=== PATIENT | male | born 1970 | race Caucasian/White ===

== ENCOUNTER 2018-01-03 22:39 | Emergency (ER) | payer BC ==
[~2018-01-03] VITALS: Ht 170.2 cm; Wt 86.2 kg
--- NOTE | 2018-01-04 07:36 | EKG ---
[facility] [address] [facility] [place] [address] Signed Normal sinus rhythm Incomplete right bundle branch block ST elevation, consider early repolarization, pericarditis, or injury Abnormal ECG No previous ECGs available Confirmed by JERED SANDERS MD ([id number]) on 01/04/2018 7:36:23 AM Electronically Signed By: JERED SANDERS MD 01/04/18 0736 PATIENT NAME: JORDANRODERICK Electrocardiogram DATE OF : 66 PHYSICIAN: JERED SANDERS MD REPORT #: [id number] REPORT IS CONFIDENTIAL AND NOT TO BE RELEASED WITHOUT AUTHORIZATION
== END 2018-01-03 23:24 | disposition short-term general hospital (02) ==
LOC: ED 22:39
DX: I21.09 ST elevation (STEMI) myocardial infarction involving other coronary artery of anterior wall (principal); Z88.0 Allergy status to penicillin
CPT/HCPCS: 71045; 80053; 84484; 85025; 93005; 93010; 96374; 96375; 99285; J1644; J2270

== ENCOUNTER 2019-09-02 17:17 | Emergency (ER) | payer BC ==
[~2019-09-02] VITALS: Ht 170.2 cm; Wt 86.2 kg
--- OUTSIDE RECORDS SUMMARY | ~2019-09-02 | XMS | Encounter Summary ---
Demographics + + + | Address | [address] | | | [place] [address] | + + + | Home Phone | | + + + | Preferred Language | Unknown | + + + | Marital Status | | + + + | Restorationism Affiliation | 1013 | + + + | Race | Unknown | + + + | Ethnic Group | Unknown | + + + Author + + + | Author | [facility] | | | and Randalana | + + + | Organization | [facility] | | | and Randalana | + + + | Address | Unknown | + + + | Phone | Unavailable | + + + Support + + +---------+ + | Name | Relationship | Address | Phone | + + +---------+ + | Margaret Vargas | ECON | Unknown | | + + +---------+ + | Julia Saranbay | ECON | Unknown | | + + +---------+ + | Julia Saranbay | ECON | Unknown | | + + +---------+ + Care Team Providers + +------+ + | Care Android Software Engineer Name | Role | Phone | + +------+ + | Mary Kraft | PCP | | | [place] | | | + +------+ + Reason for Visit + + + | Reason | Comments | + + + | Hospital Follow-up | | + + + Encounter Details +--------+ + + + + | Date | Type | Department | Care Team | Description | +--------+ + + + + | 01/10/ | Telephone | [facility] | Olivia Rodriguez, | Hospital Follow-up | | 2018 | | [facility] | PharmD [address] | | | | [address] [facility] | [facility] | | | | | [place] [address] | [place] [address] | | | | | [phone] | [phone] | | +--------+ + + + + Social History + +-------+ +--------+------+ | Tobacco Use | Types | Packs/Day | Years | Date | | | | | Used | | + +-------+ +--------+------+ | Never Assessed | | | | | + +-------+ +--------+------+ + + + | Sex Assigned at | Date Recorded | | | | + + + | Not on file | | + + + + + + + | Job Start Date | Occupation | Industry | + + + + | Not on file | Not on file | Not on file | + + + + + + + + | Travel History | Travel Start | Travel End | + + + + + + | No recent travel history available. | + + documented as of this encounter Functional Status + + + + | Functional Status | Response | Date of Assessment | + + + + | Are you deaf or do you have serious | No | 01/05/2018 | | difficulty hearing? | | | + + + + | Are you blind or do you have serious | No | 01/05/2018 | | difficulty seeing, even when wearing | | | | glasses? | | | + + + + | Do you have serious difficulty walking or | No | 01/05/2018 | | climbing stairs? (5 years old or older) | | | + + + + | Do you have difficulty dressing or bathing? | No | 01/05/2018 | | (5 years old or older) | | | + + + + | Because of a physical, mental, or emotional | No | 01/05/2018 | | condition, do you have difficulty doing | | | | errands alone such as visiting a doctor's | | | | office or shopping? [15 years old or | | | | older)] | | | + + + + + + + + | Cognitive Status | Response | Date of Assessment | + + + + | Because of a physical, mental, or emotional | No | 01/05/2018 | | condition, do you have serious difficulty | | | | concentrating, remembering, or making | | | | decisions? (5 years old or older) | | | + + + + documented as of this encounter Plan of Treatment Not on filedocumented as of this encounter Visit Diagnoses Not on filedocumented in this encounter"
--- OUTSIDE RECORDS SUMMARY | ~2019-09-02 | XMS | Encounter Summary ---
Demographics + + + | Address | [address] | | | [place] [address] | + + + | Home Phone | | + + + | Preferred Language | Unknown | + + + | Marital Status | | + + + | Religion Affiliation | 1013 | + + + | Race | Unknown | + + + | Ethnic Group | Unknown | + + + Author + + + | Author | [facility] | | | and Randalana | + + + | Organization | [facility] | | | and Randalana | + + + | Address | Unknown | + + + | Phone | Unavailable | + + + Support + + +---------+ + | Name | Relationship | Address | Phone | + + +---------+ + | Margaret Vargas | ECON | Unknown | | + + +---------+ + | Julia Sarantanisha | ECON | Unknown | | + + +---------+ + | Julia Sarantanishast | ECON | Unknown | | + + +---------+ + Care Team Providers + +------+ + | Care Registered Art Therapist Name | Role | Phone | + +------+ + PCP | Unavailable | + +------+ + Encounter Details +--------+ + + + + | Date | Type | Department | Care Team | Description | +--------+ + + + + | 08/16/ | Hospital | [facility] | Charisma Underwood | | | 2013 | Encounter | [facility] | [address] | | | | | [address] [place] | [facility], | | | | | [facility], [place] | [place] [address] | | | | | [address] | [phone] | | | | | [phone] | | | +--------+ + + + + [...]
--- OUTSIDE RECORDS SUMMARY | ~2019-09-02 | XMS | Encounter Summary ---
Demographics + + + | Address | [address] | | | [place] [address] | + + + | Home Phone | | + + + | Preferred Language | Unknown | + + + | Marital Status | | + + + | Cheondoism Affiliation | 1013 | + + + | Race | Unknown | + + + | Ethnic Group | Unknown | + + + Author + + + | Author | [facility] | | | and Randalana | + + + | Organization | [facility] | | | and Randalana | [...] Team Providers + +------+ + | Care Treasury Assistant Name | Role | Phone | + +------+ + PCP | Unavailable | + +------+ + Encounter Details +--------+ + + + + | Date | Type | Department | Care Team | Description | +--------+ + + + + | 10/22/ | Hospital | [facility] | Adrián English | | | 2009 | Encounter | [facility] X[facility] [address] | [address] | | | | | [address] [place] | [address] [place] | | | | | [place], [place] | [place] [address] | | | | | [address] | [phone] | | | | | [phone] | | | +--------+ + + + [...]
--- OUTSIDE RECORDS SUMMARY | ~2019-09-02 | XMS | Encounter Summary ---
Demographics + + + | Address | [address] | | | [place] [address] | + + + | Home Phone | | + + + | Preferred Language | Unknown | + + + | Marital Status | | + + + | Muslim Affiliation | 1013 | + + + | Race | Unknown | + + + | Ethnic Group | Unknown | + + + Author + + + | Author | [facility] | | | and Randalana | + + + | Organization | [facility] | | | and Randalana [...] Team Providers + +------+ + | Care Sagger Maker Name | Role | Phone | + +------+ + | Mary Kraft | PCP | | | [place] | | | + +------+ + Reason for Visit + + + | Reason | Comments | + + + | Hospital Follow-up | | + + + | Coronary Artery | | | Disease | | + + + Evaluate & Treat (Routine) +--------+--------+ + + + + | Status | Reason | Specialty | Diagnoses / | Referred By | Referred To | | | | | Procedures | Contact | Contact | +--------+--------+ + + + + | Closed | | Cardiology | Diagnoses | Nestor, | Peewee Baez | | | | | STEMI | Peewee Marinelli, | MD Yves | | | | | involving | [address] | | | | left | [address] | [address] [place] | | | | | anterior | [place], | [place], [place] | | | | | descending | [place] [address] | [address] Phone: | | | | | coronary | Phone: | [phone] | | | | | artery (HCC) | [phone] | Fax: | | | | | Acute | Fax: | [phone] | | | | | myocardial | [phone] | | | | | | infarction | | | | | | | of anterior | | | | | | | wall (HCC) | | | | | | | CAD, | | | | | | | multiple | | | | | | | vessel | | | | | | | Procedures | | | | | | | NEW TO | | | | | | | CLINIC, SEEN | | | | | | | BY [facility] | | | | | | | HOSP | | | +--------+--------+ + + + + Encounter Details +--------+---------+ + + + | Date | Type | Department | Care Team | Description | +--------+---------+ + + + | 02/08/ | Office | [facility] | Peewee Baez | Coronary artery | | 2018 | Visit | CARDIOLOGY [address] | MD [address] | disease involving | | | | [place], | [address] [place] | creek coronary | | | | [place] [address] | [place] [address] | artery of creek | | | | [phone] | [phone] | heart with angina | | | | | | pectoris (HCC) | | | | | | (Primary Dx); Status | | | | | | post insertion of | | | | | | drug-eluting stent | | | | | | into left anterior | | | | | | descending (LAD) | | | | | | artery for coronary | | | | | | artery disease | +--------+---------+ + + + Social History + +-------+ +--------+------+ | Tobacco Use | Types | Packs/Day | Years | Date | | | | | Used | | + +-------+ +--------+------+ | Never Smoker | | | | | + +-------+ +--------+------+ + +---+---+---+ | Smokeless Tobacco: | | | | | Never Used | | | | + +---+---+---+ + + + | Sex Assigned at [...] + + documented as of this encounter Last Filed Vital Signs + + + + + | Vital Sign | Reading | Time Taken | Comments | + + + + + | Blood Pressure | 118/82 | 02/08/2018 10:45 AM | | | | | PDT | | + + + + + | Pulse | 76 | 02/08/2018 10:45 AM | | | | | PDT | | + + + + + | Temperature | - | - | | + + + + + | Respiratory Rate | 16 | 02/08/2018 10:45 AM | | | | | PDT | | + + + + + | Oxygen Saturation | - | - | | + + + + + | Inhaled Oxygen | - | - | | | Concentration | | | | + + + + + | Weight | 88 kg (194 lb) | 02/08/2018 10:45 AM | | | | | PDT | | + + + + + | Height | 170.2 cm (5' 7") | 02/08/2018 10:45 AM | | | | | PDT | | + + + + + | Body Mass Index | 30.38 | 02/08/2018 10:45 AM | | | | | PDT | | + + + + + documented in this encounter Functional Status + + + [...] + + documented as of this encounter Progress Notes Peewee Baez MD - 02/08/2018 11:00 AM PDTDoing well post ME, stenting of LAD. He salcedo s a non-dominant right coronary with 75% stenoses and a left PDA with a 60% narrowing. No a ngina, SOA, palpitation. Active in cardiac rehab. 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 Exam was normal today; lungs clear, no M,r,g. Abd benign, No edema Imp: S/p anterior ME, stent to LAD CAD appropriate for medical management at this time. Plan: Stop carvedilol and start lisinopril in a month, when his Coreg bottle is empty. Return in 6 months. 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
--- OUTSIDE RECORDS SUMMARY | ~2019-09-02 | XMS | Encounter Summary ---
Demographics + + + | Address | [address] | | | [place] [address] | + + + | Home Phone | | + + + | Preferred Language | Unknown | + + + | Marital Status | | + + + | Buddhism Affiliation | 1013 | + + + | Race | Unknown | + + + | Ethnic Group | Unknown | + + + Author + + + | Author | [facility] | | | and Randalana | + + + | Organization | [facility] | | | and Randalana | + + + | Address | Unknown | + + + | Phone | Unavailable | + + + Support + + +---------+ + | Name | Relationship | Address | Phone | + + +---------+ + | Margaret Vargas | ECON | Unknown | | + + +---------+ + | Julia Vertanisha | ECON | Unknown | | + + +---------+ + | Julia Sarantanishast | ECON | Unknown | | + + +---------+ + Care Team Providers + +------+ + | Care Archives Specialist Name | Role | Phone | + +------+ + PCP | Unavailable | + +------+ + Encounter Details +--------+ + + + + | Date | Type | Department | Care Team | Description | +--------+ + + + + | 09/15/ | Hospital | [facility] | Michael Tuttle | | | 2008 | Encounter | HOSPITAL EMERGENCY | [address] | | | | | [address] | [place], | | | | | [address] [place], [place] | [place] [address] | | | | | [address] | [phone] | | | | | [phone] | | | +--------+ + + + [...]
--- OUTSIDE RECORDS SUMMARY | ~2019-09-02 | XMS | Encounter Summary ---
Demographics + + + | Address | [address] | | | [place] [address] | + + + | Home Phone | | + + + | Preferred Language | Unknown | + + + | Marital Status | | + + + | Rastafarian Affiliation | 1013 | + + + | Race | Unknown | + + + | Ethnic Group | Unknown | + + + Author + + + | Author | [facility] | | | and Randalana | + + + | Organization | [facility] | | | and Randalana [...] Team Providers + +------+ + | Care Green Chainer Name | Role | Phone | + +------+ + PCP | Unavailable | + +------+ + Encounter Details +--------+ + + + + | Date | Type | Department | Care Team | Description | +--------+ + + + + | 08/14/ | Hospital | [facility] | Charisma Underwood | | | 2012 | Encounter | [facility] | [address] | | | | | [facility] | [facility] [facility], | | | | | [facility], | [place] [address] | | | | | [place] [address] | [phone] | | | | | [phone] | | | +--------+ + + + [...]
--- OUTSIDE RECORDS SUMMARY | ~2019-09-02 | XMS | Encounter Summary ---
Demographics + + + | Address | [address] | | | [place] [address] | + + + | Home Phone | | + + + | Preferred Language | Unknown | + + + | Marital Status | | + + + | Yarsanism Affiliation | 1013 | + + + | Race | Unknown | + + + | Ethnic Group | Unknown | + + + Author + + + | Author | [facility] | | | and Randalana | + + + | Organization | [facility] | | | and Randalana [...] Team Providers + +------+ + | Care Hot Die Press Operator Name | Role | Phone | + +------+ + | Mary Kraft | PCP | | | PA | | | + +------+ + Reason for Visit + + + | Reason | Comments | + + + | Cardiac Rehab | | + + + Evaluate & Treat (Routine) +--------+ + + + + + | Status | Reason | Specialty | Diagnoses / | Referred By | Referred To | | | | | Procedures | Contact | Contact | +--------+ + + + + + | Closed | Specialty | Cardiac | Diagnoses | Nestor, | [facility] | | | Services | Rehabilitatio | STEMI | Peewee Marinelli, | | | | Required | n | involving | MD [address] | Rehabilitatio | | | | | left | [address] | [address] | | | | | anterior | [place], | [place] | | | | | descending | [place] [address] | [place] | | | | | coronary | Phone: | [phone] | | | | | artery (HCC) | [phone] | Phone: | | | | | | Fax: | [phone] | | | | | | [phone] | Fax: | | | | | | | [phone] | +--------+ + + + + + Encounter Details +--------+---------+ + + + | Date | Type | Department | Care Team | Description | +--------+---------+ + + + | 02/01/ | Office | [facility] | Peewee Baez | STEMI involving left | | 2018 | Visit | [facility] | MD Yves [address] | anterior descending | | | | REHABILIT[address] [place] | coronary artery | | | | [address] [place] | [place] [address] | ([facility]) (Primary Dx) | | | | [place] [address] | [phone] | | | | | [phone] | | | | | | | Betsy Martinez RN | | +--------+---------+ + + + Social History [...] documented as of this encounter Progress Notes Betsy Martinez RN - 02/01/2018 11:30 AM PDT [facility] [address] [facility] [address] Cardiac Rehab Evaluation Date: 02/01/2018 Patient Information Patient Name: Roby Goodman Date of : 1970 Age: 48 y.o. Referring Provider: Peewee Baez MD Encounter Diagnoses Code Name Primary? I21.02 STEMI involving left anterior descending coronary artery (HCC) Yes Cardiac Rehab Phase II Rahul atment Plan Roby Goodman (Casey) is a 48 year old patient of Dr. Baez who had chest pain on and was ruled in for STEMI. Troponin: 32. Dr. Baez stented his occluded LAD. His LVEF po st [place] is 50-55%. He is on light duty at work, walking daily at an easy pace. He denies any adverse symptoms and is feeling well. Fall Ri sk Assessment Fall Risk: 2 or more falls in the past year or concern for a fall?: No If yes, reason for fall risk: Assistive device: I nterventions Designate Fall Risk by placing a star on exercise folder Assess and encourage fall risk reduction behaviors Manage and monitor hypotension if applicable Optimize home safety Refer to PT if applicable Abuse Assessment Do you feel safe in your current relationship or home? Yes Have you been hit/hurt or threatened by someone close to you? No Possible clinical concerns noted by clinician? No Action taken: No concerns Exercise LVEF: 50-55% Risk stratification category: High Risk until after January 13 0, then low risk Initial exercise/activity assessment: Date: 02/01/18 Mode: Upright elliptical Duration: 4.5 min at 30 RPMs RPE: 3/10 30 Day exercise assessment: Date: Mode: Duration: RPE: /10 60 Day exercise assessment: Date: Mode: Duration: RPE: /10 Discharge exercise assessment: Date: Mode: Duration: RPE: /10 Sessio n Prescription Modes: Recumbent elliptical, Upright elliptical, Ergometer Frequency: 3 X week Duration: 10 minutes Progression: Increase duration and/or intensity to maintain THR and/or RPE 3-4/10 THR: Rest +30 bpm Resistance training: Yes Precautions: High risk cardiac until February 09- post GA precautions. Home E xercise Modes: Walk Frequency: 5 X week Duration: 30 minutes Progression: Increase duration and/or intensity of exercise to maintain at least 30 min of cardio exercise, 5 days per week and RPE 3-4/10 with warm up and cool down. Interventio ns and Education Initial orientation to cardiac rehab as listed below, Completed Date: 01/12 10/31 - Equipment orientation -Warm up and cool down -Rating of Perceived Exertion- Modified Meme Scale -Exercise Safety -Signs and Symptoms to report -Individualized exercise prescription Education: Benefits of exercise, Health consequences of inactivity, Exercise goal of 30 min utes aerobic most days of the week, Importance of hydration, Target heart rate, Determining pulse, effects of beta-blockers on heart rate and dehydrating effects of diuretics if applic able. Realistic goal setting. Plan at discharge. Comprehension assessment: Through conversation they appear to have good comprehension. Sofie: Living Well with Heart Disease book Date received: 02/01/18 Nik rget Goal(s) Aerobic- moderate intensity activity 30 to 60 minutes per day for at least 5 days per week Supplementing aerobic activity with an increase in daily lifestyle activities Resistance training at least two days per week COOP score: 10/40 Progression/Pro maritza toward Goals Date: 02/01/18 Notes: He is observing post GA precautions. Walking for 30 minute s each day at an easy pace. Nutr ition and Weight Assessment: Height: 5'7 " Admission Weight: 195# 30 Day We ight: BMI: 30.5 60 Day Weight: Discharge Weight: Weight Goal: Lose 1-2 pounds per week Waist Circumference: D/C Circum ference: Diet Assessment Initial Rate Your Plate Score: 58 Discharge Rate Your Plate Sco re: Special diet? Heart Healthy Alcohol? occ Inte rvention and Education Points listed below- Date Completed: 02/01/18 -Goals of BMI, Waist circumference - Encourage weight reduction and/or maintenance through physical activity/ structured exe rcise, caloric intake, and/ or behavioral management, goal setting -Heart Healthy Dietary Education Date: 02/01/18 -Referral to Blueprint Processor: Date: -DVD: Healthy Eating For Life Date: Target Goal(s) -Patient weight has maintained or improved toward BMI <25 -Waist circumference <35 inches for women < 40 inches for men -Diet low in saturated fats, simple carbs, high in fruits, vegetables and whole grains Progression/ Progress toward Goals Date: 02/01/18 Notes: He is eating a diet low in saturated fats, simple carbs a nd sugars, high in vegetables, fruits, lean meats, nuts and fish. Hypertension History of hypertension: yes Treatment: On medication Initial Resting BP: 128/78 Peak Exercise BP: 138/80 30 Day Resting BP: 30 Day Exercise BP: 60 Day Resting BP: 60 Day Exercise BP: Discharge BP: Discharge Exercise BP: Inte rventions and Education Points listed below- Date Completed: 02/01/18 -Understanding blood pressure and goal blood pressure -BP medictions - Lifestyle modifications: weight control, increased physical activity, alcohol moderation, sodium reduction, emphasis on increased fruit, vegetable and low fat dairy consumption Individual cardiac risk factors reviewed Progress toward Goals: Date: Target Goal Blood pressure Goal: <130/80 Progression /Progress toward Goals Date: 02/01/18 Notes: Losing weight, limiting sodium and exercising daily. Dyslipidemia History of Dyslipidemia: Yes Treatment: On medication Most recent lipid panel: CHOL 190 TRIG 164 HDL 35 LDL 122 Interven tions and Education Points listed below- Date Completed: 02/01/18 -Advocate for cholesterol medication if appropriate -Encourage lifestyle changes including regular lipid monitoring to achieve goals, include education on the importance of physical activity and weight management, dietary reduction o f saturated fats(<7% of total calories,) trans fats (<1% of total calories,) and cholesterol (<200mg/day.) How to raise HDL through exercise and diet. Target Goal Total 170 LDL 70 HDL >40 Triglycerides <130 Progression/P rogress toward Goals Date: 02/01/18 Notes: Losing weight, limiting saturated fats and exercising yo aily. Kandace orona Mellitus History of diabetes: No Treatment: Last hemoglobin A1C: Value: Date: Interventions -Evaluate blood sugar pre- and post- exercise until stable. Date: Range: -Referral to Static Balancer Date: Education Points listed below- Date Completed: -Signs and symptoms of hypoglycemia -Impact of diabetes on cardiovascular risk, including understanding the importance of lifes tyle modifications, including physical activity, weight management, blood pressure control a nd lipid management Date completed: Diabetic diet instruction Date completed: Target Goals -Stable pre and post exercise glucoscans -HgbA1C: <7% Progression/ Progress toward Goals Date: Notes: Tobacco Use Active tobacco user: No Type of tobacco: None Current amount: n/a Stage of change: Willing to set Quit Da te: n/a Barriers/Challenges: Inter vention and Education Points listed below- Date Completed: -Assist patient to set a quit date and provide encouragement -Educate on benefits of complete cessation, tobacco triggers, tips for success, relapse pre vention, no smoking >90 minutes before exercise Target Goal Complete smoking cessation Progression/P rogress toward Goals Date: Notes: Psychosocial Depression: No Initial PHQ-9: 0 30 Day PHQ-9: 90 Day PHQ-9 Discharge PHQ-9: Support systems: , family and coworkers Notes: Inter vention and Education Points listed below- Date Completed: -Assess presence or absence of depression using a validated screening tool on admission and every 30 days or prn if depression positive on admission or if set backs or changes in affe ct -Educate Stress management techniques, Deep breathing, progressive relaxation, encourage re gular execise -Educate and medical management -Notify PCP of depression symptoms or high PHQ-9 score. Date: Target Goal Mood improvement as indicated by broadened affect, increased interaction, reassesses with i mproved PHQ-9, Maximized coping skills, utilizing support system Progression/Progress to aponte Goals Date: Notes: Patients stated Goals for Cardiac Rehab: To regain confidence in exercising post heart thomas ck. Electronically signed by: Betsy Martinez RN, 02/01/2018 12:34 Patient Name: Roby Goodman/: 1970/ y signed by Mariah Rosado MD at 02/01/2018 1:00 PM PDTdocumented in this encounter Plan of Treatment + + +--------+ + + | Name | Type | Priori | Associated Diagnoses | Order Schedule | | | | ty | | | + + +--------+ + + | * [facility] | Outpatient | Routin | STEMI involving | Ordered: 01/05/2018 | | - AMB Referral | Referral | e | left anterior | | | | | | descending coronary | | | | | | artery (HCC) | | + + +--------+ + + documented as of this encounter Visit Diagnoses + + | Diagnosis | + + | STEMI involving left anterior descending coronary artery (HCC) - Primary | + + documented in this encounter
--- OUTSIDE RECORDS SUMMARY | ~2019-09-02 | XMS | Clinical Summary ---
Demographics + + + | Address | [address] | | | [place] [address] | + + + | Home Phone | | + + + | Preferred Language | Unknown | + + + | Marital Status | | + + + | Taoist Affiliation | 1013 | + + + | Race | Unknown | + + + | Ethnic Group | Unknown | + + + Author + + + | Author | [facility] | | | and Randalana | + + + | Organization | [facility] | | | and Randalana | [...] Team Providers + +------+ + | Care Residential Construction Instructor Name | Role | Phone | + +------+ + | Mary Kraft | PCP | | | PA | | | + +------+ + Allergies + + + + + + | Active Allergy | Reactions | Severity | Noted | Comments | | | | | Date | | + + + + + + | Penicillins | | | 01/05/20 | SLIGHT REACTION | | | | | 18 | | + + + + + + Medications + + + +---------+------+------+-------+ | Medication | Sig | Dispensed | Refills | Star | End | Statu | | | | | | t | Date | s | | | | | | Date | | | + + + +---------+------+------+-------+ | aspirin 81 mg | Take 1 tablet by | 30 | 0 | 2 | | Activ | | chewable | mouth Daily. | tablet | | 03/02 | | e | | tabletIndications: | | | | 18 | | | | Coronary artery | | | | | | | | disease involving | | | | | | | | chilkoot coronary | | | | | | | | artery of chilkoot | | | | | | | | heart with angina | | | | | | | | pectoris ([facility]) | | | | | | | + + + +---------+------+------+-------+ | nitroglycerin | Place 1 tablet under | 25 | 5 | 04/2 | | Activ | | (NITROSTAT) 0.4 mg | the tongue every 5 | tablet | | 5/20 | | e | | SL | minutes as needed | | | 18 | | | | tabletIndications: | for Chest pain. | | | | | | | Coronary artery | | | | | | | | disease involving | | | | | | | | chilkoot coronary | | | | | | | | artery of chilkoot | | | | | | | | heart with angina | | | | | | | | pectoris ([facility]) | | | | | | | + + + +---------+------+------+-------+ | acetaminophen | Take 500 mg by mouth | | 0 | | | Activ | | (TYLENOL) 500 mg | every 6 hours as | | | | | e | | tablet | needed for Pain or | | | | | | | | Headaches. | | | | | | + + + +---------+------+------+-------+ | atorvaSTATin | Take 1 tablet by | 90 | 3 | 05/0 | | Activ | | (LIPITOR) 80 MG | mouth nightly. | tablet | | /20 | | e | | tabletIndications: | | | | 19 | | | | Coronary artery | | | | | | | | disease involving | | | | | | | | chilkoot coronary | | | | | | | | artery of chilkoot | | | | | | | | heart with angina | | | | | | | | pectoris (HCC) | | | | | | | + + + +---------+------+------+-------+ | metoprolol | Take 1 tablet by | 180 | 3 | 12/0 | | Activ | | tartrate (LOPRESSOR) | mouth 2 times daily. | tablet | | 5/20 | | e | | 25 mg tablet | | | | 19 | | | + + + +---------+------+------+-------+ | clopidogrel | Take 1 tablet by | 90 | 3 | 12/0 | 12/0 | Activ | | (PLAVIX) 75 mg | mouth Daily. | tablet | | 5/20 | 4/20 | e | | tablet | | | | 19 | 20 | | + + + +---------+------+------+-------+ | metoprolol | Take 1 tablet by | 180 | 3 | 11/2 | 12/0 | Disco | | tartrate (LOPRESSOR) | mouth 2 times daily. | tablet | | 7/20 | 5/20 | ntinu | | 25 mg tablet | | | | 18 | 19 | ed | | | | | | | | (Reor | | | | | | | | noe) | + + + +---------+------+------+-------+ | clopidogrel | Take 1 tablet by | 90 | 3 | 11/2 | 12/0 | Disco | | (PLAVIX) 75 mg | mouth Daily. | tablet | | 7/20 | 5/20 | ntinu | | tablet | | | | 18 | 19 | ed | | | | | | | | (Reor | | | | | | | | noe) | + + + +---------+------+------+-------+ Active Problems + + + | Problem | Noted Date | + + + | Status post coronary artery bypass with four autogenous grafts | 08/01/2019 | + + + | Atherosclerosis of chilkoot coronary artery | 07/08/2018 | + + + | Hyperlipidemia | 07/08/2018 | + + + | Chest pain | 07/08/2018 | + + + | Benign essential hypertension | 07/08/2018 | + + + | Unstable angina | 07/07/2018 | + + + + + | Overview: Cath with new lmca lesion. | | No isr of lad stent. | | High grade non dominant rca lesion | | Normal olivia | | Normal lv | + + + + + | STEMI involving left anterior descending coronary artery | 01/04/2018 | + + + | Coronary artery disease involving chilkoot coronary artery of | 01/04/2018 | | chilkoot heart with angina pectoris | | + + + | Status post insertion of drug-eluting stent into left anterior | 01/04/2018 | | descending (LAD) artery for coronary artery disease | | + + + | Nephrolithiasis | 04/18/2012 | + + + | Hyperlipidemia | 04/18/2012 | + + + | Sciatica | 10/09/2010 | + + + | Lumbago | 10/09/2010 | + + + | Ulcerative colitis | 06/26/2008 | + + + Encounters +--------+ + + + + | Date | Type | Specialty | Care Team | Description | +--------+ + + + + | 08/17/ | Orders Only | Cardiology | Montse Pinedo, | | | 2019 | | | RN | | +--------+ + + + + | 08/01/ | Office | Cardiology | Peewee Baez | Coronary artery | | 2019 | Visit | | MD Yves | disease involving | | | | | | chilkoot coronary | | | | | | artery of chilkoot | | | | | | heart with angina | | | | | | pectoris (HCC) | | | | | | (Primary Dx); | | | | | | Atherosclerosis of | | | | | | chilkoot coronary | | | | | | artery of chilkoot | | | | | | heart without angina | | | | | | pectoris; Status | | | | | | post insertion of | | | | | | drug-eluting stent | | | | | | into left anterior | | | | | | descending (LAD) | | | | | | artery for coronary | | | | | | artery disease; | | | | | | Status post coronary | | | | | | artery bypass with | | | | | | four autogenous | | | | | | grafts | +--------+ + + + + from Last 3 Months Immunizations + + + + | Name | Administration Dates | Next Due | + + + + | INFLUENZA PF | 07/07/2018 | | | QUAD(PED/ADOL/ADULT) | | | | ,PSKT or VIAL | | | + + + + | PNEUMOCOCCAL | 07/09/2018 | | | POLYSACCHARIDE | | | | 23-VALENT (PPSV23) | | | + + + + Family History + + +------+ + | Medical History | Relation | Name | Comments | + + +------+ + | No known problems | Father | | | + + +------+ + | No known problems | Mother | | | + + +------+ + + +------+--------+ + | Relation | Name | Status | Comments | + +------+--------+ + | Father | | | | + +------+--------+ + | Mother | | | | + +------+--------+ + Social History + +-------+ +--------+------+ | [...] recent travel history available. | + + Last Filed Vital Signs + + + + + | Vital Sign | Reading | Time Taken | Comments | + + + + + | Blood Pressure | 102/70 | 08/01/2019 7:48 AM | | | | | PST | | + + + + + | Pulse | 68 | 08/01/2019 7:48 AM | | | | | PST | | + + + + + | Temperature | 36.8 C (98.3 F) | 07/28/2018 10:55 AM | | | | | PST | | + + + + + | Respiratory Rate | 16 | 08/01/2019 7:48 AM | | | | | PST | | + + + + + | Oxygen Saturation | 98% | 07/08/2018 7:46 AM | | | | | PDT | | + + + + + | Inhaled Oxygen | - | - | | | Concentration | | | | + + + + + | Weight | 89 kg (196 lb 3.4 | 08/01/2019 7:48 AM | | | | oz) | PST | | + + + + + | Height | 170.2 cm (5' 7") | 08/01/2019 7:48 AM | | | | | PST | | + + + + + | Body Mass Index | 30.73 | 08/01/2019 7:48 AM | | | | | PST | | + + + + + Plan of Treatment + + + + + | Health Maintenance | Due Date | Last Done | Comments | + + + + + | Vaccine: | | | | | Dtap/Tdap/Td (1 - | 7 | | | | Tdap) | | | | + + + + + | Colorectal Cancer | | | | | Screening | 8 | | | | (Colonoscopy) | | | | + + + + + | Vaccine: Zoster (1 | | | | | of 2) | 8 | | | + + + + + | Vaccine: Influenza | | 07/09/2018, 07/08/2018, | | | (#1) | 9 | 07/07/2018, Additional history | | | | | exists | | + + + + + | Vaccine: | Completed | 07/09/2018 | | | Pneumococcal 19-64 | | | | + + + + + Implants + +-------+--------+ +--------+--------+--------+ | Implanted | Type | Area | Manufacture | Device | Shelf | Model | | | | | r | | Expira | / | | | | | | Identi | tion | Serial | | | | | | fier | Date | / Lot | + +-------+--------+ +--------+--------+--------+ | [place] Xience Stent System | Stent | N/A: | DAVIS | | 09/23/ | [id number] | | Implanted: Qty: 1 on | | Matt | DIAGNOSTICS | | 2019 | 0-33 / | | 01/03/2018 by Peewee Baez | | kristopher | - CADY | | | | | MD Yves at [facility] | | | | | | /[id number] | | [facility] | | | | | | 39 | + +-------+--------+ +--------+--------+--------+ | [employer] Xience Stent System | Stent | N/A: | DAVIS | | 06/17/ | [id number] | | Implanted: Qty: 1 on | | Matt | DIAGNOSTICS | | 2019 | 0-08 / | | 01/03/2018 by Peewee Baez | | kristopher | - CADY | | | | | MD Yves at [facility] | | | | | | /[id number] | | [facility] | | | | | | 59 | + +-------+--------+ +--------+--------+--------+ Results Not on filefrom Last 3 Months Insurance +-------+--------+ +--------+-------+---------+------+ | Payer | Benefi | Subscriber | Effect | Phone | Address | Type | | | t Plan | ID | leon | | | | | | / | | Dates | | | | | | Group | | | | | | +-------+--------+ +--------+-------+---------+------+ | BCBS | BCBS | [id number] | 03/13/20 | | | PPO | | | OOS | 0 | 19-Pre | | | | | | PPO | | sent | | | | +-------+--------+ +--------+-------+---------+------+ + +--------+ +--------+ + + | Guarantor Name | Accoun | Relation to | Date | Phone | Billing Address | | | t Type | Patient | of | | | | | | | | | | + +--------+ +--------+ + + | Roby Goodman | Person | Self | [birth year] | [address] | | | al/Fam | | 1970 | [phone] | [place] [address] | | | anup | | | 5 (Home) | | + +--------+ +--------+ + + Advance Directives + + + + + | Type | Date Recorded | Patient | Explanation | | | | Tug Boat Captain | | + + + + + | Power of | | | | | Kindergartner | | | | + + + + + | Advance | 01/04/2018 1:23 | | | | Directive | AM | | | + + + + + + + + + + | Code Status | Date | Date | Comments | | | Activated | Inactivated | | + + + + + | Full Code | 07/08/2018 | 07/08/2018 | | | | 8:39 AM | 11:41 AM | | + + + + + + + + +---+ | | | | | + + + +---+ | Full Code | 07/07/2018 | 07/07/2018 | | | | 10:32 AM | 1:53 PM | | + + + +---+ + + + +---+ | | | | | + + + +---+ | Full Code | 01/05/2018 | 01/05/2018 | | | | 10:51 AM | 2:30 PM | | + + + +---+
--- OUTSIDE RECORDS SUMMARY | ~2019-09-02 | XMS | Encounter Summary ---
Demographics + + + | Address | [address] | | | [place] [address] | + + + | Home Phone | | + + + | Preferred Language | Unknown | + + + | Marital Status | | + + + | Pentecostal Affiliation | 1013 | + + + | Race | Unknown | + + + | Ethnic Group | Unknown | + + + Author + + + | Author | [facility] | | | and Randalana | + + + | Organization | [facility] | | | and Randalana [...] Team Providers + +------+ + | Care Cd Reactor Operator Name | Role | Phone | + +------+ + PCP | Unavailable | + +------+ + Encounter Details +--------+ + + + + | Date | Type | Department | Care Team | Description | +--------+ + + + + | 08/16/ | Hospital | [facility] | [place] | | | 2013 | Encounter | [facility] | [address] | | | | | [facility] [address] | [address] | | | | | [facility] [facility], | [facility], [place] | | | | | [place] [address] | [address] | | | | | [phone] | [phone] | | | | | | | | +--------+ + + + [...]
--- OUTSIDE RECORDS SUMMARY | ~2019-09-02 | XMS | Encounter Summary ---
Demographics + + + | Address | [address] | | | [place] [address] | + + + | Home Phone | | + + + | Preferred Language | Unknown | + + + | Marital Status | | + + + | Scientology Affiliation | 1013 | + + + | Race | Unknown | + + + | Ethnic Group | Unknown | + + + Author + + + | Author | [facility] | | | and Randalana | + + + | Organization | [facility] | | | and Randalana | + + + | Address | Unknown | + + + | Phone | Unavailable | + + + Support + + +---------+ + | Name | Relationship | Address | Phone | + + +---------+ + | Margaret Vargas | ECON | Unknown | | + + +---------+ + | Julia Goodman | ECON | Unknown | | + + +---------+ + | Julia Saranbay | ECON | Unknown | | + + +---------+ + Care Team Providers + +------+ + | Care Commercial Loan Collection Officer Name | Role | Phone | + +------+ + | Mary Kraft | PCP | | | [place] | | | + +------+ + Reason for Visit +--------+ + | Reason | Comments | +--------+ + | Other | work release | +--------+ + Encounter Details +--------+ + + + + | Date | Type | Department | Care Team | Description | +--------+ + + + + | 03/02/ | Telephone | [facility] | Peewee Baez | Other (work release) | | 2017 | | [facility] [address] | MD Yves [address] | | | | | [place], | [address] [place] | | | | | [place] [address] | [place] [address] | | | | | [phone] | [phone] | | | | | | | [...] as of this encounter Plan of Treatment + +------+--------+ + + | Name | Type | Priori | Associated Diagnoses | Order Schedule | | | | ty | | | + +------+--------+ + + | Stress ECG | ECG | Routin | Coronary artery | Expected: 03/04/2018 | | | | e | disease involving | (Approximate), | | | | | [place] coronary | Expires: 03/04/2019 | | | | | artery of [place] | | | | | | heart with angina | | | | | | pectoris (HCC) | | | | | | STEMI involving left | | | | | | anterior descending | | | | | | coronary artery | | | | | | (HCC) | | + +------+--------+ + + documented as of this encounter Visit Diagnoses + + | Diagnosis | + + | Coronary artery disease involving [place] coronary artery of [place] heart with angina | | pectoris (HCC) - Primary | + + | STEMI involving left anterior descending coronary artery (HCC) | + + documented in this encounter"
--- OUTSIDE RECORDS SUMMARY | ~2019-09-02 | XMS | Encounter Summary ---
Demographics + + + | Address | [address] | | | [place] [address] | + + + | Home Phone | | + + + | Preferred Language | Unknown | + + + | Marital Status | | + + + | Pentecostal Affiliation | 1013 | + + + | Race | Unknown | + + + | Ethnic Group | Unknown | + + + Author + + + | Author | [facility] | | | and Randalana | + + + | Organization | [facility] | | | and Randalana [...] Team Providers + +------+ + | Care Clinic Supervisor Name | Role | Phone | + +------+ + PCP | Unavailable | + +------+ + Encounter Details +--------+ + + + + | Date | Type | Department | Care Team | Description | +--------+ + + + + | 10/03/ | Hospital | [facility] | Craig Sampson | | | 2008 | Encounter | HOSPITAL EMERGENCY | [address] | | | | | C[address] | [address] | | | | | [address] [place], [place] | [place] [address] | | | | | [address] | [phone] | | | | | [phone] | | | +--------+ + + + [...]
--- OUTSIDE RECORDS SUMMARY | ~2019-09-02 | XMS | Encounter Summary ---
Demographics + + + | Address | [address] | | | [place] [address] | + + + | Home Phone | | + + + | Preferred Language | Unknown | + + + | Marital Status | | + + + | Lutheran Affiliation | 1013 | + + + | Race | Unknown | + + + | Ethnic Group | Unknown | + + + Author + + + | Author | [facility] | | | and Randalana | + + + | Organization | [facility] | | | and [...] Team Providers + +------+ + | Care Caramel Cutter Hand Name | Role | Phone | + [...] | | anterior | [place], | [place] | | | | | descending | [place] [address] | [place], [place] | | | | | coronary | Phone: | [address] | | | | | artery (HCC) | [phone] | Phone: | | | | | | Fax: | [phone] | | | | | | [phone] | Fax: | | | | | | | [phone] | +--------+ + + + + + [...] coronary artery | | | | [address] [place] | [place] [address] | ([facility]) (Primary Dx) | | | | [place] [address] | [phone] | | | | | [phone] | | | | | | | [...] Martinez RN - 02/01/2018 11:30 AM PDT MERGED WITH [facility] [address] [facility] [address] Cardiac Rehab Evaluation Date: 02/01/2018 Patient Information [...] his occluded LAD. His LVEF po st [place] is 50-55%. He is on light duty [...] High risk cardiac until February 09- post [place] precautions. Home E xercise Modes: Walk Frequency: [...] Date: 02/01/18 Notes: He is observing post [place] precautions. Walking for 30 minute s each [...] Healthy Dietary Education Date: 02/01/18 -Referral to Gyro Mechanic: Date: -DVD: Healthy Eating For Life Date: [...] exercise until stable. Date: Range: -Referral to Material Carrier Date: Education Points listed below- Date Completed: [...]
--- OUTSIDE RECORDS SUMMARY | ~2019-09-02 | XMS | Encounter Summary ---
Demographics + + + | Address | [address] | | | [place] [address] | + + + | Home Phone | | + + + | Preferred Language | Unknown | + + + | Marital Status | | + + + | Taoism Affiliation | 1013 | + + + | Race | Unknown | + + + | Ethnic Group | Unknown | + + + Author + + + | Author | [facility] | | | and Randalana | + + + | Organization | [facility] | | | and Randalana [...] Team Providers + +------+ + | Care Management Rep Name | Role | Phone | + +------+ + | Mary Kraft | PCP | | | PA | | | + +------+ + Reason for Visit +--------+ + | Reason | Comments | +--------+ + | Other | plan of care | +--------+ + Encounter Details +--------+ + + + + | Date | Type | Department | Care Team | Description | +--------+ + + + + | 01/11/ | Telephone | [facility] | Peewee Baez | Other (plan of care) | | 2018 | | CARDIOLOGY [address] | [address] | | | | | [place], | [address] [place] | | | | | [place] [address] | [place] [address] | | | | | [phone] | [phone] | | | | | | | [...]
--- OUTSIDE RECORDS SUMMARY | ~2019-09-02 | XMS | Encounter Summary ---
Demographics + + + | Address | [address] | | | [place] [address] | + + + | Home Phone | | + + + | Preferred Language | Unknown | + + + | Marital Status | | + + + | Orthodoxy Affiliation | 1013 | + + + | Race | Unknown | + + + | Ethnic Group | Unknown | + + + Author + + + | Author | [facility] | | | and Randalana | + + + | Organization | [facility] | | | and Randalana | [...] Team Providers + +------+ + | Care Transfer Driver Name | Role | Phone | + +------+ + | Mary Kraft | PCP | | | PA | | | + +------+ + Reason for Visit + + + | Reason | Comments | + + + | Hospital Follow-up | | + + + Encounter Details +--------+---------+ + + + | Date | Type | Department | Care Team | Description | +--------+---------+ + + + | 08/09/ | Office | [facility] | Paolo Lopez MD | Coronary artery | | 2018 | Visit | CARDIOLOGY [address] | [address] | disease involving | | | | [place], | [place], [place] | [place] coronary | | | | [place] [address] | [address] | artery of [place] | | | | [phone] | | heart with angina | | | | | | pectoris (HCC) | | | | | | (Primary Dx) | +--------+---------+ + + + Social History [...] + + + | Blood Pressure | 106/74 | 08/09/2018 8:39 AM | | | | | PST | | + + + + + | Pulse | 64 | 08/09/2018 8:39 AM | | | | | PST | | + + + + + | Temperature | - | - | | + + + + + | Respiratory Rate | 14 | 08/09/2018 8:39 AM | | | | | PST | | + + + + + | Oxygen Saturation | - | - | | + + + + + | Inhaled Oxygen | - | - | | | Concentration | | | | + + + + + | Weight | 84 kg (185 lb 3 oz) | 08/09/2018 8:39 AM | | | | | PST | | + + + + + | Height | 170.2 cm (5' 7") | 08/09/2018 8:39 AM | | | | | PST | | + + + + + | Body Mass Index | 29 | 08/09/2018 8:39 AM | | | | | PST [...] documented as of this encounter Progress Notes Paolo Lopez MD - 08/09/2018 9:15 AM PST PATIENT NAME: Roby Goodman : 1970: AGE: 48 y.o. PRIMARY CARE: [facility] CORONARY DISEASE FOLLOW UP VISIT Date of Service: 08/09/18 PROBLEMS ADDRESSED AT THIS VISIT: Visit post CABG and discussion regarding return to work HISTORY OF PRESENT ILLNESS: Roby Goodman is a 48 y.o. male who was last seen at [facility] at which michelle e he presented with chest pain since found to have distal left main coronary arteries diseas e.. Since then, he underwent heart catheterization and was transferred to [facility] for benjamin ry bypass surgery. He was therefore 9 days, 6 were eating for the antiplatelet agents to re solve. Patient underwent 4 vessel CABG. ESTRADA to LAD. Vein graft to obtuse marginal 2. Cannot remember where the fourth graft when 2. There was occluded diagonal which was visualized vi a collaterals but was not bypassable. Records reviewed from [facility] for hospitalization,including H&P, Discharge Summary and lab reports . MEDICAL, SURGICAL, AND PERSONAL HISTORY Past Medical, Surgical, Family, and Social History are reviewed in EPIC. Patient Active Problem List Diagnosis STEMI involving left anterior descending coronary artery Coronary artery disease involving [place] coronary artery of [place] heart with angina pe ctoris Status post insertion of drug-eluting stent into left anterior descending (LAD) artery for coronary artery disease Unstable angina CURRENT MEDICATIONS Current Outpatient Prescriptions Medication Sig Dispense Refill acetaminophen (TYLENOL) 500 mg tablet Take 500 mg by mouth every 6 hours as needed for Pain or Headaches. aspirin 81 mg chewable tablet Take 1 tablet by mouth Daily. 30 tablet atorvaSTATin (LIPITOR) 80 MG tablet Take 1 tablet by mouth nightly. 30 tablet 11 clopidogrel (PLAVIX) 75 mg tablet Take 1 tablet by mouth Daily. 90 tablet 3 HYDROcodone-acetaminophen (NORCO) 5-325 mg per tablet 0 metoprolol tartrate (LOPRESSOR) 25 mg tablet Take 1 tablet by mouth 2 times daily. 180 tablet 3 nitroglycerin (NITROSTAT) 0.[address] 1 tablet under the tongue every 5 radha perfecto as needed for Chest pain. 25 tablet 5 No current facility-administered medications for this visit. ALLERGIES Allergies Allergen Reactions Penicillins SLIGHT REACTION ROS Pertinent changes since last note: None OBJECTIVE: PHYSICAL EXAM BP 106/74 | Pulse 64 | Resp 14 | Ht 1.702 m (5' 7") | Wt 84 kg (185 lb 3 oz) | BMI 29. 00 kg/m General: Appears normal HEENT: Neck veins flat Chest: Sternum intact chest is clear CV: Heart sounds without gallops Abd: Soft Ext: Vein harvest sites clean ASSESSMENT: Patient appears well and recovering from his CABG. We discussed his medications and the ne ed to continue aspirin and Plavix for one years time. He is to follow-up with his primary c are doctor to further follow-up on his lipid status. Would discuss cardiac rehab but he is walking and exercising regularly with his and I do see no benefit at this time. PLAN: Patient to return to work September 19 with 1 month of modified work with no lifting. On , patient can return to work at full capacity. Patient to return to clinic in one years time follow-up with myself Electronically signed by: Paolo Lopez MD [facility] 08/09/2018 Portions of this chart may have been created with [employer] voice recognition software. Occasi onal wrong-word or sound-alike substitutions may have occurred due to the inherent corbin itations of voice recognition software. Please read the chart carefully and recognize, using context, where these substitutions have occurred. 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
--- OUTSIDE RECORDS SUMMARY | ~2019-09-02 | XMS | Encounter Summary ---
Demographics + + + | Address | [address] | | | [place] [address] | + + + | Home Phone | | + + + | Preferred Language | Unknown | + + + | Marital Status | | + + + | Scientologist Affiliation | 1013 | + + + | Race | Unknown | + + + | Ethnic Group | Unknown | + + + Author + + + | Author | [facility] | | | and Randalana | + + + | Organization | [facility] | | | and [...] Team Providers + +------+ + | Care Customer Service Advocate Name | Role | Phone | + +------+ + PCP | Unavailable | + +------+ + Encounter Details +--------+ + + + + | Date | Type | Department | Care Team | Description | +--------+ + + + + | 12/08/ | Hospital | [facility] | Charisma Underwood | | | 2013 | Encounter | HOSPITAL LABORATORY | [address] | | | | | [address] [place] | [address] [facility], | | | | | [facility], [place] | [place] [address] | | | | | [address] | [phone] | | | | | [phone] | | | +--------+ + + + [...] Not on filedocumented as of this encounter Procedures + +--------+ + + + | Procedure Name | Priori | Date/Time | Associated Diagnosis | Comments | | | ty | | | | + +--------+ + + + | CBC W/AUTO | Routin | 12/08/2013 | | Results for this | | DIFFERENTIAL | e | 7:54 AM | | procedure are in the | | | | PDT | | results section. | + +--------+ + + + | SEDIMENTATION RATE | Routin | 12/08/2013 | | Results for this | | | e | 7:54 AM | | procedure are in the | | | | PDT | | results section. | + +--------+ + + + documented in this encounter Results Sedimentation Rate (12/08/2013 7:54 AM PDT) + +-------+ + + + | Component | Value | Ref Range | Performed | Pathologist | | | | | At | Signature | + +-------+ + + + | ESR | 3 | <=15 mm/h | EXTERNAL | | | | | | LAB | | + +-------+ + + + + + | Specimen | + + | | + + + +---------+ + + | Performing | Address | City/State/Zipcode | Phone Number | | Organization | | | | + +---------+ + + | EXTERNAL LAB | | | | + +---------+ + + CBC w/ Auto Differential (12/08/2013 7:54 AM PDT) + +-------+ + + + | Component | Value | Ref Range | Performed | Pathologist | | | | | At | Signature | + +-------+ + + + | WBC | 11.9 | 4.6 - 10.5 | EXTERNAL | | | | | 1000/mm3 | LAB | | + +-------+ + + + | RBC | 5.25 | 4.36 - 5.83 | EXTERNAL | | | | | mil/mm3 | LAB | | + +-------+ + + + | HGB, | 15.7 | 13.1 - 17.4 | EXTERNAL | | | External | | g/dL | LAB | | + +-------+ + + + | HCT, | 46.7 | 39.0 - 51.9 % | EXTERNAL | | | External | | | LAB | | + +-------+ + + + | MCV | 89 | 82 - 96 fl | EXTERNAL | | | | | | LAB | | + +-------+ + + + | MCH | 29.9 | 27.7 - 32.3 pg | EXTERNAL | | | | | | LAB | | + +-------+ + + + | MCHC | 33.6 | 32.0 - 36.9 | EXTERNAL | | | | | g/dL | LAB | | + +-------+ + + + | RDW-CV | 12.9 | <=17.0 % | EXTERNAL | | | | | | LAB | | + +-------+ + + + | Platelet | 277 | 150 - 450 | EXTERNAL | | | Count | | 1000/mm3 | LAB | | | Plasma | | | | | + +-------+ + + + | MPV | 9.8 | 9.4 - 12.4 FL | EXTERNAL | | | | | | LAB | | + +-------+ + + + | % Segmented | 75.2 | 42.0 - 76.0 % | EXTERNAL | | | | | | LAB | | | Neutrophils | | | | | + +-------+ + + + | LYMPH % | 13.5 | 29.0 - 49.0 % | EXTERNAL | | | | | | LAB | | + +-------+ + + + | % Monocytes | 11.3 | <=12.0 % | EXTERNAL | | | | | | LAB | | + +-------+ + + + | Absolute | 9 | 2.80 - 7.70 | EXTERNAL | | | Neutrophils | | 1000/mm3 | LAB | | + +-------+ + + + | Absolute | 1.6 | 1.20 - 3.30 | EXTERNAL | | | Lymphocytes | | 1000/mm3 | LAB | | + +-------+ + + + | Absolute | 1.3 | <=1.26 1000/mm3 | EXTERNAL | | | Monocytes | | | LAB | | + +-------+ + + + | SLIDE | NO | | EXTERNAL | | | REVIEW | | | LAB | | + +-------+ + + + + + | Specimen | + + | | + + + +---------+ + + | Performing | Address | City/State/Zipcode | Phone Number | | Organization | | | | + +---------+ + + | EXTERNAL LAB | | | | + +---------+ + + documented in this encounter Visit Diagnoses Not on filedocumented in this encounter"
--- OUTSIDE RECORDS SUMMARY | ~2019-09-02 | XMS | Encounter Summary ---
Demographics + + + | Address | [address] | | | [place] [address] | + + + | Home Phone | | + + + | Preferred Language | Unknown | + + + | Marital Status | | + + + | Restorationism Affiliation | 1013 | + + + | Race | Unknown | + + + | Ethnic Group | Unknown | + + + Author + + + | Author | [facility] | | | and Randalana | + + + | Organization | [facility] | | | and Randalana [...] Team Providers + +------+ + | Care Rim Roller Operator Name | Role | Phone | [...] + + | 08/09/ | Office | [facility] | Paolo Lopez MD | Coronary artery | | 2018 | Visit | CARDIOLOGY [address] | [address] | disease involving | | | | [place], | [place], [place] | [place] coronary | | | | [place] [address] | [address] | artery of [place] | | | | [phone] | | heart with angina | | [...] y.o. male who was last seen at [facility] at which michelle e he presented with chest pain since found to have distal left main coronary arteries diseas e.. Since then, he underwent heart catheterization and was transferred to [facility] for benjamin ry bypass surgery. He was therefore 9 days, 6 were eating for the antiplatelet agents to re solve. Patient underwent 4 vessel CABG. ESTRADA to LAD. Vein graft to obtuse marginal 2. Cannot remember where the fourth graft when 2. There was occluded diagonal which was visualized vi a collaterals but was not bypassable. Records reviewed from [facility] for hospitalization,including H&P, Discharge Summary and lab reports . MEDICAL, SURGICAL, AND PERSONAL HISTORY Past Medical, Surgical, Family, and Social History are reviewed in EPIC. 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
--- OUTSIDE RECORDS SUMMARY | ~2019-09-02 | XMS | Encounter Summary ---
Demographics + + + | Address | [address] | | | [place] [address] | + + + | Home Phone | | + + + | Preferred Language | Unknown | + + + | Marital Status | | + + + | Shinto Affiliation | 1013 | + + + | Race | Unknown | + + + | Ethnic Group | Unknown | + + + Author + + + | Author | [facility] | | | and Randalana | + + + | Organization | [facility] | | | and Randalana [...] Team Providers + +------+ + | Care Erection Shop Supervisor Name | Role | Phone | + +------+ + PCP | Unavailable | + +------+ + Encounter Details +--------+ + + + + | Date | Type | Department | Care Team | Description | +--------+ + + + + | 01/12/ | Hospital | [facility] | Conversion | Lumbago | | 1996 | Encounter | CONVERSION [address] | Transaction, | | | | | [address] | Provider Unknown | | | | | [place], [place] | [phone] | | | | | [address] | | | | | | [phone] | | | +--------+ + + + [...] + | Diagnosis | + + | Lumbago | + + documented in this encounter"
--- OUTSIDE RECORDS SUMMARY | ~2019-09-02 | XMS | Encounter Summary ---
Demographics + + + | Address | [address] | | | [place] [address] | + + + | Home Phone | | + + + | Preferred Language | Unknown | + + + | Marital Status | | + + + | Sabianism Affiliation | 1013 | + + + | Race | Unknown | + + + | Ethnic Group | Unknown | + + + Author + + + | Author | [facility] | | | and Randalana | + + + | Organization | [facility] | | | and Randalana | + + + | Address | Unknown | + + + | Phone | Unavailable | + + + Support + + +---------+ + | Name | Relationship | Address | Phone | + + +---------+ + | Margaret Vargas | ECON | Unknown | | + + +---------+ + | Julia Sraantanisha | ECON | Unknown | | + + +---------+ + | Julia Sarantanishast | ECON | Unknown | | + + +---------+ + Care Team Providers + +------+ + | Care Exercise Equipment Specialist Name | Role | Phone | [...] | [address] [place] | [facility], | | | | | [facility], [place] | [place] [address] | | | | | [address] | [phone] | | | | | [phone] | | | +--------+ + + + [...]
--- OUTSIDE RECORDS SUMMARY | ~2019-09-02 | XMS | Encounter Summary ---
Demographics + + + | Address | [address] | | | [place] [address] | + + + | Home Phone | | + + + | Preferred Language | Unknown | + + + | Marital Status | | + + + | Advent Affiliation | 1013 | + + + | Race | Unknown | + + + | Ethnic Group | Unknown | + + + Author + + + | Author | [facility] | | | and Randalana | + + + | Organization | [facility] | | | and Randalana [...] Team Providers + +------+ + | Care Child Care Supervisor Name | Role | Phone | + +------+ + PCP | Unavailable | + +------+ + Encounter Details +--------+ + + + + | Date | Type | Department | Care Team | Description | +--------+ + + + + | 02/22/ | Hospital | [facility] | Fredy Thrasher MD | | | 2014 | Encounter | HOSPITAL LABORATORY | [address] | | | | | [address] [place] | [place] | | | | | [place] | [address] | | | | | [address] | [phone] | | | | | [phone] | | | +--------+ + + + [...] + | CBC W/AUTO | Routin | 02/22/2014 | | Results for this | | DIFFERENTIAL | e | 2:16 PM | | procedure are in the | | | | PDT | | results section. | + +--------+ + + + | HEPATIC FUNCTION | Routin | 02/22/2014 | | Results for this | | PANEL | e | 2:16 PM | | procedure are in the | | | | PDT | | results section. | + +--------+ + + + documented in this encounter Results Hepatic Function Panel (02/22/2014 2:16 PM PDT) + +-------+ + + + | Component | Value | Ref Range | Performed | Pathologist | | | | | At | Signature | + +-------+ + + + | Bilirubin, | 0.5 | <=1.2 mg/dL | EXTERNAL | | | Total | | | LAB | | + +-------+ + + + | Bilirubin | 0.1 | <=0.3 mg/dL | EXTERNAL | | | Direct | | | LAB | | + +-------+ + + + | Protein, | 6.7 | 6.6 - 8.5 g/dL | EXTERNAL | | | Total | | | LAB | | + +-------+ + + + | Albumin | 4 | 3.0 - 4.5 g/dL | EXTERNAL | | | | | | LAB | | + +-------+ + + + | Alkaline | 81 | 33 - 151 U/L | EXTERNAL | | | Phosphatase | | | LAB | | + +-------+ + + + | ALT, | 72 | 18 - 63 U/L | EXTERNAL | | | External | | | LAB | | + +-------+ + + + | AST, | 47 | <=38 U/L | EXTERNAL | | | External | [...] +---------+ + + CBC w/ Auto Differential (02/22/2014 2:16 PM PDT) + +-------+ + + + | Component | Value | Ref Range | Performed | Pathologist | | | | | At | Signature | + +-------+ + + + | WBC | 7.9 | 4.6 - 10.5 | EXTERNAL | | | | | 1000/mm3 | LAB | | + +-------+ + + + | RBC | 4.49 | 4.36 - 5.83 | EXTERNAL | | | | | mil/mm3 | LAB | | + +-------+ + + + | HGB, | 13.9 | 13.1 - 17.4 | EXTERNAL | | | External | | g/dL | LAB | | + +-------+ + + + | HCT, | 38.7 | 39.0 - 51.9 % | EXTERNAL | | | External | | | LAB | | + +-------+ + + + | MCV | 86 | 82 - 96 fl | EXTERNAL | | | | | | LAB | | + +-------+ + + + | MCH | 31 | 27.7 - 32.3 pg | EXTERNAL | | | | | | LAB | | + +-------+ + + + | MCHC | 35.9 | 32.0 - 36.9 | EXTERNAL | | | | | g/dL | LAB | | + +-------+ + + + | RDW-CV | 13.1 | <=17.0 % | EXTERNAL | | | | | | LAB | | + +-------+ + + + | Platelet | 270 | 150 - 450 | EXTERNAL | | | Count | | 1000/mm3 | LAB | | | Plasma | | | | | + +-------+ + + + | MPV | 10 | 9.4 - 12.4 FL | EXTERNAL | | | | | | LAB | | + +-------+ + + + | % Segmented | 71.4 | 42.0 - 76.0 % | EXTERNAL | | | | | | LAB | | | Neutrophils | | | | | + +-------+ + + + | LYMPH % | 19.2 | 29.0 - 49.0 % | EXTERNAL | | | | | | LAB | | + +-------+ + + + | % Monocytes | 9.4 | <=12.0 % | EXTERNAL | | | | | | LAB | | + +-------+ + + + | Absolute | 5.7 | 2.80 - 7.70 | EXTERNAL | | | Neutrophils | | 1000/mm3 | LAB | | + +-------+ + + + | Absolute | 1.5 | 1.20 - 3.30 | EXTERNAL | | | Lymphocytes | | 1000/mm3 | LAB | | + +-------+ + + + | Absolute | 0.7 | <=1.26 1000/mm3 | EXTERNAL | | [...]
--- OUTSIDE RECORDS SUMMARY | ~2019-09-02 | XMS | Encounter Summary ---
Demographics + + + | Address | [address] | | | [place] [address] | + + + | Home Phone | | + + + | Preferred Language | Unknown | + + + | Marital Status | | + + + | Alevism Affiliation | 1013 | + + + | Race | Unknown | + + + | Ethnic Group | Unknown | + + + Author + + + | Author | [facility] | | | and Randalana | + + + | Organization | [facility] | | | and Randalana | + [...] Team Providers + +------+ + | Care Emblem Cutter Name | Role | Phone | + +------+ + | Mary Kraft | PCP | | | PA | | | + +------+ + Encounter Details +--------+ + + + + | Date | Type | Department | Care Team | Description | +--------+ + + + + | 07/07/ | Hospital | [facility] | Conversion | Diagnosis unknown | | 2017 | Encounter | CONVERSION DEP [address] | Transaction, | | | | | [address] | Provider Unknown | | | | | [place] | | | | | | [address] | (Fax) | | | | | [phone] | | | +--------+ + + + [...] + + documented as of this encounter Medications at Time of Discharge + + + +---------+ + + | Medication | Sig | Dispensed | Refills | Start | End Date | | | | | | Date | | + + + +---------+ + + | acetaminophen | Take 500 mg by mouth | | 0 | | | | (TYLENOL) 500 mg | every 6 hours as | | | | | | tablet | needed for Pain or | | | | | | | Headaches. | | | | | + + + +---------+ + + | aspirin 81 mg | Take 1 tablet by | 30 | 0 | 04//20 | | | chewable | mouth Daily. | tablet | | 18 | | | tabletIndications: | | | | | | | Coronary artery | | | | | | | disease involving | | | | | | | [place] coronary | | | | | | | artery of [place] | | | | | | | heart with angina | | | | | | | pectoris ([facility]) | | | | | | + + + +---------+ + + | nitroglycerin | Place 1 tablet under | 25 | 5 | 01/06/20 | | | (NITROSTAT) 0.4 mg | the tongue every 5 | tablet | | 18 | | | SL | minutes as needed | | | | | | tabletIndications: | for Chest pain. | | | | | | Coronary artery | | | | | | | disease involving | | | | | | | [place] coronary | | | | | | | artery of [place] | | | | | | | heart with angina | | | | | | | pectoris ([facility]) | | | | | | + + + +---------+ + + | atorvaSTATin | Take 1 tablet by | 30 | 11 | 01/06/20 | | | (LIPITOR) 80 MG | mouth nightly. | tablet | | 18 | 9 | | tabletIndications: | | | | | | | Coronary artery | | | | | | | disease involving | | | | | | | [place] coronary | | | | | | | artery of [place] | | | | | | | heart with angina | | | | | | | pectoris ([facility]) | | | | | | + + + +---------+ + + | lisinopril | Take 1 tablet by | 30 | 11 | 02/09/20 | | | (PRINIVIL, ZESTRIL) | mouth Daily. | tablet | | 18 | 8 | | 10 mg tablet | | | | | | + + + +---------+ + + documented as of this encounter Plan of Treatment Not on filedocumented as of this encounter Procedures + +--------+ + + + | Procedure Name | Priori | Date/Time | Associated Diagnosis | Comments | | | ty | | | | + +--------+ + + + | CV CARDIAC PROCEDURE | Routin | 07/07/2018 | | Results for this | | | e | 2:10 PM | | procedure are in the | | | | PDT | | results section. | + +--------+ + + + documented in this encounter Results CV CARDIAC PROCEDURE (07/07/2018 2:10 PM PDT) + + | Specimen | + + | | + + + + + | Narrative | Performed At | + + + | This is a non-reportable procedure without a radiologist report and | | | is used for image storage only | | + + + + + | Procedure Note | + + | Angel Saha Conversion - 05/03/2019 3:38 PM PDT This is a non-reportable procedure | | without a radiologist report and isused for image storage only | + + documented in this encounter Visit Diagnoses + + | Diagnosis | + + | Diagnosis unknown Other unknown and unspecified cause of morbidity or mortality | + + documented in this encounter"
--- OUTSIDE RECORDS SUMMARY | ~2019-09-02 | XMS | Encounter Summary ---
Demographics + + + | Address | [address] | | | [place] [address] | + + + | Home Phone | | + + + | Preferred Language | Unknown | + + + | Marital Status | | + + + | Religion Affiliation | 1013 | + + + | Race | Unknown | + + + | Ethnic Group | Unknown | + + + Author + + + | Author | [facility] | | | and Randalana | + + + | Organization | [facility] | | | and Randalana [...] Team Providers + +------+ + | Care Minilab Operator Name | Role | Phone | + +------+ + | Mary Kraft | PCP | | | PA | | | + +------+ + Reason for Visit + + + | Reason | Comments | + + + | Follow-up | | + + + Encounter Details +--------+ + + + + | Date | Type | Department | Care Team | Description | +--------+ + + + + | 07/14/ | Telephone | [facility] [place] | Paolo Lopez MD | Follow-up | | 2017 | | CARDIOLOGY [address] | [address] | | | | | [place], | [place], [place] | | | | | [place] [address] | [phone] | | | | | [phone] | | | +--------+ + + + [...]
--- OUTSIDE RECORDS SUMMARY | ~2019-09-02 | XMS | Encounter Summary ---
Demographics + + + | Address | [address] | | | [place] [address] | + + + | Home Phone | | + + + | Preferred Language | Unknown | + + + | Marital Status | | + + + | Mu-Ism Affiliation | 1013 | + + + | Race | Unknown | + + + | Ethnic Group | Unknown | + + + Author + + + | Author | [facility] | | | and Randalana | + + + | Organization | [facility] | | | and Randalana [...] Team Providers + +------+ + | Care Data Analyst Name | Role | Phone | + +------+ + | Mary Kraft | PCP | | | PA | | | + +------+ + Reason for Visit + + + | Reason | Comments | + + + | Cardiac Rehab | | + + + Encounter Details +--------+---------+ + + + | Date | Type | Department | Care Team | Description | +--------+---------+ + + + | 02/08/ | [facility] | [facility] | Peewee Baez | Coronary artery | | 2018 | Visit | MED CTR CARDIAC | [address] | disease involving | | | | REHAB[address]ITATION [address] [place] | [place] coronary | | | | [address] [place] | [place] [address] | artery of [place] | | | | [place] [address] | [phone] | heart with angina | | | | [phone] | | pectoris (HCC) | | | [...] documented as of this encounter Progress Notes Yulisa Valenzuela RRT - 02/08/2018 9:00 AM PDT [facility] CARDIAC REHABILITATION [address] [facility] [address] Cardiac Rehab Date: 02/08/2018 Patient Information Patient Name: Roby Goodman Date of : 1970 Age: 48 y.o. Encounter Diagnoses Code Name Primary? I25.119 Coronary artery disease involving [place] coronary artery of [place] heart with a ngina pectoris (HCC) Yes Number of Visits Approved: 36 Taken Medications Today? Yes Any Changes in Medications? No Any Problems to Report? No Denies any adverse symptoms during exercise. Sinus rhythm without ectopy. Pre O2:99 %,SBP with appropriate rise during exertion. Compliant with medications and therapeutic lifestyle changes. Continue monitored exercise. Any abnormal vital signs or rhythm strips will be reported in progress note. 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
--- OUTSIDE RECORDS SUMMARY | ~2019-09-02 | XMS | Encounter Summary ---
Demographics + + + | Address | [address] | | | [place] [address] | + + + | Home Phone | | + + + | Preferred Language | Unknown | + + + | Marital Status | | + + + | Denominational Affiliation | 1013 | + + + | Race | Unknown | + + + | Ethnic Group | Unknown | + + + Author + + + | Author | [facility] | | | and Randalana | + + + | Organization | [facility] | | | and [...] Team Providers + +------+ + | Care Supervisor Feed House Name | Role | Phone | + +------+ + PCP | Unavailable | + +------+ + Encounter Details +--------+ + + + + | Date | Type | Department | Care Team | Description | +--------+ + + + + | 11/05/ | Hospital | [facility] | Adrián English | | | 2008 | Encounter | HOSPITAL XRAY [address] | [address] | | | | | [address] [place] | [address] [place] | | | | | [place], [place] | [place] [address] | | | | | [address] | [phone] | | | | | [phone] | | | +--------+ + + + [...]
--- OUTSIDE RECORDS SUMMARY | ~2019-09-02 | XMS | Clinical Summary ---
Demographics + + + | Address | [address] | | | [place] [address] | + + + | Home Phone | | + + + | Preferred Language | Unknown | + + + | Marital Status | | + + + | Judaism Affiliation | 1013 | + + + | Race | Unknown | + + + | Ethnic Group | Unknown | + + + Author + + + | Author | [facility] | | | and Randalana | + + + | Organization | [facility] | | [...] Team Providers + +------+ + | Care Stonemason Apprentice Name | Role | Phone | + [...] | | | | | | | elem coronary | | | | | | | | artery of elem | | | | | | | | heart with angina | | | | | | | | pectoris ([facility]) | | | | | | | [...] | | | | | | | elem coronary | | | | | | | | artery of elem | | | | | | | | heart with angina | | | | | | | | pectoris ([facility]) | | | | | | | [...] | | | | | | | elem coronary | | | | | | | | artery of elem | | | | | | | [...] | + + + | Atherosclerosis of elem coronary artery | 07/08/2018 | + + [...] + + | Coronary artery disease involving elem coronary artery of | 01/04/2018 | | elem heart with angina pectoris | | + [...] involving | | | | | | elem coronary | | | | | | artery of elem | | | | | | heart with angina | | | | | | pectoris (HCC) | | | | | | (Primary Dx); | | | | | | Atherosclerosis of | | | | | | elem coronary | | | | | | artery of elem | | | | | | heart [...] N/A: | DAVIS | | 09/23/ | [id number] | | Implanted: Qty: 1 on | | Matt | DIAGNOSTICS | | 2019 | 0-33 / | | 01/03/2018 by Peewee Baez | | kristopher | - CADY | | | | | [facility] at [facility] | | | | | | /[id number] | | [facility] | | | | | | [address] | + +-------+--------+ +--------+--------+--------+ | [place] [employer] | Stent | N/A: | DAVIS | | 06/17/ | [id number] | | Implanted: Qty: 1 on | | Matt | DIAGNOSTICS | | 2019 | 0-08 / | | 01/03/2018 by Peewee Baez | | kristopher | - CADY | | | | | MD Y[facility] at [facility] | | | | | | /[id number] | | [facility] | | | | | | 61 [...] +-------+--------+ +--------+-------+---------+------+ | BCBS | BCBS | [id number] | 03/13/20 | | | PPO | [...] | Self | [birth year] | [address] | | | al/Fam | | 1970 | [phone] | [place] [address] | | | anup | | | 5 (Home) | | + +--------+ +--------+ + + Advance Directives + + + + + | Type | Date Recorded | Patient | Explanation | | | | Building Inspection Engineer | | + + + + + | Power of | | | | | Vehicle Body Sander | | | | + + + [...]
--- OUTSIDE RECORDS SUMMARY | ~2019-09-02 | XMS | Encounter Summary ---
Demographics + + + | Address | [address] | | | [place] [address] | + + + | Home Phone | | + + + | Preferred Language | Unknown | + + + | Marital Status | | + + + | Moravian Affiliation | 1013 | + + + | Race | Unknown | + + + | Ethnic Group | Unknown | + + + Author + + + | Author | [facility] | | | and Randalana | + + + | Organization | [facility] | | | and [...] Team Providers + +------+ + | Care Perioperative Nurse Name | Role | Phone | + +------+ + | Mary Kraft | PCP | | | PA | | | + +------+ + Reason for Visit + + + | Reason | Comments | + + + | Appointment | | + + + Encounter Details +--------+ + + + + | Date | Type | Department | Care Team | Description | +--------+ + + + + | 07/05/ | Telephone | [facility] | Peewee Baez | Appointment | | 2017 | | [facility] [address] | [address] | | | | | [place], | [address] [place] | | | | | [place] [address] | [place] [address] | | | | | [phone] | [phone] | | | | | | | [...]
--- OUTSIDE RECORDS SUMMARY | ~2019-09-02 | XMS | Encounter Summary ---
Demographics + + + | Address | [address] | | | [place] [address] | + + + | Home Phone | | + + + | Preferred Language | Unknown | + + + | Marital Status | | + + + | Methodist Affiliation | 1013 | + + + | Race | Unknown | + + + | Ethnic Group | Unknown | + + + Author + + + | Author | [facility] | | | and Randalana | + + + | Organization | [facility] | | | and [...] Team Providers + +------+ + | Care Research Geneticist Name | Role | Phone | + +------+ + PCP | Unavailable | + +------+ + Encounter Details +--------+ + + + + | Date | Type | Department | Care Team | Description | +--------+ + + + + | 09/17/ | Hospital | [facility] | Adrián English | | | 2008 | Encounter | HOSPITAL LABORATORY | [address] | | | | | [address] [place] | [address] [place] | | | | | [place], [place] | [place] [address] | | | | | [address] | [phone] | | | | | [phone] | | | +--------+ + + + [...]
--- OUTSIDE RECORDS SUMMARY | ~2019-09-02 | XMS | Encounter Summary ---
Demographics + + + | Address | [address] | | | [place] [address] | + + + | Home Phone | | + + + | Preferred Language | Unknown | + + + | Marital Status | | + + + | Yarsanism Affiliation | 1013 | + + + | Race | Unknown | + + + | Ethnic Group | Unknown | + + + Author + + + | Author | [facility] | | | and Randalana | + + + | Organization | [facility] [...] Team Providers + +------+ + | Care County Surveyor Name | Role | Phone | + [...] | | [place], [place] | [place] [address] | | | | | [address] | [phone] | | | | | [phone] | | | +--------+ + + + [...]
--- OUTSIDE RECORDS SUMMARY | ~2019-09-02 | XMS | Encounter Summary ---
Demographics + + + | Address | [address] | | | [place] [address] | + + + | Home Phone | | + + + | Preferred Language | Unknown | + + + | Marital Status | | + + + | Episcopal Affiliation | 1013 | + + + | Race | Unknown | + + + | Ethnic Group | Unknown | + + + Author + + + | Author | [facility] | | | and Randalana | + + + | Organization | [facility] | | | and [...] Team Providers + +------+ + | Care Front Office Specialist Name | Role | Phone | + +------+ + PCP | Unavailable | + +------+ + Encounter Details +--------+ + + + + | Date | Type | Department | Care Team | Description | +--------+ + + + + | 10/03/ | Hospital | [facility] | Craig Sampson | | | 2008 | Encounter | HOSPITAL EMERGENCY | [address] | | | | | C[address] | [address] | | | | | [address] [place], [place] | [place] [address] | | | | | [address] | [phone] | | | | | [phone] | | | +--------+ + + + [...]
--- OUTSIDE RECORDS SUMMARY | ~2019-09-02 | XMS | Encounter Summary ---
Demographics + + + | Address | [address] | | | [place] [address] | + + + | Home Phone | | + + + | Preferred Language | Unknown | + + + | Marital Status | | + + + | Anabaptism Affiliation | 1013 | + + + | Race | Unknown | + + + | Ethnic Group | Unknown | + + + Author + + + | Author | [facility] | | | and Randalana | + + + | Organization | [facility] | | | and [...] Team Providers + +------+ + | Care Travel Accommodations Rater Name | Role | Phone | + +------+ + PCP | Unavailable | + +------+ + Encounter Details +--------+ + + + + | Date | Type | Department | Care Team | Description | +--------+ + + + + | 11/22/ | Hospital | [facility] | Jg Hicks | | | 2011 | Encounter | HOSPITAL LABORATORY | Ann, INTERNAL AUDIT SENIOR MANAGER [address] | | | | | [address] [place] | [facility], [place] | | | | | [place], [place] | [address] | | | | | [address] | [phone] | | | | | [phone] | | | +--------+ + + + [...]
--- OUTSIDE RECORDS SUMMARY | ~2019-09-02 | XMS | Encounter Summary ---
Demographics + + + | Address | [address] | | | [place] [address] | + + + | Home Phone | | + + + | Preferred Language | Unknown | + + + | Marital Status | | + + + | Synagogue Affiliation | 1013 | + + + | Race | Unknown | + + + | Ethnic Group | Unknown | + + + Author + + + | Author | [facility] | | | and Randalana | + + + | Organization | [facility] | | | and Randalana [...] Team Providers + +------+ + | Care [employer] Name | Role | Phone | + +------+ + | Mary Kraft | PCP | | | PA | | | + +------+ + Reason for Visit +--------+ + | Reason | Comments | +--------+ + | Other | coupon | +--------+ + Encounter Details +--------+ + + + + | Date | Type | Department | Care Team | Description | +--------+ + + + + | 02/01/ | Telephone | [facility] | Peewee Baez | Gera (coupon) | | 2017 | | [facility]AL[facility] [address] | [address] | | | | | [place], | [address] [place] | | | | | [place] [address] | [place] [address] | | | | | [phone] | [phone] | | | | | | | [...]
--- OUTSIDE RECORDS SUMMARY | ~2019-09-02 | XMS | Encounter Summary ---
Demographics + + + | Address | [address] | | | [place] [address] | + + + | Home Phone | | + + + | Preferred Language | Unknown | + + + | Marital Status | | + + + | Judaism Affiliation | 1013 | + + + | Race | Unknown | + + + | Ethnic Group | Unknown | + + + Author + + + | Author | [facility]ly [facility] | | | and Radnalana | + + + | Organization | [facility] | | | and Randalana [...] Team Providers + +------+ + | Care Search Engine Marketing Specialist Name | Role | Phone | + +------+ + | Mary Kraft | PCP | | | PA | | | + +------+ + Reason for Visit Auth/Cert +--------+--------+ + + + + | Status | Reason | Specialty | Diagnoses / | Referred By | Referred To | | | | | Procedures | Contact | Contact | +--------+--------+ + + + + | | | | Diagnoses | | | | | | | STEMI | | | | | | | involving | | | | | | | left | | | | | | | anterior | | | | | | | descending | | | | | | | coronary | | | | | | | artery (HCC) | | | | | | | | | | | | | | Procedures | | | | | | | CV Cor Angio | | | +--------+--------+ + + + + Encounter Details +--------+---------+ + + + | Date | Type | Department | Care Team | Description | +--------+---------+ + + + | 01/03/ | Surgery | [facility] | Peewee Guaman | CV Cor Angio | | 2018 - | | MED CTR CV INTRA OP | MD Yves [address] | | | | [address] | [address] [place] | | | 01/04/ | | [place], [place] | [place] [address] | | | 2017 | | [id number] | [phone] | | | | | [phone] | | | +--------+---------+ + + + Social [...] + + + | Blood Pressure | 97/60 | 01/05/2018 7:26 AM | | | | | PDT | | + + + + + | Pulse | 74 | 01/05/2018 7:26 AM | | | | | PDT | | + + + + + | Temperature | 37.2 C (99 F) | 01/05/2018 7:26 AM | | | | | PDT | | + + + + + | Respiratory Rate | 16 | 01/05/2018 7:26 AM | | | | | PDT | | + + + + + | Oxygen Saturation | 97% | 01/05/2018 7:26 AM | | | | | PDT | | + + + + + | Inhaled Oxygen | - | - | | | Concentration | | | | + + + + + | Weight | 88.5 kg (195 lb 1.7 | 01/05/2018 4:25 AM | | | | oz) | PDT | | + + + + + | Height | 170.2 cm (5' 7") | 01/04/2018 1:50 AM | | | | | PDT | | + + + + + | Body Mass Index | 30.56 | 01/04/2018 1:50 AM | | | | | PDT [...] + + documented as of this encounter Discharge Summaries Peewee Guaman MD - 01/05/2018 11:07 AM PDT DISCHARGE SUMMARY PATIENT NAME/: Roby Goodman, (1970) DATE OF ADMISSION: 01/03/2018 DATE OF DISCHARGE: 01/05/2018 ADMITTING DIAGNOSIS: STEMI involving left anterior descending coronary artery (HCC) PRIMARY CARE PROVIDER: BONITA Lozano DISCHARGE DIAGNOSES: Acute myocardial infarction, anterior wall with ST elevation. Multi-vessel coronary artery disease. DISPOSITION: Discharge to home CARDIAC PROCEDURES AND FINDINGS: Multi-vessel coronary artery disease with a 60% narrowing of the left PDA, tandem 75% steno ses in a nondominant right coronary artery and total occlusion of the LAD which was stented. OTHER FINDINGS OF NOTE: LVEF was 50 - 55% post DE. SUMMARY OF HISTORY AND PHYSICAL: Roby Goodman is a 47 y.o. male with a history of [employer]. He was transferred from [facility] to [facility] on 01/03/2018 for STEMI involving left anterior descending coronary artery (HCC). He h ad onset of chest pain around 1800 on the day of admission. He presented to the ER about 22 30 after the pain did not resolve. He had no antecedent chest pain. No cardiac history and is a healthy active man. His chest pain radiated into his left arm was associated with erich phoresis and mild shortness of breath. Exam was unremarkable. History of colitis. SUMMARIZED HOSPITAL COURSE: He went directly from the helicopter to the cardiac outside laborer. His LAD was occluded and stented. He did well subsequently without complication. Peak tro ponin I was 32 and echo showed hypokinesis of anterior, anteroseptal and anterolateral segme nts. DE was "moderate" in size. DISCHARGE EXAM: General: Well appearing gentleman in no distress. Heart - regular rate and rhythm, S1 and S2 normal, no murmur, rub, or gallop. Lungs - clear to auscultation bilaterally Neurologic - Grossly normal. MEDS: Discharge Medications New Medications Details aspirin 81 mg chewable tablet Take 1 tablet by mouth Daily. Start: 01/06/2018 atorvaSTATin 80 MG tablet Take 1 tablet by mouth nightly. aka: LIPITOR carvedilol 3.125 mg tablet Take 1 tablet by mouth 2 times daily (with breakfast & dinner). aka: COREG nitroglycerin 0.[address] 1 tablet under the tongue every 5 minutes as needed for Chest pain. aka: NITROSTAT ticagrelor 90 mg tablet Take 1 tablet by mouth 2 times daily. aka: BRILINTA PATIENT INSTRUCTIONS: Activity: Cardiac rehabilitation is recommended. Walk 1-2 times daily for 20 minutes at easy pace initially. Do not lift over 30 pounds. Do not carry over 25 pounds until February 09. Diet: Mediterranean diet Other instructions: Discharge Instructions Discharge Instructions for Heart Attack You have had a heart attack (acute myocardial infarction). A heart attack occurs when a ves stuart that sends blood to your heart suddenly becomes blocked. This causes your heart not to w ork as well as it should. Follow these guidelines for home care and lifestyle changes. Home care Take your medicines exactly as directed. Don t skip doses. Talk with your healthcare p smiley if your medicines aren't working for you. Together you can come up with another tarah tment plan. Remember that recovery after a heart attack takes time. Plan to rest for at least 4 to 8 weeks while you recover. Then return to normal activity when your doctor says it s OK. Ask your doctor about joining a heart rehabilitation program. This can help strengthen y our heart and lungs and give you more energy and confidence. Tell your doctor if you are feeling depressed. Feelings of sadness are common after a he art attack. But it is important to speak to someone or seek counselingif you are feeling o verwhelmed by these feelings. Call 911 right away if youhavechest pain or pain that goes to your shoulder, neck, o r back.Don't drive yourself to the hospital. Ask your family members to learn CPR. This is an important skill that can save lives whe n it's needed. Learn to take your own blood pressure and pulse. Keep a record of your results. Ask your doctor when you should seek emergency medical attention. He or she will tell you which bloo d pressure reading is dangerous. Lifestyle changes Your heart attack might have been caused by cardiovascular disease. Your healthcare provide r will work with you to make changes to your lifestyle. This will help the heart disease fro m getting worse. These changes will most likely be a combination of diet and exercise. Diet Your healthcare provider will tell you what changes you need to make to your diet. You may need to see a registered dietitian for help with these diet changes. These changes may inclu de: Cutting back on how much fat and cholesterol you eat Cutting back on how much salt (sodium) you eat, especially if you have high blood pressu re Eating more fresh vegetables and fruits Eating lean proteins such as fish, poultry, beans, and peas, and eating less red meat an d processed meats Using low-fat dairy products Using vegetable and nut oils in limited amounts Limiting how many sweets and processed foods such as chips, cookies, and baked goods you eat Limiting how often you eat out. And when you do eat out, making better food choices. Not eating fried or greasy foods, or foods high in saturated fat Exercise Your healthcare provider may tell you to get more exercise if you haven't been physically a ctive. Depending on your case, your provider may recommend that you get moderate to vigorous physical activity for at least 40 minutes each day, and for at least 3 to 4 days each week. A few examples of moderate to vigorous activity include: Walking at a brisk pace, about 3 to 4 miles per hour Jogging or running Swimming or water aerobics Hiking Dancing Martial arts Tennis Riding a bicycle or stationary bike Other changes Your healthcare provider may also recommend that you: Lose weight. If youare overweight or obese, your provider will work with you to lose e xtra pounds. Making diet changes and getting more exercise can help. A good goal is to lose your 10% of your body weight in one year. Stop smoking. Sign up for a stop-smoking program to make it more likely for you to quit for good. You can join a stop-smoking support group. Or ask your doctor about nicotine repla cement products. Learn to manage stress. Stress management techniques to help you deal with stress in you r home and work life. This will help you feel better emotionally and ease the strain on your heart. Follow-up Make a follow-up appointment as directed. Call 911 Call 911 right awayif you have: Chest pain that goes to your neck, jaw, back, or shoulder Shortness of breath When to call your healthcare provider [place] healthcare provider right away if you have: Lightheadedness, dizziness, or fainting Feeling of irregular heartbeat or fast pulse Date Last Reviewed: 06/13/[id number] [employer]. [address] [place] [address], [place] [address]. All righ ts reserved. This information is not intended as a substitute for professional medical care. Always follow your healthcare professional's instructions. Avoid tobacco use. Follow-up: In about a month with Dr. Guaman. Time spent on discharge planning: less than 30 minutes Portions of this chart may have been created with mymission2 voice recognition software. Occasi onal wrong-word or sound-alike substitutions may have occurred due to the inherent corbin itations of voice recognition software. Please read the chart carefully and recognize, using context, where these substitutions have occurred. documented in this encounter Discharge Instructions Instructions Zoila Mathews RN - 01/05/2018Formatting of this note might be differe nt from the original. Discharge Instructions for Heart Attack You have had a heart attack (acute myocardial infarction). A heart attack occurs when a ves stuart that sends blood to your heart suddenly becomes blocked. This causes your heart not to w ork as well as it should. Follow these guidelines for home care and lifestyle changes. Home care Take your medicines exactly as directed. Don t skip doses. Talk with your healthcare p smiley if your medicines aren't working for you. Together you can come up with another tarah tment plan. Remember that recovery after a heart attack takes time. Plan to rest for at least 4 to 8 weeks while you recover. Then return to normal activity when your doctor says it s OK. Ask your doctor about joining a heart rehabilitation program. This can help strengthen y our heart and lungs and give you more energy and confidence. Tell your doctor if you are feeling depressed. Feelings of sadness are common after a he art attack. But it is important to speak to someone or seek counselingif you are feeling o verwhelmed by these feelings. Call 911 right away if youhavechest pain or pain that goes to your shoulder, neck, o r back.Don't drive yourself to the hospital. Ask your family members to learn CPR. This is an important skill that can save lives whe n it's needed. Learn to take your own blood pressure and pulse. Keep a record of your results. Ask your doctor when you should seek emergency medical attention. He or she will tell you which bloo d pressure reading is dangerous. Lifestyle changes Your heart attack might have been caused by cardiovascular disease. Your healthcare provide r will work with you to make changes to your lifestyle. This will help the heart disease fro m getting worse. These changes will most likely be a combination of diet and exercise. Diet Your healthcare provider will tell you what changes you need to make to your diet. You may need to see a registered dietitian for help with these diet changes. These changes may inclu de: Cutting back on how much fat and cholesterol you eat Cutting back on how much salt (sodium) you eat, especially if you have high blood pressu re Eating more fresh vegetables and fruits Eating lean proteins such as fish, poultry, beans, and peas, and eating less red meat an d processed meats Using low-fat dairy products Using vegetable and nut oils in limited amounts Limiting how many sweets and processed foods such as chips, cookies, and baked goods you eat Limiting how often you eat out. And when you do eat out, making better food choices. Not eating fried or greasy foods, or foods high in saturated fat Exercise Your healthcare provider may tell you to get more exercise if you haven't been physically a ctive. Depending on your case, your provider may recommend that you get moderate to vigorous physical activity for at least 40 minutes each day, and for at least 3 to 4 days each week. A few examples of moderate to vigorous activity include: Walking at a brisk pace, about 3 to 4 miles per hour Jogging or running Swimming or water aerobics Hiking Dancing Martial arts Tennis Riding a bicycle or stationary bike Other changes Your healthcare provider may also recommend that you: Lose weight. If youare overweight or obese, your provider will work with you to lose e xtra pounds. Making diet changes and getting more exercise can help. A good goal is to lose your 10% of your body weight in one year. Stop smoking. Sign up for a stop-smoking program to make it more likely for you to quit for good. You can join a stop-smoking support group. Or ask your doctor about nicotine repla cement products. Learn to manage stress. Stress management techniques to help you deal with stress in you r home and work life. This will help you feel better emotionally and ease the strain on your heart. Follow-up Make a follow-up appointment as directed. Call 911 Call 911 right awayif you have: Chest pain that goes to your neck, jaw, back, or shoulder Shortness of breath When to call your healthcare provider [place] healthcare provider right away if you have: Lightheadedness, dizziness, or fainting Feeling of irregular heartbeat or fast pulse Date Last Reviewed: 06/13/[id number] [employer]. [address] [place], [place] [id number]. All righ ts reserved. This information is not intended as a substitute for professional medical care. Always follow your healthcare professional's instructions. documented in this encounter Medications at Time of Discharge + + + +---------+ + + | Medication | Sig | Dispensed | Refills | Start | End Date | | | | | | Date | | + + + +---------+ + + | aspirin 81 mg | Take 1 tablet by | 30 | 0 | 01/07/20 | | | chewable | mouth Daily. 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 | | | | | | anterior descending | | | | | | | coronary artery | | | | | | | (HCC) | | | | | | + + + +---------+ + + | ticagrelor | Take 1 tablet by | 60 | 5 | 01/06/20 | | | (BRILINTA) 90 mg | mouth 2 times daily. | tablet | | 18 | 8 | | tabletIndications: | | | | | | | Status post | | | | | | | insertion of | | | | | | | drug-eluting stent | | | | | | | into left anterior | | | | | | | descending (LAD) | | | | | | | artery for coronary | | | | | | | artery disease | | | | | | + + + +---------+ + + documented as of this encounter Progress Notes Teressa Obrien, Alex - 01/05/2018 6:34 PM PDTClarencchristiano Goodman was admitted for STEMI a nd discharged home today (01/05/2018) Taught AVS education to patient. Education was focused on new medications and/or changed me dications. I explained indication, how to take, possible side effects, when to contact physi kristen, and monitor parameters. The patient was encouraged to make a follow-up appointment with PCP. The patient verbalized understanding of the above and all questions were answered. Freddiei will follow-up with patient in one to two business days. Patient was provided with a carlitos nciled discharge medication list as part of their AVS instructions. Encouraged patient to sh are medication list with healthcare providers and keep list current. Teressa Obrien PharmD 01/05/2018 18:27Electronically signed by Teressa Obrien PharmD at 2017 6:34 PM PDTdocumented in this encounter Plan of Treatment + + +--------+ + + | Name | Type | Priori | Associated Diagnoses | Date/Time | | | | ty | | | + + +--------+ + + | CV Cardiac Procedure | Cardiac | Routin | | 01/04/2018 1:10 AM | | | Cath | e | | PDT | + + +--------+ + + + + +--------+ + + | Name [...] + + documented as of this encounter Procedures + +--------+ + + + | Procedure Name | Priori | Date/Time | Associated Diagnosis | Comments | | | ty | | | | + +--------+ + + + | TROPONIN I | Routin | 01/05/2018 | | Results for this | | | e | 1:45 AM | | procedure are in the | | | | PDT | | results section. | + +--------+ + + + | ECG 12 LEAD | Routin | 01/05/2018 | | Results for this | | | e | 12:07 AM | | procedure are in the | | | | PDT | | results section. | + +--------+ + + + | TROPONIN I | Routin | 01/04/2018 | | Results for this | | | e | 1:38 PM | | procedure are in the | | | | PDT | | results section. | + +--------+ + + + | ECHO COMPLETE | Routin | 01/04/2018 | | Results for this | | | e | 11:47 AM | | procedure are in the | | | | PDT | | results section. | + +--------+ + + + | ECG 12 LEAD | Routin | 01/04/2018 | | Results for this | | | e | 5:26 AM | | procedure are in the | | | | PDT | | results section. | + +--------+ + + + | LIPID PANEL | Routin | 01/04/2018 | | Results for this | | | e | 4:23 AM | | procedure are in the | | | | PDT | | results section. | + +--------+ + + + | CBC NO DIFFERENTIAL | Routin | 01/04/2018 | | Results for this | | | e | 4:23 AM | | procedure are in the | | | | PDT | | results section. | + +--------+ + + + | CULTURE, MRSA | Routin | 01/04/2018 | | Results for this | | | e | 1:59 AM | | procedure are in the | | | | PDT | | results section. | + +--------+ + + + | TROPONIN I | Routin | 01/04/2018 | | Results for this | | | e | 1:42 AM | | procedure are in the | | | | PDT | | results section. | + +--------+ + + + | ECG 12 LEAD | STAT | 01/04/2018 | | Results for this | | | | 1:30 AM | | procedure are in the | | | | PDT | | results section. | + +--------+ + + + | POC ACTIVATED | Routin | 01/04/2018 | | Results for this | | CLOTTING TIME ISTAT | e | 12:38 AM | | procedure are in the | | | | PDT | | results section. | + +--------+ + + + | POC ACTIVATED | Routin | 01/04/2018 | | Results for this | | CLOTTING TIME ISTAT | e | 12:23 AM | | procedure are in the | | | | PDT | | results section. | + +--------+ + + + | ECG - EXTERNAL SCAN | | 01/03/2018 | | Results for this | | | | 12:00 AM | | procedure are in the | | | | PDT | | results section. | + +--------+ + + + documented in this encounter Results Troponin I (01/05/2018 1:45 AM PDT) + + + + + + | Component | Value | Ref Range | Performed | Pathologist | | | | | At | Signature | + + + + + + | Troponin I | 21.38 ()Comment: | <0.06 ng/mL | [facility] | | | | Reference | | [facility] | | | | Ranges:0.00-0.06 = | | MEDICAL | | | | NORMAL>0.06 = | | CENTER - | | | | SUSPICIOUS FOR | | LABORATORY | | | | MYOCARDIAL DAMAGE NOTE: | | | | | | Values greater than 0.50 | | | | | | ng/mL have been shown | | | | | | to be strongly | | | | | | associated with acute | | | | | | myocardial infarction. | | | | | | The [employer] | | | | | | Cardiology (ACC) | | | | | | recommends a decision | | | | | | limit of 0.06 ng/mL for | | | | | | this assay. Results | | | | | | greater than 0.06 can | | | | | | reflect a pre-infarct | | | | | | acute coronary syndrome, | | | | | | but can also reflect | | | | | | myocardial necrosis or | | | | | | injury that is not due | | | | | | to coronary artery | | | | | | disease. Some of these | | | | | | causes are sepsis, | | | | | | hypocolemia, atrial | | | | | | fibrillation, heart | | | | | | failure, pulmonary | | | | | | embolism, myocarditis, | | | | | | myocardial contusion, | | | | | | and renal failure. The | | | | | | diagnosis of myocardial | | | | | | infarction should be | | | | | | based on a combination | | | | | | of the patient's | | | | | | clinical presentation | | | | | | and the clinical | | | | | | laboratory test results | | | | | | (especially serial | | | | | | troponin levels). | | | | | | Consistent with previous | | | | | | results. | | | | + + + + + + + + | Specimen | + + | Blood | + + + + + + + | Performing | Address | City/State/Zipcode | Phone Number | | Organization | | | | + + + + + | [facility] | [address] | [place] | [phone] | | [facility] | | [id number] | | | - LABORATORY | | | | + + + + + ECG 12 lead (01/05/2018 12:07 AM PDT) + + + + + + | Component | Value | Ref Range | Performed | Pathologist | | | | | At | Signature | + + + + + + | VENTRICULAR | 70 | BPM | [facility] | | | RATE EKG | | | | | + + + + + + | ATRIAL RATE | 70 | BPM | [facility] | | + + + + + + | P-R | 168 | ms | [facility] | | | INTERVAL | | | | | + + + + + + | QRS | 100 | ms | [facility] | | | DURATION | | | | | + + + + + + | Q-T | 436 | ms | [facility] | | | INTERVAL | | | | | + + + + + + | Q-T | 470 | ms | [facility] | | | INTERVAL | | | | | | (CORRECTED) | | | | | + + + + + + | P WAVE AXIS | 29 | degrees | [facility] | | + + + + + + | QRS AXIS | 18 | degrees | [facility] | | + + + + + + | T AXIS | 74 | degrees | [facility] | | + + + + + + | INTERPRETAT | Normal sinus rhythmLong | | [facility] | | | ION TEXT | QTcSeptal infarct , age | | | | | | undeterminedST elevation | | | | | | in leads V2-3:consider | | | | | | ongoing or evolving | | | | | | myocardial | | | | | | infarctionAbnormal | | | | | | ECGWhen compared with | | | | | | ECG of 04-JAN-2018 | | | | | | 05:26,premature | | | | | | ventricular complexes | | | | | | are no longer | | | | | | presentSeptal infarct is | | | | | | now presentST elevation | | | | | | is now present in leads | | | | | | V2-3Significant changes | | | | | | have occurredConfirmed | | | | | | by PREETHI BARAJAS MD | | | | | | ([id number]) on 01/05/2018 | | | | | | 7:14:16 AM | | | | + + + + + + + + | Specimen | + + | | + + + + + | Narrative | Performed At | + + + | | | + + + + +---------+ + + | Performing | Address | City/State/Zipcode | Phone Number | | Organization | | | | + +---------+ + + | [facility] | | | | + +---------+ + + Troponin I (01/04/2018 1:38 PM PDT) + + + + + + | Component | Value | Ref Range | Performed | Pathologist | | | | | At | Signature | + + + + + + | Troponin I | 32.02 (HH)Comment: | <0.06 ng/mL | [facility] | | | | Reference | | [facility] | | | | Ranges:0.00-0.06 = | | MEDICAL | | | | NORMAL>0.06 = | | CENTER - | | | | SUSPICIOUS FOR | | LABORATORY | | | | MYOCARDIAL DAMAGE NOTE: | | | | | | Values greater than 0.50 | | | | | | ng/mL have been shown | | | | | | to be strongly | | | | | | associated with acute | | | | | | myocardial infarction. | | | | | | The [employer] | | | | | | Cardiology (ACC) | | | | | | recommends a decision | | | | | | limit of 0.06 ng/mL for | | | | | | this assay. Results | | | | | | greater than 0.06 can | | | | | | reflect a pre-infarct | | | | | | acute coronary syndrome, | | | | | | but can also reflect | | | | | | myocardial necrosis or | | | | | | injury that is not due | | | | | | to coronary artery | | | | | | disease. Some of these | | | | | | causes are sepsis, | | | | | | hypocolemia, atrial | | | | | | fibrillation, heart | | | | | | failure, pulmonary | | | | | | embolism, myocarditis, | | | | | | myocardial contusion, | | | | | | and renal failure. The | | | | | | diagnosis of myocardial | | | | | | infarction should be | | | | | | based on a combination | | | | | | of the patient's | | | | | | clinical presentation | | | | | | and the clinical | | | | | | laboratory test results | | | | | | (especially serial | | | | | | troponin levels). | | | | | | Critical Result called | | | | | | to and read back by | | | | | | Demetra Yeboah on | | | | | | 01/04/2018 at 14:19 by | | | | | | Juliana Yu. | | | | + + + + + + + + | Specimen | + + | Blood | + + + + + + + | Performing | Address | City/State/Zipcode | Phone Number | | Organization | | | | + + + + + | [facility] | [address] | [place] | [phone] | | [facility] | | [address] | | | - LABORATORY | | | | + + + + + ECHO Complete (01/04/2018 11:47 AM PDT) + +-------+ + + + | Component | Value | Ref Range | Performed | Pathologist | | | | | At | Signature | + +-------+ + + + | LVEF-TTE | 55 | | [facility] | | | TRANSTHORAC | | | | | | IC ECHO | | | | | + +-------+ + + + + + | Specimen | + + | | + + + + --+ | Narrative | Performed At | + + --+ | Transthoracic | [facility] | | Echocardiography Report (TTE) Demographics Patient Name JORDAN | | | [place] Room Number 449 A | | | Patient Number [id number] Date of Study | | | 01/04/2018 Visit Number [id number] | | | Referring Physician Rosales GUAMAN MD Number Date of | | | 1970 [employer] | | | [place] Age 47 year(s) Interpreting | | | KALIE SAHU, | | | Project Structural Engineer Gender 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 Procedure dateDate: 01/04/2018Start: 10:51 AM Technical | | | Quality: Adequate visualizationStudy Location: PortableIndications: | | | ACUTE CORONARY SYNDROME.Patient Status: RoutineHeight: 67 | | | inchesWeight: 190 poundsBSA: 1.98 m^2BMI: 29.76 kg/m^2Rhythm: Normal | | | Sinus Rhythm ConclusionsSummary1. Normal left ventricular size and | | | wall thickness. There is a segmentalwall motion abnormality with mild | | | hypokinesis of the mid and distal anteriorwall. Overall, left | | | ventricular systolic function is low-normal. LVEF is50-55%.2. Mildly | | | thickened mitral valve with the trace mitral valve regurgitation.3. | | | Normal right-sided pressure.4. Mildly dilated IVC with a partial | | | collapse suggesting mild fluidretention. | | | Signature | | | | | | PM | | | -------- FindingsMitral ValveThickening and calcification of the | | | mitral valve leaflets.Trace mitral regurgitation.Aortic ValveAortic | | | valve and LVOT are structurally normal. Normal aortic valve flow | | | bycolor and Doppler imaging. No aortic valve regurgitation.Tricuspid | | | ValveStructurally normal tricuspid valve without significant stenosis | | | orregurgitation.Pulmonic ValveNormal pulmonic valve structure and | | | function. Normal pulmonary valve andRVOT flow by color and Doppler | | | flow imaging.Left AtriumNormal size left atrium.Left VentricleLeft | | | ventricle is normal in size and function. Ejection fraction | | | isestimated at 50-55 %.Mild hypokinesis of the distal anterior | | | wall.Right AtriumNormal right atrial size.Right VentricleNormal right | | | ventricular size.Right ventricle global systolic function is | | | normal.TAPSE = 2.0 cm.Pericardial EffusionNo evidence of pericardial | | | effusion.Pleural EffusionNo evidence of pleural | | | effusion.MiscellaneousDilated IVC with a partial collapse.Aortic root | | | dimension within normal limits. Valves Mitral Valve Peak E-Wave: | | | 0.77 m/s Peak A-Wave: 0.72 m/s Tissue Doppler Septal e' Velocity: | | | 9.00 m/s Septal E/e' Ratio:8 Aortic Valve Peak Velocity: 1.17 m/s | | | Peak Gradient: 5.47 mmHg LVOT Peak Velocity: 1.18 m/s Structures | | | Left Atrium LA A/P Dimension: 3.51 cm LA | | | Volume: 55.25 ml LA Vol/BSA Index: 28 mL/m^2 Left Ventricle | | | Diastolic Dimension: 4.84 cm Systolic Dimension: 3.28 cm | | | Septum Diastolic: 1.08 cm PW Diastolic: 1.07 cm EF Drjgaqdxn93% EF | | | Calculated: 55% Miscellaneous Aorta Aortic Root: 3.68 cm Ascending | | | Aorta: 3.62 cm | | | 01/04/2018 04:34 PM | | | | | | | | |Findings | | |Mitral Valve | | |Thickening and calcification of the mitral valve leaflets. | | |Trace mitral regurgitation. | | |Aortic Valve | | |Aortic valve and LVOT are structurally normal. Normal aortic valve flow by | | |color and Doppler imaging. No aortic valve regurgitation. | | |Tricuspid Valve | | |Structurally normal tricuspid valve without significant stenosis or | | |regurgitation. | | |Pulmonic Valve | | |Normal pulmonic valve structure and function. Normal pulmonary valve and | | |RVOT flow by color and Doppler flow imaging. | | |Left Atrium | | |Normal size left atrium. | | |Left Ventricle | | |Left ventricle is normal in size and function. Ejection fraction is | | |estimated at 50-55 %. | | |Mild hypokinesis of the distal anterior wall. | | |Right Atrium | | |Normal right atrial size. | | |Right Ventricle | | |Normal right ventricular size. | | |Right ventricle global systolic function is normal. | | |TAPSE = 2.0 cm. | | |Pericardial Effusion | | |No evidence of pericardial effusion. | | |Pleural Effusion | | |No evidence of pleural effusion. | | |Miscellaneous | | |Dilated IVC with a partial collapse. | | |Aortic root dimension within normal limits. | | | | | |Valves | | | | | | Mitral Valve | | | | | | Peak E-Wave: 0.77 m/s | | | Peak A-Wave: 0.72 m/s | | | | | | Tissue Doppler | | | | | | Septal e' Velocity: 9.00 m/s | | | Septal E/e' Ratio:8 | | | | | | Aortic Valve | | | | | | Peak Velocity: 1.17 m/s | | | Peak Gradient: 5.47 mmHg | | | | | | LVOT | | | | | | Peak Velocity: 1.18 m/s | | | | | |Structures | | | | | | Left Atrium | | | | | | LA A/P Dimension: 3.51 cm LA Volume: 55.25 ml | | | LA Vol/BSA Index: 28 mL/m^2 | | | | | | Left Ventricle | | | | | | Diastolic Dimension: 4.84 cm Systolic Dimension: 3.28 cm | | | Septum Diastolic: 1.08 cm | | | PW Diastolic: 1.07 cm | | | EF Zuthlxkzh97% | | | EF Calculated: 55% | | | | | | Miscellaneous | | | | | | Aorta | | | | | | Aortic Root: 3.68 cm | | | Ascending Aorta: 3.62 cm | | | | | + + --+ + + | Procedure Note | + + | Yifan, Rad Results In - 01/04/2018 4:34 PM PDT Transthoracic Echocardiography Report | | (TTE) Demographics Patient Name JORDAN GAMBOAENCE Room Number 449 | | A Patient Number [id number] Date of Study 01/04/2018 Visit Number | | [id number] Referring Physician Rosales GUAMAN MD | | Number Date of 1970 [employer] [place] Age | | 47 year(s) Interpreting KALIE SAHU, | | Project Structural Engineer Gender Male Nurse | | 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 Normal left ventricular size and wall thickness. | | There is a segmentalwall motion abnormality with mild hypokinesis of the mid and distal | | anteriorwall. Overall, left ventricular systolic function is low-normal. LVEF | | is50-55%.2. Mildly thickened mitral valve with the trace mitral valve regurgitation.3. | | Normal right-sided pressure.4. Mildly dilated IVC with a partial collapse suggesting | | mild | | fluidretention.Signature | | Electronically signed by KALIE SAHU MD(Interpreting physician) on | | 01/04/2018 04:34 | | PM FindingsMi | | tral ValveThickening and calcification of the mitral valve leaflets.Trace mitral | | regurgitation.Aortic ValveAortic valve and LVOT are structurally normal. Normal aortic | | valve flow bycolor and Doppler imaging. No aortic valve regurgitation.Tricuspid | | ValveStructurally normal tricuspid valve without significant stenosis | | orregurgitation.Pulmonic ValveNormal pulmonic valve structure and function. Normal | | pulmonary valve andRVOT flow by color and Doppler flow imaging.Left AtriumNormal size | | left atrium.Left VentricleLeft ventricle is normal in size and function. Ejection | | fraction isestimated at 50-55 %.Mild hypokinesis of the distal anterior wall.Right | | AtriumNormal right atrial size.Right VentricleNormal right ventricular size.Right | | ventricle global systolic function is normal.TAPSE = 2.0 cm.Pericardial EffusionNo | | evidence of pericardial effusion.Pleural EffusionNo evidence of pleural | | effusion.MiscellaneousDilated IVC with a partial collapse.Aortic root dimension within | | normal limits.Valves Mitral Valve Peak E-Wave: 0.77 m/s Peak A-Wave: 0.72 m/s Tissue | | Doppler Septal e' Velocity: 9.00 m/s Septal E/e' Ratio:8 Aortic Valve Peak Velocity: | | 1.17 m/s Peak Gradient: 5.47 mmHg LVOT Peak Velocity: 1.18 m/sStructures Left Atrium LA | | A/P Dimension: 3.51 cm LA Volume: 55.25 ml LA Vol/BSA Index: 28 mL/m^2 | | Left Ventricle Diastolic Dimension: 4.84 cm Systolic Dimension: 3.28 cm Septum | | Diastolic: 1.08 cm PW Diastolic: 1.07 cm EF Xyuutfiew99% EF Calculated: 55% | | Miscellaneous Aorta Aortic Root: 3.68 cm Ascending Aorta: 3.62 cm | |1. Normal left ventricular size and wall thickness. There is a segmental | |wall motion abnormality with mild hypokinesis of the mid and distal anterior | |wall. Overall, left ventricular systolic function is low-normal. LVEF is | |50-55%. | |2. Mildly thickened mitral valve with the trace mitral valve regurgitation. | |3. Normal right-sided pressure. | |4. Mildly dilated IVC with a partial collapse suggesting mild fluid | |retention. | | | |Signature | | | | Electronically signed by KALIE SAHU MD(Interpreting physician) on | | 01/04/2018 04:34 PM | | | | | |Findings | |Mitral Valve | |Thickening and calcification of the mitral valve leaflets. | |Trace mitral regurgitation. | |Aortic Valve | |Aortic valve and LVOT are structurally normal. Normal aortic valve flow by | |color and Doppler imaging. No aortic valve regurgitation. | |Tricuspid Valve | |Structurally normal tricuspid valve without significant stenosis or | |regurgitation. | |Pulmonic Valve | |Normal pulmonic valve structure and function. Normal pulmonary valve and | |RVOT flow by color and Doppler flow imaging. | |Left Atrium | |Normal size left atrium. | |Left Ventricle | |Left ventricle is normal in size and function. Ejection fraction is | |estimated at 50-55 %. | |Mild hypokinesis of the distal anterior wall. | |Right Atrium | |Normal right atrial size. | |Right Ventricle | |Normal right ventricular size. | |Right ventricle global systolic function is normal. | |TAPSE = 2.0 cm. | |Pericardial Effusion | |No evidence of pericardial effusion. | |Pleural Effusion | |No evidence of pleural effusion. | |Miscellaneous | |Dilated IVC with a partial collapse. | |Aortic root dimension within normal limits. | | | |Valves | | | | Mitral Valve | | | | Peak E-Wave: 0.77 m/s | | Peak A-Wave: 0.72 m/s | | | | Tissue Doppler | | | | Septal e' Velocity: 9.00 m/s | | Septal E/e' Ratio:8 | | | | Aortic Valve | | | | Peak Velocity: 1.17 m/s | | Peak Gradient: 5.47 mmHg | | | | LVOT | | | | Peak Velocity: 1.18 m/s | | | |Structures | | | | Left Atrium | | | | LA A/P Dimension: 3.51 cm LA Volume: 55.25 ml | | LA Vol/BSA Index: 28 mL/m^2 | | | | Left Ventricle | | | | Diastolic Dimension: 4.84 cm Systolic Dimension: 3.28 cm | | Septum Diastolic: 1.08 cm | | PW Diastolic: 1.07 cm | | EF Xggqotcxh63% | | EF Calculated: 55% | | | | Miscellaneous | | | | Aorta | | | | Aortic Root: 3.68 cm | | Ascending Aorta: 3.62 cm | + + + +---------+ + + | Performing | Address | City/State/Zipcode | Phone Number | | Organization | | | | + +---------+ + + | [facility] | | | | + +---------+ + + ECG 12 lead (01/04/2018 5:26 AM PDT) + + + + + + | Component | Value | Ref Range | Performed | Pathologist | | | | | At | Signature | + + + + + + | VENTRICULAR | 73 | BPM | [facility] | | | RATE EKG | | | | | + + + + + + | ATRIAL RATE | 73 | BPM | [facility] | | + + + + + + | P-R | 178 | ms | [facility] | | | INTERVAL | | | | | + + + + + + | QRS | 100 | ms | [facility] | | | DURATION | | | | | + + + + + + | Q-T | 406 | ms | [facility] | | | INTERVAL | | | | | + + + + + + | Q-T | 447 | ms | [facility] | | | INTERVAL | | | | | | (CORRECTED) | | | | | + + + + + + | P WAVE AXIS | 34 | degrees | [facility] | | + + + + + + | QRS AXIS | 78 | degrees | [facility] | | + + + + + + | T AXIS | 58 | degrees | [facility] | | + + + + + + | INTERPRETAT | Sinus rhythm with | | [facility] | | | ION TEXT | occasional premature | | | | | | ventricular | | | | | | complexesIsolated ST | | | | | | elevation in lead V2 has | | | | | | improvedBorderline | | | | | | ECGWhen compared with | | | | | | ECG of 04-JAN-2018 | | | | | | 01:30, | | | | | | (Unconfirmed)premature | | | | | | ventricular complexes | | | | | | are now presentT wave | | | | | | inversion now evident in | | | | | | Anterior leadsIsolated | | | | | | ST elevation in lead V2 | | | | | | has improved Confirmed | | | | | | by PREETHI BARAJAS MD | | | | | | ([id number]) on 01/04/2018 | | | | | | 7:53:08 AM | | | | + + + + + + + + | Specimen | + + | | + + + + + | Narrative | Performed At | + + + | | | + + + + +---------+ + + | Performing | Address | City/State/Zipcode | Phone Number | | Organization | | | | + +---------+ + + | [facility] | | | | + +---------+ + + Lipid Panel (01/04/2018 4:23 AM PDT) + + + + + + | Component | Value | Ref Range | Performed | Pathologist | | | | | At | Signature | + + + + + + | Triglycerid | 164 (H) | 35 - 160 mg/dL | [facility] | | | es | | | [facility] | | | | | | [facility] | | | | | | C[facility] - | | | | | | LABORATORY | | + + + + + + | Cholesterol | 190 | 150 - 200 mg/dL | [facility] | | | | | | [facility] | | | | | | [facility] | | | | | | C[facility] - | | | | | | LABORATORY | | + + + + + + | HDL | 35Comment: New HDL | 28 - 83 mg/dL | [facility] | | | | Reference Range as of | | [facility] | | | | May 23, 2015 | | MEDICAL | | | | Values may be 10-20% | | CENTER - | | | | lower with new, | | LABORATORY | | | | standardized method. | | | | + + + + + + | Chol/HDL | 5.4 | | [facility] | | | Ratio | | | [facility] | | | | | | MEDICAL | | | | | | CENTER - | | | | | | LABORATORY | | + + + + + + | LDL, | 122 | <=130 mg/dL | [facility] | | | Calculated | | | [facility] | | | | | | [facility] | | | | | | CENTER - | | | | | | LABORATORY | | + + + + + + + + | Specimen | + + | Blood | + + + + + + + | Performing | Address | City/State/Zipcode | Phone Number | | Organization | | | | + + + + + | [facility] | [address] | [place] | [phone] | | [facility] | | [address] | | | - LABORATORY | | | | + + + + + CBC no Differential (01/04/2018 4:23 AM PDT) + + + + + + | Component | Value | Ref Range | Performed | Pathologist | | | | | At | Signature | + + + + + + | WBC | 11.6 (H) | 4.0 - 11.0 K/uL | [facility] | | | | | | [facility] | | | | | | [facility]ICAL | | | | | | CENTER - | | | | | | LABORATORY | | + + + + + + | RBC | 4.48 | 4.30 - 5.70 | [facility] | | | | | M/uL | [facility] | | | | | | MEDICAL | | | | | | CENTER - | | | | | | LABORATORY | | + + + + + + | Hemoglobin | 13.0 (L) | 13.5 - 18.0 | [facility] | | | | | g/dL | [facility] | | | | | | MEDICAL | | | | | | CENTER - | | | | | | LABORATORY | | + + + + + + | Hematocrit | 40.4 | 40.0 - 51.0 % | [facility] | | | | | | [facility] | | | | | | MEDICAL | | | | | | CENTER - | | | | | | LABORATORY | | + + + + + + | MCV | 90.3 | 83.0 - 101.0 fL | [facility] | | | | | | [facility] | | | | | | [facility]ICAL | | | | | | CENTER - | | | | | | LABORATORY | | + + + + + + | MCH | 29.1 | 28.0 - 35.0 pg | [facility] | | | | | | [facility] | | | | | | MEDICAL | | | | | | CENTER - | | | | | | LABORATORY | | + + + + + + | MCHC | 32.2 | 32.0 - 36.0 | [facility] | | | | | g/dL | [facility] | | | | | | MEDICAL | | | | | | CENTER - | | | | | | LABORATORY | | + + + + + + | RDW-CV | 12.7 | <15.0 % | [facility] | | | | | | [facility] | | | | | | MEDICAL | | | | | | CENTER - | | | | | | LABORATORY | | + + + + + + | Platelet | 246 | 140 - 440 K/uL | [facility] | | | Count | | | [facility] | | | | | | MEDICAL | | | | | | CENTER - | | | | | | LABORATORY | | + + + + + + | MPV | 9.0 | fL | [facility] | | | | | | [facility] | | | | | | MEDICAL | | | | | | CENTER - | | | | | | LABORATORY | | + + + + + + + + | Specimen | + + | Blood | + + + + + + + | Performing | Address | City/State/Zipcode | Phone Number | | Organization | | | | + + + + + | [facility] | [address] | [place], [place] | [phone] | | [facility] | | [address] | | | - LABORATORY | | | | + + + + + Culture, MRSA (01/04/2018 1:59 AM PDT) + + + + + + | Component | Value | Ref Range | Performed | Pathologist | | | | | At | Signature | + + + + + + | Culture | Negative for MRSA by | | [facility] | | | | chromogenic agar method | | [facility] | | | | | | MEDICAL | | | | | | CENTER - | | | | | | LABORATORY | | + + + + + + + + | Specimen | + + | Respiratory - Both | | anterior nares (body | | structure) | + + + + + + + | Performing | Address | City/State/Zipcode | Phone Number | | Organization | | | | + + + + + | [facility] | [address] | [place] | [phone] | | [facility] | | [address] | | | - LABORATORY | | | | + + + + + Troponin I (01/04/2018 1:42 AM PDT) + + + + + + | Component | Value | Ref Range | Performed | Pathologist | | | | | At | Signature | + + + + + + | Troponin I | 1.96 ()Comment: | <0.06 ng/mL | [facility] | | | | Reference | | [facility] | | | | Ranges:0.00-0.06 = | | MEDICAL | | | | NORMAL>0.06 = | | CENTER - | | | | SUSPICIOUS FOR | | LABORATORY | | | | MYOCARDIAL DAMAGE NOTE: | | | | | | Values greater than 0.50 | | | | | | ng/mL have been shown | | | | | | to be strongly | | | | | | associated with acute | | | | | | myocardial infarction. | | | | | | The [employer] | | | | | | Cardiology (ACC) | | | | | | recommends a decision | | | | | | limit of 0.06 ng/mL for | | | | | | this assay. Results | | | | | | greater than 0.06 can | | | | | | reflect a pre-infarct | | | | | | acute coronary syndrome, | | | | | | but can also reflect | | | | | | myocardial necrosis or | | | | | | injury that is not due | | | | | | to coronary artery | | | | | | disease. Some of these | | | | | | causes are sepsis, | | | | | | hypocolemia, atrial | | | | | | fibrillation, heart | | | | | | failure, pulmonary | | | | | | embolism, myocarditis, | | | | | | myocardial contusion, | | | | | | and renal failure. The | | | | | | diagnosis of myocardial | | | | | | infarction should be | | | | | | based on a combination | | | | | | of the patient's | | | | | | clinical presentation | | | | | | and the clinical | | | | | | laboratory test results | | | | | | (especially serial | | | | | | troponin levels). | | | | | | Critical Result called | | | | | | to and read back by Sheila | | | | | | Connie on 01/04/2018 | | | | | | at 2:22 by Paco Briones | | | | | | Cara. | | | | + + + + + + + + | Specimen | + + | Blood | + + + + + + + | Performing | Address | City/State[facility] | Phone Number | | Organization | | | | + + + + + | [facility] | [address] | [place], [place] | [phone] | | [facility] | | [address] | | | - LABORATORY | | | | + + + + + ECG 12 lead (01/04/2018 1:30 AM PDT) + + + + + + | Component | Value | Ref Range | Performed | Pathologist | | | | | At | Signature | + + + + + + | VENTRICULAR | 72 | BPM | [facility] | | | RATE EKG | | | | | + + + + + + | ATRIAL RATE | 72 | BPM | [facility] | | + + + + + + | P-R | 172 | ms | [facility] | | | INTERVAL | | | | | + + + + + + | QRS | 102 | ms | [facility] | | | DURATION | | | | | + + + + + + | Q-T | 394 | ms | [facility] | | | INTERVAL | | | | | + + + + + + | Q-T | 431 | ms | [facility] | | | INTERVAL | | | | | | (CORRECTED) | | | | | + + + + + + | P WAVE AXIS | 35 | degrees | [facility] | | + + + + + + | QRS AXIS | 63 | degrees | [facility] | | + + + + + + | T AXIS | 53 | degrees | [facility] | | + + + + + + | INTERPRETAT | Normal sinus rhythmST | | [facility] | | | ION TEXT | elevation with biphasic | | | | | | T wave isolated to V2 | | | | | | may be "normal variant" | | | | | | though ischemia/infarct | | | | | | cannot be excludedNo | | | | | | previous ECGs | | | | | | availableConfirmed by | | | | | | PREETHI BARAJAS MD ([id number]) | | | | | | on 01/04/2018 7:51:35 AM | | | | + + + + + + + + | Specimen | + + | | + + + + + | Narrative | Performed At | + + + | | | + + + + +---------+ + + | Performing | Address | City/State/Zipcode | Phone Number | | Organization | | | | + +---------+ + + | [facility] | | | | + +---------+ + + POC ACT (01/04/2018 12:38 AM PDT) + +---------+ + + + | Component | Value | Ref Range | Performed | Pathologist | | | | | At | Signature | + +---------+ + + + | Activated | 212 (H) | 125 - 175 | [facility] | | | Clotting | | second(s) | [facility] | | | Time, POC | | | MEDICAL | | | | | | CENTER - | | | | | | LABORATORY | | + +---------+ + + + + + | Specimen | + + | | + + + + + + + | Performing | Address | City/State/Zipcode | Phone Number | | Organization | | | | + + + + + | [facility] | [address] | [place] | [phone] | | [facility] | | [address] | | | - LABORATORY | | | | + + + + + POC ACT (01/04/2018 12:23 AM PDT) + +-------+ + + + | Component | Value | Ref Range | Performed | Pathologist | | | | | At | Signature | + +-------+ + + + | Activated | 163 | 125 - 175 | [facility] | | | Clotting | | second(s) | [facility] | | | Time, POC | | | MEDICAL | | | | | | CENTER - | | | | | | LABORATORY | | + +-------+ + + + + + | Specimen | + + | | + + + + + + + | Performing | Address | City/State/Zipcode | Phone Number | | Organization | | | | + + + + + | [facility] | [address] | [place], [place] | [phone] | | [facility] | | [address] | | | - LABORATORY | | | | + + + + + ECG - EXTERNAL SCAN (01/03/2018 12:00 AM PDT) + + + | Narrative | Performed At | + + + | Ordered by an | | | unspecified provider. | | + + + documented in this encounter Visit Diagnoses Not on filedocumented in this encounter Administered Medications + +--------+ +--------+------+------+ | Medication Order | MAR | Action | Dose | Rate | Site | | | Action | Date | | | | + +--------+ +--------+------+------+ | acetaminophen (TYLENOL) tablet | Given | 01/05/20 | 650 mg | | | | 650 mg 650 mg, Oral, EVERY 6 | | 18 3:36 | | | | | HOURS PRN, Pain, Fever, Starting | | AM PDT | | | | | 01/04/18 at 0121, | | | | | | | Post-op/Phase II | | | | | | + +--------+ +--------+------+------+ +---+---+ | | | +---+---+ + +-------+ +-------+---+---+ | aspirin chewable tablet 81 mg | Given | 01/06/20 | 81 mg | | | | 81 mg, Oral, DAILY, First dose on | | 18 8:55 | | | | | 01/05/18 at 0900, Notify | | AM PDT | | | | | provider if unable to tolerate, | | | | | | + +-------+ +-------+---+---+ +---+---+ | | | +---+---+ + +-------+ +-------+---+---+ | atorvaSTATin (LIPITOR) tablet | Given | 01/05/20 | 80 mg | | | | 80 mg 80 mg, Oral, NIGHTLY, | | 18 8:55 | | | | | First dose on Wed01/04/18 at 0145 | | PM PDT | | | | + +-------+ +-------+---+---+ +-------+ +-------+---+---+ | Given | 01/05/20 | 80 mg | | | | | 18 3:24 | | | | | | AM PDT | | | | +-------+ +-------+---+---+ +---+---+ | | | +---+---+ + +-------+ + +---+---+ | carvedilol (COREG) tablet 3.125 | Given | 01/05/20 | 3.125 mg | | | | mg 3.125 mg, Oral, 2 TIMES | | 18 5:57 | | | | | DAILY WITH BREAKFAST & DINNER, | | PM PDT | | | | | First dose on Wed01/04/18 at | | | | | | | 0800, Hold for SBP<100 or HR<50, | | | | | | + +-------+ + +---+---+ +-------+ + +---+---+ | Given | 01/05/20 | 3.125 mg | | | | | 18 9:47 | | | | | | AM PDT | | | | +-------+ + +---+---+ +---+---+ | | | +---+---+ + +-------+ +--------+---+---+ | fentaNYL (PF) injection ONCE | Given | 01/05/20 | 50 mcg | | | | PRN, Starting 01/04/18 at | | 18 12:48 | | | | | 0048, Intra-op | | AM PDT | | | | + +-------+ +--------+---+---+ +---+---+ | | | +---+---+ + +-------+ +--------+---+---+ | heparin 1,000 units/mL | Given | 01/05/20 | 1,000 | | | | injection ONCE PRN, Starting Wed | | 18 12:42 | Units | | | | 01/04/18 at 0026, Intra-op | | AM PDT | | | | + +-------+ +--------+---+---+ +-------+ +--------+---+---+ | Given | 01/05/20 | 2,000 | | | | | 18 12:26 | Units | | | | | AM PDT | | | | +-------+ +--------+---+---+ +---+---+ | | | +---+---+ + +-------+ +---------+---+---+ | iohexol (OMNIPAQUE 350) 350 | Given | 01/05/20 | 115 mLs | | | | mg/mL injection ONCE PRN, | | 18 12:58 | | | | | Starting Wed01/04/18 at 0058, | | AM PDT | | | | | Intra-op | | | | | | + +-------+ +---------+---+---+ +---+---+ | | | +---+---+ + +-------+ +------+---+ + | lidocaine 1% injection ONCE | Given | 01/05/20 | 1 mL | | Surgical | | PRN, Starting 01/04/18 at | | 18 12:13 | | | Site | | 0013, Intra-op | | AM PDT | | | | + +-------+ +------+---+ + +---+---+ | | | +---+---+ + +-------+ +-------+---+---+ | lisinopril (PRINIVIL, ZESTRIL) | Given | 01/05/20 | 10 mg | | | | tablet 10 mg 10 mg, Oral, | | 18 5:57 | | | | | TIMES DAILY 0800 & 1800, First | | PM PDT | | | | | dose on Wed01/04/18 at 0800, For | | | | | | | 10 days, Hold for SBP<100, | | | | | | + +-------+ +-------+---+---+ +-------+ +-------+---+---+ | Given | 01/05/20 | 10 mg | | | | | 18 9:46 | | | | | | AM PDT | | | | +-------+ +-------+---+---+ +---+---+ | | | +---+---+ + +-------+ +------+---+---+ | midazolam (VERSED) 1 mg/mL | Given | 01/05/20 | 1 mg | | | | injection ONCE PRN, Starting Wed | 18 12:48 | | | | | 01/04/18 at 0010, Intra-op | | AM PDT | | | | + +-------+ +------+---+---+ +-------+ +------+---+---+ | Given | 01/05/20 | 2 mg | | | | | 18 12:10 | | | | | | AM PDT | | | | +-------+ +------+---+---+ +---+---+ | | | +---+---+ + +-------+ +------+---+---+ | morphine injection 2-4 mg 2-4 | Given | 01/05/20 | 2 mg | | | | mg, Intravenous, EVERY 10 MIN | | 18 3:03 | | | | | PRN, Pain, not to exceed 20 mg in | | PM PDT | | | | | 3 hours., Starting 01/04/18 | | | | | | | at 0521, not to exceed 20 mg in | | | | | | | 3 hours., | | | | | | + +-------+ +------+---+---+ +-------+ +------+---+---+ | Given | 01/05/20 | 2 mg | | | | | 18 5:50 | | | | | | AM PDT | | | | +-------+ +------+---+---+ +---+---+ | | | +---+---+ + +-------+ +--------+---+---+ | nitroglycerin (NITROSTAT) SL | Given | 01/05/20 | 0.4 mg | | | | tablet 0.4 mg 0.4 mg, | | 18 3:29 | | | | | Sublingual, EVERY 5 MIN PRN, | | AM PDT | | | | | Chest pain, Starting 01/04/18 | | | | | | | at 0121, May give up to 3 doses. | | | | | | | Notify physician after 2nd dose | | | | | | | given. Hold for SBP<100, | | | | | | | Post-op/Phase II | | | | | | + +-------+ +--------+---+---+ +-------+ +--------+---+---+ | Given | 01/05/20 | 0.4 mg | | | | | 18 3:22 | | | | | | AM PDT | | | | +-------+ +--------+---+---+ +---+---+ | | | +---+---+ + +-------+ +---------+---+---+ | nitroglycerin 100 mcg/mL | Given | 01/05/20 | 150 mcg | | | | syringe ONCE PRN, Starting Tue | | 18 12:29 | | | | | 01/04/18 at 0014, Intra-op | | AM PDT | | | | + +-------+ +---------+---+---+ +-------+ +---------+---+---+ | Given | 01/05/20 | 100 mcg | | | | | 18 12:14 | | | | | | AM PDT | | | | +-------+ +---------+---+---+ + +---+ | | | + +---+ | ondansetron (ZOFRAN) injection | | | 4-8 mg 4-8 mg, Intravenous, | | | EVERY 6 HOURS PRN, Nausea, | | | Vomiting, Starting 01/04/18 at | | | 0121, Post-op/Phase II | | + +---+ | | | + +---+ | ticagrelor (BRILINTA) tablet 90 | | | mg 90 mg, Oral, 2 TIMES DAILY, | | | First dose on Wed01/05/18 at | | | 1200, Do not give if already | | | taken today., Post-op/Phase II | | + +---+ | | | + +---+ + +-------+ +--------+---+---+ | ticagrelor (BRILINTA) tablet | Given | 01/05/20 | 180 mg | | | | ONCE PRN, Starting Tu01/04/18 at | | 18 1:07 | | | | | 0107, Intra-op | | AM PDT | | | | + +-------+ +--------+---+---+ + +---+ | | | + +---+ | zolpidem (AMBIEN) tablet 5 mg | | | 5 mg, Oral, NIGHTLY PRN, MAY | | | REPEAT X 1, Insomnia, Starting | | | Wed01/04/18 at 0121, Do not | | | repeat dose if patient > 65years | | | of age, Post-op/Phase II | | + +---+ | | | + +---+ documented in this encounter
--- OUTSIDE RECORDS SUMMARY | ~2019-09-02 | XMS | Encounter Summary ---
Demographics + + + | Address | [address] | | | [place] [address] | + + + | Home Phone | | + + + | Preferred Language | Unknown | + + + | Marital Status | | + + + | Islam Affiliation | 1013 | + + + | Race | Unknown | + + + | Ethnic Group | Unknown | + + + Author + + + | Author | [facility] | | | and Randalana | + + + | Organization | [facility] | | | and [...] Team Providers + +------+ + | Care Camp Director Name | Role | Phone | + +------+ + | Mary Kraft | PCP | | | PA | | | + +------+ + Reason for Visit +--------+ + | Reason | Comments | +--------+ + | Other | | +--------+ + Encounter Details +--------+ + + + + | Date | Type | Department | Care Team | Description | +--------+ + + + + | 03/01/ | Telephone | [facility] [place] | Paolo Lopez MD | Other | | 2019 | | CARDIOLOGY [address] | [address] | | | | | [place], | [place] | | | | | [place] [address] | [address] | | | | | [phone] | | | +--------+ + + + [...]
--- OUTSIDE RECORDS SUMMARY | ~2019-09-02 | XMS | Encounter Summary ---
Demographics + + + | Address | [address] | | | [place] [address] | + + + | Home Phone | | + + + | Preferred Language | Unknown | + + + | Marital Status | | + + + | Judaism Affiliation | 1013 | + + + | Race | Unknown | + + + | Ethnic Group | Unknown | + + + Author + + + | Author | [facility] | | | and Randalana | + + + | Organization | [facility] | | | and [...] Team Providers + +------+ + | Care Neuro Psych Sales Specialist Name | Role | Phone | + +------+ + PCP | Unavailable | + +------+ + Encounter Details +--------+ + + + + | Date | Type | Department | Care Team | Description | +--------+ + + + + | 09/19/ | Hospital | [facility] | [facility] [place] | | | 2013 | Encounter | [facility] SURG | [address] | | | | | [address] [place] | [address] | | | | | [place], [place] | [place] | | | | | [address] | [address] | | | | | [phone] | [phone] | | | | | | | [...]
--- OUTSIDE RECORDS SUMMARY | ~2019-09-02 | XMS | Encounter Summary ---
Demographics + + + | Address | [address] | | | [place] [address] | + + + | Home Phone | | + + + | Preferred Language | Unknown | + + + | Marital Status | | + + + | Restorationist Affiliation | 1013 | + + + | Race | Unknown | + + + | Ethnic Group | Unknown | + + + Author + + + | Author | [facility] | | | and Randalana | + + + | Organization | [facility] | | | and Randalana [...] Team Providers + +------+ + | Care Drug And Alcohol Counselor Name | Role | Phone | + +------+ + PCP | Unavailable | + +------+ + Encounter Details +--------+ + + + + | Date | Type | Department | Care Team | Description | +--------+ + + + + | 10/02/ | Hospital | [facility] | Adri[facility] English | | | 2008 | Encounter | HOSPITAL XRAY [address] | [address] | | | | | [address] [place] | [address] | | | | | [place], [place] | [place] [address] | | | | | [address] | [phone] | | | | | [phone] | | | +--------+ + + + [...]
--- OUTSIDE RECORDS SUMMARY | ~2019-09-02 | XMS | Encounter Summary ---
Demographics + + + | Address | [address] | | | [place] [address] | + + + | Home Phone | | + + + | Preferred Language | Unknown | + + + | Marital Status | | + + + | Zoroastrian Affiliation | 1013 | + + + | Race | Unknown | + + + | Ethnic Group | Unknown | + + + Author + + + | Author | [facility] | | | and Randalana | + + + | Organization | [facility] | | | and Randalana | [...] Team Providers + +------+ + | Care University Extension Specialist Name | Role | Phone | [...] Description | +--------+---------+ + + + | 08/01/ | Office | [facility] | Peewee Baez | Coronary artery | | 2019 | Visit | CARDIOLOGY [address] | [address] | disease involving | | | | [place], | [address] [place] | [place] | | | | [place] [address] | [place] [address] | artery of [place] | | | | [phone] | [phone] | heart with angina | | | | | | pectoris (HCC) | | | | | | (Primary Dx); | | | | | | Atherosclerosis of | | | | | | [place] coronary | | | | | | artery of [place] | | | | | | heart [...] | | | | | grafts | +--------+---------+ + + + Social History [...] encounter Progress Notes Peewee Baez MD - 08/01/2019 8:00 AM PST PATIENT NAME: Roby Goodman : 1970: AGE: 49 y.o. PRIMARY CARE: BONITA Lzoano OUTPATIENT FOLLOW UP VISIT Date of Service: 08/01/19 PROBLEMS ADDRESSED AT THIS VISIT: Coronary artery disease status post bypass graft surgery Previous anterior wall myocardial infarction PRESENT ILLNESS: Roby Goodman is a 49 y.o. male who had a total occlusion of his left anterior desce nding in December of last year. The stent for this lesion extended about 1 mm in the left main . The plaque also extended into the left main and within 6 months he came back with a left main stenosis. He then went for coronary artery bypass graft surgery. He has recovered wel l from that. His activity level is unrestricted. He has no angina, dyspnea, palpitations o r shortness of breath. He reports a little clicking feel in his sternum from time to time. MEDICAL, SURGICAL, AND PERSONAL HISTORY Past Medical, Surgical, Family, and Social History details are found in EPIC and not reprod uced here. Changes since last visit: No changes CURRENT MEDICATIONS Current Outpatient Medications Medication Sig Dispense Refill acetaminophen (TYLENOL) 500 mg tablet Take 500 mg by mouth every 6 hours as needed for Pain or Headaches. aspirin 81 mg chewable tablet Take 1 tablet by mouth Daily. 30 tablet atorvaSTATin (LIPITOR) 80 MG tablet Take 1 tablet by mouth nightly. 90 tablet 3 clopidogrel (PLAVIX) 75 mg tablet Take 1 tablet by mouth Daily. 90 tablet 3 metoprolol tartrate (LOPRESSOR) 25 mg tablet Take 1 tablet by mouth 2 times daily. 180 tablet 3 nitroglycerin (NITROSTAT) 0.[address] 1 tablet under the tongue every 5 radha perfecto as needed for Chest pain. 25 tablet 5 No current facility-administered medications for this visit. ALLERGIES Allergies Allergen Reactions Penicillins SLIGHT REACTION ROS Data found and reviewed in [facility]. Pertinent changes/review: Nothing new to report OBJECTIVE: PHYSICAL EXAM BP 102/70 | Pulse 68 | Resp 16 | Ht 1.702 m (5' 7") | Wt 89 kg (196 lb 3.4 oz) | BMI 3 0.73 kg/m General: No distress and not acutely ill. Pleasant and healthy HEENT: Ocular movements normal. No facial or cranial trauma. PER Chest: Normal respiratory effort and pattern. Clear to auscultation. I did not detect an y palpable or auscultatory abnormalities of his sternum with motion. CV: No JVD. Rhythm regular. Ausculation: No murmurs, rubs or gallops Abd: No hepatomegaly or tenderness. Ext: Hands and feet are normal in color and temperature. No edema Neuro: No obvious motor or cranial nerve deficit. Oriented. No tremor. Normal gait and balance NEW OR RECENT DATA: None ASSESSMENT: Chronic ischemic heart disease, post anterior MS and post 4 vessel CABG. No angina. PLAN: Medication changes: He needs to take either aspirin or Plavix but probably doesn't need to take both. Testing ordered today: Recheck lipids, chemistry and CBC.. Return to see a new shake out worker when he moves to [place] in a month. He will not follow up here. Electronically signed by: Chris Baez MD [facility] 08/01/2019 Portions of this chart were created with [employer] voice recognition software.Electronically s igned by Peewee Baez MD at 08/01/2019 8:19 AM PSTdocumented in this encounter Plan of Treatment + +------+--------+ + + | Name | Type | Priori | Associated Diagnoses | Order Schedule | | | | ty | | | + +------+--------+ + + | CBC with | Lab | Routin | Coronary artery | 1 Occurrences | | Differential | | e | disease involving | starting 08/01/2019 | | | | | [place] coronary | until 08/01/2020 | | | | | artery of [place] | | | | | | heart with angina | | | | | | pectoris (HCC) | | + +------+--------+ + + | Comprehensive | Lab | Routin | Coronary artery | 1 Occurrences | | Metabolic Panel | | e | disease involving | starting 08/01/2019 | | | | | [place] coronary | until 08/01/2020 | | | | | artery of [place] | | | | | | heart with angina | | | | | | pectoris (HCC) | | + +------+--------+ + + | Lipid Panel | Lab | Routin | Coronary artery | 1 Occurrences | | | | e | disease involving | starting 08/01/2019 | | | | | [place] coronary | until 08/01/2020 | | | | | artery of [place] | | | | | | heart with angina | | | | | | pectoris (HCC) | | + +------+--------+ + + documented as of this encounter Visit Diagnoses + + | Diagnosis | + + | Coronary artery disease involving [place] artery of [place] heart with angina | | pectoris (HCC) - Primary | + + | Atherosclerosis of [place] artery of [place] heart without angina pectoris | + + | Status post insertion of drug-eluting stent into left anterior descending (LAD) artery | | for coronary artery disease | + + | Status post coronary artery bypass with four autogenous grafts Postsurgical | | aortocoronary bypass status | + + documented in this encounter
--- OUTSIDE RECORDS SUMMARY | ~2019-09-02 | XMS | Encounter Summary ---
Demographics + + + | Address | [address] | | | [place] [address] | + + + | Home Phone | | + + + | Preferred Language | Unknown | + + + | Marital Status | | + + + | Rastafarian Affiliation | 1013 | + + + | Race | Unknown | + + + | Ethnic Group | Unknown | + + + Author + + + | Author | [facility] | | | and Randalana | + + + | Organization | [facility] | | | and Randalana [...] Team Providers + +------+ + | Care Drum Operator Name | Role | Phone | + +------+ + PCP | Unavailable | + +------+ + Encounter Details +--------+ + + + + | Date | Type | Department | Care Team | Description | +--------+ + + + + | 04/18/ | Hospital | [facility] | [facility] | | | 2012 | Encounter | [facility] | [address] | | | | | [facility] [address] | [facility], | | | | | [facility], | [place] [address] | | | | | [place] [address] | [phone] | | | | | [phone] | | | +--------+ + + + [...]
--- OUTSIDE RECORDS SUMMARY | ~2019-09-02 | XMS | Encounter Summary ---
Demographics + + + | Address | [address] | | | [place] [address] | + + + | Home Phone | | + + + | Preferred Language | Unknown | + + + | Marital Status | | + + + | Methodist Affiliation | 1013 | + + + | Race | Unknown | + + + | Ethnic Group | Unknown | + + + Author + + + | Author | [facility] | | | and Randalana | + + + | Organization | [facility] | | | and Randalana [...] Team Providers + +------+ + | Care Radiographer Mammographer Name | Role | Phone | + [...] | 07/14/ | Telephone | [facility] [place] | Paolo Lopez MD | Follow-up | | 2017 | | CARDIOLOGY [address] | [address] | | | | | [place], | [place], [place] | | | | | [place] [address] | [phone] | | | | | [phone] | | | +--------+ + + + [...]
--- OUTSIDE RECORDS SUMMARY | ~2019-09-02 | XMS | Encounter Summary ---
Demographics + + + | Address | [address] | | | [place] [address] | + + + | Home Phone | | + + + | Preferred Language | Unknown | + + + | Marital Status | | + + + | Adventist Affiliation | 1013 | + + + | Race | Unknown | + + + | Ethnic Group | Unknown | + + + Author + + + | Author | [facility] | | | and Randalana | + + + | Organization | [facility] | | | and [...] Team Providers + +------+ + | Care Home Energy Consultant Name | Role | Phone | + +------+ + PCP | Unavailable | + +------+ + Encounter Details +--------+ + + + + | Date | Type | Department | Care Team | Description | +--------+ + + + + | 08/16/ | Hospital | [facility] | [facility] | | | 2013 | Encounter | [facility] | [address] | | | | | MEDICAL [address] | [address] | | | | | [facility], | [facility] [place], [place] | | | | | [place] [address] | [address] | | | | | [phone] | [phone] | | | | | | | [...]
--- OUTSIDE RECORDS SUMMARY | ~2019-09-02 | XMS | Encounter Summary ---
Demographics + + + | Address | [address] | | | [place] [address] | + + + | Home Phone | | + + + | Preferred Language | Unknown | + + + | Marital Status | | + + + | Confucianist Affiliation | 1013 | + + + | Race | Unknown | + + + | Ethnic Group | Unknown | + + + Author + + + | Author | [facility] | | | and Randalana | + + + | Organization | [facility] | | | and [...] Team Providers + +------+ + | Care Palm And Back Forger Name | Role | Phone | + [...] [place], [place] | | | | | [address] | [address] | | | | | [phone] | [phone] | | | | | | | [...]
--- OUTSIDE RECORDS SUMMARY | ~2019-09-02 | XMS | Encounter Summary ---
Demographics + + + | Address | [address] | | | [place] [address] | + + + | Home Phone | | + + + | Preferred Language | Unknown | + + + | Marital Status | | + + + | Congregation Affiliation | 1013 | + + + | Race | Unknown | + + + | Ethnic Group | Unknown | + + + Author + + + | Author | [facility] | | | and Randalana | + + + | Organization | [facility] | | | and Randalana [...] Team Providers + +------+ + | Care Poultice Machine Operator Name | Role | Phone | + +------+ + | Mary Kraft | PCP | | | [place] | | | + +------+ + Reason for Visit +--------+ + | Reason | Comments | +--------+ + | Other | FMLA paperwork | +--------+ + Encounter Details +--------+ + + + + | Date | Type | Department | Care Team | Description | +--------+ + + + + | 01/12/ | Telephone | [facility] | Peewee Baez | Other ([place] | | 2017 | | [facility] [address] | [address] | paperwork) | | | | [place], | [address] [place] | | | | | [place] [address] | [place] [address] | | | | | [phone] | [phone] | | | | | | | [...]
--- OUTSIDE RECORDS SUMMARY | ~2019-09-02 | XMS | Encounter Summary ---
Demographics + + + | Address | [address] | | | [place] [address] | + + + | Home Phone | | + + + | Preferred Language | Unknown | + + + | Marital Status | | + + + | Evangelical Affiliation | 1013 | + + + | Race | Unknown | + + + | Ethnic Group | Unknown | + + + Author + + + | Author | [facility] | | | and Randalana | + + + | Organization | [facility] | | | and Randalana [...] Team Providers + +------+ + | Care Communications Intern Name | Role | Phone | + +------+ + | Mary Kraft | PCP | | | PA | | | + +------+ + Encounter Details +--------+ + + + + | Date | Type | Department | Care Team | Description | +--------+ + + + + | 08/17/ | Orders Only | [facility] [place] | Montse Pinedo, | | | 2018 | | CARDIOLOGY [address] | RN | | | | | [place], | | | | | | [place] [address] | | | | | | [phone] | | | +--------+ + + + [...]
--- OUTSIDE RECORDS SUMMARY | ~2019-09-02 | XMS | Encounter Summary ---
Demographics + + + | Address | [address] | | | [place] [address] | + + + | Home Phone | | + + + | Preferred Language | Unknown | + + + | Marital Status | | + + + | Confucianism Affiliation | 1013 | + + + | Race | Unknown | + + + | Ethnic Group | Unknown | + + + Author + + + | Author | [facility] | | | and Randalana | + + + | Organization | [facility] | | | and [...] Team Providers + +------+ + | Care Experimental Rocket Sled Mechanic Name | Role | Phone | + +------+ + PCP | Unavailable | + +------+ + Encounter Details +--------+ + + + + | Date | Type | Department | Care Team | Description | +--------+ + + + + | 11/06/ | Hospital | [facility] | Adri[facility] English | | | 2008 | Encounter | [facility] | [address] | | | | | [address] [place] | [address] [place] | | | | | [place], [place] | [place] [address] | | | | | [address] | [phone] | | | | | [phone] | | | +--------+ + + + [...]
--- OUTSIDE RECORDS SUMMARY | ~2019-09-02 | XMS | Encounter Summary ---
Demographics + + + | Address | [address] | | | [place] [address] | + + + | Home Phone | | + + + | Preferred Language | Unknown | + + + | Marital Status | | + + + | Methodist Affiliation | 1013 | + + + | Race | Unknown | + + + | Ethnic Group | Unknown | + + + Author + + + | Author | [facility] | | | and Randalana | + + + | Organization | [facility] | | | and Randalana [...] Team Providers + +------+ + | Care Airconditioning Plant Operator Name | Role | Phone | [...] | | [place], [place] | [place] [address] | | | | | [address] | [phone] | | | | | [phone] | | | +--------+ + + + [...]
--- OUTSIDE RECORDS SUMMARY | ~2019-09-02 | XMS | Encounter Summary ---
Demographics + + + | Address | [address] | | | [place] [address] | + + + | Home Phone | | + + + | Preferred Language | Unknown | + + + | Marital Status | | + + + | Rastafari Affiliation | 1013 | + + + | Race | Unknown | + + + | Ethnic Group | Unknown | + + + Author + + + | Author | [facility] | | | and Randalana | + + + | Organization | [facility] [...] Team Providers + +------+ + | Care Switch Operator Name | Role | Phone | + +------+ + PCP | Unavailable | + +------+ + Encounter Details +--------+ + + + + | Date | Type | Department | Care Team | Description | +--------+ + + + + | 11/21/ | Hospital | [facility] | Adrián English | | | 2008 | Encounter | HOSPITAL XRAY [address] | [address] | | | | | [address] [place] | [address] [place] | | | | | [place], [place] | [place] [address] | | | | | [address] | [phone] | | | | | [phone] | | | +--------+ + + + [...]
--- OUTSIDE RECORDS SUMMARY | ~2019-09-02 | XMS | Encounter Summary ---
Demographics + + + | Address | [address] | | | [place] [address] | + + + | Home Phone | | + + + | Preferred Language | Unknown | + + + | Marital Status | | + + + | Mu-Ism Affiliation | 1013 | + + + | Race | Unknown | + + + | Ethnic Group | Unknown | + + + Author + + + | Author | [facility] | | | and Randalana | + + + | Organization | [facility] | | | and [...] Team Providers + +------+ + | Care Veneer Grader Name | Role | Phone | + [...] + + | 03/01/ | Telephone | [facility] [place] | Paolo Lopez MD | Other | | 2019 | | CARDIOLOGY [address] | [address] | | | | | [place], | [place] | | | | | [place] [address] | [address] | | | | | [phone] | | | +--------+ + + + [...]
--- OUTSIDE RECORDS SUMMARY | ~2019-09-02 | XMS | Encounter Summary ---
Demographics + + + | Address | [address] | | | [place] [address] | + + + | Home Phone | | + + + | Preferred Language | Unknown | + + + | Marital Status | | + + + | Bahai Affiliation | 1013 | + + + | Race | Unknown | + + + | Ethnic Group | Unknown | + + + Author + + + | Author | [facility] | | | and Randalana | + + + | Organization | [facility] | | | and Randalana [...] Team Providers + +------+ + | Care Case Management Assistant Name | Role | Phone | [...] + + | 01/10/ | Telephone | [facility] | Olivia Rodriguez, | Hospital Follow-up | | 2018 | | [facility] | PharmD [address] | | | | | [address] [facility] | [facility] | | | | | [place] [address] | [place] [address] | | | | | [phone] | [phone] | | +--------+ + + + + [...]
--- OUTSIDE RECORDS SUMMARY | ~2019-09-02 | XMS | Encounter Summary ---
Demographics + + + | Address | [address] | | | [place] [address] | + + + | Home Phone | | + + + | Preferred Language | Unknown | + + + | Marital Status | | + + + | Baptist Affiliation | 1013 | + + + | Race | Unknown | + + + | Ethnic Group | Unknown | + + + Author + + + | Author | [facility] | | | and Randalana | + + + | Organization | [facility] | | | and [...] Team Providers + +------+ + | Care Solar Electric Installer Name | Role | Phone | + [...] + + | 03/02/ | Telephone | [facility] | Peewee Baez | Other (work release) | | 2017 | | [facility] [address] | [address] | | | | | [place], | [address] [place] | | | | | [place] [address] | [place] [address] | | | | | [phone] | [phone] | | | | | | | [...] | (Approximate), | | | | | chilkat coronary | Expires: 03/04/2019 | | | | | artery of chilkat | | | | | | heart [...] + + | Coronary artery disease involving chilkat coronary artery of chilkat heart with angina | | pectoris (HCC) - Primary | + + | STEMI involving left anterior descending coronary artery (HCC) | + + documented in this encounter"
--- OUTSIDE RECORDS SUMMARY | ~2019-09-02 | XMS | Encounter Summary ---
Demographics + + + | Address | [address] | | | [place] [address] | + + + | Home Phone | | + + + | Preferred Language | Unknown | + + + | Marital Status | | + + + | Restoration Affiliation | [id number] | + + + | Race | Unknown | + + + | Ethnic Group | Unknown | + + + Author + + + | Author | [facility] | | | and Randalana | + + + | Organization | [facility] | | | and Randalana [...] Team Providers + +------+ + | Care Electroplating Technician Name | Role | Phone | + +------+ + | Mary Kraft | PCP | | | PA | | | + +------+ + Encounter Details +--------+ + + + + | Date | Type | Department | Care Team | Description | +--------+ + + + + | 07/08/ | Hospital | [facility] | Esau Salvador, | | | 2018 - | Encounter | [facility] | MD [address] | | | | | CARE FLOOR [address] | [place] [address] | | | 07/17/ | | [address] | [phone] | | | 2017 | | [place], [place] | | | | | | [address] | | | | | | [phone] | | | +--------+ + + + [...] + + + | Blood Pressure | 115/72 | 07/17/2018 9:58 AM | | | | | PST | | + + + + + | Pulse | 104 | 07/17/2018 9:58 AM | | | | | PST | | + + + + + | Temperature | 36.8 C (98.2 F) | 07/17/2018 9:58 AM | | | | | PST | | + + + + + | Respiratory Rate | 16 | 07/17/2018 9:58 AM | | | | | PST | | + + + + + | Oxygen Saturation | - | - | | + + + + + | Inhaled Oxygen | - | - | | | Concentration | | | | + + + + + | Weight | 84.5 kg (186 lb 4.6 | 07/17/2018 9:58 AM | | | | oz) | PST | | + + + + + | Height | 170.2 cm (5' 7") | 07/17/2018 9:58 AM | | | | | PST | | + + + + + | Body Mass Index | 29.18 | 07/17/2018 9:58 AM | | | | | PST [...] documented as of this encounter Discharge Summaries Lara Thorpe PA-C - 07/17/2018 7:41 AM PSTFormatting of this note might be different fr om the original. Discharge Summaries by Lara Thorpe PA-C at 07/17/18740 Author: Lara Thorpe PA-C Service: Cardiac, Thoracic, and Vascular Surgery Author Type : Physician Zyglo Technician - Certified Filed: 07/17/18 1010 Date of Service: 07/17/18740 Status: Attested Rn Occupational: Lara Thorpe PA-C (Physician Zyglo Technician - Certified) Cosigner: Jorge goel MD at 07/18/18910 Attestation signed by Jorge Richards MD at 07/18/18910 I have reviewed the note below, personally reviewed the available laboratory and imaging st udies and examined the patient. I agree with the assessment and plan mentioned below. Electronically signed by: Jorge Richards, 07/18/2018 9:11 AM Service: Cardiothoracic Surgery Discharge Summary Pt: Roby Ortega AGE/SEX: 48 y.o. male ROOM: 91/9102-1 : 1970 PCP: Mary Kraft Date/Time:07/17/2018 7:42 AM Date of Admission: 07/08/2018 Date of Discharge: 07/17/2018 Hospital Day: LOS: 9 days Surgery/Procedure: 1. Coronary Artery Bypass Grafting x4 (ESTRADA to LAD, SVG to OM1, SVG to left PL, and SVG to left PDA) 2. Endoscopic right greater saphenous vein harvest Post-Op Day: 4 Days Post-Op Discharge Provider: Lara Thorpe PA-C Treatment Team: Admitting Provider: Esau Salvador MD Discharge Diagnoses: Principal Problem: Atherosclerosis of tazlina coronary artery Active Problems: Chest pain Benign essential hypertension Hyperlipidemia Resolved Problems: * No resolved hospital problems. * BRIEF HISTORY OF PRESENTATION: Roby Ortega is a 48 y.o. male w/ coronary artery disease and history of cardia c stent in January 2018. Cardiac catheterization performed at [place] on 07/07/2018 revealed a new left main lesion. HOSPITAL COURSE: The patient was transferred from [place] on 07/08/2018 after cardiac catheterization re vealed a new left main lesion. The patient was on Brilinta so the operation was delayed. T he patient was taken to the operating room and underwent a CABG x4 and endoscopic right grea ter saphenous vein harvest on 07/13/2018. Operation was uneventful (please refer to operati ve note for details of the same). The patient tolerated the procedure well and was transferr ed to the ICU intubated and in stable condition, and was extubated per ICU protocol. The pat ient was transferred to the cardiac unit, hemodynamically stable on postoperative day 1. He received electrolyte replacement per protocol and continued to make good recovery, ambulatin g, tolerating cardiac diet, and passing bowel movements. Chest tubes were removed without co mplication, pacing wires were cut at the skin, and the patient remained stable without suppl emental oxygen. The patient was fit for discharge to Home on postoperative day 4. Past Medical History Diagnosis Date Coronary artery disease Hyperlipidemia Hypertension Old myocardial infarction January 03, 2018 Renal calculi Ulcerative colitis (HCC) Past Surgical History Procedure Laterality Date CARDIAC CATHETERIZATION COLONOSCOPY CORONARY ARTERY BYPASS GRAFT N/A 07/13/2018 Procedure: CABG - PALLAVI; Surgeon: Jorge Richards MD; Location: [facility] MAIN OR; Service: Cardiac; Laterality: N/A; Sternotomy, Right leg EVH, Left KEEGAN Allergies Allergen Reactions Penicillins Hives Hives with itching and blisters Prescriptions Prior to Admission Medication Sig Dispense Refill Last Dose aspirin 81 MG tablet Take 81 mg by mouth daily. 07/12/2018 at Unknown time atorvastatin (LIPITOR) 80 MG tablet Take 80 mg by mouth nightly. 07/12/2018 at Unknow n time DISCHARGE EXAM Vital Signs: BP 113/64 (BP Location: Left upper arm) | Pulse 96 | Temp 98.4 F (36.9 C) (Oral) | R carolynn 17 | Ht 1.702 m (5' 7") | Wt 84.5 kg (186 lb 4.6 oz) | SpO2 95% | BMI 29.18 kg/m Temp: [98.2 F (36.8 C)-98.6 F (37 C)] 98.2 F (36.8 C) (07/17 745) BP: (91-132)/(55-77) 115/72 (07/17 955) Heart Rate: [91-105] 104 (07/17 956) Resp: [16-17] 16 (07/17 745) SpO2: [89 %-97 %] 94 % (07/17 745) Weight: [84.5 kg (186 lb 4.6 oz)] 84.5 kg (186 lb 4.6 oz) (07/17 430) Current weight: Patient Vitals for the past 96 hrs: Weight 07/17/18 0430 84.5 kg (186 lb 4.6 oz) 07/16/18 0600 87.6 kg (193 lb 2 oz) 07/15/18 0550 90.8 kg (200 lb 2.8 oz) 07/14/18 0500 93.1 kg (205 lb 4 oz) Admission weight: Weight: 84.4 kg (186 lb 1.1 oz) General: Alert, oriented, in no acute distress,resting in bed Heart: RRR No murmur or rub Lungs: CTAB, no rhonchi or wheezing Abdomen:Soft, nondistended, nontender, BS present Extremities: Well perfused, No LE edema Neurological: No gross focal motor or sensory deficits Skin:No rash or lesions. Mid-sternal incision is C/D/I. Chest tube removed incision C/D /I. Pacing wires removed. EVH incision dressing C/D/I. DATA CBC: Lab Results Component Value Date WBC 9.00 07/17/2018 RBC 3.23 (L) 07/17/2018 HGB 9.9 (L) 07/17/2018 HCT 28.5 (L) 07/17/2018 MCV 88.0 07/17/2018 MCH 30.7 07/17/2018 MCHC 34.9 07/17/2018 RDW 40.3 07/17/2018 PLT 227 07/17/2018 MPV 8.8 07/17/2018 DIFFTYPE MANUAL 07/14/2018 BMP: Lab Results Component Value Date NA 139 07/17/2018 K 4.1 07/17/2018 K 4.1 07/13/2018 CL 104 07/17/2018 CO2 28 07/17/2018 ANIONGAP 11 07/17/2018 GLUF 115 (H) 07/17/2018 BUN 11 07/17/2018 CREATININE 0.9 07/17/2018 BCR 12 07/17/2018 CA 8.3 (L) 07/17/2018 EGFR >60 07/17/2018 PLAN 1. Patient is discharged to Home. 2. Pt instructed to schedule follow-up appointments as below. 3. Education: Cardiac Surgery: The patient is being discharged with instructions on cardiac diet, andry rnal precautions x 12 weeks and surgical incision care are according to the Society of Thora cic Surgeon guidelines. The patient is given instructions to start cardiac rehabilitation in accordance with flavor extractor recommendations. Pt advised not to drive for 6 weeks post disc harge. The patient was given extensive education regarding incision precautions. He/She was instructed to take showers using only soap and water on the incisions. The patient was encou raged to contact us in case he/she developed high fever, discharge from his/her wounds, or e xperience same symptoms prior to surgery Thoracic Surgery: The patient is being discharged with instructions on surgical incision care. The patient was encouraged to contact us in case of high fever, discharge from incisi onal wounds, or SOB. The patient was also advised not to drive for 4 weeks. Cardiothoracic Surgery will manage prescriptions until pt has seen Radio Talk Show Host and [facility] Physician, who will resume prescription management afterwards. Discharge Checklist: Aspirin (81mg/day) is being given at discharge:Yes A beta bryce is being given at discharge:Yes A high-intensity statin (e.g., atorvastatin at 40-80 mg/day) is being given at discharge :Yes. Adherence to lipid modifying therapy to be monitored by cardiology An THOM inhibitor or ARB is being given at discharge:No, because of hypotension. Warfarin is being given at discharge and will be managed by: N/A, warfarin is not being given at discharge. Tobacco cessation counseling is being given at discharge: N/A, because the patient does not use tobacco. A referral to phase 2 cardiac rehabilitation will be given by cardiology. Disposition: Home Condition: Good Code Status: Full Code No discharge procedures on file. Follow up: BONITA Monroy [address] [facility] [place] [address] Schedule an appointment as soon as possible for a visit in 1 week For primary care follow up [facility]ee[facility] [address] [facility] [phone] Go on 08/19/2018 Cardiology follow-up Jorge Richards MD [address] [facility] [address] Schedule an appointment as soon as possible for a visit in 4 weeks Postop follow-up Medication List START taking these medications clopidogrel 75 MG tablet QTY: 30 tablet Refills: 1 Commonly known as: PLAVIX Take 1 tablet by mouth daily. DSS 100 MG Caps QTY: 30 each Refills: 0 Take 100 mg by mouth 2 (two) times daily as needed. furosemide 20 MG tablet QTY: 5 tablet Refills: 0 Commonly known as: LASIX Take 1 tablet by mouth daily for 5 days. HYDROcodone-acetaminophen 5-325 MG per tablet QTY: 90 tablet Refills: 0 Doctor's comments: Exempt- sternotomy Commonly known as: NORCO Take 1 tablet by mouth every 4 (four) hours as needed for Pain. metoprolol 25 MG tablet QTY: 60 tablet Refills: 1 Commonly known as: LOPRESSOR Take 1 tablet by mouth 2 (two) times daily. potassium chloride 10 MEQ tablet QTY: 5 tablet Refills: 0 Commonly known as: K-DUR Take 1 tablet by mouth daily with breakfast for 5 days. CONTINUE taking these medications aspirin 81 MG tablet Refills: 0 atorvastatin 80 MG tablet Refills: 0 Commonly known as: LIPITOR You might also be taking other medications not listed above. If you have questions about an y of your other medications, talk to the person who prescribed them or your Primary Care Pro vider. STOP taking these medications acetaminophen 325 MG tablet Commonly known as: TYLENOL lisinopril 10 MG tablet Commonly known as: ZESTRIL ticagrelor 90 MG tablet Commonly known as: BRILINTA Where to Get Your Medications You can get these medications from any pharmacy Bring a paper prescription for each of these medications clopidogrel 75 MG tablet DSS 100 MG Caps furosemide 20 MG tablet HYDROcodone-acetaminophen 5-325 MG per tablet metoprolol 25 MG tablet potassium chloride 10 MEQ tablet Discharge took less than 30 minutes, to include final examination, discussion of admission, and preparation of prescriptions, instructions for on-going care, follow-up and documentati on of discharge summary. Lara Thorpe PA-C 07/17/2018 documented in this encounter Medications at Time [...] | | | | | | | tazlina coronary | | | | | | | artery of tazlina | | | | | | | heart with angina | | | | | | | pectoris ([facility]) | | | | | | + [...] | | | | | | | tazlina coronary | | | | | | | artery of tazlina | | | | | | | heart with angina | | | | | | | pectoris ([facility]) | | | | | | + [...] | | | | | | | tazlina coronary | | | | | | | artery of tazlina | | | | | | | heart with angina | | | | | | | pectoris (HCC) | | | | | | + + + +---------+ + + | clopidogrel | Take 75 mg by mouth. | | 0 | 07/17/20 | | | (PLAVIX) 75 mg | | | | 18 | 8 | | tablet | | | | | | + + + +---------+ + + | | | | 0 | 07/17/20 | | | HYDROcodone-acetamin | | | | 18 | 9 | | ophen (NORCO) 5-325 | | | | | | | mg per tablet | | | | | | + + + +---------+ + + | lisinopril | Take 1 tablet by | 30 | 11 | 02/09/20 | | | (PRINIVIL, ZESTRIL) | mouth Daily. | tablet | | 18 | 8 | | 10 mg tablet | | | | | | + + + +---------+ + + | metoprolol | Take 25 mg by mouth. | | 0 | 07/17/20 | | | tartrate (LOPRESSOR) | | | | 18 | 8 | | 25 mg tablet | | | | | | + + + +---------+ + + documented as of this encounter Progress Notes Conversion Transaction, Provider Unknown - 07/17/2018 7:36 AM PSTFormatting of this note m ight be different from the original. Therapy Progress Note by Raymond Sebastian PT at 07/17/18735 Author: Raymond Sebastian PT Service: (none) Author Type: Physical Therapist Filed: 07/17/18 0754 Date of Service: 07/17/18735 Status: Signed Rn Occupational: Raymond Sebastian PT (Physical Therapist) PHYSICAL THERAPY TREATMENT NOTE PT Received On: 07/17/18 Reason for Treatment: Cardiac Requires PT Follow Up: Yes Follow up PT Only?: No Assistance Required: 1 person Clinic Lead Needed: No Recommendations: Home Assist PT Ready for Discharge: Yes Plan Treatment/Interventions: Continue per Primary PT POC Progress: Progressing toward goals Summary Comments: pt. supine in bed and agreeable to therapy. pt. should be going home today per R N. Reviewed sternal precautions, pericare, bed mobility, bathroom safety and car transfers. pt. has practiced these already and has questions about car transfers but other then that pt. has no questions. pt. encouraged to cont. ambulating when returning home. pt. and spou se have no other questions or concerns at this time. Precautions Cardiac Precautions: Sternal Cognition Overall Cognitive Status: Within Functional Limits Orientation Level: Oriented Oriented: x 4 Activity Tolerance: Patient tolerated treatment without report of fatigue Nurse Made Aware: yes The patient demonstrated no indication of pain during therapy session. Education Completed: Education Topics: [] Rationale for PT [] PT POC [] DC planning [] Precautions [] Exercises [] Bed mobility [] Transfer training with hand placement [] Gait training [] Stair training [] Use of gait belt [x] Other : see note above Completed with: [x] Patient [x] Spouse [] Significant other [] Family [] Caregiver [] Other Completed by: [x] Verbal education [] Demonstration [] Handout [] Other: Response to Education: [x] Stated Understanding [] Reinforcement necessary [] Returned demonstration [] Demonstrated understanding [] No evidence of learning [] Refused Physical Therapy Goals PT Goals Pt Will Go Supine To Sit: With standby assistance Pt Will Go Sit To Supine: With standby assistance Pt Will Transfer Sit to Stand: With supervision Pt Will Ambulate: greater than 500 feet Ambulate Level Assist: With supervision Ambulate with Assistive Device: Least restricitve device Pt Will Go Up / Down Stairs: 3-5 stairs Stairs Level of Assist: With supervision Up/Down Stairs Technique: Step-to Lara Chu PA-C - 07/17/2018 7:19 AM PST Progress Notes by Lara Thorpe PA-C at 07/17/18718 Author: Lara Thorpe PA-C Service: Cardiac, Thoracic, and Vascular Surgery Author Type : Physician Zyglo Technician - Certified Filed: 07/17/18730 Date of Service: 07/17/18718 Status: Attested Rn Occupational: Lara Thrope PA-C (Physician Zyglo Technician - Certified) Cosigner: Avi Ochoa Jr., MD at 07/17/18 08 Attestation signed by Avi Ochoa Jr., MD at 07/17/18852 I have reviewed the note below, personally reviewed the available laboratory and imaging st udies and examined the patient. I agree with the assessment and plan mentioned below. Electronically signed by: Avi Ochoa Jr, MD PhD FACS 07/17/2018 8:52 AM [facility] Service: Cardiothoracic Surgery Progress Note ROOM: [address] [place] [address] Hospital Day: LOS: 9 days Post-Op Day: 4 Days Post-Op Surgery/Procedure: 07/13/18 1. Coronary Artery Bypass Grafting x4 (ESTRADA to LAD, SVG to OM1, SVG to left PL, and SVG to left PDA) 2. Endoscopic right greater saphenous vein harvest SUBJECTIVE Events Overnight: HD stable. Stable on room air. Good pain control w/ Rainelle. Walking in lindsay. Eating well, +BM. Ready to discharge. UOP: 1.5 L/24hs OBJECTIVE Vital Signs: BP 113/64 (BP Location: Left upper arm) | Pulse 96 | Temp 98.4 F (36.9 C) (Oral) | R carolynn 17 | Ht 1.702 m (5' 7") | Wt 84.5 kg (186 lb 4.6 oz) | SpO2 95% | BMI 29.18 kg/m Current weight: Patient Vitals for the past 96 hrs: Weight 07/17/18 0430 84.5 kg (186 lb 4.6 oz) 07/16/18 0600 87.6 kg (193 lb 2 oz) 07/15/18 0550 90.8 kg (200 lb 2.8 oz) 07/14/18 0500 93.1 kg (205 lb 4 oz) Admission weight: Weight: 84.4 kg (186 lb 1.1 oz) Physical Exam: General: Alert, oriented, in no acute distress, resting in bed Heart: RRR No murmur or rub Lungs: CTAB, no rhonchi or wheezing Abdomen: Soft, nondistended, nontender, BS present Extremities: Well perfused, No LE edema Neurological: No gross focal motor or sensory deficits Skin: No rash or lesions. Mid-sternal incision dressing is C/D/I. Chest tube removed inci lauren C/D/I. Pacing wires present. EV incision dressing C/D/I. DATA: Scheduled Medications acetaminophen 1,000 mg Oral Q6H aspirin 81 mg Oral Daily atorvastatin 80 mg Oral Nightly clopidogrel 75 mg Oral Daily docusate sodium 100 mg Oral BID famotidine 20 mg Oral BID Or famotidine 20 mg Intravenous BID furosemide 20 mg Oral Daily insulin lispro (human) 0-10 Units Subcutaneous TID AC insulin lispro (human) 0-5 Units Subcutaneous Nightly lidocaine 2 patch Transdermal Daily magnesium hydroxide 30 mL Oral Daily metoprolol 25 mg Oral BID potassium chloride 10 mEq Oral Daily with breakfast Continuous Infusions dextrose PRN Medications aluminum-magnesium hydroxide-simethicone, amiodarone IV bolus, bisacodyl, dextrose, dextros e, dextrose, glucagon, glucagon, HYDROcodone-acetaminophen, magnesium sulfate OR magnesi um sulfate OR magnesium sulfate, ondansetron, polyethylene glycol, potassium OR pota ssium OR potassium OR potassium chloride OR potassium chloride OR potassium chloride, saline lock IV - prn tolerating PO fluid AND sodium chloride, sodium phosphate HOME MEDS: Prior to Admission medications Medication Sig Start Date End Date Taking? Authorizing Provider acetaminophen (TYLENOL) 325 MG tablet Take 325 mg by mouth every 6 (six) hours as needed fo r Pain. Yes Historical Provider aspirin 81 MG tablet Take 81 mg by mouth daily. Yes Historical Provider atorvastatin (LIPITOR) 80 MG tablet Take 80 mg by mouth nightly. Yes Historical Provider lisinopril (ZESTRIL) 10 MG tablet Take 10 mg by mouth daily. Yes Historical Provider ticagrelor (BRILINTA) 90 MG tablet Take 90 mg by mouth 2 (two) times daily. Yes Historica l Provider LABS: Recent Labs Lab 07/17/18 0535 07/16/18 0503 07/15/18 0419 07/13/18 1350 07/13/18 0415 07/12/18 0403 WBC 9.00 9.88 9.77 < > 22.17* -- 8.90 7.74 HGB 9.9* 9.5* 8.4* < > 10.5* < > 13.2 13.2 HCT 28.5* 26.7* 23.9* < > 31.6* < > 37.8* 38.0* PLT 227 154 114* < > 140* -- 222 217 NEUTOPHILPCT -- -- -- -- 84.04 -- 73.85 69.38 MONOPCT -- -- -- -- 7.37 -- 8.48 11.25 < > = values in this interval not displayed. Recent Labs Lab 07/17/18 0535 07/16/18 0503 07/15/18 0419 NA 139 140 139 K 4.1 3.9 4.2 CL 104 103 105 CO2 28 30 30 BUN 11 11 11 CREATININE 0.9 0.9 0.9 Phosphorus: Lab Results Component Value Date PHOS 3.7 07/09/2018 Invalid input(s): LABALBU Recent Labs Lab 07/17/18 0535 07/16/18 0503 07/15/18 0419 MG 2.2 2.1 1.9 No results for input(s): AMYLASE in the last 168 hours. Recent Labs Lab 07/13/18 1016 07/13/18 0940 07/13/18 0812 BEART 2 0 1 Recent Labs Lab 07/13/18 1350 07/12/18 0403 07/11/18 0413 APTT 27 55* 55* INR 1.3 -- -- No results for input(s): TSH, T3FREE, FREET4 in the last 168 hours. No results for input(s): CKTOTAL, TROPONINI, TROPONINT, CKMBINDEX in the last 168 hours. PROBLEM LIST Principal Problem: Atherosclerosis of tazlina coronary artery Active Problems: Chest pain Benign essential hypertension Hyperlipidemia ASSESSMENT & PLAN S/P CABG -Continue ASA, Statin, Plavix, BB -Encourage IS, ambulate -CT out Keep TPWs until discharge, remove ground (white) and cut pacing (orange) wire at skin today VO -Continue diuresis, monitor electrolytes Disposition: Discharge today to home with family. Lives in [place] with . Code Status: Full Code The patient has been seen, all new lab results and imaging reviewed, and the plan discussed with the attending provider, Dr. Don Thorpe PA-C 07/17/2018 onversion Transact ion, Provider Unknown - 07/17/2018 6:52 AM PSTFormatting of this note might be different fr om the original. Nurse Progress Note by Bubba Webster RN at 07/17/1852 Author: Bubba Webster RN Service: (none) Author Type: Registered Nurse Filed: 07/17/18 0653 Date of Service: 07/17/18651 Status: Signed Rn Occupational: Bubba Webster RN (Registered Nurse) Pt ambulating and tolerating well. VS stable. Afebrile. Pain controlled with Tylenol. End of shift chart review complete. Carmen Mendoza PT - 07/16/2018 3:50 PM PDTFormatting of this note might be different from the brain cynthia. Therapy Progress Note by Carmen Redd PT at 07/16/18 8850 Author: Carmen Redd PT Service: (none) Author Type: Physical Therapist Filed: 07/16/18 2913 Date of Service: 07/16/18 1550 Status: Signed Rn Occupational: Carmen Redd PT (Physical Therapist) PHYSICAL THERAPY TREATMENT NOTE PT Received On: 07/16/18 Reason for Treatment: Cardiac Requires PT Follow Up: Yes Follow up PT Only?: No Assistance Required: 1 person Recommendations: Home Assist (may benefit from cardiac rehab) Equipment Recommended: None (mobilizing well with no AD today) PT Ready for Discharge: Yes Plan Treatment/Interventions: Continue per Primary PT POC Progress: Progressing toward goals Summary Comments: Pt up in recliner with family present, denies pain and agreeable to therapy. CT now removed (per RN >1 hour ago). Session focused on assessment of gait with no AD and stai r training. Pt demo's good independence with sternal precautions to scoot forward and stand , gait with decreased speed but otherwise WNL and steady without AD. Pt completed 12 steps with no UE support and appears steady. He returned to recliner in room after session. Car transfer and bed mobility techniques verbally reviewed with pt and family. Pt tolerated all activity very well on RA with VS as noted below. Pt resting comfortably after session with needs in reach. Pre/Peak/Post Position BP Pulse rate O2 sats L/min Pain complaint Pain intervention Pre Seated 101/65 95 93 RA Denies pain RN informed; repositioned pt Peak Ambulating, stairs 118 92-94 RA Post Seated 132/77 94 95 RA Denies pain Precautions Cardiac Precautions: Sternal Cognition Overall Cognitive Status: Within Functional Limits Orientation Level: Oriented Oriented: x 4 FUNCTIONAL MOBILITY Bed Mobility Scooting : Independent - Transfers Sit to/from Stand: Supervision Ambulation Maximal Ambulation Distance (feet): 450 Total Ambulation Distance (feet): 450 Ambulation Assistance: Supervision Distance limited by?: Therapist/staff discretion Pattern: Decreased lona, Alternating, Within Functional Limits Assistive Device: None Stairs Number of Stairs: 12 Stairs Assistance: Supervision, Patient appears safe Number of stairs limited by?: Therapist/staff discretion Stair Management Technique: Rail none, Step-to, [id number] (progressing from step-to to step-over) Activity Tolerance: Patient tolerated treatment without report of fatigue Nurse Made Aware: Yes Felipe Safety Devices in Place: (call light/needs in reach, family present) The patient demonstrated no indication of pain during therapy session. Education Completed: Education Topics: [x] Rationale for PT [x] PT POC [x] DC planning [x] Precautions [x] Exercises [x] Bed mobility [x] Transfer training with hand placement [x] Gait training [x] Stair training [x] Use of gait belt [] Other Completed with: [x] Patient [] Spouse [x] Significant other [x] Family [] Caregiver [] Other Completed by: [x] Verbal education [x] Demonstration [] Handout [] Other: Response to Education: [x] Stated Understanding [] Reinforcement necessary [x] Returned demonstration [x] Demonstrated understanding [] No evidence of learning [] Refused Physical Therapy Goals PT Goals Pt Will Go Supine To Sit: With standby assistance Pt Will Go Sit To Supine: With standby assistance Pt Will Transfer Sit to Stand: With supervision Pt Will Ambulate: greater than 500 feet Ambulate Level Assist: With supervision Ambulate with Assistive Device: Least restricitve device Pt Will Go Up / Down Stairs: 3-5 stairs Stairs Level of Assist: With supervision Up/Down Stairs Technique: Step-to onversion Transaction , Provider Unknown - 07/16/2018 2:30 PM PDT Therapy Progress Note by MAHNAZ De La Cruz at 07/16/18 1430 Author: MAHNAZ De La Cruz Service: (none) Author Type: Occupational Therapy Wayne figueroa Filed: 07/16/18 0890 Date of Service: 07/16/18 1430 Status: Signed Rn Occupational: MAHNAZ De La Cruz (Vocational Psychologist) OCCUPATIONAL THERAPY TREATMENT NOTE OT Received On: 07/16/18 Reason for Treatment: Cardiac Requires OT Follow Up: Yes Assistance Required: 1 person Clinic Lead Needed: No Family/Caregiver Present: Yes (SO and mother) Recommendation: Return to prior living conditions, Home with daytime assist Equipment Recommended: Shower chair with back, Washer Meat, Elastic shoe laces, Shoe horn long handled Requires OT Follow Up: Yes OT Ready for Discharge: Yes (yes w/ family assist) Recommendation Comments Educated on ECT to maximize pt ind during daily/functional activities( sit vs standing, ebony oritzing, frequent rest break, etc). Plan Treatment Interventions: (per OT POC) Progress: Improving as expected Requires OT Follow Up: Yes Follow up OT only? [] Yes [x] No Precautions Cardiac Precautions: Sternal Summary pt supine in recliner chair upon QUINTON arrival. Pt just had chest tub removed agreeable for e ducation fo self care activities while maintaining precautions. At end of session pt remaine d supine in recliner chair no need sindicated at this time. ADL/IADL UE Bathing UE Bathing Comments: Educated on UE/LE bathing with use of AE while maintaining sternal pre cautions. pt and SO state understanding UE Dressing UE Dressing Comments: educated on donning/doffing warehouse order puller t-shirt and button up while apurva ntaining precautions. Discussed larger size shirt for inc ease LE Dressing LE Dressing: Yes LE Dressing Comments: Educated on donning/doffing pants/underwear/socks while maintaining p recautions disucssed tech with and without use of AE. pt and SO state understanding Toileting Toileting Comments: No quesitons regards to pericare Functional Standing Tolerance Comments: Educated on appropriate reaching distances, weight restriction while maintaining sternal precautions Shower Transfers Shower Transfers Comments: SO report getting shower chair for pt to use to complete bathing process Additional Activities Additional Activities Comments: Educated on ECT to maximize pt ind during daily/functional activities( sit vs standing, prioritzing, frequent rest break, etc). Safety Devices in Place: Yes Type of Devices: Call lite in place Barriers to d/c at this time include: [] Home environment [] Family support [] Equipment needs [] Cognitive deficits impacting functional independence [] Physical deficits impacting functional independence [] Self-care deficits impacting functional independence [] Other Pain The patient did not demonstrate any signs of symptoms of pain throughout OT session Education Completed: Education Topics: Self care-sternal precautions Completed with: [x] Patient [] Spouse [x] Significant other [x] Family [] Caregiver [] Other Completed by :[x] Verbal education [] Demonstration [x] Handout [] Other: Response to Education: [x] Stated Understanding [] Reinforcement necessary [] Returned demonstration [] Demonstrated understanding [] No evidence of learning [] Refused Reviewed plan of care and goals set by OTR/L. immer , Lara Pope PA-C - 07/16/2018 8:12 AM PDT Progress Notes by Lara Thorpe PA-C at 07/16/18811 Author: Lara Thorpe PA-C Service: Cardiac, Thoracic, and Vascular Surgery Author Type : Physician Zyglo Technician - Certified Filed: 07/16/18 0834 Date of Service: 07/16/18811 Status: Attested Rn Occupational: Lara Thorpe PA-C (Physician Zyglo Technician - Certified) Cosigner: Avi Ochoa Jr., MD at 07/16/18 9818 Attestation signed by Avi Ochoa Jr., MD at 07/16/18 8317 I have reviewed the note below, personally reviewed the available laboratory and imaging st udies and examined the patient. I agree with the assessment and plan mentioned below. Electronically signed by: Avi Ochoa Jr, MD PhD 07/16/2018 4:24 PM [facility] Service: Cardiothoracic Surgery Progress Note ROOM: 9102/9102-1 Hospital Day: LOS: 8 days Post-Op Day: 3 Days Post-Op Surgery/Procedure: 07/13/18 1. Coronary Artery Bypass Grafting x4 (ESTRADA to LAD, SVG to OM1, SVG to left PL, and SVG to left PDA) 2. Endoscopic right greater saphenous vein harvest SUBJECTIVE Events Overnight: HD stable. Stable on 1L NC. Good pain control, wants to switch to N orco instead of oxycodone. Walking in [place]. Eating well, +BM. UOP: 3 L/24hs CT Output: 30mL/overnight, 130mL/24hrs OBJECTIVE Vital Signs: BP 119/65 | Pulse 84 | Temp 98.1 F (36.7 C) (Oral) | Resp 16 | Ht 1.702 m (5' 7") | Wt 87.6 kg (193 lb 2 oz) | SpO2 95% | BMI 30.25 kg/m Current weight: Patient Vitals for the past 96 hrs: Weight 07/16/18 0600 87.6 kg (193 lb 2 oz) 07/15/18 0550 90.8 kg (200 lb 2.8 oz) 07/14/18 0500 93.1 kg (205 lb 4 oz) 07/13/18 0704 86.4 kg (190 lb 7.6 oz) 07/13/18 0436 86.4 kg (190 lb 7.6 oz) Admission weight: Weight: 84.4 kg (186 lb 1.1 oz) Physical Exam: General: Alert, oriented, in no acute distress, resting in chair Heart: RRR No murmur or rub Lungs: CTAB, no rhonchi or wheezing Abdomen: Soft, nondistended, nontender, BS present Extremities: Well perfused, trace LE edema Neurological: No gross focal motor or sensory deficits Skin: No rash or lesions. Mid-sternal incision dressing is C/D/I. Chest tube present inci lauren C/D/I. Pacing wires present. EVH incisions C/D/I. DATA: Scheduled Medications acetaminophen 1,000 mg Oral Q6H aspirin 81 mg Oral Daily atorvastatin 80 mg Oral Nightly clopidogrel 75 mg Oral Daily docusate sodium 100 mg Oral BID famotidine 20 mg Oral BID Or famotidine 20 mg Intravenous BID furosemide 20 mg Intravenous BID-Diuretics insulin lispro (human) 0-10 Units Subcutaneous 6 times per day lidocaine 2 patch Transdermal Daily magnesium hydroxide 30 mL Oral Daily metoprolol 12.5 mg Oral BID potassium chloride 10 mEq Oral BID WC Continuous Infusions dextrose PRN Medications aluminum-magnesium hydroxide-simethicone, amiodarone IV bolus, bisacodyl, dextrose, dextros e, dextrose, glucagon, glucagon, HYDROmorphone OR HYDROmorphone, magnesium sulfate OR* * magnesium sulfate OR magnesium sulfate, ondansetron, oxyCODONE OR oxyCODONE, polye thylene glycol, potassium OR potassium OR potassium OR potassium chloride OR potassium chloride OR potassium chloride, saline lock IV - prn tolerating PO fluid AN D sodium chloride, sodium phosphate HOME MEDS: Prior to Admission medications Medication Sig Start Date End Date Taking? Authorizing Provider acetaminophen (TYLENOL) 325 MG tablet Take 325 mg by mouth every 6 (six) hours as needed fo r Pain. Yes Historical Provider aspirin 81 MG tablet Take 81 mg by mouth daily. Yes Historical Provider atorvastatin (LIPITOR) 80 MG tablet Take 80 mg by mouth nightly. Yes Historical Provider lisinopril (ZESTRIL) 10 MG tablet Take 10 mg by mouth daily. Yes Historical Provider ticagrelor (BRILINTA) 90 MG tablet Take 90 mg by mouth 2 (two) times daily. Yes Historica l Provider LABS: Recent Labs Lab 07/16/18 0503 07/15/18 0419 07/14/18 0401 07/13/18 1350 07/13/18 0415 07/12/18 0403 WBC 9.88 9.77 14.46* 22.17* -- 8.90 7.74 HGB 9.5* 8.4* 9.3* 10.5* < > 13.2 13.2 HCT 26.7* 23.9* 27.2* 31.6* < > 37.8* 38.0* PLT 154 114* 155 140* -- 222 217 NEUTOPHILPCT -- -- -- 84.04 -- 73.85 69.38 MONOPCT -- -- -- 7.37 -- 8.48 11.25 < > = values in this interval not displayed. Recent Labs Lab 07/16/18 0503 07/15/18 0419 07/14/18 1436 07/14/18 0401 NA 140 139 -- -- 142 K 3.9 4.2 4.4 < > 6.4* CL 103 105 -- -- 110* CO2 30 30 -- -- 25 BUN 11 11 -- -- 17 CREATININE 0.9 0.9 -- -- 1.2 < > = values in this interval not displayed. Phosphorus: Lab Results Component Value Date PHOS 3.7 07/09/2018 Invalid input(s): LABALBU Recent Labs Lab 07/16/18 0503 07/15/18 0419 07/14/18 0620 MG 2.1 1.9 2.2 No results for input(s): AMYLASE in the last 168 hours. Recent Labs Lab 07/13/18 1016 07/13/18 0940 07/13/18 0812 BEART 2 0 1 Recent Labs Lab 07/13/18 1350 07/12/18 0403 07/11/18 0413 APTT 27 55* 55* INR 1.3 -- -- No results for input(s): TSH, T3FREE, FREET4 in the last 168 hours. No results for input(s): CKTOTAL, TROPONINI, TROPONINT, CKMBINDEX in the last 168 hours. PROBLEM LIST Principal Problem: Atherosclerosis of [place] coronary artery Active Problems: Chest pain Benign essential hypertension Hyperlipidemia CXR 07/16 IMPRESSION: 1. Chest tubes in expected position. 2. Cardiomegaly. 3. Low lung volumes. Mild left basilar atelectasis. ASSESSMENT & PLAN S/P CABG -Continue ASA, Statin, Plavix, BB -Wean O2 today, encourage IS, ambulate -D/c CTs today Keep TPWs until discharge, then remove ground (white) and cut pacing (orange) wire at skin VO -Continue diuresis, switch to PO, monitor electrolytes Disposition: Anticipate discharge tomorrow to home with family. Lives in [place] with benjamin alvarado. Code Status: Full Code The patient has been seen, all new lab results and imaging reviewed, and the plan discussed with the attending provider, Dr. Don Thorpe PA-C 07/16/2018 onversion Transact ion, Provider Unknown - 07/16/2018 7:00 AM PDTFormatting of this note might be different fr om the original. Nurse Progress Note by Ronni Malik RN at 07/16/18 0700 Author: Ronni Malik RN Service: (none) Author Type: Registered Nurse Filed: 07/16/18 0701 Date of Service: 07/16/18 07 Status: Signed Rn Occupational: Ronni Malik RN (Registered Nurse) Pt denied pain through the night. Pt remains on 1L O2. 87% on room air. End of shift chart review complete. RONNI MALIK RN onver lauren Transaction, Provider Unknown - 07/15/2018 4:22 PM PDT Therapy Progress Note by Norman Willson PT at 07/15/18 1622 Author: Norman Willson PT Service: (none) Author Type: Physical Therapist Filed: 07/15/18 1706 Date of Service: 07/15/18 162 Status: Signed Rn Occupational: Norman Willson PT (Physical Therapist) PHYSICAL THERAPY TREATMENT NOTE PT Received On: 07/15/18 Reason for Treatment: Cardiac Requires PT Follow Up: Yes Follow up PT Only?: No Assistance Required: 1 person Clinic Lead Needed: No Recommendations: Home Assist Equipment Recommended: None PT Ready for Discharge: Yes Plan Treatment/Interventions: Continue per Primary PT POC Progress: Progressing toward goals PT Frequency: Once per day Summary Comments: Patient in the recliner upon PT arrival; agreeable to participation. Pain at 12/21 , RN notified and medicating for pain. Pt also with complaints of a headache. Chest tube per sists at this time. Patient making good strength with functional strength and activity brittani ance. Ed on bed mobility technique utilizing a log roll and appropriate positioning to promo te success and independence. Pt with good activity tolerance. SpO2 monitored throughout and activity trialed with RA (pt was on 1L at rest with Spo2 at 97%+). pt maintaining SpO2 at 94 %+ on RA with exertion. HR between 90-110 bpm with activity this afternoon. He denies dyspne a but does demonstrate tachypnea. Pt in bed after activity. Ed on use of a pillow wedge at h ome and safety with sleeping positioning. Ed on car positioning/transfers and importance of frequent mobility for longer car travel. VSS post activity, HR 87, BP 125/58, SpO2 94% RA. Precautions Cardiac Precautions: Sternal Cognition Overall Cognitive Status: Within Functional Limits Orientation Level: Oriented Oriented: x 4 FUNCTIONAL MOBILITY Bed Mobility Rolling: Standby assist Sit to Sidelying: Standby assist, Verbal instruction, Minimal assist (1 LE into bed) - Transfers Sit to/from Stand: Standby assist, Verbal instruction Ambulation Maximal Ambulation Distance (feet): 350 Total Ambulation Distance (feet): 350 Ambulation Assistance: Standby assist Distance limited by?: Patient's ability Pattern: Decreased lona, Alternating Assistive Device: Walker 4 wheeled Activity Tolerance: Patient limited by fatigue Nurse Made Aware: JEN Farias Safety Devices in Place: (Call light; needs met) Restraints Initially in Place: No Education Completed: Education Topics: [x] Rationale for PT [x] PT POC [x] DC planning [x] Precautions [] Exercises [x] Bed mobility [x] Transfer training with hand placement [x] Gait training [] Stair training [] Use of gait belt [] Other Completed with: [x] Patient [x] Spouse [x] Significant other [x] Family [ ] Caregiver [] Other Completed by: [x] Verbal education [x] Demonstration [] Handout [] Other: Response to Education: [x] Stated Understanding [] Reinforcement necessary [x] Returned demonstration [] Demonstrated understanding [] No evidence of learning [] Refused Physical Therapy Goals PT Goals Pt Will Go Supine To Sit: With standby assistance Pt Will Go Sit To Supine: With standby assistance Pt Will Transfer Sit to Stand: With supervision Pt Will Ambulate: greater than 500 feet Ambulate Level Assist: With supervision Ambulate with Assistive Device: Least restricitve device Pt Will Go Up / Down Stairs: 3-5 stairs Stairs Level of Assist: With supervision Up/Down Stairs Technique: Step-to onver lauren Transaction, Provider Unknown - 07/15/2018 3:53 PM PDT Case Management by MARC Churchill at 07/15/18 1553 Author: MARC Churchill Service: (none) Author Type: Proof Technician Helper Filed: 07/15/18 1465 Date of Service: 07/15/181552 Status: Signed Rn Occupational: MARC Churchill (Proof Technician Helper) 07/15/18 1500 Discharge Planning Evaluation Admitting Diagnosis CABG Anticipated Disposition Facility Type Home PEST CONTROL APPLICATOR met with Pt girlfriend (Margaret Vargas [phone] [place]) who has been attending [facility], states discharge concerns at this time. Pt is planning to return home with Pt girlfr iend and Pt mother as caregivers. DCP: Home JAC STANTON Proof Technician Helper [phone] cell onver lauren Transaction, Provider Unknown - 07/15/2018 2:35 PM PDT Progress Notes by Lamar Araiza RD at 07/15/18 1435 Author: Lamar Araiza RD Service: (none) Author Type: Registered Dietitian Filed: 07/15/18 1435 Date of Service: 07/15/18 143 Status: Signed Rn Occupational: Lamar Araiza RD (Registered Dietitian) 07/15/18 1414 Subjective Timepoint Admit Pt c/o Pt triggered for LOS. Pt admitted for atherosclerosis of [place] coronary artery. Pt s/p CABG x 4, POD #2. Family was present. Reported by Patient Diet Experience Self-selected diet(s) followed Pt reports he had a good appetite WOOD COATER. reports pt [place] skips breakfast, has a small lunch and a big dinner or snacks throughout the day with no meals. Pt confirmed. Per pt he doesn't use a lot of salt on foods. Per pt does eat a l ot of processed foods (hamburger helper, pizza, etc.). Fluid / Beverage Intake Oral Fluids Amount Fluids ad geovanny. Liquid Meal Replacement or Supplement Boost ordered TID. reports pt drank one this mor pawan. Pt reports he prefers chocolate flavor. Notified kitchen. Food Intake Amount of Food reports pt didn't eat breakfast this morning and had chicken last night but was unable to finish it d/t coughing. Type of Food / Meals Cardiac, RAND diet Meal / Snack Pattern Per charting pt had on 07/14: B100%. Micronutrient Intake Mineral / Element Intake Potassium;Chloride Food and Nutrition Knowledge Area(s) and Level of Knowledge Went over cardiac diet with pt and family: low Na, eat 3 jun ls per day, not to skip meals, reading food labels, Mrs. Mckeon, cut back on processed foods, eat from all food groups: protein, dairy, whole grains, fruits and vegetables. Gave the foll owing handouts: Low Na Nutrition Therapy and Na Free Alternatives. All questions were addres sed. Nutrition-Focused Physical Findings Body Language Pt in and out of sleep during visit. Extremities, Muscles and Bones +1 BLE edema noted. Digestive System (Mouth to Rectum) Pt declined chewing/swallowing issues. Anthropometrics Weight change Pt's BMI is 29.1 and pt is 125% of IBW. Pt reports no recent wt changes and h is UBW is 189#. Biochemical data, medical tests, and procedures reviewed Biochemical data, medical tests, and procedures reviewed BG 110 (H)- insulin ordered. Estimated Energy Needs Total Energy Estimated Needs 4340-2949 kcal/day Method for Estimating Needs 25-30 kcal/kg based on adj BW of 71.6 kg Estimated Protein Needs Total Protein Estimated Needs 86-107 g/day Method for Estimating Needs 1.2-1.5 g/kg based on adj BW of 71.6 kg Recommendations Recommended energy needs Cardiac diet as ordered. Continue Boost TID. Encourage po intake w ith protein rich foods. Monitor and follow as indicated. Nutritional Risk Nutritional risk Moderate / high Follow up date 07/19/[address] onver lauren Transaction, Provider Unknown - 07/15/2018 1:38 PM PDT Therapy Progress Note by MAGEN Barrera at 07/15/18 8721 Author: MAGEN Barrera Service: (none) Author Type: Occupational Therapist Filed: 07/15/18 7809 Date of Service: 07/15/18 9262 Status: Attested Rn Occupational: Emili Jordan, OT-S (Occupational Therapist) Cosigner: Vania Paulson OTR/L at 1352 Attestation signed by Vania Paulson OTR/Emanuel at 07/15/18 1352 Student therapist educationally participated in therapy session under the supervision of amie alvarado licensed therapist. This note was created by the student therapist and co-signed by the li censed therapist. Information in this note may have been obtained from flowsheet charting. T his note is co-signed at the treatment plan/progress note level. The patient approved of amie alvarado student's role in care. OCCUPATIONAL THERAPY TREATMENT NOTE OT Received On: 07/15/18 Reason for Treatment: Cardiac OT Eval/Reassessment Date: 07/15/18 Assistance Required: 1 person Clinic Lead Needed: No Family/Caregiver Present: Yes Recommendation: Return to prior living conditions, Home with 24 hr suppervision/assist Equipment Recommended: Tub transfer bench, Washer Meat, Sock aid, Toilet aid, Elastic shoe lace s, LHS, Raised toilet seat, Shower chair with back Recommendation Comments Plan Treatment Interventions: (Continue OT POC) Progress: Improving as expected Focus for next session: Functional Mobility, ADL's Follow up OT only? [] Yes [x] No Precautions Cardiac Precautions: Sternal Summary Pt found seated in recliner uppon OT arrival. Pt was agreeablt to therapy session with OT shayy mckenzie OTS this date. Pt stated he was in more pain today than yesterday; RN notified. Pt stated his pain was a 3 and it was tollerable. Pt transfered sit to stand with SBA; demonstrated u nderstanding of sternal precautions; was able to follow. Pt used restroom in his room with S BA for safety. Walked 2 x 150 (whole loop) feet with SBA. O2 stat taken before activity, Pt stating at 97 on 2 L. O2 taken after pt returned (walked with no O2) stating at 88; returned to 94 on room air. SO stated they had purchased a shower chair with a back. Anticipated it would arrive before Pt returned home. Pt left seated in recliner with call light in reach an d lunch within reach. Pt stated he did not need anything additonal at this time; No addition al concerns with discharge at this time. ADL/IADL Toileting Toileting Level of Assistance: Modified independent Where Assessed: Toilet Functional Standing Tolerance Time: 10 Activity: Walking Comments: Pt walked hallway loop Toilet Transfers Toilet Transfer From: Other (Comment) (Recliner ) Toilet Transfer Type: To and from Toilet Transfer to: Standard toilet Toilet Transfer Technique: Ambulating Toilet Transfers: Modified independence Safety Devices in Place: Yes Type of Devices: Call lite in place Barriers to d/c at this time include: [] Home environment [] Family support [] Equipment needs [] Cognitive deficits impacting functional independence [] Physical deficits impacting functional independence [x] Self-care deficits impacting functional independence [] Other Pain The patient reported pain rated at a 3-4/10. RN was notified. Other measures provided to re lieve pts pain included: Repositioning Education Completed: Education Topics: ADL's, Functional Transfers, Completed with: [x] Patient [] Spouse [x] Significant other [x] Family [x ] Caregiver [] Other Completed by :[x] Verbal education [] Demonstration [] Handout [] Other: Response to Education: [x] Stated Understanding [] Reinforcement necessary [] Returned demonstration [x] Demonstrated understanding [] No evidence of learning [] Refused Occupational Therapy Goals ADL Goals Pt Will Perform All ADL's: With Supervision, In chair, With good judgment/safety, Maintaini ng sternal precautions, With safety/supervision Functional Transfer Goals Pt Will Perform All Functional Transfers: With supervision, Maintaining sternal precautions , With safety/supervision, With good judgment/safety onver lauren Corbett Provider Unknown - 07/15/2018 10:30 AM PDT Therapy Progress Note by Norman Willson PT at 07/15/18 1030 Author: Norman Willson PT Service: (none) Author Type: Physical Therapist Filed: 07/15/18 1244 Date of Service: 07/15/18 1030 Status: Signed Rn Occupational: Norman Willson PT (Physical Therapist) PHYSICAL THERAPY TREATMENT NOTE PT Received On: 07/15/18 Reason for Treatment: Cardiac Requires PT Follow Up: Yes Follow up PT Only?: No Assistance Required: 1 person Clinic Lead Needed: No Recommendations: Home Assist Equipment Recommended: None Plan Treatment/Interventions: Continue per Primary PT POC Progress: Progressing toward goals Summary Comments: Patient in the recliner upon PT arrival; eager to participate. Spouse and family present throughout. Pt is motivated and with excellent participation. Good adherence to prec autions, needing only occasional for safety with transfers. Remains on 2L, SpO2 maintaine d at 94%+. HR maintained between 80-100 bpm. Patient trialing stair training during session with good tolerance and safety. Pt/family educated further on precautions, activity consider ations, safe hygiene techniques with a sternotomy. All questions answered at this time. Tigist ls at rest in sitting: HR 84, BP 110/60, SpO2 97% w/2L. Vitals after activity in sitting: HR 90, BP 150/70, SpO2 95% w/ 2L (NC). Precautions Cardiac Precautions: Sternal Cognition Overall Cognitive Status: Within Functional Limits Orientation Level: Oriented FUNCTIONAL MOBILITY Bed Mobility - Transfers Sit to/from Stand: Standby assist, Verbal instruction Ambulation Maximal Ambulation Distance (feet): 350 Total Ambulation Distance (feet): 350 Ambulation Assistance: Standby assist, Verbal instruction Distance limited by?: Patient's ability Pattern: Decreased lona, Alternating Assistive Device: Walker 4 wheeled Stairs Number of Stairs: 10x (4" step) Stairs Assistance: Standby assist, Verbal instruction Number of stairs limited by?: Patient's ability Stair Management Technique: Step-to, With walker Activity Tolerance: Patient limited by fatigue Nurse Made Aware: JEN Farias Safety Devices in Place: (Call light; needs met) Restraints Initially in Place: No The patient reported pain rated at a 3/10. RN was notified. Other measures provided to reli jesus pts pain included: rest/repositioning with pillows Education Completed: Education Topics: [x] Rationale for PT [x] PT POC [x] DC planning [x] Precautions [x] Exercises [] Bed mobility [x] Transfer training with hand placement [x] Gait training [x] Stair training [] Use of gait belt [] Other Completed with: [x] Patient [x] Spouse [] Significant other [x] Family [] Caregiver [] Other Completed by: [x] Verbal education [x] Demonstration [] Handout [] Other: Response to Education: [x] Stated Understanding [] Reinforcement necessary [x] Returned demonstration [] Demonstrated understanding [] No evidence of learning [] Refused Physical Therapy Goals PT Goals Pt Will Go Supine To Sit: With standby assistance Pt Will Go Sit To Supine: With standby assistance Pt Will Transfer Sit to Stand: With supervision Pt Will Ambulate: greater than 500 feet Ambulate Level Assist: With supervision Ambulate with Assistive Device: Least restricitve device Pt Will Go Up / Down Stairs: 3-5 stairs Stairs Level of Assist: With supervision Up/Down Stairs Technique: Step-to Sean Escobar PA - 07/15/2018 8:56 AM PDT Progress Notes by Sean Armstrong PA-C at 07/15/1856 Author: Sean Armstrong PA-C Service: Cardiac, Thoracic, and Vascular Surgery Author Ty pe: Physician Zyglo Technician - Certified Filed: 07/15/18857 Date of Service: 07/15/18855 Status: Attested Rn Occupational: Sean Armstrong PA-C (Physician Zyglo Technician - Certified) Cosigner: Jorge archibald MD at 07/15/181327 Attestation signed by Jorge Richards MD at 07/15/188 I have reviewed the note below, personally reviewed the available laboratory and imaging st udies and examined the patient. I agree with the assessment and plan mentioned below. Electronically signed by: Jorge Richards, 07/15/2018 1:28 PM [facility] Service: Cardiothoracic Surgery Progress Note ROOM: 9102/9102-1 Hospital Day: LOS: 7 days Post-Op Day: 2 Days Post-Op Surgery/Procedure: 07/13/18 1. Coronary Artery Bypass Grafting x4 (ESTRADA to LAD, SVG to OM1, SVG to left PL, and SVG to left PDA) 2. Endoscopic right greater saphenous vein harvest SUBJECTIVE Events Overnight: HD stable not req any pressors. Stable on 2L NC. Good pain control UOP: 2.2L/24hs CT Output: 270mL/overnight, 1.1L/24hrs OBJECTIVE Vital Signs: BP 110/60 (BP Location: Left forearm) | Pulse 91 | Temp 98.2 F (36.8 C) (Oral) | Res p 20 | Ht 1.702 m (5' 7") | Wt 90.8 kg (200 lb 2.8 oz) | SpO2 94% | BMI 31.35 kg/m Current weight: Patient Vitals for the past 96 hrs: Weight 07/15/18 0550 90.8 kg (200 lb 2.8 oz) 07/14/18 0500 93.1 kg (205 lb 4 oz) 07/13/18 0704 86.4 kg (190 lb 7.6 oz) 07/13/18 0436 86.4 kg (190 lb 7.6 oz) 07/12/18 0430 85.9 kg (189 lb 6 oz) Admission weight: Weight: 84.4 kg (186 lb 1.1 oz) Physical Exam: General: Alert, oriented, in no acute distress, resting in chair Heart: RRR No murmur Lungs: CTA b/l Dim bases. Abdomen: Soft, nondistended, nontender Extremities: Well perfused, +1 LE edema Musculoskeletal: no deformities or significant abnormalities Neurological: No gross focal motor or sensory deficits Skin: No rash or lesions. Mid-sternal incision dressing is C/D/I. Chest tube present inci lauren C/D/I. Pacing wires present EVH incisions C/D/I. DATA: Scheduled Medications acetaminophen 1,000 mg Oral Q6H aspirin 81 mg Oral Daily atorvastatin 80 mg Oral Nightly clopidogrel 75 mg Oral Daily docusate sodium 100 mg Oral BID famotidine 20 mg Oral BID Or famotidine 20 mg Intravenous BID insulin lispro (human) 0-10 Units Subcutaneous 6 times per day lidocaine 2 patch Transdermal Daily magnesium hydroxide 30 mL Oral Daily metoprolol 12.5 mg Oral BID Continuous Infusions dextrose PRN Medications aluminum-magnesium hydroxide-simethicone, amiodarone IV bolus, bisacodyl, dextrose, dextros e, dextrose, glucagon, glucagon, HYDROmorphone OR HYDROmorphone, magnesium sulfate OR* * magnesium sulfate OR magnesium sulfate, ondansetron, oxyCODONE OR oxyCODONE, polye thylene glycol, potassium OR potassium OR potassium OR potassium chloride OR potassium chloride OR potassium chloride, saline lock IV - prn tolerating PO fluid AN D sodium chloride, sodium phosphate HOME MEDS: Prior to Admission medications Medication Sig Start Date End Date Taking? Authorizing Provider acetaminophen (TYLENOL) 325 MG tablet Take 325 mg by mouth every 6 (six) hours as needed fo r Pain. Yes Historical Provider aspirin 81 MG tablet Take 81 mg by mouth daily. Yes Historical Provider atorvastatin (LIPITOR) 80 MG tablet Take 80 mg by mouth nightly. Yes Historical Provider lisinopril (ZESTRIL) 10 MG tablet Take 10 mg by mouth daily. Yes Historical Provider ticagrelor (BRILINTA) 90 MG tablet Take 90 mg by mouth 2 (two) times daily. Yes Historica l Provider LABS: Recent Labs Lab 07/15/1841807/14/18 0401 07/13/18 1350 07/13/18 0415 07/12/18 0403 WBC 9.77 14.46* 22.17* -- 8.90 7.74 HGB 8.4* 9.3* 10.5* < > 13.2 13.2 HCT 23.9* 27.2* 31.6* < > 37.8* 38.0* PLT 114* 155 140* -- 222 217 NEUTOPHILPCT -- -- 84.04 -- 73.85 69.38 MONOPCT -- -- 7.37 -- 8.48 11.25 < > = values in this interval not displayed. Recent Labs Lab 07/15/18 0419 07/14/18 1436 07/14/18 1011 07/14/18 0401 07/13/18 1350 NA 139 -- -- -- 142 -- 141 K 4.2 4.4 4.8 < > 6.4* < > 4.7 CL 105 -- -- -- 110* -- 111* CO2 30 -- -- -- 25 -- 21* BUN 11 -- -- -- 17 -- 16 CREATININE 0.9 -- -- -- 1.2 -- 1.1 < > = values in this interval not displayed. Phosphorus: Lab Results Component Value Date PHOS 3.7 07/09/2018 Invalid input(s): LABALBU Recent Labs Lab 07/15/18 0419 07/14/18 0620 07/13/18 1350 MG 1.9 2.2 3.0* No results for input(s): AMYLASE in the last 168 hours. Recent Labs Lab 07/13/18 1016 07/13/18 0940 07/13/18 0812 BEART 2 0 1 Recent Labs Lab 07/13/18 1350 07/12/18 0403 07/11/18 0413 07/09/18 0416 07/08/18 1257 APTT 27 55* 55* < > -- < > 36* INR 1.3 -- -- -- 1.0 -- 1.0 < > = values in this interval not displayed. No results for input(s): TSH, T3FREE, FREET4 in the last 168 hours. Recent Labs Lab 07/08/18 1038 TROPONINI <0.02 PROBLEM LIST Principal Problem: Atherosclerosis of [place] coronary artery Active Problems: Chest pain Benign essential hypertension Hyperlipidemia ASSESSMENT & PLAN S/P CABG -Continue ASA, Statin, Plavix, BB -Wean O2, encourage IS, ambulate -Continue CTs/TPWs for now, Keep TPWs until discharge, then remove ground (white) and cut p acing (orange) wire at skin VO Diuresis, monitor electrolytes Continue ICU care Code Status: Full Code The patient has been seen, all new lab results and imaging reviewed, and the plan discussed with the attending provider, Dr. Maurice Armstrong PA-C 07/15/2018 onversion Transact ion, Provider Unknown - 07/14/2018 9:23 PM PDTFormatting of this note might be different fr om the original. Pharmacy Note by Yi Melendez RPH at 07/14/182122 Author: Yi Melendez RPH Service: Pharmacy Author Type: Pharmacist Filed: 07/14/182123 Date of Service: 07/14/182122 Status: Signed Rn Occupational: Yi Melendez RPH (Pharmacist) Clinical Pharmacy Note: Renal Monitoring Ht Readings from Last 1 Encounters: 07/13/18 1.702 m (5' 7") Wt Readings from Last 1 Encounters: 07/14/18 93.1 kg (205 lb 4 oz) Serum creatinine: 1.2 mg/dL 07/14/18 0401 Estimated creatinine clearance: 80.1 mL/min Pharmacy dosing for renal function per Sean Armstrong PA-C At this time no renal dose adjustments are required. No changes made today. Pharmacy will c ontinue monitoring patient for appropriate dosing per renal function. Yi Melendez [facility] 07/14/2018 9:23 PM onver lauren Transaction, Provider Unknown - 07/14/2018 5:13 PM PDT Therapy Progress Note by Norman Willson PT at 07/14/181712 Author: Norman Willson PT Service: (none) Author Type: Physical Therapist Filed: 07/14/18 1826 Date of Service: 07/14/181712 Status: Signed Rn Occupational: Norman Willson PT (Physical Therapist) PHYSICAL THERAPY TREATMENT NOTE PT Received On: 07/14/18 Reason for Treatment: Cardiac Requires PT Follow Up: Yes Follow up PT Only?: No Assistance Required: 1 person Clinic Lead Needed: No Recommendations: Home Assist Equipment Recommended: (Anticipate none ) Plan Treatment/Interventions: Continue per Primary PT POC Progress: Progressing toward goals Summary Comments: Patient in the recliner upon PT arrival; eager to participate. Spouse present thr oughout session. Pt making considerable gains with activity tolerance. Denies any complaints of dizziness throughout. Pain remains consistent around 6/10, RN has been addressing and pt reports this is tolerable. Good functional strength for mobility. WC utilized for line mikie gement. Plan for session is mobility training and getting into supine to allow for removal o f IJ. Ed on log roll technique. Vitals at rest in sitting: HR 80, BP 101/59, SpO2 93% w/ 2L (NC). Vitals after activity in supine: HR 95, BP 109/59, SpO2 92% w/ 2L (NC). Precautions Cardiac Precautions: Sternal Cognition Overall Cognitive Status: Within Functional Limits Orientation Level: Oriented Oriented: x 4 FUNCTIONAL MOBILITY Bed Mobility Rolling: Minimal assist Sit to Sidelying: Mod assist (BLEs into bed or trunk to lower) - Transfers Sit to/from Stand: Verbal instruction, Standby assist Ambulation Maximal Ambulation Distance (feet): 150x2 Total Ambulation Distance (feet): 300 Ambulation Assistance: Standby assist, Verbal instruction, Minimal assist Distance limited by?: Patient's ability Pattern: Decreased lona, Alternating Assistive Device: Other (Comment) (Handhold assist on WC ) Activity Tolerance: Patient limited by fatigue, Patient limited by pain Nurse Made Aware: JEN Andersen Safety Devices in Place: (Call light; needs met) Restraints Initially in Place: No Education Completed: Education Topics: [x] Rationale for PT [x] PT POC [x] DC planning [x] Precautions [x] Exercises [x] Bed mobility [x] Transfer training with hand placement [x] Gait training [] Stair training [x] Use of gait belt [] Other Completed with: [x] Patient [x] Spouse [] Significant other [x] Family [] Caregiver [] Other Completed by: [x] Verbal education [x] Demonstration [] Handout [] Other: Response to Education: [x] Stated Understanding [] Reinforcement necessary [x] Returned demonstration [] Demonstrated understanding [] No evidence of learning [] Refused Physical Therapy Goals PT Goals Pt Will Go Supine To Sit: With standby assistance Pt Will Go Sit To Supine: With standby assistance Pt Will Transfer Sit to Stand: With supervision Pt Will Ambulate: greater than 500 feet Ambulate Level Assist: With supervision Ambulate with Assistive Device: Least restricitve device Pt Will Go Up / Down Stairs: 3-5 stairs Stairs Level of Assist: With supervision Up/Down Stairs Technique: Step-to Sean Escobar PA - 07/14/2018 8:47 AM PDT Progress Notes by Sean Armstrong PA-C at 07/14/18846 Author: Sean Armstrong PA-C Service: Cardiac, Thoracic, and Vascular Surgery Author Ty pe: Physician Zyglo Technician - Certified Filed: 07/14/1851 Date of Service: 07/14/18846 Status: Attested Rn Occupational: Sean Armstrong PA-C (Physician Zyglo Technician - Certified) Cosigner: Jorge archibald MD at 07/14/18945 Attestation signed by Jorge Richards MD at 07/14/18945 I have reviewed the note below, personally reviewed the available laboratory and imaging st udies and examined the patient. I agree with the assessment and plan mentioned below. Electronically signed by: Jorge Richards, 07/14/2018 9:46 AM [facility] Service: Cardiothoracic Surgery Progress Note ROOM: [address] [place] [address] Hospital Day: LOS: 6 days Post-Op Day: 1 Day Post-Op Surgery/Procedure: 07/13/18 1. Coronary Artery Bypass Grafting x4 (ESTRADA to LAD, SVG to OM1, SVG to left PL, and SVG to left PDA) 2. Endoscopic right greater saphenous vein harvest SUBJECTIVE Events Overnight: HD stable on LAURO @ 90 this AM. Extubated and stable on 2L NC UOP: 3.2L/24hs CT Output: 540mL/overnight, 830mL/24hrs OBJECTIVE Vital Signs: BP 108/57 | Pulse 71 | Temp 99.1 F (37.3 C) (Oral) | Resp 8 | Ht 1.702 m (5' 7") | Wt 93.1 kg (205 lb 4 oz) | SpO2 95% | BMI 32.15 kg/m Current weight: Patient Vitals for the past 96 hrs: Weight 07/14/18 0500 93.1 kg (205 lb 4 oz) 07/13/18 0704 86.4 kg (190 lb 7.6 oz) 07/13/18 0436 86.4 kg (190 lb 7.6 oz) 07/12/18 0430 85.9 kg (189 lb 6 oz) 07/11/18 0410 86.5 kg (190 lb 11.2 oz) Admission weight: Weight: 84.4 kg (186 lb 1.1 oz) Physical Exam: General: Alert, oriented, in no acute distress, resting in chair Heart: RRR No murmur Lungs: CTA b/l Dim bases. Abdomen: Soft, nondistended, nontender Extremities: Well perfused, +1 LE edema Musculoskeletal: no deformities or significant abnormalities Neurological: No gross focal motor or sensory deficits Skin: No rash or lesions. Mid-sternal incision dressing is C/D/I. Chest tube present inci lauren C/D/I. Pacing wires present EVH incisions C/D/I. DATA: Scheduled Medications acetaminophen 1,000 mg Oral Q6H aspirin 81 mg Oral Daily atorvastatin 80 mg Oral Nightly ceFAZolin 2 g Intravenous Q8H clopidogrel 75 mg Oral Daily docusate sodium 100 mg Oral BID famotidine 20 mg Oral BID Or famotidine 20 mg Intravenous BID insulin lispro (human) 0-10 Units Subcutaneous 6 times per day lidocaine 2 patch Transdermal Daily magnesium hydroxide 30 mL Oral Daily metoprolol 12.5 mg Oral BID Continuous Infusions amiodarone infusion dexmedetomidine in NS dextrose dextrose 5 % and 0.45 % NaCl Stopped (07/13/181446) EPINEPHrine Stopped (07/13/181446) insulin regular 1 unit/mL Stopped (07/13/181446) nitroGLYCERIN in D5W Stopped (07/13/181447) norepinephrine Stopped (07/13/181448) norepinephrine Stopped (07/13/181447) phenylephrine 70 mcg/min (07/14/18 0821) vasopressin PRN Medications albumin human, albuterol, albuterol, aluminum-magnesium hydroxide-simethicone, amiodarone I V bolus, amiodarone infusion, atropine sulfate, bisacodyl, bisacodyl, calcium chloride IVPB custom, dextrose, dextrose, dextrose, dextrose, dextrose, glucagon, glucagon, hydrALAZINE, H YDROmorphone OR HYDROmorphone, insulin regular 1 unit/mL, lactated ringers, magnesium ac lfate, ondansetron, oxyCODONE OR oxyCODONE, potassium chloride, sodium phosphate, vasopr essin HOME MEDS: Prior to Admission medications Medication Sig Start Date End Date Taking? Authorizing Provider acetaminophen (TYLENOL) 325 MG tablet Take 325 mg by mouth every 6 (six) hours as needed fo r Pain. Yes Historical Provider aspirin 81 MG tablet Take 81 mg by mouth daily. Yes Historical Provider atorvastatin (LIPITOR) 80 MG tablet Take 80 mg by mouth nightly. Yes Historical Provider lisinopril (ZESTRIL) 10 MG tablet Take 10 mg by mouth daily. Yes Historical Provider ticagrelor (BRILINTA) 90 MG tablet Take 90 mg by mouth 2 (two) times daily. Yes Historica l Provider LABS: Recent Labs Lab 07/14/18 04007/13/18 1350 07/13/18 1316 07/13/18 0415 07/12/18 0403 WBC 14.46* 22.17* -- -- 8.90 7.74 HGB 9.3* 10.5* 10.9* < > 13.2 13.2 HCT 27.2* 31.6* 32* < > 37.8* 38.0* PLT 155 140* -- -- 222 217 NEUTOPHILPCT -- 84.04 -- -- 73.85 69.38 MONOPCT -- 7.37 -- -- 8.48 11.25 < > = values in this interval not displayed. Recent Labs Lab 07/14/1861907/14/1840007/13/18 2149 07/13/18 13507/11/18 0413 NA -- 142 -- -- 141 -- 138 K 5.0* 6.4* 5.3* < > 4.7 < > 4.4 CL -- 110* -- -- 111* -- 106 CO2 -- 25 -- -- 21* -- 25 BUN -- 17 -- -- 16 -- 14 CREATININE -- 1.2 -- -- 1.1 -- 0.7 < > = values in this interval not displayed. Phosphorus: Lab Results Component Value Date PHOS 3.7 07/09/2018 Invalid input(s): LABALBU Recent Labs Lab 07/14/1861907/13/18134907/09/18415 MG 2.2 3.0* 2.0 No results for input(s): AMYLASE in the last 168 hours. Recent Labs Lab 07/13/18 1016 07/13/18 0940 07/13/18 0812 BEART 2 0 1 Recent Labs Lab 07/13/18 1350 07/12/18 0403 07/11/18 0413 07/09/18 0416 07/08/18 1257 APTT 27 55* 55* < > -- < > 36* INR 1.3 -- -- -- 1.0 -- 1.0 < > = values in this interval not displayed. No results for input(s): TSH, T3FREE, FREET4 in the last 168 hours. Recent Labs Lab 07/08/18 1038 TROPONINI <0.02 PROBLEM LIST Principal Problem: Atherosclerosis of [place] coronary artery Active Problems: Chest pain Benign essential hypertension Hyperlipidemia ASSESSMENT & PLAN S/P CABG -Continue ASA, Statin, Plavix. Hold BB while req pressors -Wean LAURO, replace fluid -Wean O2, encourage IS, ambulate -Continue CTs/TPWs for now Continue ICU care Code Status: Full Code The patient has been seen, all new lab results and imaging reviewed, and the plan discussed with the attending provider, Dr. Maurice Armstrong PA-C 07/14/2018 Jayla Stoner ARNP - 07/14/2018 7:59 AM PDT Progress Notes by FABIENNE Mcginnis at 07/14/18 0759 Author: FABIENNE Mcginnis Service: Twister Hand Author Type: Advanced Registered Nu rschristiano Practitioner Filed: 07/14/18 0848 Date of Service: 07/14/18 0759 Status: Addendum Rn Occupational: FABIENNE Mcginnis (Advanced Registered Nurse Practitioner) Related Notes: Original Note by FABIENNE Mcginnis (Advanced Registered Nurse Practit gerardo) filed at 07/14/18 0847 [facility] Service: Twister Hand Cardiothoracic Surgery Consult and Follow Up Date/Time:07/14/2018 7:59 AM Provider: FABIENNE Mcginnis Hospital Day: LOS: 6 days Surgery/Procedure: Procedure(s) (LRB): CABG - PALLAVI (N/A) Post-Op Day: 1 Day Post-Op PROBLEM LIST Principal Problem: Atherosclerosis of [place] coronary artery Active Problems: Chest pain Benign essential hypertension Hyperlipidemia Resolved Problems: * No resolved hospital problems. * SUBJECTIVE: Patient Summary: Roby Ortega is a 48 yo male with previous anterior STEMI (01/28) s/p TRUNG placement to proximal LAD, HTN and strong family hx of CAD, who presented to [facility] on 07/07 for outpatient cardiology follow up visit. He had been having progres sive angina with chest pain requiring nitro 4 times per day. He was admitted for a coronary angiogram which revealed proximal left main CAD, total occlusion of the 1st diag, moderate d isease of LPDA, and a proximal high grade lesion of the RCA. He was transferred to [facility] for surgical revascularization on 07/08. He had been taking ticagrelor due to recent LAD stent. He was started on IV heparin and IV Integrilin after discontinuation of ticagrelor and surge ry was planned for 5 days after discontinuation. ICU Timeline: 07/13- To ICU s/p CABG x 4, RSVG. Extubated in timely manner. Events Overnight: - SR, hemodynamically stable on lauro at 80 mcg. - UOP 992 mL, [address] output - On 2L NC overnight OBJECTIVE: Vital Signs: BP 102/58 | Pulse 73 | Temp 99.1 F (37.3 C) (Oral) | Resp 8 | Ht 1.702 m (5' 7") | Wt 93.1 kg (205 lb 4 oz) | SpO2 95% | BMI 32.15 kg/m EXAM GEN: well developed, well nourished, appears stated age, calm and comfortable NEURO: PERRL, EOMI, no facial asymmetry, moving extremities to command GCS 15 HEENT: sclerae clear, nonicteric, oral mmm, pink, no exudates NECK: supple, trachea midline CV: RRR, S1/S2, no murmur, rub or gallop, peripheral pulses palpable, cap refill brisk CHEST: midsternal incision covered, dressing is clean and dry with no erythema or oozing, p acer wires in place; chest tube site intact. LUNGS: clear b/l, no wheezing, rales or rhonchi, symmetric chest expansion, even/unlabored respirations on NC ABD: soft, nondistended, no reaction to palpation, no masses EXTR: no edema, clubbing or cyanosis. THOM wrap present on RLE SKIN: warm, dry, no rash or mottling; no e/o skin breakdown over the occiput, scapulae, elb ows, sacrum or heels LINES/TUBES: PIV, L rad A-line, RIJ cordis, CT x 2, sharp (all placed 07/13) DATA Recent Labs Lab 07/14/18 0401 07/13/18 1350 07/13/18 1316 07/13/18 0415 07/12/18 0403 WBC 14.46* 22.17* -- -- 8.90 7.74 RBC 3.05* 3.50* -- -- 4.31 4.31 HGB 9.3* 10.5* 10.9* < > 13.2 13.2 HCT 27.2* 31.6* 32* < > 37.8* 38.0* MCV 89.3 90.4 -- -- 87.7 88.2 MCH 30.6 29.9 -- -- 30.7 30.5 MCHC 34.2 33.0 -- -- 35.0 34.6 RDW 42.4 41.1 -- -- 40.7 40.3 PLT 155 140* -- -- 222 217 MPV 9.0 8.6 -- -- 9.3 9.6 BANDSABS 0.43* -- -- -- -- -- NEUTROABS -- 18.63* -- -- 6.57 5.37 LYMPHSABS -- 1.65 -- -- 1.25 1.13 MONOSABS -- 1.64* -- -- 0.75 0.87* BASOSABS -- 0.07 -- -- 0.07 0.07 EOSABS -- 0.19 -- -- 0.25 0.30 MORPH RBC AND PLT MORPHOLOGY APPEAR NORMAL -- -- -- -- -- < > = values in this interval not displayed. Recent Labs Lab 07/14/18 0620 07/14/18 0401 07/13/18 2149 07/13/18 1350 07/11/18 0413 07/09/18 0416 NA -- 142 -- -- 141 -- 138 140 K 5.0* 6.4* 5.3* < > 4.7 < > 4.4 4.3 CL -- 110* -- -- 111* -- 106 106 CO2 -- 25 -- -- 21* -- 25 25 ANIONGAP -- 13 -- -- 14 -- 11 13 GLUF -- 152* -- -- 116* -- 115* 97 BUN -- 17 -- -- 16 -- 14 21 CREATININE -- 1.2 -- -- 1.1 -- 0.7 0.8 BCR -- 14 -- -- 14 -- 20 26 CA -- 7.4* -- -- 7.3* -- 8.6 8.5 EGFR -- >60 -- -- >60 -- >60 >60 PHOS -- -- -- -- -- -- -- 3.7 MG 2.2 -- -- -- 3.0* -- -- 2.0 < > = values in this interval not displayed. IMAGING X-ray Chest 1 View Result Date: 07/14/2018 1. Tubes and lines in expected position. 2. Low lung volumes. Bilateral interstitial edema. Left basilar atelectasis/aspiration. 6 :53 AM Echo Cardiac Adult Complete Result Date: 07/08/2018 1. No significant valvular abnormality. 2. Overall left ventricular systolic function is no rmal with, an EF between 60 - 65 %. 3. The diastolic filling pattern indicates impaired rela xation consistent with mild dysfunction (Grade I). 4. The right ventricle is normal in size and function. ASSESSMENT & PLAN: Severe 3 vessel CAD s/p CABG x 4 - - Medical management per primary service - ASA, plavix, lipitor, BB - Post operative management per CTS (chest tubes, pacer wires, gtt management, anticoagulat ion, transfusion) - Ambulate, PT/OT, IS Hyperkalemia - Likely hemolyzed, repeat K 5.0 - Monitor for now. Disposition: Per cardiothoracic surgery Code Status: Full Code *Please bill 30 minutes of critical care time spent evaluating the patient, reviewing the d abby and formulating a plan exclusive of all other procedures. FABIENNE Mcginnis 07/14/2018 7:59 AM onversion Trans action, Provider Unknown - 07/13/2018 7:17 PM PDT Nurse Progress Note by Queta Diamond RN at 07/13/181916 Author: Queta Diamond RN Service: (none) Author Type: Registered Nurse Filed: 07/13/181917 Date of Service: 10/31/18 1917 Status: Signed Rn Occupational: Queta Diamond RN (Registered Nurse) End of shift chart audit complete. Queta Diamond RN onver lauren Transaction, Provider Unknown - 07/13/2018 12:33 PM PDT Progress Notes by Zachary Coronado at 07/13/18 1233 Author: Zachary Coronado Service: (none) Author Type: Filed: 07/13/18 1233 Date of Service: 07/13/18 1233 Status: Signed Rn Occupational: Zachary Cui) Gave family the off pump report at 12:30 onver lauren Transaction, Provider Unknown - 07/13/2018 10:23 AM PDT Progress Notes by Zachary Coronado at 07/13/18 1023 Author: Zachary Coronado Service: (none) Author Type: Filed: 07/13/18 1024 Date of Service: 07/13/18 1023 Status: Signed Rn Occupational: Zachary Cui) Gave family the on pump report at 10:20 onver lauren Transaction, Provider Unknown - 07/13/2018 7:43 AM PDT Progress Notes by Zachary Coronado at 07/13/18 0743 Author: Zachary Coronado Service: (none) Author Type: Filed: 07/13/18 0745 Date of Service: 07/13/18 0743 Status: Signed Rn Occupational: Zachary Cui) CVOR Referral. Met with Pt and family (Margaret PATINO). Provided information r/t to on/off by pas s reports during Pt's heart surgery. Prayer for Pt 'surgery was offered and accepted. Will f /u CP support. onver lauren Transaction, Provider Unknown - 07/13/2018 6:48 AM PDT Nurse Progress Note by Demetra Acosta RN at 07/13/1848 Author: Demetra Acosta RN Service: (none) Author Type: Registered Nurse Filed: 07/13/1850 Date of Service: 07/13/18647 Status: Signed Rn Occupational: Demetra Acosta RN (Registered Nurse) Patient was shaved and had both showers. Pulses marked, patient typed and screen done. Pa tient NPO after midnight. VSS. No chest pain throughout night. Will continue to monitor. Chart check complete Demetra Acosta RN onver lauren Transaction, Provider Unknown - 07/12/2018 3:30 PM PDT Case Management by MARC Churchill at 07/12/18 1530 Author: MARC Churchill Service: (none) Author Type: Proof Technician Helper Filed: 07/12/18 7234 Date of Service: 07/12/181529 Status: Signed Rn Occupational: MARC Churchill (Proof Technician Helper) 07/12/18 1500 Discharge Planning Evaluation Admitting Diagnosis Coronary Artery Disease Anticipated Disposition Facility Type Home MARC met with Pt, who requested clinicals faxed to [facility], as he is activating short term dis ability for time loss benefits. PEST CONTROL APPLICATOR obtained signed AVEL request, added to Chart. MARC faxed [facility] reference claim number #[id number], to [phone] fax number. Pt will be having a CABG tomorrow. In regards to discharge planning, Pt is planning to retu rn home to [place] and his mother and sig other will be assisting with caregiving as christopher vasquez DCP: Home JAC STANTON Proof Technician Helper [phone] cell Luiz Schwartz MD - 07/12/2018 11:17 AM PDT Progress Notes by Luiz Perera MD at 07/12/18 7057 Author: Luiz Perera MD Service: Hospitalist Author Type: Physician Filed: 07/12/18 1211 Date of Service: 07/12/18 1117 Status: Signed Rn Occupational: Luiz Perera MD (Physician) [facility] Service: Hospitalist Progress Note Pt: Roby Ortega AGE/SEX: 48 y.o. male ROOM: [address] [place] [address] : 1970 PCP: Mary Kraft ADMIT DATE: 07/08/2018 TODAY'S DATE: 07/12/2018 Hospital Day/Hospital Course: LOS: [address] Escobedo 48 yr old man with CAD, s/p PCI with sent placement in 01/2018, HTN, And HLD presented wit h recurrence of chest pain since 1 month ago, precipitated by exertion and relieved with SL nitroglycerin. He underwent cardiac catheterization on 07/07/18 which showed new left main s tenosis. The patient was referred here for possible CABG. SUBJECTIVE: Patient seen and examine. He is talking to me appropriately. Is not in any kind of distres s. No chest pain, SOB, MOELLER. No cough on recumbency. Had no orthopnea or PND. No Abdominal alison n, N/V or fever. Still feeling tired and fatigued. No dizziness or lightheadedness. Scheduled Medications: aspirin 81 mg Oral Daily with breakfast atorvastatin 80 mg Oral Nightly lisinopril 10 mg Oral Daily Continuous Infusions eptifibatide 0.75 mg/mL 2 mcg/kg/min (07/12/18 0806) heparin 50 units/mL 11 Units/kg/hr (07/12/18 0446) PRN Medications acetaminophen OR acetaminophen, heparin (porcine) 5000 unit/0.5mL, heparin (porcine) 50 00 unit/0.5mL, HYDROcodone-acetaminophen OR HYDROcodone-acetaminophen, magnesium sulfate OR magnesium sulfate OR magnesium sulfate, nitroGLYCERIN, ondansetron OR ondans etron, polyethylene glycol, potassium OR potassium OR potassium OR potassium chl oride OR potassium chloride OR potassium chloride, zolpidem Allergy: Allergies Allergen Reactions Penicillins Hives Hives with itching and blisters OBJECTIVE: Vitals: Patient Vitals for the past 24 hrs: BP Temp Temp src Pulse Resp SpO2 Weight 07/12/18 0806 117/79 - - - - - - 07/12/18 0740 117/79 97.8 F (36.6 C) Oral 66 18 95 % - 07/12/18 0430 - - - - - - 85.9 kg (189 lb 6 oz) 07/12/18 0346 106/57 98.2 F (36.8 C) Oral 55 18 97 % - 07/11/18 2338 122/59 98.4 F (36.9 C) Oral 64 18 97 % - 07/11/18 1908 144/88 98.3 F (36.8 C) Oral 63 18 95 % - 07/11/18 1544 110/66 97.8 F (36.6 C) Oral 74 18 99 % - 07/11/18 1143 118/75 98.3 F (36.8 C) Oral 73 18 99 % - I&O Detailed Table: Intake/Output Summary (Last 24 hours) at 07/12/18 1117 Last data filed at 07/12/18 0742 Gross per 24 hour Intake 381.57 ml Output 400 ml Net -18.43 ml Patient Vitals for the past 96 hrs: Weight 07/12/18 0430 85.9 kg (189 lb 6 oz) 07/11/18 0410 86.5 kg (190 lb 11.2 oz) 07/09/18 0500 84.5 kg (186 lb 4.6 oz) Hemodynamics Last 24hrs: Physical Examination: Constitutional: Alert and oriented to person, place, and time. Appears well-developed and w ell-nourished. HEENT: Neck supple, no JVD, non icteric sclera. Cardiovascular: Normal rate, regular rhythm, normal heart sounds with S1 and S2, and intact distal pulses. Exam reveals no gallop and no friction rub. No murmur heard. Pulmonary/Chest: Effort normal and breath sounds normal. No stridor. No respiratory distres s. no wheezes. no rales. exhibits no tenderness. Abdominal: Soft. Bowel sounds are normal. exhibits no distension and no mass. There is no t enderness. There is no rebound and no guarding. Extremeties/Musculoskeletal: Normal range of motion.exhibits no tenderness. exhibits no ed michelle. Neurological: Alert and oriented to person, place, and time. Moving all 4 extremities Skin: Skin is warm and dry. No rash noted. No erythema. No pallor. Psychiatric: Has a normal mood and affect. Behavior is normal. Judgment normal. Not suicida l LABS: Recent Labs Lab 07/12/18 0403 07/11/18 0413 07/10/18 0410 WBC 7.74 8.76 9.55 HGB 13.2 13.9 13.9 HCT 38.0* 40.1 40.0 PLT 217 229 229 NEUTOPHILPCT 69.38 74.74 77.65 MONOPCT 11.25 9.41 8.51 Recent Labs Lab 07/11/18 0413 07/09/18 0416 NA 138 140 K 4.4 4.3 CL 106 106 CO2 25 25 BUN 14 21 CREATININE 0.7 0.8 Phosphorus: Lab Results Component Value Date PHOS 3.7 07/09/2018 Recent Labs Lab 07/09/18 0416 MG 2.0 Recent Labs Lab 07/12/18 0403 07/11/18 0413 07/10/18 0617 07/09/18 0416 07/08/18 1257 APTT 55* 55* 53* < > -- < > 36* INR -- -- -- -- 1.0 -- 1.0 < > = values in this interval not displayed. Recent Labs Lab 07/08/18 1038 TROPONINI <0.02 Results Procedure Component Value Units Date/Time MRSA by PCR [[id number]] Collected: 07/12/18 0843 Specimen: Nasopharyngeal from Nares(Nose) Updated: 07/12/18 1022 SOURCE NARES(NOSE) MRSA PCR NEGATIVE Diagnostic Imaging: Impressions only: Echo Cardiac Adult Complete Result Date: 07/08/2018 1. No significant valvular abnormality. 2. Overall left ventricular systolic function is no rmal with, an EF between 60 - 65 %. 3. The diastolic filling pattern indicates impaired rela xation consistent with mild dysfunction (Grade I). 4. The right ventricle is normal in size and function. PROBLEM LIST Principal Problem: Atherosclerosis of [place] coronary artery Active Problems: Chest pain Benign essential hypertension Hyperlipidemia Resolved Problems: * No resolved hospital problems. * ASSESSMENT & PLAN 48 yr old man with CAD, s/p PCI with sent placement in 01/2018, HTN, And HLD presented wit h recurrence of chest pain since 1 month ago, precipitated by exertion and relieved with SL nitroglycerin. He underwent cardiac catheterization on 07/07/18 which showed new left main s tenosis. The patient was referred here for possible CABG. Principal Problem: Atherosclerosis of [place] coronary artery with chest pain He is on heparin and Integrilin. CT surgery was planned when to stop these medications. Ac rgical plan tomorrow. I will continue with aspirin and statins. Heart rate is already in 60s so not the beta blockers. Possible CABG on Wednesday. Benign essential hypertension Blood pressure is appropriately controlled Hyperlipidemia Statins Resolved Problems: * No resolved hospital problems. * Patient diagnosed with: , and I agree with the following nutritional recommendations: LUIZ PERERA MD, FACP 07/12/2018 11:17 AM Dictation software, Examify, used which may contain error for similar sounding words even af ter review. Personal communication requested for any clarification. Portions of this chart may have been copied from previous notes for continuity of care purp ose ose Hernandez P A-C - 07/12/2018 10:40 AM PDT Progress Notes by Jose Hernandez PA-C at 07/12/18 1040 Author: Jose Hernandez PA-C Service: Cardiac, Thoracic, and Vascular Surgery Author Typ e: Physician Zyglo Technician - Certified Filed: 07/12/18 1042 Date of Service: 07/12/18 1040 Status: Attested Rn Occupational: Jose Hernandez PA-C (Physician Zyglo Technician - Certified) Cosigner: Jorge gray MD at 07/13/18 1401 Attestation signed by Jorge Richards MD at 07/13/18 1401 I have reviewed the note below, personally reviewed the available laboratory and imaging st udies and examined the patient. I agree with the assessment and plan mentioned below. Electronically signed by: Jorge Richards, 07/13/2018 2:01 PM Remains pain free; denies dyspnea Plan for Integrilin to stop @1800 and Heparin to stop @2359 reviewed with RN Plan for OR tomorrow Jose Hernandez PA-C 07/12/2018 onversion Transac tion, Provider Unknown - 07/12/2018 5:26 AM PDTFormatting of this note might be different f rom the original. Nurse Progress Note by Amirah Celaya RN at 07/12/18525 Author: Amirah Celaya RN Service: (none) Author Type: Registered Nurse Filed: 07/12/18527 Date of Service: 07/12/18525 Status: Signed Rn Occupational: Amirah Celaya RN (Registered Nurse) PTT remains therapeutic this morning at 55. Integrelin to be stopped at 1800 tonight and He sarah at 2359 tonight. Pt remains comfortable and pain free overnight. Continued education o n sternal precautions and incentive spirometer practice. End of shift chart review and 24 hour chart check completed. Amirah Celaya RN alale, Luiz Nelson MD - 07/11/2018 12:02 PM PDT Progress Notes by Luiz Perera MD at 07/11/18 120 Author: Luiz Perera MD Service: Hospitalist Author Type: Physician Filed: 07/11/18 1226 Date of Service: 07/11/18 1202 Status: Signed Rn Occupational: Luiz Perera MD (Physician) [facility] Service: Hospitalist Progress Note Pt: Roby Ortega AGE/SEX: 48 y.o. male ROOM: [facility]/9113-1 : 1970 PCP: Mary Kraft ADMIT DATE: 07/08/2018 TODAY'S DATE: 07/11/2018 Hospital Day/Hospital Course: LOS: [address] Escobedo 48 yr old man with CAD, s/p PCI with sent placement in 01/2018, HTN, And HLD presented wit h recurrence of chest pain since 1 month ago, precipitated by exertion and relieved with SL nitroglycerin. He underwent cardiac catheterization on 07/07/18 which showed new left main s tenosis. The patient was referred here for possible CABG. SUBJECTIVE: Patient seen and examine. Not having any chest pain. Moving in the room.. No chest pain, S OB, MOELLER. No cough on recumbency. Had no orthopnea or PND. No Abdominal pain, N/V or fever. St ill feeling tired and fatigued. No dizziness or lightheadedness. Scheduled Medications: aspirin 81 mg Oral Daily with breakfast atorvastatin 80 mg Oral Nightly lisinopril 10 mg Oral Daily Continuous Infusions eptifibatide 0.75 mg/mL 2 mcg/kg/min (07/11/18 0940) heparin 50 units/mL 11 Units/kg/hr (07/10/182128) PRN Medications acetaminophen OR acetaminophen, heparin (porcine) 5000 unit/0.5mL, heparin (porcine) 50 00 unit/0.5mL, HYDROcodone-acetaminophen OR HYDROcodone-acetaminophen, magnesium sulfate OR magnesium sulfate OR magnesium sulfate, nitroGLYCERIN, ondansetron OR ondans etron, polyethylene glycol, potassium OR potassium OR potassium OR potassium chl oride OR potassium chloride OR potassium chloride, zolpidem Allergy: Allergies Allergen Reactions Penicillins Hives Hives with itching and blisters OBJECTIVE: Vitals: Patient Vitals for the past 24 hrs: BP Temp Temp src Pulse Resp SpO2 Weight 07/11/18 1143 118/75 98.3 F (36.8 C) Oral 73 18 99 % - 07/11/18 0941 (!) 134/91 - - - - - - 07/11/18 0816 148/83 97.9 F (36.6 C) Oral 80 18 98 % - 07/11/18 0410 108/63 97.6 F (36.4 C) Oral 62 18 97 % 86.5 kg (190 lb 11.2 oz) 07/10/18 2337 109/58 97.9 F (36.6 C) Oral 68 18 98 % - 07/10/18 1935 135/89 98.3 F (36.8 C) Oral 73 18 99 % - 07/10/18 1520 132/76 98 F (36.7 C) Oral 74 16 97 % - I&O Detailed Table: Intake/Output Summary (Last 24 hours) at 07/11/18 1202 Last data filed at 07/11/18 0509 Gross per 24 hour Intake 2789.7 ml Output 1950 ml Net 839.7 ml Patient Vitals for the past 96 hrs: Weight 07/11/18 0410 86.5 kg (190 lb 11.2 oz) 07/09/18 0500 84.5 kg (186 lb 4.6 oz) 07/08/18 1021 84.4 kg (186 lb 1.1 oz) Hemodynamics Last 24hrs: Physical Examination: Constitutional: Alert and oriented to person, place, and time. Appears well-developed and w ell-nourished. HEENT: Neck supple, no JVD, non icteric sclera. Cardiovascular: Normal rate, regular rhythm, normal heart sounds with S1 and S2, and intact distal pulses. Exam reveals no gallop and no friction rub. No murmur heard. Pulmonary/Chest: Effort normal and breath sounds normal. No stridor. No respiratory distres s. no wheezes. no rales. exhibits no tenderness. Abdominal: Soft. Bowel sounds are normal. exhibits no distension and no mass. There is no t enderness. There is no rebound and no guarding. Extremeties/Musculoskeletal: Normal range of motion.exhibits no tenderness. exhibits no ed michelle. Neurological: Alert and oriented to person, place, and time. Moving all 4 extremities Skin: Skin is warm and dry. No rash noted. No erythema. No pallor. Psychiatric: Has a normal mood and affect. Behavior is normal. Judgment normal. Not suicida l LABS: Recent Labs Lab 07/11/1841207/10/1840907/09/18415 WBC 8.76 9.55 8.43 HGB 13.9 13.9 14.4 HCT 40.1 40.0 41.4 PLT 229 229 237 NEUTOPHILPCT 74.74 77.65 72.20 MONOPCT 9.41 8.51 9.20 Recent Labs Lab 07/11/1841207/09/18415 NA 138 140 K 4.4 4.3 CL 106 106 CO2 25 25 BUN 14 21 CREATININE 0.7 0.8 Phosphorus: Lab Results Component Value Date PHOS 3.7 07/09/2018 Recent Labs Lab 07/09/18 0416 MG 2.0 Recent Labs Lab 07/11/18 0413 07/10/18 0617 07/10/18 0023 07/09/18 0416 07/08/18 1257 APTT 55* 53* 51* < > -- < > 36* INR -- -- -- -- 1.0 -- 1.0 < > = values in this interval not displayed. Recent Labs Lab 07/08/18 1038 TROPONINI <0.02 Results No results found for the last 72 hours. Diagnostic Imaging: Impressions only: Echo Cardiac Adult Complete Result Date: 07/08/2018 1. No significant valvular abnormality. 2. Overall left ventricular systolic function is no rmal with, an EF between 60 - 65 %. 3. The diastolic filling pattern indicates impaired rela xation consistent with mild dysfunction (Grade I). 4. The right ventricle is normal in size and function. PROBLEM LIST Principal Problem: Atherosclerosis of [place] coronary artery Active Problems: Chest pain Benign essential hypertension Hyperlipidemia Resolved Problems: * No resolved hospital problems. * ASSESSMENT & PLAN 48 yr old man with CAD, s/p PCI with sent placement in 01/2018, HTN, And HLD presented wit h recurrence of chest pain since 1 month ago, precipitated by exertion and relieved with SL nitroglycerin. He underwent cardiac catheterization on 07/07/18 which showed new left main s tenosis. The patient was referred here for possible CABG. Principal Problem: Atherosclerosis of [place] coronary artery with chest pain He is on heparin and Integrilin. I will continue with aspirin and statins. Heart rate is a lready in 60s so not the beta blockers. Possible CABG on Wednesday. Benign essential hypertension Blood pressure is appropriately controlled Hyperlipidemia Statins Resolved Problems: * No resolved hospital problems. * Patient diagnosed with: , and I agree with the following nutritional recommendations: LUIZ PERERA MD, FACP 07/11/2018 12:02 PM Dictation software, Examify, used which may contain error for similar sounding words even af ter review. Personal communication requested for any clarification. Portions of this chart may have been copied from previous notes for continuity of care purp ose onversion Transac tion, Provider Unknown - 07/11/2018 9:30 AM PDTFormatting of this note might be different f rom the original. Case Management by MARC Churchill at 07/11/18929 Author: MARC Churchill Service: (none) Author Type: Proof Technician Helper Filed: 07/11/18930 Date of Service: 07/11/18929 Status: Signed Rn Occupational: MARC Churchill (Proof Technician Helper) 07/11/18899 Discharge Planning Evaluation Admitting Diagnosis Coronary Artery Disease Anticipated Disposition Facility Type Home PEST CONTROL APPLICATOR following for discharge planning, planning to return home with Pt mother as caregiver. PEST CONTROL APPLICATOR will continue to follow for discharge needs. DCP: Home JAC STANTON Proof Technician Helper [phone] cell oggs, BONITA Olivares - 07/11/2018 9:12 AM PDTFormatting of this note might be different fro m the original. Progress Notes by Sean Armstrong PA-C at 07/11/18911 Author: Sean Armstrong PA-C Service: Cardiac, Thoracic, and Vascular Surgery Author Ty pe: Physician Zyglo Technician - Certified Filed: 07/11/18912 Date of Service: 07/11/18911 Status: Signed Rn Occupational: Sean Armstrong PA-C (Physician Zyglo Technician - Certified) Pt stable overnight, no CP Continue Integrelin/Heparin, stop Integrelin on 07/12 @ 1800 and Heparin 07/12 @ 2359 Plan for CABG on 07/13 Carlos Armstrong PA-C 07/11/2018 onversion Tr stefani, Provider Unknown - 07/11/2018 4:50 AM PDTFormatting of this note might be differ ent from the original. Nurse Progress Note by Lauryn Matamoros RN at 07/11/18449 Author: Lauryn Matamoros RN Service: (none) Author Type: Registered Nurse Filed: 07/11/18 0507 Date of Service: 07/11/18449 Status: Addendum Rn Occupational: Luaryn Matamoros RN (Registered Nurse) Related Notes: Original Note by Lauryn Matamoros, RN (Registered Nurse) filed at 0452 Pt stil on Integrilin and heparin drifts. No new events this shift. APTT therapeutic, lab o rdered for 07/12/2018 AM. WCTM. 24 hr and shift chart check complete. Lauryn Matamoros RN onver lauren Transaction, Provider Unknown - 07/10/2018 7:30 PM PDT Nurse Progress Note by Christine Green RN at 07/10/181929 Author: Christine Green RN Service: (none) Author Type: Registered Nurse Filed: 07/10/181929 Date of Service: 07/10/181929 Status: Signed Rn Occupational: Christine Green RN (Registered Nurse) End of shift review complete. Bedside report given to Magda LI. olillys, BONITA Olivares - 07/10/2018 9:59 AM PDTFormatting of this note might be different fro m the original. Progress Notes by Sean Armstrong PA-C at 07/10/18958 Author: Sean Armstrong PA-C Service: Cardiac, Thoracic, and Vascular Surgery Author Ty pe: Physician Zyglo Technician - Certified Filed: 07/10/18 1000 Date of Service: 07/10/18958 Status: Attested Rn Occupational: Sean Armstrong PA-C (Physician Zyglo Technician - Certified) Cosigner: Jorge archibald MD at 07/11/18 1232 Attestation signed by Jorge Richards MD at 07/11/18 1232 I have reviewed the note below, personally reviewed the available laboratory and imaging st udies and examined the patient. I agree with the assessment and plan mentioned below. Electronically signed by: Jorge Richards, 07/11/2018 12:32 PM Pt stable overnight, no CP Continue Integrelin Plan for CABG on 07/13 Carlos Armstrong PA-C 07/10/2018 Monisha Franco MD - 07/10/2018 9:25 AM PDT Progress Notes by Monisha Escobedo MD at 07/10/18924 Author: Monisha Escobedo MD Service: Hospitalist Author Type: Physician Filed: 07/10/18926 Date of Service: 07/10/18924 Status: Signed Rn Occupational: Monisha Escobedo MD (Physician) [facility] Service: Hospitalist Progress Note Hospital Day: LOS: 2 days SUBJECTIVE Patient Summary: Mr. Ortega is a 48 yr old man with CAD, s/p PCI with sent placement in 01/2018, HTN, And HLD presented with recurrence of chest pain since 1 month ago, precipitated by exertion and relieved with SL nitroglycerin. He underwent cardiac catheterization on 07/07/18 which showe d new left main stenosis. The patient was referred here for possible CABG. Events Overnight: Patient was seen today at bedside, had no complaint. Scheduled Medications aspirin 81 mg Oral Daily with breakfast atorvastatin 80 mg Oral Nightly lisinopril 10 mg Oral Daily Continuous Infusions eptifibatide 0.75 mg/mL 2 mcg/kg/min (07/10/18 0841) heparin 50 units/mL 11 Units/kg/hr (07/10/18 0652) PRN Medications acetaminophen OR acetaminophen, heparin (porcine) 5000 unit/0.5mL, heparin (porcine) 50 00 unit/0.5mL, HYDROcodone-acetaminophen OR HYDROcodone-acetaminophen, magnesium sulfate OR magnesium sulfate OR magnesium sulfate, nitroGLYCERIN, ondansetron OR ondans etron, polyethylene glycol, potassium OR potassium OR potassium OR potassium chl oride OR potassium chloride OR potassium chloride, zolpidem OBJECTIVE Vital Signs: BP 110/78 (BP Location: Left forearm) | Pulse 70 | Temp 98 F (36.7 C) (Oral) | Resp 18 | Ht 1.702 m (5' 7") | Wt 84.5 kg (186 lb 4.6 oz) | SpO2 96% | BMI 29.18 kg/m Patient Vitals for the past 24 hrs: BP Temp Temp src Pulse Resp SpO2 07/10/18 0801 110/78 98 F (36.7 C) Oral 70 18 96 % 07/10/18 0700 110/78 98 F (36.7 C) Oral - 18 96 % 07/10/18 0429 112/70 97.3 F (36.3 C) Oral - 18 96 % 07/09/18 2342 121/67 97.7 F (36.5 C) Oral - 18 96 % 07/09/18 1947 128/87 97.9 F (36.6 C) Oral - 18 98 % 07/09/18 1604 118/86 97.7 F (36.5 C) Oral 71 16 98 % 07/09/18 1201 113/69 97.6 F (36.4 C) Oral 68 16 95 % 07/09/18 0935 122/71 - - - - - Intake/Output Summary (Last 24 hours) at 07/10/18 0925 Last data filed at 07/10/18 0800 Gross per 24 hour Intake 838 ml Output 1000 ml Net -162 ml Physical Exam Constitutional: He is oriented to person, place, and time and well-developed, well-nourishe d, and in no distress. HENT: Head: Normocephalic and atraumatic. Mouth/Throat: Oropharynx is clear and moist. Eyes: Pupils are equal, round, and reactive to light. Conjunctivae are normal. Neck: Normal range of motion. Neck supple. No JVD present. Cardiovascular: Normal rate and regular rhythm. No murmur heard. Pulmonary/Chest: Effort normal and breath sounds normal. He has no wheezes. He has no rales . Abdominal: Soft. Bowel sounds are normal. There is no tenderness. Musculoskeletal: He exhibits no edema. Lymphadenopathy: He has no cervical adenopathy. Neurological: He is alert and oriented to person, place, and time. No cranial nerve deficit . Skin: Skin is warm and dry. Psychiatric: Mood and affect normal. DATA CBC: Lab Results Component Value Date WBC 9.55 07/10/2018 RBC 4.52 07/10/2018 HGB 13.9 07/10/2018 HCT 40.0 07/10/2018 MCV 88.6 07/10/2018 MCH 30.9 07/10/2018 MCHC 34.8 07/10/2018 RDW 41.1 07/10/2018 PLT 229 07/10/2018 MPV 9.2 07/10/2018 DIFFTYPE AUTOMATED 07/10/2018 CMP: Lab Results Component Value Date NA 140 07/09/2018 K 4.3 07/09/2018 CL 106 07/09/2018 CO2 25 07/09/2018 ANIONGAP 13 07/09/2018 GLUF 97 07/09/2018 BUN 21 07/09/2018 CREATININE 0.8 07/09/2018 BCR 26 07/09/2018 CA 8.5 07/09/2018 EGFR >60 07/09/2018 IMAGES Echo Cardiac Adult Complete Result Date: 07/08/2018 1. No significant valvular abnormality. 2. Overall left ventricular systolic function is no rmal with, an EF between 60 - 65 %. 3. The diastolic filling pattern indicates impaired rela xation consistent with mild dysfunction (Grade I). 4. The right ventricle is normal in size and function. PROBLEM LIST Principal Problem: Atherosclerosis of [place] coronary artery Active Problems: Chest pain Benign essential hypertension Hyperlipidemia ASSESSMENT & PLAN Unstable angina On heparin drip and integrlin CT surgery consulted, plan for surgery on 07/13/18 Continue ASA, statin HR already in the 60's and even drops to the 50's at rest; not on BB ticagrelor on hold for planned sx HTN BP acceptable Continue lisinopril Will closely watch BP HFpEF Stable Disposition: pending Code Status: Full Code Monisha Escobedo MD 07/10/2018 9:25 AM onversion Transaction , Provider Unknown - 07/10/2018 3:33 AM PDT Nurse Progress Note by Bubba Webster RN at 07/10/18332 Author: Bubba Webster RN Service: (none) Author Type: Registered Nurse Filed: 07/10/18 0744 Date of Service: 07/10/18332 Status: Signed Rn Occupational: Bubba Webster RN (Registered Nurse) Pt 's aPTT 51 at 0023. Pt therapeutic x 1 on heparin at 11 units/kg/hr. Next aPTT at 0623. Pt sleeping comfortably all night. V/S stable. Denying CP. APTT 53 at 0617. Therapeutic x2. AM lab draw ordered. End of shift chart review complete. onver lauren Transaction, Provider Unknown - 07/09/2018 6:13 PM PDT Nurse Progress Note by Digna Mabry RN at 07/09/181812 Author: Digna Mabry RN Service: (none) Author Type: Registered Nurse Filed: 07/09/181813 Date of Service: 07/09/181812 Status: Signed Rn Occupational: Digna Mabry RN (Registered Nurse) Patients heparin drip has not been therapeutic . Heparin titrated to 11 units/kg/hr. Next a ptt is at midnight. End of shift chart review complete. onver lauren Transaction, Provider Unknown - 07/09/2018 3:35 PM PDT Case Management by MARC Churchill at 07/09/181 Author: MARC Churchill Service: (none) Author Type: Proof Technician Helper Filed: 07/09/18 1544 Date of Service: 07/09/181534 Status: Signed Rn Occupational: MARC Churchill (Proof Technician Helper) 07/09/18 1500 Discharge Planning Evaluation Admitting Diagnosis Coronary Artery Disease Readmission No Living Arrangements Spouse/significant other Support Systems Spouse/significant other Type of Residence Private residence Independent with ADL's Yes Independent with Mobility Yes Mental Status Oriented Anticipated Discharge Plan Post Acute Care Needs Other (comment) (will need caregiving after planned CABG.) Resources Financial concerns No Transportation issues No Patient/Family concerns No Prescription Plan Yes Anticipated Disposition Facility Type Home PEST CONTROL APPLICATOR met with Pt for support, resource and discussed discharge planning, planning to return home when medically ready. Pt is a 48 y.o. single male here for CAD, planning to have a CABG on 07/13. Pt [facility] [place] his mother (Julia Ortega [phone] [facility]) is planning to stay wi th Pt after hospitalization and states she will assist with for as long as he needs her. 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 Pt has been very independent and active at baseline. Pt has been Brilinta (blood thinner) before admission. Pt denies previous home health, outp atient dialysis, or home oxygen in the past. Patient's PCP is: Mray Kraft Patient's insurance: [employer] Coverage concerns: None Medication coverage/concerns: Pt states coverage plan has covered expensive cardiac meds. Community resources utilized / needed: Not interested at this time. Assistance in transportation: Pt mother Identification of any specific education / training: None at this time, Sternal precautions later. Barriers to Discharge / Alternative housing needed: None at time Anticipated DCP: Home JAC STANTON, Proof Technician Helper [phone] cell Rosales Franco MD - 07/09/2018 9:25 AM PDTFormatting of this note might be different from the brain marie. Progress Notes by Monisha Escobedo MD at 07/09/18924 Author: Monisha Escobedo MD Service: Hospitalist Author Type: Physician Filed: 07/09/18 1008 Date of Service: 07/09/18924 Status: Signed Rn Occupational: Monisha Escobedo MD (Physician) [facility] Service: Hospitalist Progress Note Hospital Day: LOS: 1 day SUBJECTIVE Patient Summary: Mr. Ortega is a 48 yr old man with CAD, s/p PCI with sent placement in 01/2018, HTN, And HLD presented with recurrence of chest pain since 1 month ago, precipitated by exertion and relieved with SL nitroglycerin. He underwent cardiac catheterization on 07/07/18 which showe d new left main LAD stenosis. The patient was referred here for possible CABG. Events Overnight: Patient was seen today at bedside, had no complaint, reports doing well, denies chest pain, SOB, palpitation. Scheduled Medications aspirin 81 mg Oral Daily with breakfast atorvastatin 80 mg Oral Nightly influenza vaccine quadrivalent 0.5 mL Intramuscular Once Immunization lisinopril 10 mg Oral Daily pneumococcal 23-valent vaccine 0.5 mL Intramuscular Once Immunization Continuous Infusions eptifibatide 0.75 mg/mL heparin 50 units/mL 7 Units/kg/hr (07/09/18 0152) PRN Medications acetaminophen OR acetaminophen, heparin (porcine) 5000 unit/0.5mL, heparin (porcine) 50 00 unit/0.5mL, HYDROcodone-acetaminophen OR HYDROcodone-acetaminophen, magnesium sulfate OR magnesium sulfate OR magnesium sulfate, nitroGLYCERIN, ondansetron OR ondans etron, polyethylene glycol, potassium OR potassium OR potassium OR potassium chl oride OR potassium chloride OR potassium chloride, zolpidem OBJECTIVE Vital Signs: BP 118/82 (BP Location: Left forearm) | Pulse 62 | Temp 98 F (36.7 C) (Oral) | Resp 16 | Ht 1.702 m (5' 7") | Wt 84.5 kg (186 lb 4.6 oz) | SpO2 96% | BMI 29.18 kg/m Patient Vitals for the past 24 hrs: BP Temp Temp src Pulse Resp SpO2 Height Weight 07/09/18 0811 118/82 98 F (36.7 C) Oral 62 16 96 % - - 07/09/18 0500 - - - - - - - 84.5 kg (186 lb 4.6 oz) 07/09/18 0339 94/56 97.9 F (36.6 C) Oral 59 16 97 % - - 07/08/18 2310 106/59 98.2 F (36.8 C) Oral 68 18 98 % - - 07/08/18 1948 105/70 98.2 F (36.8 C) Oral 71 18 96 % - - 07/08/18 1545 135/76 97.9 F (36.6 C) Oral 96 18 97 % - - 07/08/18 1211 125/82 - - - - - - - 07/08/18 1021 133/57 98.7 F (37.1 C) Oral 78 16 98 % 1.702 m (5' 7") 84.4 kg (186 lb 1. 1 oz) Intake/Output Summary (Last 24 hours) at 07/09/18 0925 Last data filed at 07/09/18 0600 Gross per 24 hour Intake 955 ml Output 0 ml Net 955 ml Physical Exam Constitutional: He is oriented to person, place, and time and well-developed, well-nourishe d, and in no distress. HENT: Head: Normocephalic and atraumatic. Mouth/Throat: Oropharynx is clear and moist. Eyes: Pupils are equal, round, and reactive to light. Conjunctivae are normal. Neck: Normal range of motion. Neck supple. No JVD present. Cardiovascular: Normal rate and regular rhythm. No murmur heard. Pulmonary/Chest: Effort normal and breath sounds normal. He has no wheezes. He has no rales . Abdominal: Soft. Bowel sounds are normal. There is no tenderness. Musculoskeletal: He exhibits no edema. Lymphadenopathy: He has no cervical adenopathy. Neurological: He is alert and oriented to person, place, and time. No cranial nerve deficit . Skin: Skin is warm and dry. Psychiatric: Mood and affect normal. DATA CBC: Lab Results Component Value Date WBC 8.43 07/09/2018 RBC 4.71 07/09/2018 HGB 14.4 07/09/2018 HCT 41.4 07/09/2018 MCV 87.9 07/09/2018 MCH 30.7 07/09/2018 MCHC 34.9 07/09/2018 RDW 41.1 07/09/2018 PLT 237 07/09/2018 MPV 9.3 07/09/2018 DIFFTYPE AUTOMATED 07/09/2018 CMP: Lab Results Component Value Date NA 140 07/09/2018 K 4.3 07/09/2018 CL 106 07/09/2018 CO2 25 07/09/2018 ANIONGAP 13 07/09/2018 GLUF 97 07/09/2018 BUN 21 07/09/2018 CREATININE 0.8 07/09/2018 BCR 26 07/09/2018 CA 8.5 07/09/2018 EGFR >60 07/09/2018 IMAGES Echo Cardiac Adult Complete Result Date: 07/08/2018 1. No significant valvular abnormality. 2. Overall left ventricular systolic function is no rmal with, an EF between 60 - 65 %. 3. The diastolic filling pattern indicates impaired rela xation consistent with mild dysfunction (Grade I). 4. The right ventricle is normal in size and function. PROBLEM LIST Principal Problem: Atherosclerosis of [place] coronary artery Active Problems: Chest pain Benign essential hypertension Hyperlipidemia ASSESSMENT & PLAN Unstable angina On heparin drip and integrlin CT surgery consulted, plan for surgery this coming week, waiting for wash out of brilinta Continue ASA, statin Was no coreg until January 2018, d/jh by his flavor extractor ticagrelor on hold for planned sx HTN BP acceptable Continue lisinopril Will closely watch BP HFpEF Stable Disposition: pending Code Status: Full Code Monisha Escobedo MD 07/09/2018 9:25 AM Francisco Conley ARN P - 07/08/2018 6:19 PM PDT Nurse Progress Note by Francisco Sanders RN at 07/08/181818 Author: Francisco Sanders RN Service: (none) Author Type: Registered Nurse Filed: 07/08/181820 Date of Service: 07/08/181818 Status: Signed Rn Occupational: Francisco Sanders RN (Registered Nurse) Pt. Denies chest pain. Cardiac surgery education began. Booklet provided and reviewed. S ternal precautions reviewed and reinforced, heart pillow provided. Incentive spirometer pro vided, technique reviewed with return demonstration. Cardiac surgery video #1 viewed by taz chatterjee and S.O. All questions answered. Pt. Up ad geovanny ambulated on floor with steady gait. End of shift chart check complete Francisco Sanders RN onversion Trans action, Provider Unknown - 07/08/2018 11:43 AM PDT Pharmacy Note by Yi Melendez RPH at 07/08/18 1143 Author: Yi Melendez RPH Service: Pharmacy Author Type: Pharmacist Filed: 07/08/18 114 Date of Service: 07/08/18 114 Status: Signed Rn Occupational: Yi Melendez RPH (Pharmacist) Clinical Pharmacy Note: Renal Monitoring Ht Readings from Last 1 Encounters: 07/08/18 1.702 m (5' 7") Wt Readings from Last 1 Encounters: 07/08/18 84.4 kg (186 lb 1.1 oz) Creatinine clearance cannot be calculated (No order found.) Pharmacy dosing for renal function per Dr. Salvador At this time there are no new labs. No changes made today. Pharmacy will continue monitorin g patient for appropriate dosing per renal function with updated labs in the morning. Yi Melendez, [facility] 07/08/2018 11:43 AM docume nted in this encounter Plan of Treatment Not on filedocumented as of this encounter Procedures + +--------+ + + + | Procedure Name | Priori | Date/Time | Associated Diagnosis | Comments | | | ty | | | | + +--------+ + + + | CBC NO DIFFERENTIAL | Routin | 07/17/2018 | | Results for this | | | e | 5:35 AM | | procedure are in the | | | | PST | | results section. | + +--------+ + + + | MAGNESIUM | Routin | 07/17/2018 | | Results for this | | | e | 5:35 AM | | procedure are in the | | | | PST | | results section. | + +--------+ + + + | BASIC METABOLIC | Routin | 07/17/2018 | | Results for this | | PANEL | e | 5:35 AM | | procedure are in the | | | | PST | | results section. | + +--------+ + + + | XR CHEST 1 VIEW | Routin | 07/17/2018 | | Results for this | | | e | 5:33 AM | | procedure are in the | | | | PST | | results section. | + +--------+ + + + | POC GLUCOSE | Routin | 07/17/2018 | | Results for this | | | e | 4:56 AM | | procedure are in the | | | | PST | | results section. | + +--------+ + + + | POC GLUCOSE | Routin | 07/16/2018 | | Results for this | | | e | 8:47 PM | | procedure are in the | | | | PDT | | results section. | + +--------+ + + + | POC GLUCOSE | Routin | 07/16/2018 | | Results for this | | | e | 4:35 PM | | procedure are in the | | | | PDT | | results section. | + +--------+ + + + | POC GLUCOSE | Routin | 07/16/2018 | | Results for this | | | e | 11:39 AM | | procedure are in the | | | | PDT | | results section. | + +--------+ + + + | POC GLUCOSE | Routin | 07/16/2018 | | Results for this | | | e | 10:38 AM | | procedure are in the | | | | PDT | | results section. | + +--------+ + + + | POC GLUCOSE | Routin | 07/16/2018 | | Results for this | | | e | 5:58 AM | | procedure are in the | | | | PDT | | results section. | + +--------+ + + + | XR CHEST 1 VIEW | Routin | 07/16/2018 | | Results for this | | | e | 5:49 AM | | procedure are in the | | | | PDT | | results section. | + +--------+ + + + | CBC NO DIFFERENTIAL | Routin | 07/16/2018 | | Results for this | | | e | 5:03 AM | | procedure are in the | | | | PDT | | results section. | + +--------+ + + + | MAGNESIUM | Routin | 07/16/2018 | | Results for this | | | e | 5:03 AM | | procedure are in the | | | | PDT | | results section. | + +--------+ + + + | BASIC METABOLIC | Routin | 07/16/2018 | | Results for this | | PANEL | e | 5:03 AM | | procedure are in the | | | | PDT | | results section. | + +--------+ + + + | POC GLUCOSE | Routin | 07/15/2018 | | Results for this | | | e | 9:33 PM | | procedure are in the | | | | PDT | | results section. | + +--------+ + + + | POC GLUCOSE | Routin | 07/15/2018 | | Results for this | | | e | 5:24 PM | | procedure are in the | | | | PDT | | results section. | + +--------+ + + + | POC GLUCOSE | Routin | 07/15/2018 | | Results for this | | | e | 12:13 PM | | procedure are in the | | | | PDT | | results section. | + +--------+ + + + | XR CHEST 1 VIEW | Routin | 07/15/2018 | | Results for this | | | e | 5:41 AM | | procedure are in the | | | | PDT | | results section. | + +--------+ + + + | POC GLUCOSE | Routin | 07/15/2018 | | Results for this | | | e | 5:34 AM | | procedure are in the | | | | PDT | | results section. | + +--------+ + + + | CBC NO DIFFERENTIAL | Routin | 07/15/2018 | | Results for this | | | e | 4:19 AM | | procedure are in the | | | | PDT | | results section. | + +--------+ + + + | MAGNESIUM | Routin | 07/15/2018 | | Results for this | | | e | 4:19 AM | | procedure are in the | | | | PDT | | results section. | + +--------+ + + + | BASIC METABOLIC | Routin | 07/15/2018 | | Results for this | | PANEL | e | 4:19 AM | | procedure are in the | | | | PDT | | results section. | + +--------+ + + + | POC GLUCOSE | Routin | 07/15/2018 | | Results for this | | | e | 1:26 AM | | procedure are in the | | | | PDT | | results section. | + +--------+ + + + | POC GLUCOSE | Routin | 07/14/2018 | | Results for this | | | e | 11:35 PM | | procedure are in the | | | | PDT | | results section. | + +--------+ + + + | POC GLUCOSE | Routin | 07/14/2018 | | Results for this | | | e | 8:52 PM | | procedure are in the | | | | PDT | | results section. | + +--------+ + + + | POC GLUCOSE | Routin | 07/14/2018 | | Results for this | | | e | 4:17 PM | | procedure are in the | | | | PDT | | results section. | + +--------+ + + + | POTASSIUM | Routin | 07/14/2018 | | Results for this | | | e | 2:36 PM | | procedure are in the | | | | PDT | | results section. | + +--------+ + + + | POC GLUCOSE | Routin | 07/14/2018 | | Results for this | | | e | 11:38 AM | | procedure are in the | | | | PDT | | results section. | + +--------+ + + + | POTASSIUM | Routin | 07/14/2018 | | Results for this | | | e | 10:11 AM | | procedure are in the | | | | PDT | | results section. | + +--------+ + + + | POC GLUCOSE | Routin | 07/14/2018 | | Results for this | | | e | 8:08 AM | | procedure are in the | | | | PDT | | results section. | + +--------+ + + + | POTASSIUM | Routin | 07/14/2018 | | Results for this | | | e | 6:20 AM | | procedure are in the | | | | PDT | | results section. | + +--------+ + + + | MAGNESIUM | Routin | 07/14/2018 | | Results for this | | | e | 6:20 AM | | procedure are in the | | | | PDT | | results section. | + +--------+ + + + | XR CHEST 1 VIEW | Routin | 07/14/2018 | | Results for this | | | e | 5:26 AM | | procedure are in the | | | | PDT | | results section. | + +--------+ + + + | EXTERNAL LAB: CBC | Routin | 07/14/2018 | | Results for this | | | e | 4:01 AM | | procedure are in the | | | | PDT | | results section. | + +--------+ + + + | HEMOGLOBIN A1C | Routin | 07/14/2018 | | Results for this | | | e | 4:01 AM | | procedure are in the | | | | PDT | | results section. | + +--------+ + + + | BASIC METABOLIC | Routin | 07/14/2018 | | Results for this | | PANEL | e | 4:01 AM | | procedure are in the | | | | PDT | | results section. | + +--------+ + + + | POC GLUCOSE | Routin | 07/14/2018 | | Results for this | | | e | 4:00 AM | | procedure are in the | | | | PDT | | results section. | + +--------+ + + + | POC GLUCOSE | Routin | 07/14/2018 | | Results for this | | | e | 12:25 AM | | procedure are in the | | | | PDT | | results section. | + +--------+ + + + | POC GLUCOSE | Routin | 07/13/2018 | | Results for this | | | e | 9:50 PM | | procedure are in the | | | | PDT | | results section. | + +--------+ + + + | POTASSIUM | Routin | 07/13/2018 | | Results for this | | | e | 9:49 PM | | procedure are in the | | | | PDT | | results section. | + +--------+ + + + | POTASSIUM | Routin | 07/13/2018 | | Results for this | | | e | 6:05 PM | | procedure are in the | | | | PDT | | results section. | + +--------+ + + + | POC GLUCOSE | Routin | 07/13/2018 | | Results for this | | | e | 5:25 PM | | procedure are in the | | | | PDT | | results section. | + +--------+ + + + | POC GLUCOSE | Routin | 07/13/2018 | | Results for this | | | e | 4:42 PM | | procedure are in the | | | | PDT | | results section. | + +--------+ + + + | ECHO | Routin | 07/13/2018 | | Results for this | | TRANSESOPHAGEAL(PALLAVI) | e | 3:33 PM | | procedure are in the | | - PERIOPERATIVE | | PDT | | results section. | + +--------+ + + + | POC GLUCOSE | Routin | 07/13/2018 | | Results for this | | | e | 3:12 PM | | procedure are in the | | | | PDT | | results section. | + +--------+ + + + | XR CHEST 1 VIEW | Routin | 07/13/2018 | | Results for this | | | e | 2:06 PM | | procedure are in the | | | | PDT | | results section. | + +--------+ + + + | ECG 12 LEAD | Routin | 07/13/2018 | | Results for this | | | e | 1:57 PM | | procedure are in the | | | | PDT | | results section. | + +--------+ + + + | POC GLUCOSE | Routin | 07/13/2018 | | Results for this | | | e | 1:51 PM | | procedure are in the | | | | PDT | | results section. | + +--------+ + + + | EXTERNAL LAB: CBC | Routin | 07/13/2018 | | Results for this | | | e | 1:50 PM | | procedure are in the | | | | PDT | | results section. | + +--------+ + + + | PTT | Routin | 07/13/2018 | | Results for this | | | e | 1:50 PM | | procedure are in the | | | | PDT | | results section. | + +--------+ + + + | PROTIME INR | Routin | 07/13/2018 | | Results for this | | | e | 1:50 PM | | procedure are in the | | | | PDT | | results section. | + +--------+ + + + | FIBRINOGEN | Routin | 07/13/2018 | | Results for this | | | e | 1:50 PM | | procedure are in the | | | | PDT | | results section. | + +--------+ + + + | MAGNESIUM | Routin | 07/13/2018 | | Results for this | | | e | 1:50 PM | | procedure are in the | | | | PDT | | results section. | + +--------+ + + + | CALCIUM, IONIZED | Routin | 07/13/2018 | | Results for this | | | e | 1:50 PM | | procedure are in the | | | | PDT | | results section. | + +--------+ + + + | BASIC METABOLIC | Routin | 07/13/2018 | | Results for this | | PANEL | e | 1:50 PM | | procedure are in the | | | | PDT | | results section. | + +--------+ + + + | POC ISNANO CG8, | Routin | 07/13/2018 | | Results for this | | ARTERIAL | e | 1:16 PM | | procedure are in the | | | | PDT | | results section. | + +--------+ + + + | POC CG 4, ISTAT | Routin | 07/13/2018 | | Results for this | | ARTERIAL | e | 12:40 PM | | procedure are in the | | | | PDT | | results section. | + +--------+ + + + | TABATHA RUFFIN, | Routin | 07/13/2018 | | Results for this | | ARTERIAL | e | 12:36 PM | | procedure are in the | | | | PDT | | results section. | + +--------+ + + + | TABATHA RUFFIN, | Routin | 07/13/2018 | | Results for this | | ARTERIAL | e | 11:44 AM | | procedure are in the | | | | PDT | | results section. | + +--------+ + + + | WALE LEBLANC | Routin | 07/13/2018 | | Results for this | | ARTERIAL | e | 11:24 AM | | procedure are in the | | | | PDT | | results section. | + +--------+ + + + | TABATHA RUFFIN, | Routin | 07/13/2018 | | Results for this | | ARTERIAL | e | 11:20 AM | | procedure are in the | | | | PDT | | results section. | + +--------+ + + + | TABATHA RUFFIN, | Routin | 07/13/2018 | | Results for this | | ARTERIAL | e | 10:43 AM | | procedure are in the | | | | PDT | | results section. | + +--------+ + + + | TABATHA RUFFIN, | Routin | 07/13/2018 | | Results for this | | ARTERIAL | e | 10:16 AM | | procedure are in the | | | | PDT | | results section. | + +--------+ + + + | TABATHA RUFFIN, | Routin | 07/13/2018 | | Results for this | | ARTERIAL | e | 9:40 AM | | procedure are in the | | | | PDT | | results section. | + +--------+ + + + | POC CG 4WALE | Routin | 07/13/2018 | | Results for this | | ARTERIAL | e | 8:12 AM | | procedure are in the | | | | PDT | | results section. | + +--------+ + + + | POC ISNANO CG8, | Routin | 07/13/2018 | | Results for this | | ARTERIAL | e | 8:09 AM | | procedure are in the | | | | PDT | | results section. | + +--------+ + + + | EXTERNAL LAB: CBC | Routin | 07/13/2018 | | Results for this | | | e | 4:15 AM | | procedure are in the | | | | PDT | | results section. | + +--------+ + + + | XR CHEST 2 VIEWS | Routin | 07/12/2018 | | Results for this | | | e | 1:44 PM | | procedure are in the | | | | PDT | | results section. | + +--------+ + + + | MRSA NAAT | STAT | 07/12/2018 | | Results for this | | | | 8:43 AM | | procedure are in the | | | | PDT | | results section. | + +--------+ + + + | EXTERNAL LAB: CBC | Routin | 07/12/2018 | | Results for this | | | e | 4:03 AM | | procedure are in the | | | | PDT | | results section. | + +--------+ + + + | PTT | Routin | 07/12/2018 | | Results for this | | | e | 4:03 AM | | procedure are in the | | | | PDT | | results section. | + +--------+ + + + | EXTERNAL LAB: CBC | Routin | 07/11/2018 | | Results for this | | | e | 4:13 AM | | procedure are in the | | | | PDT | | results section. | + +--------+ + + + | PTT | Routin | 07/11/2018 | | Results for this | | | e | 4:13 AM | | procedure are in the | | | | PDT | | results section. | + +--------+ + + + | BASIC METABOLIC | Routin | 07/11/2018 | | Results for this | | PANEL | e | 4:13 AM | | procedure are in the | | | | PDT | | results section. | + +--------+ + + + | PTT | Routin | 07/10/2018 | | Results for this | | | e | 6:17 AM | | procedure are in the | | | | PDT | | results section. | + +--------+ + + + | EXTERNAL LAB: CBC | Routin | 07/10/2018 | | Results for this | | | e | 4:10 AM | | procedure are in the | | | | PDT | | results section. | + +--------+ + + + | PTT | Routin | 07/10/2018 | | Results for this | | | e | 12:23 AM | | procedure are in the | | | | PDT | | results section. | + +--------+ + + + | PTT | Routin | 07/09/2018 | | Results for this | | | e | 4:48 PM | | procedure are in the | | | | PDT | | results section. | + +--------+ + + + | PTT | Routin | 07/09/2018 | | Results for this | | | e | 7:43 AM | | procedure are in the | | | | PDT | | results section. | + +--------+ + + + | ECG 12 LEAD | Routin | 07/09/2018 | | Results for this | | | e | 6:06 AM | | procedure are in the | | | | PDT | | results section. | + +--------+ + + + | EXTERNAL LAB: CBC | Routin | 07/09/2018 | | Results for this | | | e | 4:16 AM | | procedure are in the | | | | PDT | | results section. | + +--------+ + + + | LIPID PANEL | Routin | 07/09/2018 | | Results for this | | | e | 4:16 AM | | procedure are in the | | | | PDT | | results section. | + +--------+ + + + | PROTIME INR | Routin | 07/09/2018 | | Results for this | | | e | 4:16 AM | | procedure are in the | | | | PDT | | results section. | + +--------+ + + + | PHOSPHORUS | Routin | 07/09/2018 | | Results for this | | | e | 4:16 AM | | procedure are in the | | | | PDT | | results section. | + +--------+ + + + | MAGNESIUM | Routin | 07/09/2018 | | Results for this | | | e | 4:16 AM | | procedure are in the | | | | PDT | | results section. | + +--------+ + + + | HEMOGLOBIN A1C | Routin | 07/09/2018 | | Results for this | | | e | 4:16 AM | | procedure are in the | | | | PDT | | results section. | + +--------+ + + + | BASIC METABOLIC | Routin | 07/09/2018 | | Results for this | | PANEL | e | 4:16 AM | | procedure are in the | | | | PDT | | results section. | + +--------+ + + + | PTT | Routin | 07/09/2018 | | Results for this | | | e | 12:28 AM | | procedure are in the | | | | PDT | | results section. | + +--------+ + + + | PTT | Routin | 07/08/2018 | | Results for this | | | e | 6:50 PM | | procedure are in the | | | | PDT | | results section. | + +--------+ + + + | ECHO COMPLETE | Routin | 07/08/2018 | | Results for this | | | e | 2:07 PM | | procedure are in the | | | | PDT | | results section. | + +--------+ + + + | PTT | Routin | 07/08/2018 | | Results for this | | | e | 12:57 PM | | procedure are in the | | | | PDT | | results section. | + +--------+ + + + | PROTIME INR | Routin | 07/08/2018 | | Results for this | | | e | 12:57 PM | | procedure are in the | | | | PDT | | results section. | + +--------+ + + + | CBC NO DIFFERENTIAL | Routin | 07/08/2018 | | Results for this | | | e | 12:57 PM | | procedure are in the | | | | PDT | | results section. | + +--------+ + + + | TROPONIN I | Routin | 07/08/2018 | | Results for this | | | e | 10:38 AM | | procedure are in the | | | | PDT | | results section. | + +--------+ + + + documented in this encounter Results CBC no Differential (07/17/2018 5:35 AM PST) + + + + + + | Component | Value | Ref Range | Performed | Pathologist | | | | | At | Signature | + + + + + + | WBC | 9.00 | 3.80 - 11.00 | EXTERNAL | | | | | K/uL | LAB | | + + + + + + | RED CELL | 3.23 (L) | 4.20 - 5.70 | EXTERNAL | | | COUNT | | M/uL | LAB | | + + + + + + | Hgb | 9.9 (L) | 13.2 - 17.0 | EXTERNAL | | | | | g/dL | LAB | | + + + + + + | Hematocrit, | 28.5 (L) | 39.0 - 50.0 % | EXTERNAL | | | POC | | | LAB | | + + + + + + | MCV | 88.0 | 80.0 - 100.0 fl | EXTERNAL | | | | | | LAB | | + + + + + + | MCH | 30.7 | 27.0 - 34.0 pg | EXTERNAL | | | | | | LAB | | + + + + + + | MCHC | 34.9 | 32.0 - 35.5 | EXTERNAL | | | | | g/dL | LAB | | + + + + + + | RDW-CV | 40.3 | 37 - 53 fl | EXTERNAL | | | | | | LAB | | + + + + + + | Platelet | 227 | 150 - 400 K/uL | EXTERNAL | | | Count | | | LAB | | | Plasma | | | | | + + + + + + | MPV | 8.8Comment: Testing | fl | EXTERNAL | | | | performed at [facility], [address] | LAB | | | | [address], | | | | | | [place] [address] | | | | + + + + + + + + | Specimen | + + | Blood specimen | | (specimen) | + + + +---------+ + + | Performing | Address | City/State/Zipcode | Phone Number | | Organization | | | | + +---------+ + + | EXTERNAL LAB | | | | + +---------+ + + Magnesium (07/17/2018 5:35 AM PST) + + + + + + | Component | Value | Ref Range | Performed | Pathologist | | | | | At | Signature | + + + + + + | Magnesium | 2.2Comment: Testing | 1.7 - 2.4 mg/dL | EXTERNAL | | | | performed at [facility];[address] | | LAB | | | | [address];[place], [place] | | | | | | [address] | | | | + + + + + + + + | Specimen | + + | Blood specimen | | (specimen) | + + + +---------+ + + | Performing | Address | City/State/Zipcode | Phone Number | | Organization | | | | + +---------+ + + | EXTERNAL LAB | | | | + +---------+ + + Basic Metabolic Panel (07/17/2018 5:35 AM PST) + + + + + + | Component | Value | Ref Range | Performed | Pathologist | | | | | At | Signature | + + + + + + | Na | 139 | 135 - 145 | EXTERNAL | | | | | mmol/L | LAB | | + + + + + + | K | 4.1 | 3.5 - 4.9 | EXTERNAL | | | | | mmol/L | LAB | | + + + + + + | Cl | 104 | 99 - 109 mmol/L | EXTERNAL | | | | | | LAB | | + + + + + + | CO2 | 28 | 23 - 32 mmol/L | EXTERNAL | | | | | | LAB | | + + + + + + | Anion Gap | 11 | 5 - 20 mmol/L | EXTERNAL | | | | | | LAB | | + + + + + + | Glucose, | 115 (H) | 65 - 99 mg/dL | EXTERNAL | | | Fasting | | | LAB | | + + + + + + | BUN | 11 | 8 - 25 mg/dL | EXTERNAL | | | | | | LAB | | + + + + + + | Creatinine | 0.9 | 0.70 - 1.30 | EXTERNAL | | | | | mg/dL | LAB | | + + + + + + | BUN/Creatin | 12 | | EXTERNAL | | | ine Ratio | | | LAB | | + + + + + + | Calcium | 8.3 (L) | 8.5 - 10.5 | EXTERNAL | | | | | mg/dL | LAB | | + + + + + + | Estimated | >60Comment: GFR <60: | mL/min/1.73m2 | EXTERNAL | | | GFR | CHRONIC KIDNEY DISEASE, | | LAB | | | | IF FOUND OVER A 3 MONTH | | | | | | PERIOD.GFR <15: KIDNEY | | | | | | FAILURE.FOR | | | | | | AMERICANS, MULTIPLY THE | | | | | | CALCULATED GFR BY | | | | | | 1.210.This eGFR is | | | | | | calculated using the | | | | | | MDRD IDMS traceable | | | | | | equation.Testing | | | | | | performed at [facility], [address] | | | | | [facility], | | | | | | [place] [address] | | | | + + + + + + + + | Specimen | + + | Blood specimen | | (specimen) | + + + +---------+ + + | Performing | Address | City/State/Zipcode | Phone Number | | Organization | | | | + +---------+ + + | EXTERNAL LAB | | | | + +---------+ + + XR Chest 1 [place] (07/17/2018 5:33 AM PST) + + | Specimen | + + | | + + + + + | Impressions | Performed At | + + + | 1. Cardiomegaly. Patchy left basilar atelectasis/aspiration. | | | No pneumothorax. Electronically signed by Chito Melgar MD on | | | 07/17/2018 7:28 AM | | + + + + + + | Narrative | Performed At | + + + | ROBY ORTEGA 1970 48 years XR CHEST 1 VIEW 07/17/2018 | | | 5:33 AM INDICATION: Coronary artery disease. COMPARISON: | | | July 16, 2018 TECHNIQUE: Chest 1 view, AP view of the chest | | | FINDINGS: Cardiomegaly. Midline sternal wires are intact. Low lung | | | volumes. Left basilar patchy atelectasis/aspiration. Interval | | | removal of left chest tube and right chest tube. No pneumothoraces. | | | No acute osseous abnormality. | | + + + + + | Procedure Note | + + | Yifan, Rad Conversion - 04/26/2019 1:27 AM PDT ROBY ORTEGA | | 1970 | | 48 years | | XR CHEST 1 VIEW | | 07/17/2018 5:33 AM | | | | INDICATION: Coronary artery disease. | | | | COMPARISON: July 16, 2018 | | | | TECHNIQUE: Chest 1 view, AP view of the chest | | | | FINDINGS: | | Cardiomegaly. Midline sternal wires are intact. Low lung volumes. | | | | Left basilar patchy atelectasis/aspiration. | | | | Interval removal of left chest tube and right chest tube. No pneumothoraces. | | | | No acute osseous abnormality. | | | | IMPRESSION: | | | | | | 1. Cardiomegaly. Patchy left basilar atelectasis/aspiration. No pneumothorax. | | | | | + + POC Glucose (07/17/2018 4:56 AM PST) + + + + + + | Component | Value | Ref Range | Performed | Pathologist | | | | | At | Signature | + + + + + + | Glucose, | 125 (H)Comment: Testing | 65 - 99 mg/dL | EXTERNAL | | | Fingerstick | performed at [facility];[address] | | LAB | | | | [address];[place], [place] | | | | | | [address] | | | | + + + + + + + + | Specimen | + + | | + + + +---------+ + + | Performing | Address | City/State/Zipcode | Phone Number | | Organization | | | | + +---------+ + + | EXTERNAL LAB | | | | + +---------+ + + POC Glucose (07/16/2018 8:47 PM PDT) + + + + + + | Component | Value | Ref Range | Performed | Pathologist | | | | | At | Signature | + + + + + + | Glucose, | 125 (H)Comment: Testing | 65 - 99 mg/dL | EXTERNAL | | | Fingerstick | performed at [facility];[address] | | LAB | | | | [address];[place], [place] | | | | | | [address] | | | | + + + + + + + + | Specimen | + + | | + + + +---------+ + + | Performing | Address | City/State/Zipcode | Phone Number | | Organization | | | | + +---------+ + + | EXTERNAL LAB | | | | + +---------+ + + POC Glucose (07/16/2018 4:35 PM PDT) + + + + + + | Component | Value | Ref Range | Performed | Pathologist | | | | | At | Signature | + + + + + + | Glucose, | 173 (H)Comment: Testing | 65 - 99 mg/dL | EXTERNAL | | | Fingerstick | performed at [facility];[address] | | LAB | | | | [address];[place], [place] | | | | | | [address] | | | | + + + + + + + + | Specimen | + + | | + + + +---------+ + + | Performing | Address | City/State/Zipcode | Phone Number | | Organization | | | | + +---------+ + + | EXTERNAL LAB | | | | + +---------+ + + POC Glucose (07/16/2018 11:39 AM PDT) + + + + + + | Component | Value | Ref Range | Performed | Pathologist | | | | | At | Signature | + + + + + + | Glucose, | 132 (H)Comment: Testing | 65 - 99 mg/dL | EXTERNAL | | | Fingerstick | performed at [facility];[address] | | LAB | | | | [address];[place] | | | | | | [address] | | | | + + + + + + + + | Specimen | + + | | + + + +---------+ + + | Performing | Address | City/State/Zipcode | Phone Number | | Organization | | | | + +---------+ + + | EXTERNAL LAB | | | | + +---------+ + + POC Glucose (07/16/2018 10:38 AM PDT) + + + + + + | Component | Value | Ref Range | Performed | Pathologist | | | | | At | Signature | + + + + + + | Glucose, | 141 (H)Comment: Testing | 65 - 99 mg/dL | EXTERNAL | | | Fingerstick | performed at [facility];[address] | | LAB | | | | [address];[place] | | | | | | [address] | | | | + + + + + + + + | Specimen | + + | | + + + +---------+ + + | Performing | Address | City/State/Zipcode | Phone Number | | Organization | | | | + +---------+ + + | EXTERNAL LAB | | | | + +---------+ + + POC Glucose (07/16/2018 5:58 AM PDT) + + + + + + | Component | Value | Ref Range | Performed | Pathologist | | | | | At | Signature | + + + + + + | Glucose, | 126 (H)Comment: Testing | 65 - 99 mg/dL | EXTERNAL | | | Fingerstick | performed at [facility];[address] | | LAB | | | | [address];[place] | | | | | | [address] | | | | + + + + + + + + | Specimen | + + | | + + + +---------+ + + | Performing | Address | City/State/Zipcode | Phone Number | | Organization | | | | + +---------+ + + | EXTERNAL LAB | | | | + +---------+ + + XR Chest 1 Vw (07/16/2018 5:49 AM PDT) + + | Specimen | + + | | + + + + + | Impressions | Performed At | + + + | 1. Chest tubes in expected position. 2. Cardiomegaly. 3. Low lung | | | volumes. Mild left basilar atelectasis. | | + + + + + + | Narrative | Performed At | + + + | ROBY ORTEGA 1970 48 years XR CHEST 1 VIEW 07/16/2018 | | | 5:49 AM INDICATION: Status post cardiac surgery. COMPARISON: | | | July 15, 2018 TECHNIQUE: Chest 1 view, AP view of the chest | | | FINDINGS: Cardiomegaly. Midline sternal wires are intact. Bilateral | | | chest tubes in expected position. No pneumothorax, no pleural | | | effusion. Low lung volumes. Mild left basilar atelectasis. No | | | acute osseous abnormality. | | + + + + -+ | Procedure Note | + -+ | Yifan, Rad Conversion - 04/26/2019 1:27 AM PDT ROBY ORTEGA yearsXR | | CHEST 1 VIEW07/16/2018 5:49 AM INDICATION: Status post cardiac surgery. COMPARISON: | | July 15, 2018 TECHNIQUE: Chest 1 view, AP view of the chest FINDINGS:Cardiomegaly. | | Midline sternal wires are intact. Bilateral chest tubes in expected position. No | | pneumothorax, no pleural effusion. Low lung volumes. Mild left basilar atelectasis. No | | acute osseous abnormality. IMPRESSION: 1. Chest tubes in expected position.2. | | Cardiomegaly.3. Low lung volumes. Mild left basilar atelectasis. | |COMPARISON: July 15, 2018 | | | |TECHNIQUE: Chest 1 view, AP view of the chest | | | |FINDINGS: | |Cardiomegaly. Midline sternal wires are intact. Bilateral chest tubes in expected position. | | | |No pneumothorax, no pleural effusion. | | | |Low lung volumes. | | | |Mild left basilar atelectasis. No acute osseous abnormality. | | | |IMPRESSION: | |1. Chest tubes in expected position. | |2. Cardiomegaly. | |3. Low lung volumes. Mild left basilar atelectasis. | | | | | + -+ CBC no Differential (07/16/2018 5:03 AM PDT) + + + + + + | Component | Value | Ref Range | Performed | Pathologist | | | | | At | Signature | + + + + + + | WBC | 9.88 | 3.80 - 11.00 | EXTERNAL | | | | | K/uL | LAB | | + + + + + + | RED CELL | 3.05 (L) | 4.20 - 5.70 | EXTERNAL | | | COUNT | | M/uL | LAB | | + + + + + + | Hgb | 9.5 (L) | 13.2 - 17.0 | EXTERNAL | | | | | g/dL | LAB | | + + + + + + | Hematocrit, | 26.7 (L) | 39.0 - 50.0 % | EXTERNAL | | | POC | | | LAB | | + + + + + + | MCV | 87.7 | 80.0 - 100.0 fl | EXTERNAL | | | | | | LAB | | + + + + + + | MCH | 31.3 | 27.0 - 34.0 pg | EXTERNAL | | | | | | LAB | | + + + + + + | MCHC | 35.7 (H) | 32.0 - 35.5 | EXTERNAL | | | | | g/dL | LAB | | + + + + + + | RDW-CV | 40.7 | 37 - 53 fl | EXTERNAL | | | | | | LAB | | + + + + + + | Platelet | 154 | 150 - 400 K/uL | EXTERNAL | | | Count | | | LAB | | | Plasma | | | | | + + + + + + | MPV | 9.1Comment: Testing | fl | EXTERNAL | | | | performed at [facility], [address] | | LAB | | | | [address], | | | | | | [place] [address] | | | | + + + + + + + + | Specimen | + + | Blood specimen | | (specimen) | + + + +---------+ + + | Performing | Address | City/State/Zipcode | Phone Number | | Organization | | | | + +---------+ + + | EXTERNAL LAB | | | | + +---------+ + + Magnesium (07/16/2018 5:03 AM PDT) + + + + + + | Component | Value | Ref Range | Performed | Pathologist | | | | | At | Signature | + + + + + + | Magnesium | 2.1Comment: Testing | 1.7 - 2.4 mg/dL | EXTERNAL | | | | performed at [facility] | | LAB | | | | [address] [facility];[place], [place] | | | | | | [address] | | | | + + + + + + + + | Specimen | + + | Blood specimen | | (specimen) | + + + +---------+ + + | Performing | Address | City/State/Zipcode | Phone Number | | Organization | | | | + +---------+ + + | EXTERNAL LAB | | | | + +---------+ + + Basic Metabolic Panel (07/16/2018 5:03 AM PDT) + + + + + + | Component | Value | Ref Range | Performed | Pathologist | | | | | At | Signature | + + + + + + | Na | 140 | 135 - 145 | EXTERNAL | | | | | mmol/L | LAB | | + + + + + + | K | 3.9 | 3.5 - 4.9 | EXTERNAL | | | | | mmol/L | LAB | | + + + + + + | Cl | 103 | 99 - 109 mmol/L | EXTERNAL | | | | | | LAB | | + + + + + + | CO2 | 30 | 23 - 32 mmol/L | EXTERNAL | | | | | | LAB | | + + + + + + | Anion Gap | 11 | 5 - 20 mmol/L | EXTERNAL | | | | | | LAB | | + + + + + + | Glucose, | 118 (H) | 65 - 99 mg/dL | EXTERNAL | | | Fasting | | | LAB | | + + + + + + | BUN | 11 | 8 - 25 mg/dL | EXTERNAL | | | | | | LAB | | + + + + + + | Creatinine | 0.9 | 0.70 - 1.30 | EXTERNAL | | | | | mg/dL | LAB | | + + + + + + | BUN/Creatin | 12 | | EXTERNAL | | | ine Ratio | | | LAB | | + + + + + + | Calcium | 8.5 | 8.5 - 10.5 | EXTERNAL | | | | | mg/dL | LAB | | + + + + + + | Estimated | >60Comment: GFR <60: | mL/min/1.73m2 | EXTERNAL | | | GFR | CHRONIC KIDNEY DISEASE, | | LAB | | | | IF FOUND OVER A 3 MONTH | | | | | | PERIOD.GFR <15: KIDNEY | | | | | | FAILURE.FOR | | | | | | AMERICANS, MULTIPLY THE | | | | | | CALCULATED GFR BY | | | | | | 1.210.This eGFR is | | | | | | calculated using the | | | | | | MDRD IDMS traceable | | | | | | equation.Testing | | | | | | performed at [facility], [address] | | | | | | [address], | | | | | | [place] [address] | | | | + + + + + + + + | Specimen | + + | Blood specimen | | (specimen) | + + + +---------+ + + | Performing | Address | City/State/Zipcode | Phone Number | | Organization | | | | + +---------+ + + | EXTERNAL LAB | | | | + +---------+ + + POC Glucose (07/15/2018 9:33 PM PDT) + + + + + + | Component | Value | Ref Range | Performed | Pathologist | | | | | At | Signature | + + + + + + | Glucose, | 141 (H)Comment: Testing | 65 - 99 mg/dL | EXTERNAL | | | Fingerstick | performed at [facility];[address] | | LAB | | | | [address];[place] | | | | | | [address] | | | | + + + + + + + + | Specimen | + + | | + + + +---------+ + + | Performing | Address | City/State/Zipcode | Phone Number | | Organization | | | | + +---------+ + + | EXTERNAL LAB | | | | + +---------+ + + POC Glucose (07/15/2018 5:24 PM PDT) + + + + + + | Component | Value | Ref Range | Performed | Pathologist | | | | | At | Signature | + + + + + + | Glucose, | 121 (H)Comment: Testing | 65 - 99 mg/dL | EXTERNAL | | | Fingerstick | performed at [facility];[address] | | LAB | | | | [address];[place], [place] | | | | | | [address] | | | | + + + + + + + + | Specimen | + + | | + + + +---------+ + + | Performing | Address | City/State/Zipcode | Phone Number | | Organization | | | | + +---------+ + + | EXTERNAL LAB | | | | + +---------+ + + POC Glucose (07/15/2018 12:13 PM PDT) + + + + + + | Component | Value | Ref Range | Performed | Pathologist | | | | | At | Signature | + + + + + + | Glucose, | 133 (H)Comment: Testing | 65 - 99 mg/dL | EXTERNAL | | | Fingerstick | performed at [facility];[address] | | LAB | | | | [address];[place] | | | | | | [address] | | | | + + + + + + + + | Specimen | + + | | + + + +---------+ + + | Performing | Address | City/State/Zipcode | Phone Number | | Organization | | | | + +---------+ + + | EXTERNAL LAB | | | | + +---------+ + + XR Chest 1 Vw (07/15/2018 5:41 AM PDT) + + | Specimen | + + | | + + + + + | Impressions | Performed At | + + + | 1. Tubes in expected position. 2. Low lung volumes. Left basilar | | | atelectasis/aspiration. 3. Heart size and mediastinal contours are | | | unchanged. | | | 7:05 AM | | + + + + + + | Narrative | Performed At | + + + | ROBY ORTEGA 1970 48 years XR CHEST 1 VIEW 07/15/2018 | | | 5:41 AM INDICATION: Status post cardiac surgery. COMPARISON: | | | July 14, 2018 TECHNIQUE: Chest 1 view, AP view of the chest | | | FINDINGS: Bilateral chest tubes in expected position. Midline | | | sternal wires are intact. Cardiomegaly, similar to the prior exam. | | | No pneumothorax. Left basilar atelectasis/aspiration. Low lung | | | volumes. No acute osseous abnormality. | | + + + + + | Procedure Note | + + | Yifan, Rad Conversion - 04/26/2019 1:27 AM PDT ROBY ORTEGA | | 1970 | | 48 years | | XR CHEST 1 VIEW | | 07/15/2018 5:41 AM | | | | INDICATION: Status post cardiac surgery. | | | | COMPARISON: July 14, 2018 | | | | TECHNIQUE: Chest 1 view, AP view of the chest | | | | FINDINGS: | | Bilateral chest tubes in expected position. Midline sternal wires are intact. | | | | Cardiomegaly, similar to the prior exam. No pneumothorax. | | | | Left basilar atelectasis/aspiration. Low lung volumes. | | | | No acute osseous abnormality. | | | | IMPRESSION: | | 1. Tubes in expected position. | | 2. Low lung volumes. Left basilar atelectasis/aspiration. | | 3. Heart size and mediastinal contours are unchanged. | | | | | + + POC Glucose (07/15/2018 5:34 AM PDT) + + + + + + | Component | Value | Ref Range | Performed | Pathologist | | | | | At | Signature | + + + + + + | Glucose, | 116 (H)Comment: Testing | 65 - 99 mg/dL | EXTERNAL | | | Fingerstick | performed at [facility];[address] | | LAB | | | | [address];[place], [place] | | | | | | [address] | | | | + + + + + + + + | Specimen | + + | | + + + +---------+ + + | Performing | Address | City/State/Zipcode | Phone Number | | Organization | | | | + +---------+ + + | EXTERNAL LAB | | | | + +---------+ + + CBC no Differential (07/15/2018 4:19 AM PDT) + + + + + + | Component | Value | Ref Range | Performed | Pathologist | | | | | At | Signature | + + + + + + | WBC | 9.77 | 3.80 - 11.00 | EXTERNAL | | | | | K/uL | LAB | | + + + + + + | RED CELL | 2.70 (L) | 4.20 - 5.70 | EXTERNAL | | | COUNT | | M/uL | LAB | | + + + + + + | Hgb | 8.4 (L) | 13.2 - 17.0 | EXTERNAL | | | | | g/dL | LAB | | + + + + + + | Hematocrit, | 23.9 (L) | 39.0 - 50.0 % | EXTERNAL | | | POC | | | LAB | | + + + + + + | MCV | 88.7 | 80.0 - 100.0 fl | EXTERNAL | | | | | | LAB | | + + + + + + | MCH | 31.2 | 27.0 - 34.0 pg | EXTERNAL | | | | | | LAB | | + + + + + + | MCHC | 35.1 | 32.0 - 35.5 | EXTERNAL | | | | | g/dL | LAB | | + + + + + + | RDW-CV | 41.1 | 37 - 53 fl | EXTERNAL | | | | | | LAB | | + + + + + + | Platelet | 114 (L) | 150 - 400 K/uL | EXTERNAL | | | Count | | | LAB | | | Plasma | | | | | + + + + + + | MPV | 9.3Comment: Testing | fl | EXTERNAL | | | | performed at [facility], [address] | | LAB | | | | [address], | | | | | | [place] [address] | | | | + + + + + + + + | Specimen | + + | Blood specimen | | (specimen) | + + + +---------+ + + | Performing | Address | City/State/Zipcode | Phone Number | | Organization | | | | + +---------+ + + | EXTERNAL LAB | | | | + +---------+ + + Magnesium (07/15/2018 4:19 AM PDT) + + + + + + | Component | Value | Ref Range | Performed | Pathologist | | | | | At | Signature | + + + + + + | Magnesium | 1.9Comment: Testing | 1.7 - 2.4 mg/dL | EXTERNAL | | | | performed at [facility];[address] | | LAB | | | | [address];[place], [place] | | | | | | [address] | | | | + + + + + + + + | Specimen | + + | Blood specimen | | (specimen) | + + + +---------+ + + | Performing | Address | City/State/Zipcode | Phone Number | | Organization | | | | + +---------+ + + | EXTERNAL LAB | | | | + +---------+ + + Basic Metabolic Panel (07/15/2018 4:19 AM PDT) + + + + + + | Component | Value | Ref Range | Performed | Pathologist | | | | | At | Signature | + + + + + + | Na | 139 | 135 - 145 | EXTERNAL | | | | | mmol/L | LAB | | + + + + + + | K | 4.2 | 3.5 - 4.9 | EXTERNAL | | | | | mmol/L | LAB | | + + + + + + | Cl | 105 | 99 - 109 mmol/L | EXTERNAL | | | | | | LAB | | + + + + + + | CO2 | 30 | 23 - 32 mmol/L | EXTERNAL | | | | | | LAB | | + + + + + + | Anion Gap | 8 | 5 - 20 mmol/L | EXTERNAL | | | | | | LAB | | + + + + + + | Glucose, | 110 (H) | 65 - 99 mg/dL | EXTERNAL | | | Fasting | | | LAB | | + + + + + + | BUN | 11 | 8 - 25 mg/dL | EXTERNAL | | | | | | LAB | | + + + + + + | Creatinine | 0.9 | 0.70 - 1.30 | EXTERNAL | | | | | mg/dL | LAB | | + + + + + + | BUN/Creatin | 12 | | EXTERNAL | | | ine Ratio | | | LAB | | + + + + + + | Calcium | 8.1 (L) | 8.5 - 10.5 | EXTERNAL | | | | | mg/dL | LAB | | + + + + + + | Estimated | >60Comment: GFR <60: | mL/min/1.73m2 | EXTERNAL | | | GFR | CHRONIC KIDNEY DISEASE, | | LAB | | | | IF FOUND OVER A 3 MONTH | | | | | | PERIOD.GFR <15: KIDNEY | | | | | | FAILURE.FOR | | | | | | AMERICANS, MULTIPLY THE | | | | | | CALCULATED GFR BY | | | | | | 1.210.This eGFR is | | | | | | calculated using the | | | | | | MDRD IDMS traceable | | | | | | equation.Testing | | | | | | performed at [facility], [address] | | | | | | [facility], | | | | | | [place] [address] | | | | + + + + + + + + | Specimen | + + | Blood specimen | | (specimen) | + + + +---------+ + + | Performing | Address | City/State/Zipcode | Phone Number | | Organization | | | | + +---------+ + + | EXTERNAL LAB | | | | + +---------+ + + POC Glucose (07/15/2018 1:26 AM PDT) + + + + + + | Component | Value | Ref Range | Performed | Pathologist | | | | | At | Signature | + + + + + + | Glucose, | 138 (H)Comment: Testing | 65 - 99 mg/dL | EXTERNAL | | | Fingerstick | performed at [facility];[address] | | LAB | | | | [address];[place] | | | | | | [address] | | | | + + + + + + + + | Specimen | + + | | + + + +---------+ + + | Performing | Address | City/State/Zipcode | Phone Number | | Organization | | | | + +---------+ + + | EXTERNAL LAB | | | | + +---------+ + + POC Glucose (07/14/2018 11:35 PM PDT) + + + + + + | Component | Value | Ref Range | Performed | Pathologist | | | | | At | Signature | + + + + + + | Glucose, | 124 (H)Comment: Testing | 65 - 99 mg/dL | EXTERNAL | | | Fingerstick | performed at [facility];[address] | | LAB | | | | [address];[place] | | | | | | [address] | | | | + + + + + + + + | Specimen | + + | | + + + +---------+ + + | Performing | Address | City/State/Zipcode | Phone Number | | Organization | | | | + +---------+ + + | EXTERNAL LAB | | | | + +---------+ + + POC Glucose (07/14/2018 8:52 PM PDT) + + + + + + | Component | Value | Ref Range | Performed | Pathologist | | | | | At | Signature | + + + + + + | Glucose, | 134 (H)Comment: Testing | 65 - 99 mg/dL | EXTERNAL | | | Fingerstick | performed at [facility];[address] | | LAB | | | | [address];[place], [place] | | | | | | [address] | | | | + + + + + + + + | Specimen | + + | | + + + +---------+ + + | Performing | Address | City/State/Zipcode | Phone Number | | Organization | | | | + +---------+ + + | EXTERNAL LAB | | | | + +---------+ + + POC Glucose (07/14/2018 4:17 PM PDT) + + + + + + | Component | Value | Ref Range | Performed | Pathologist | | | | | At | Signature | + + + + + + | Glucose, | 198 (H)Comment: Testing | 65 - 99 mg/dL | EXTERNAL | | | Fingerstick | performed at [facility];[address] | | LAB | | | | [address];[place], [place] | | | | | | [address] | | | | + + + + + + + + | Specimen | + + | | + + + +---------+ + + | Performing | Address | City/State/Zipcode | Phone Number | | Organization | | | | + +---------+ + + | EXTERNAL LAB | | | | + +---------+ + + Potassium (07/14/2018 2:36 PM PDT) + + + + + + | Component | Value | Ref Range | Performed | Pathologist | | | | | At | Signature | + + + + + + | K | 4.4Comment: Testing | 3.5 - 4.9 | EXTERNAL | | | | performed at [facility];[address] | mmol/L | LAB | | | | [address];[place], [place] | | | | | | [id number] | | | | + + + + + + + + | Specimen | + + | Blood specimen | | (specimen) | + + + +---------+ + + | Performing | Address | City/State/Zipcode | Phone Number | | Organization | | | | + +---------+ + + | EXTERNAL LAB | | | | + +---------+ + + POC Glucose (07/14/2018 11:38 AM PDT) + + + + + + | Component | Value | Ref Range | Performed | Pathologist | | | | | At | Signature | + + + + + + | Glucose, | 173 (H)Comment: Testing | 65 - 99 mg/dL | EXTERNAL | | | Fingerstick | performed at [facility];[address] | | LAB | | | | [address];[place], [place] | | | | | | [address] | | | | + + + + + + + + | Specimen | + + | | + + + +---------+ + + | Performing | Address | City/State/Zipcode | Phone Number | | Organization | | | | + +---------+ + + | EXTERNAL LAB | | | | + +---------+ + + Potassium (07/14/2018 10:11 AM PDT) + + + + + + | Component | Value | Ref Range | Performed | Pathologist | | | | | At | Signature | + + + + + + | K | 4.8Comment: Testing | 3.5 - 4.9 | EXTERNAL | | | | performed at [facility];[address] | mmol/L | LAB | | | | [address];[place], [place] | | | | | | [address] | | | | + + + + + + + + | Specimen | + + | Blood specimen | | (specimen) | + + + +---------+ + + | Performing | Address | City/State/Zipcode | Phone Number | | Organization | | | | + +---------+ + + | EXTERNAL LAB | | | | + +---------+ + + POC Glucose (07/14/2018 8:08 AM PDT) + + + + + + | Component | Value | Ref Range | Performed | Pathologist | | | | | At | Signature | + + + + + + | Glucose, | 169 (H)Comment: Testing | 65 - 99 mg/dL | EXTERNAL | | | Fingerstick | performed at [facility];8 | | LAB | | | | [address];[place] | | | | | | [address] | | | | + + + + + + + + | Specimen | + + | | + + + +---------+ + + | Performing | Address | City/State/Zipcode | Phone Number | | Organization | | | | + +---------+ + + | EXTERNAL LAB | | | | + +---------+ + + Potassium (07/14/2018 6:20 AM PDT) + + + + + + | Component | Value | Ref Range | Performed | Pathologist | | | | | At | Signature | + + + + + + | K | 5.0 (H)Comment: Testing | 3.5 - 4.9 | EXTERNAL | | | | performed at [facility];888 | mmol/L | LAB | | | | [address];[place], [place] | | | | | | [address] | | | | + + + + + + + + | Specimen | + + | | + + + +---------+ + + | Performing | Address | City/State/Zipcode | Phone Number | | Organization | | | | + +---------+ + + | EXTERNAL LAB | | | | + +---------+ + + Magnesium (07/14/2018 6:20 AM PDT) + + + + + + | Component | Value | Ref Range | Performed | Pathologist | | | | | At | Signature | + + + + + + | Magnesium | 2.2Comment: Testing | 1.7 - 2.4 mg/dL | EXTERNAL | | | | performed at [facility];[address] | | LAB | | | | [address];[place] | | | | | | [address] | | | | + + + + + + + + | Specimen | + + | Blood specimen | | (specimen) | + + + +---------+ + + | Performing | Address | City/State/Zipcode | Phone Number | | Organization | | | | + +---------+ + + | EXTERNAL LAB | | | | + +---------+ + + XR Chest 1 Vw (07/14/2018 5:26 AM PDT) + + | Specimen | + + | | + + + + + | Impressions | Performed At | + + + | 1. Tubes and lines in expected position. 2. Low lung volumes. | | | Bilateral interstitial edema. Left basilar atelectasis/aspiration. | | | | | + + + + + + | Narrative | Performed At | + + + | ROBY ORTEGA 1970 48 years XR CHEST 1 VIEW 07/14/2018 | | | 5:26 AM INDICATION: Tube and line position. COMPARISON: | | | July 13, 2018 TECHNIQUE: Chest 1 view, AP view of the chest | | | FINDINGS: Right [employer] catheter tip at the superior vena cava. | | | Bilateral chest tubes in expected position. Cardiomegaly. Left | | | basilar atelectasis/aspiration. Bilateral mild interstitial edema. | | | No pneumothorax. Low lung volumes. Midline sternal wires are | | | intact. No acute osseous abnormality. | | + + + + ---------+ | Procedure Note | + ---------+ | Angel Saha Conversion - 04/26/2019 1:27 AM PDT ROBY ORTEGA yearsXR | | CHEST 1 VIEW07/14/2018 5:26 AM INDICATION: Tube and line position. COMPARISON: June | | 2017 TECHNIQUE: Chest 1 view, AP view of the chest FINDINGS:Right [employer] catheter | | tip at the superior vena cava. Bilateral chest tubes in expected position. | | Cardiomegaly. Left basilar atelectasis/aspiration. Bilateral mild interstitial edema. No | | pneumothorax. Low lung volumes. Midline sternal wires are intact. No acute osseous | | abnormality. IMPRESSION: 1. Tubes and lines in expected position.2. Low lung volumes. | | Bilateral interstitial edema. Left basilar atelectasis/aspiration. | | | |TECHNIQUE: Chest 1 view, AP view of the chest | | | |FINDINGS: | |Right [employer] catheter tip at the superior vena cava. Bilateral chest tubes in expected p osition. | | | |Cardiomegaly. Left basilar atelectasis/aspiration. | | | |Bilateral mild interstitial edema. No pneumothorax. Low lung volumes. | | | |Midline sternal wires are intact. No acute osseous abnormality. | | | |IMPRESSION: | |1. Tubes and lines in expected position. | |2. Low lung volumes. Bilateral interstitial edema. Left basilar atelectasis/aspiration. | | | | | + ---------+ External Lab: CBC (07/14/2018 4:01 AM PDT) + + + + + + | Component | Value | Ref Range | Performed | Pathologist | | | | | At | Signature | + + + + + + | WBC | 14.46 (H) | 3.80 - 11.00 | EXTERNAL | | | | | K/uL | LAB | | + + + + + + | RED CELL | 3.05 (L) | 4.20 - 5.70 | EXTERNAL | | | COUNT | | M/uL | LAB | | + + + + + + | Hgb | 9.3 (L) | 13.2 - 17.0 | EXTERNAL | | | | | g/dL | LAB | | + + + + + + | Hematocrit, | 27.2 (L) | 39.0 - 50.0 % | EXTERNAL | | | POC | | | LAB | | + + + + + + | MCV | 89.3 | 80.0 - 100.0 fl | EXTERNAL | | | | | | LAB | | + + + + + + | MCH | 30.6 | 27.0 - 34.0 pg | EXTERNAL | | | | | | LAB | | + + + + + + | MCHC | 34.2 | 32.0 - 35.5 | EXTERNAL | | | | | g/dL | LAB | | + + + + + + | RDW-CV | 42.4 | 37 - 53 fl | EXTERNAL | | | | | | LAB | | + + + + + + | Platelet | 155 | 150 - 400 K/uL | EXTERNAL | | | Count | | | LAB | | | Plasma | | | | | + + + + + + | MPV | 9.0 | fl | EXTERNAL | | | | | | LAB | | + + + + + + | Differentia | MANUAL | | EXTERNAL | | | l Type | | | LAB | | + + + + + + | Segmented | 86 | % | EXTERNAL | | | Neutrophils | | | LAB | | | Manual | | | | | + + + + + + | % Bands | 3 | % | EXTERNAL | | | | | | LAB | | + + + + + + | Lymphocytes | 8 | % | EXTERNAL | | | Manual | | | LAB | | + + + + + + | Monocytes | 3 | % | EXTERNAL | | | Manual | | | LAB | | + + + + + + | Absolute | 12.44 (H) | 1.90 - 7.40 | EXTERNAL | | | Neutrophils | | K/uL | LAB | | + + + + + + | Bands | 0.43 (H) | 0.00 - 0.20 | EXTERNAL | | | Manual | | K/uL | LAB | | + + + + + + | Absolute | 1.16 | 1.00 - 3.90 | EXTERNAL | | | Lymphocytes | | K/uL | LAB | | + + + + + + | Absolute | 0.43 | 0.00 - 0.80 | EXTERNAL | | | Monocytes | | K/uL | LAB | | + + + + + + | RBC | RBC AND PLT MORPHOLOGY | | EXTERNAL | | | Morphology | APPEAR NORMALComment: | | LAB | | | | Testing performed at | | | | | | [facility], [address] | | | | | | [place] | | | | | | [address] | | | | + + + + + + + + | Specimen | + + | Blood specimen | | (specimen) | + + + +---------+ + + | Performing | Address | City/State/Zipcode | Phone Number | | Organization | | | | + +---------+ + + | EXTERNAL LAB | | | | + +---------+ + + Hemoglobin A1C (07/14/2018 4:01 AM PDT) + + + + + + | Component | Value | Ref Range | Performed | Pathologist | | | | | At | Signature | + + + + + + | Hemoglobin | 5.3Comment: The Vietnamese | 4.0 - 6.0 % | EXTERNAL | | | A1c | Diabetes Association | | LAB | | | | considers a hemoglobin | | | | | | A1c result of <7.0% to | | | | | | be the goal of diabetic | | | | | | therapy. When results | | | | | | are consistently >8.0%, | | | | | | the ADA suggests | | | | | | reevaluation of the | | | | | | treatment regimen. The | | | | | | testing method used is | | | | | | certified traceable to | | | | | | the Diabetes Control and | | | | | | Complications Trial | | | | | | reference method. | | | | + + + + + + | Glycohemogl | 105Comment: The ADA | mg/dL | EXTERNAL | | | obin | considers an eAG result | | LAB | | | (GHb),Total | of LT 154 mg/dL to be | | | | | | the goal of diabetic | | | | | | therapy. Estimated | | | | | | Average Glucose | | | | | | calculated from | | | | | | hemoglobin A1c by use of | | | | | | the ADA recommended | | | | | | formula.Testing | | | | | | performed at [facility], [address] | | | | | | [address], | | | | | | [place] [address] | | | | + + + + + + + + | Specimen | + + | Blood specimen | | (specimen) | + + + +---------+ + + | Performing | Address | City/State/Zipcode | Phone Number | | Organization | | | | + +---------+ + + | EXTERNAL LAB | | | | + +---------+ + + Basic Metabolic Panel (07/14/2018 4:01 AM PDT) + + + + + -+ | Component | Value | Ref Range | Performed | Pathologist | | | | | At | Signature | + + + + + -+ | Na | 142 | 135 - 145 | EXTERNAL | | | | | mmol/L | LAB | | + + + + + -+ | K | 6.4 ()Comment: RESULT | 3.5 - 4.9 | EXTERNAL | | | | READ BACK BY: LARA C @ | mmol/L | LAB | | | | 10 RP 5:06 07/14/18 DH | | | | | | LARA C @ 10 RP 5:06 07/14/18 DH | | | | | | | | | | + + + + + -+ | Cl | 110 (H) | 99 - 109 mmol/L | EXTERNAL | | | | | | LAB | | + + + + + -+ | CO2 | 25 | 23 - 32 mmol/L | EXTERNAL | | | | | | LAB | | + + + + + -+ | Anion Gap | 13 | 5 - 20 mmol/L | EXTERNAL | | | | | | LAB | | + + + + + -+ | Glucose, | 152 (H) | 65 - 99 mg/dL | EXTERNAL | | | Fasting | | | LAB | | + + + + + -+ | BUN | 17 | 8 - 25 mg/dL | EXTERNAL | | | | | | LAB | | + + + + + -+ | Creatinine | 1.2 | 0.70 - 1.30 | EXTERNAL | | | | | mg/dL | LAB | | + + + + + -+ | BUN/Creatin | 14 | | EXTERNAL | | | ine Ratio | | | LAB | | + + + + + -+ | Calcium | 7.4 (L) | 8.5 - 10.5 | EXTERNAL | | | | | mg/dL | LAB | | + + + + + -+ | Estimated | >60Comment: GFR <60: | mL/min/1.73m2 | EXTERNAL | | | GFR | CHRONIC KIDNEY DISEASE, | | LAB | | | | IF FOUND OVER A 3 MONTH | | | | | | PERIOD.GFR <15: KIDNEY | | | | | | FAILURE.FOR | | | | | | AMERICANS, MULTIPLY THE | | | | | | CALCULATED GFR BY | | | | | | 1.210.This eGFR is | | | | | | calculated using the | | | | | | MDRD IDMS traceable | | | | | | equation.Testing | | | | | | performed at [facility], [address] | | | | | | [address], | | | | | | [place] [address] | | | | + + + + + -+ + + | Specimen | + + | Blood specimen | | (specimen) | + + + +---------+ + + | Performing | Address | City/State/Zipcode | Phone Number | | Organization | | | | + +---------+ + + | EXTERNAL LAB | | | | + +---------+ + + POC Glucose (07/14/2018 4:00 AM PDT) + + + + + + | Component | Value | Ref Range | Performed | Pathologist | | | | | At | Signature | + + + + + + | Glucose, | 151 (H)Comment: Testing | 65 - 99 mg/dL | EXTERNAL | | | Fingerstick | performed at [facility];[address] | | LAB | | | | [address];[place], [place] | | | | | | [address] | | | | + + + + + + + + | Specimen | + + | | + + + +---------+ + + | Performing | Address | City/State/Zipcode | Phone Number | | Organization | | | | + +---------+ + + | EXTERNAL LAB | | | | + +---------+ + + POC Glucose (07/14/2018 12:25 AM PDT) + + + + + + | Component | Value | Ref Range | Performed | Pathologist | | | | | At | Signature | + + + + + + | Glucose, | 168 (H)Comment: Testing | 65 - 99 mg/dL | EXTERNAL | | | Fingerstick | performed at [facility];[address] | | LAB | | | | [address];[place] | | | | | | [address] | | | | + + + + + + + + | Specimen | + + | | + + + +---------+ + + | Performing | Address | City/State/Zipcode | Phone Number | | Organization | | | | + +---------+ + + | EXTERNAL LAB | | | | + +---------+ + + POC Glucose (07/13/2018 9:50 PM PDT) + + + + + + | Component | Value | Ref Range | Performed | Pathologist | | | | | At | Signature | + + + + + + | Glucose, | 179 (H)Comment: Testing | 65 - 99 mg/dL | EXTERNAL | | | Fingerstick | performed at [facility];[address] | | LAB | | | | [address];[place], [place] | | | | | | [address] | | | | + + + + + + + + | Specimen | + + | | + + + +---------+ + + | Performing | Address | City/State/Zipcode | Phone Number | | Organization | | | | + +---------+ + + | EXTERNAL LAB | | | | + +---------+ + + Potassium (07/13/2018 9:49 PM PDT) + + + + + + | Component | Value | Ref Range | Performed | Pathologist | | | | | At | Signature | + + + + + + | K | 5.3 (H)Comment: Testing | 3.5 - 4.9 | EXTERNAL | | | | performed at [facility];[address] | mmol/L | LAB | | | | [address];[place] | | | | | | [address] | | | | + + + + + + + + | Specimen | + + | Blood specimen | | (specimen) | + + + +---------+ + + | Performing | Address | City/State/Zipcode | Phone Number | | Organization | | | | + +---------+ + + | EXTERNAL LAB | | | | + +---------+ + + Potassium (07/13/2018 6:05 PM PDT) + + + + + + | Component | Value | Ref Range | Performed | Pathologist | | | | | At | Signature | + + + + + + | K | 4.3Comment: Testing | 3.5 - 4.9 | EXTERNAL | | | | performed at [facility];888 | mmol/L | LAB | | | | [address];[place], [place] | | | | | | [address] | | | | + + + + + + + + | Specimen | + + | Blood specimen | | (specimen) | + + + +---------+ + + | Performing | Address | City/State/Zipcode | Phone Number | | Organization | | | | + +---------+ + + | EXTERNAL LAB | | | | + +---------+ + + POC Glucose (07/13/2018 5:25 PM PDT) + + + + + + | Component | Value | Ref Range | Performed | Pathologist | | | | | At | Signature | + + + + + + | Glucose, | 144 (H)Comment: Testing | 65 - 99 mg/dL | EXTERNAL | | | Fingerstick | performed at [facility];[address] | | LAB | | | | [address];[place], [place] | | | | | | [address] | | | | + + + + + + + + | Specimen | + + | | + + + +---------+ + + | Performing | Address | City/State/Zipcode | Phone Number | | Organization | | | | + +---------+ + + | EXTERNAL LAB | | | | + +---------+ + + POC Glucose (07/13/2018 4:42 PM PDT) + + + + + + | Component | Value | Ref Range | Performed | Pathologist | | | | | At | Signature | + + + + + + | Glucose, | 138 (H)Comment: Testing | 65 - 99 mg/dL | EXTERNAL | | | Fingerstick | performed at [facility];[address] | | LAB | | | | [address];[place], [place] | | | | | | [address] | | | | + + + + + + + + | Specimen | + + | | + + + +---------+ + + | Performing | Address | City/State/Zipcode | Phone Number | | Organization | | | | + +---------+ + + | EXTERNAL LAB | | | | + +---------+ + + ECHO Transesophageal (PALLAVI) - Periop (07/13/2018 3:33 PM PDT) + + | Specimen | + + | | + + + + + | Narrative | Performed At | + + + | Patient Name: ROBY ORTEGA Date of : 1970 | | | Performing Physician: Peewee Barahona | | | | | | INDICATIONS cabg CONCLUSIONS | | | FINDINGS -------- Procedure Details: Limited 2D, Color-flow Doppler, | | | Pulsed-wave and Continuous-wave Doppler. Procedure Details: | | | Intubated: Y Procedure Details: Anesthetic Type: General anesthesia | | | Procedure Details: Insertion: Easy Procedure Details: Probe type: | | | Omniplane Procedure Details: Complications: N Ascending Aorta: | | | Normal size. Aortic Arch: Normal size. Aortic Valve: Normal annulus. | | | Aortic Valve: No regurgitation. Mitral Valve: The mitral annulus is | | | normal. Mitral Valve: No mitral regurgitation. Tricuspid Valve: | | | Normal tricuspid annulus. Tricuspid Valve: Trace regurgitation. | | | Right Atrium: Normal size. Right Atrium: No spontaneous echo | | | contrast. Right Atrium: No thrombus noted. Left atrium: Normal size. | | | Left atrium: No spontaneous echo contrast. Left atrium: No thrombus | | | noted. Left Atrial Appendage : No thrombus noted. Left Ventricle: | | | The left ventricular size is normal. Left Ventricle: Left | | | ventricular wall thickness is normal. Left Ventricle: Overall left | | | ventricular systolic function is normal with, an EF between 60 - 65 %. | | | Right Ventricle: The right ventricle is normal in size. Right | | | Ventricle: The right ventricular systolic function is normal. | | | Pericardium: The pericardium is normal. Pleura: Normal. Post-Op: No | | | significant change in global function compared to prior study. | | | Post-Op: No significant change in tazlina valvular function compared to | | | the prior study. MEASUREMENTS Appliance Tester: DAMI | | | Authenticated by: Peewee Evangelista Date/Time: 09-10-2018 13:2:56 | | + + + + ---------+ | Procedure Note | + ---------+ | Angel Saha Conversion - 04/26/2019 1:27 AM PDT Patient Name: Francis ORTEGA | | of : 1970 Performing Physician: Peewee | | Fisher INDICATIONS-------- | | ---cabg CONCLUSIONS FINDINGS--------Procedure Details: Limited 2D, Color-flow | | Doppler, Pulsed-wave and Continuous-wave Doppler.Procedure Details: Intubated: | | YProcedure Details: Anesthetic Type: General anesthesiaProcedure Details: Insertion: | | EasyProcedure Details: Probe type: OmniplaneProcedure Details: Complications: | | NAscending Aorta: Normal size.Aortic Arch: Normal size.Aortic Valve: Normal | | annulus.Aortic Valve: No regurgitation.Mitral Valve: The mitral annulus is normal.Mitral | | Valve: No mitral regurgitation.Tricuspid Valve: Normal tricuspid annulus.Tricuspid | | Valve: Trace regurgitation.Right Atrium: Normal size.Right Atrium: No spontaneous echo | | contrast.Right Atrium: No thrombus noted.Left atrium: Normal size.Left atrium: No | | spontaneous echo contrast.Left atrium: No thrombus noted.Left Atrial Appendage : No | | thrombus noted.Left Ventricle: The left ventricular size is normal.Left Ventricle: Left | | ventricular wall thickness is normal.Left Ventricle: Overall left ventricular systolic | | function is normal with, an EF between 60 - 65 %.Right Ventricle: The right ventricle is | | normal in size.Right Ventricle: The right ventricular systolic function is | | normal.Pericardium: The pericardium is normal.Pleura: Normal.Post-Op: No significant | | change in global function compared to prior study.Post-Op: No significant change in | | tazlina valvular function compared to the prior study. MEASUREMENTS | | Appliance Tester: CMAuthenticated by: Peewee Cantu Date/Time: 09-10-2018 13:2:56 | |Procedure Details: Probe type: Omniplane | |Procedure Details: Complications: N | |Ascending Aorta: Normal size. | |Aortic Arch: Normal size. | |Aortic Valve: Normal annulus. | |Aortic Valve: No regurgitation. | |Mitral Valve: The mitral annulus is normal. | |Mitral Valve: No mitral regurgitation. | |Tricuspid Valve: Normal tricuspid annulus. | |Tricuspid Valve: Trace regurgitation. | |Right Atrium: Normal size. | |Right Atrium: No spontaneous echo contrast. | |Right Atrium: No thrombus noted. | |Left atrium: Normal size. | |Left atrium: No spontaneous echo contrast. | |Left atrium: No thrombus noted. | |Left Atrial Appendage : No thrombus noted. | |Left Ventricle: The left ventricular size is normal. | |Left Ventricle: Left ventricular wall thickness is normal. | |Left Ventricle: Overall left ventricular systolic function is normal with, an EF between 60 - 65 %. | |Right Ventricle: The right ventricle is normal in size. | |Right Ventricle: The right ventricular systolic function is normal. | |Pericardium: The pericardium is normal. | |Pleura: Normal. | |Post-Op: No significant change in global function compared to prior study. | |Post-Op: No significant change in tazlina valvular function compared to the prior study. | | | |MEASUREMENTS | | | | | |Appliance Tester: CM | |Authenticated by: Peewee Barahona | |Report Date/Time: 09-10-2018 13:2:56 | + ---------+ POC Glucose (07/13/2018 3:12 PM PDT) + + + + + + | Component | Value | Ref Range | Performed | Pathologist | | | | | At | Signature | + + + + + + | Glucose, | 119 (H)Comment: Testing | 65 - 99 mg/dL | EXTERNAL | | | Fingerstick | performed at [facility];[address] | | LAB | | | | [address];[place], [place] | | | | | | [address] | | | | + + + + + + + + | Specimen | + + | | + + + +---------+ + + | Performing | Address | City/State/Zipcode | Phone Number | | Organization | | | | + +---------+ + + | EXTERNAL LAB | | | | + +---------+ + + XR Chest 1 Vw (07/13/2018 2:06 PM PDT) + + | Specimen | + + | | + + + + + | Impressions | Performed At | + + + | 1. Tubes and lines in appropriate position, without pneumothorax. | | | 2. Heart size upper normal post median sternotomy. 3. No | | | pneumothorax. 4. Subtle bilateral atelectasis. Electronically | | | signed by Sergio Fajardo MD on 07/13/2018 2:06 PM | | + + + + + + | Narrative | Performed At | + + + | HISTORY: Evaluate tubes and lines. COMPARISON: 07/12/18. | | | TECHNIQUE: AP portable film of the chest at 1345 hours FINDINGS: | | | Interval median sternotomy. Heart size is upper normal. Subtle | | | bilateral perihilar atelectasis. Right and left lateral lower chest | | | tubes, right IJ sheath, ET tube mid intrathoracic trachea, NG tube | | | extending to just below the GE junction. No pneumothorax. There may | | | also be a midline mediastinal drain. | | + + + + + | Procedure Note | + + | Angel Saha Conversion - 04/26/2019 1:27 AM PDT HISTORY:Evaluate tubes and lines. | | COMPARISON:07/12/18. TECHNIQUE:AP portable film of the chest at 1345 hours | | FINDINGS:Interval median sternotomy. Heart size is upper normal. Subtle bilateral | | perihilar atelectasis. Right and left lateral lower chest tubes, right IJ sheath, ET | | tube mid intrathoracic trachea, NG tube extending to just below the GE junction. No | | pneumothorax. There may also be a midline mediastinal drain. IMPRESSION: 1. Tubes and | | lines in appropriate position, without pneumothorax.2. Heart size upper normal post | | median sternotomy.3. No pneumothorax.4. Subtle bilateral atelectasis. Electronically | | signed by Sergio Fajardo MD on 07/13/2018 2:06 PM | |FINDINGS: | |Interval median sternotomy. Heart size is upper normal. Subtle bilateral perihilar atelecta sis. Right and left lateral lower chest tubes, right IJ sheath, ET tube mid intrathoracic tr achea, NG tube extending to just below the GE junction. No | |pneumothorax. There may also be a midline mediastinal drain. | | | |IMPRESSION: | |1. Tubes and lines in appropriate position, without pneumothorax. | |2. Heart size upper normal post median sternotomy. | |3. No pneumothorax. | |4. Subtle bilateral atelectasis. | | | | | + + ECG 12 lead (07/13/2018 1:57 PM PDT) + + + + + + | Component | Value | Ref Range | Performed | Pathologist | | | | | At | Signature | + + + + + + | DIAGNOSIS: | Normal sinus | | EXTERNAL | | | | rhythmIncomplete right | | LAB | | | | bundle branch blockST | | | | | | elevation consider | | | | | | inferior injury or acute | | | | | | infarctProlonged QT | | | | | | ACUTE NM / STEMI | | | | | | Abnormal ECGWhen | | | | | | compared with ECG of | | | | | | 09-JUL-2018 06:06,ST | | | | | | elevation now present in | | | | | | Inferior leadsQT has | | | | | | lengthenedConfirmed by | | | | | | CIARA LANDIS MD ([id number]) on | | | | | | 07/13/2018 8:50:25 PM | | | | + + + + + + + + | Specimen | + + | | + + + + + | Narrative | Performed At | + + + | Historically converted procedure from [facility] | EXTERNAL LAB | + + + + +---------+ + + | Performing | Address | City/State/Zipcode | Phone Number | | Organization | | | | + +---------+ + + | EXTERNAL LAB | | | | + +---------+ + + POC Glucose (07/13/2018 1:51 PM PDT) + + + + + + | Component | Value | Ref Range | Performed | Pathologist | | | | | At | Signature | + + + + + + | Glucose, | 118 (H)Comment: Testing | 65 - 99 mg/dL | EXTERNAL | | | Fingerstick | performed at [facility];[address] | | LAB | | | | [address];[place] | | | | | | [address] | | | | + + + + + + + + | Specimen | + + | | + + + +---------+ + + | Performing | Address | City/State/Zipcode | Phone Number | | Organization | | | | + +---------+ + + | EXTERNAL LAB | | | | + +---------+ + + PTT (07/13/2018 1:50 PM PDT) + + + + + + | Component | Value | Ref Range | Performed | Pathologist | | | | | At | Signature | + + + + + + | aPTT, | 27Comment: Testing | 23 - 32 seconds | EXTERNAL | | | Patient | performed at [facility];[address] | | LAB | | | | [address];[place], [place] | | | | | | [address] | | | | + + + + + + + + | Specimen | + + | Blood specimen | | (specimen) | + + + +---------+ + + | Performing | Address | City/State/Zipcode | Phone Number | | Organization | | | | + +---------+ + + | EXTERNAL LAB | | | | + +---------+ + + Shelby BALL (07/13/2018 1:50 PM PDT) + + + + + + | Component | Value | Ref Range | Performed | Pathologist | | | | | At | Signature | + + + + + + | INR | 1.3Comment: REFERENCE | | EXTERNAL | | | | RANGE:0.9 - 1.2 | | LAB | | | | NON-ANTICOAGULATED2.0 | | | | | | - 3.0 ALL OTHER | | | | | | THERAPEUTIC | | | | | | INDICATIONS2.5 - 3.5 | | | | | | MECHANICAL HEART VALVES, | | | | | | RECURRENT OR SYSTEMIC | | | | | | EMBOLISMTesting | | | | | | performed at [facility] | | | | | | [address] [facility];[place], [place] | | | | | | [address] | | | | + + + + + + + + | Specimen | + + | Blood specimen | | (specimen) | + + + +---------+ + + | Performing | Address | City/State/Zipcode | Phone Number | | Organization | | | | + +---------+ + + | EXTERNAL LAB | | | | + +---------+ + + Fibrinogen (07/13/2018 1:50 PM PDT) + + + + + + | Component | Value | Ref Range | Performed | Pathologist | | | | | At | Signature | + + + + + + | Fibrinogen | 136 (L)Comment: Testing | 200 - 450 mg/dL | EXTERNAL | | | | performed at [facility];[address] | | LAB | | | | [address];[place] | | | | | | [address] | | | | + + + + + + + + | Specimen | + + | Blood specimen | | (specimen) | + + + +---------+ + + | Performing | Address | City/State/Zipcode | Phone Number | | Organization | | | | + +---------+ + + | EXTERNAL LAB | | | | + +---------+ + + External Lab: CBC (07/13/2018 1:50 PM PDT) + + + + + + | Component | Value | Ref Range | Performed | Pathologist | | | | | At | Signature | + + + + + + | WBC | 22.17 (H) | 3.80 - 11.00 | EXTERNAL | | | | | K/uL | LAB | | + + + + + + | RED CELL | 3.50 (L) | 4.20 - 5.70 | EXTERNAL | | | COUNT | | M/uL | LAB | | + + + + + + | Hgb | 10.5 (L) | 13.2 - 17.0 | EXTERNAL | | | | | g/dL | LAB | | + + + + + + | Hematocrit, | 31.6 (L) | 39.0 - 50.0 % | EXTERNAL | | | POC | | | LAB | | + + + + + + | MCV | 90.4 | 80.0 - 100.0 fl | EXTERNAL | | | | | | LAB | | + + + + + + | MCH | 29.9 | 27.0 - 34.0 pg | EXTERNAL | | | | | | LAB | | + + + + + + | MCHC | 33.0 | 32.0 - 35.5 | EXTERNAL | | | | | g/dL | LAB | | + + + + + + | RDW-CV | 41.1 | 37 - 53 fl | EXTERNAL | | | | | | LAB | | + + + + + + | Platelet | 140 (L) | 150 - 400 K/uL | EXTERNAL | | | Count | | | LAB | | | Plasma | | | | | + + + + + + | MPV | 8.6 | fl | EXTERNAL | | | | | | LAB | | + + + + + + | Differentia | AUTOMATED | | EXTERNAL | | | l Type | | | LAB | | + + + + + + | % Segmented | 84.04 | % | EXTERNAL | | | | | | LAB | | | Neutrophils | | | | | + + + + + + | % | 7.43 | % | EXTERNAL | | | Lymphocytes | | | LAB | | + + + + + + | % Monocytes | 7.37 | % | EXTERNAL | | | | | | LAB | | + + + + + + | % | 0.83 | % | EXTERNAL | | | Eosinophils | | | LAB | | + + + + + + | % Basophils | 0.33 | % | EXTERNAL | | | | | | LAB | | + + + + + + | Absolute | 18.63 (H) | 1.90 - 7.40 | EXTERNAL | | | Segmented | | K/uL | LAB | | | Neutrophils | | | | | + + + + + + | Absolute | 1.65 | 1.00 - 3.90 | EXTERNAL | | | Lymphocytes | | K/uL | LAB | | + + + + + + | Absolute | 1.64 (H) | 0.00 - 0.80 | EXTERNAL | | | Monocytes | | K/uL | LAB | | + + + + + + | Absolute | 0.19 | 0.00 - 0.50 | EXTERNAL | | | Eosinophils | | K/uL | LAB | | + + + + + + | Absolute | 0.07Comment: Testing | 0.00 - 0.10 | EXTERNAL | | | Basophils | performed at [facility];[address] | K/uL | LAB | | | | [address];[place], [place] | | | | | | [address] | | | | + + + + + + + + | Specimen | + + | Blood specimen | | (specimen) | + + + +---------+ + + | Performing | Address | City/State/Zipcode | Phone Number | | Organization | | | | + +---------+ + + | EXTERNAL LAB | | | | + +---------+ + + Magnesium (07/13/2018 1:50 PM PDT) + + + + + + | Component | Value | Ref Range | Performed | Pathologist | | | | | At | Signature | + + + + + + | Magnesium | 3.0 (H)Comment: SLT | 1.7 - 2.4 mg/dL | EXTERNAL | | | | HEMOLYSISTesting | | LAB | | | | performed at [facility];[address] | | | | | | [address];[place] | | | | | | [address] | | | | + + + + + + + + | Specimen | + + | Blood specimen | | (specimen) | + + + +---------+ + + | Performing | Address | City/State/Zipcode | Phone Number | | Organization | | | | + +---------+ + + | EXTERNAL LAB | | | | + +---------+ + + Calcium, Ionized (07/13/2018 1:50 PM PDT) + + + + + + | Component | Value | Ref Range | Performed | Pathologist | | | | | At | Signature | + + + + + + | Calcium | 1.09 | 1.08 - 1.25 | EXTERNAL | | | (Calc) | | mmol/L | LAB | | + + + + + + | pH, Bld | 7.296 (L)Comment: | 7.300 - 7.450 | EXTERNAL | | | | Testing performed at | | LAB | | | | [facility];[address];[place] [address] | | | | + + + + + + + + | Specimen | + + | Blood specimen | | (specimen) | + + + +---------+ + + | Performing | Address | City/State/Zipcode | Phone Number | | Organization | | | | + +---------+ + + | EXTERNAL LAB | | | | + +---------+ + + Basic Metabolic Panel (07/13/2018 1:50 PM PDT) + + + + + + | Component | Value | Ref Range | Performed | Pathologist | | | | | At | Signature | + + + + + + | Na | 141 | 135 - 145 | EXTERNAL | | | | | mmol/L | LAB | | + + + + + + | K | 4.7Comment: SLT | 3.5 - 4.9 | EXTERNAL | | | | HEMOLYSIS | mmol/L | LAB | | + + + + + + | Cl | 111 (H) | 99 - 109 mmol/L | EXTERNAL | | | | | | LAB | | + + + + + + | CO2 | 21 (L) | 23 - 32 mmol/L | EXTERNAL | | | | | | LAB | | + + + + + + | Anion Gap | 14 | 5 - 20 mmol/L | EXTERNAL | | | | | | LAB | | + + + + + + | Glucose, | 116 (H) | 65 - 99 mg/dL | EXTERNAL | | | Fasting | | | LAB | | + + + + + + | BUN | 16 | 8 - 25 mg/dL | EXTERNAL | | | | | | LAB | | + + + + + + | Creatinine | 1.1 | 0.70 - 1.30 | EXTERNAL | | | | | mg/dL | LAB | | + + + + + + | BUN/Creatin | 14 | | EXTERNAL | | | ine Ratio | | | LAB | | + + + + + + | Calcium | 7.3 (L) | 8.5 - 10.5 | EXTERNAL | | | | | mg/dL | LAB | | + + + + + + | Estimated | >60Comment: GFR <60: | mL/min/1.73m2 | EXTERNAL | | | GFR | CHRONIC KIDNEY DISEASE, | | LAB | | | | IF FOUND OVER A 3 MONTH | | | | | | PERIOD.GFR <15: KIDNEY | | | | | | FAILURE.FOR | | | | | | AMERICANS, MULTIPLY THE | | | | | | CALCULATED GFR BY | | | | | | 1.210.This eGFR is | | | | | | calculated using the | | | | | | [facility] traceable | | | | | | equation.Testing | | | | | | performed at [facility];[address] | | | | | | [facility];[place], [place] | | | | | | [address] | | | | + + + + + + + + | Specimen | + + | Blood specimen | | (specimen) | + + + +---------+ + + | Performing | Address | City/State/Zipcode | Phone Number | | Organization | | | | + +---------+ + + | EXTERNAL LAB | | | | + +---------+ + + POC ISTAT, CG8, Arterial (07/13/2018 1:16 PM PDT) + + + + + + | Component | Value | Ref Range | Performed | Pathologist | | | | | At | Signature | + + + + + + | PH ART | 7.252 (L) | 7.350 - 7.450 | EXTERNAL | | | | | | LAB | | + + + + + + | PCO2 ART | 52 (H) | 35 - 45 mmHg | EXTERNAL | | | | | | LAB | | + + + + + + | PO2 ART | 206 (HH) | 80 - 105 mmHg | EXTERNAL | | | | | | LAB | | + + + + + + | HCO3 ART | 23 | 22 - 26 mmol/L | EXTERNAL | | | | | | LAB | | + + + + + + | POC | 24 | 23 - 27 mEq/L | EXTERNAL | | | APPEARANCE | | | LAB | | | UA | | | | | + + + + + + | Base | 4 (H) | 0.0 - 2.0 | EXTERNAL | | | deficit | | mmol/L | LAB | | + + + + + + | O2 SAT ART | 100 (H) | 95 - 98 % | EXTERNAL | | | | | | LAB | | + + + + + + | Sodium, POC | 139 | 135 - 145 mEq/L | EXTERNAL | | | | | | LAB | | + + + + + + | Potassium, | 4.1 | 3.5 - 5.0 mEq/L | EXTERNAL | | | POC | | | LAB | | + + + + + + | Ionized | 1.23 | 1.12 - 1.32 | EXTERNAL | | | Calcium, | | mmol/L | LAB | | | POC | | | | | + + + + + + | Glucose, | 147 (H) | 65 - 99 mg/dL | EXTERNAL | | | POC | | | LAB | | + + + + + + | Hematocrit, | 32 (L) | 40.0 - 50.0 % | EXTERNAL | | | POC | | | LAB | | + + + + + + | Hemoglobin, | 10.9 (L)Comment: Testing | 13.7 - 16.7 | EXTERNAL | | | POC | performed at [facility];[address] | g/dL | LAB | | | | [address];[place], [place] | | | | | | [address] | | | | + + + + + + + + | Specimen | + + | | + + + +---------+ + + | Performing | Address | City/State/Zipcode | Phone Number | | Organization | | | | + +---------+ + + | EXTERNAL LAB | | | | + +---------+ + + POC CG 4, ISTAT Arterial (07/13/2018 12:40 PM PDT) + + + + + + | Component | Value | Ref Range | Performed | Pathologist | | | | | At | Signature | + + + + + + | PH ART | 7.304 (L) | 7.350 - 7.450 | EXTERNAL | | | | | | LAB | | + + + + + + | PCO2 ART | 45 | 35 - 45 mmHg | EXTERNAL | | | | | | LAB | | + + + + + + | PO2 ART | 306 (HH) | 80 - 105 mmHg | EXTERNAL | | | | | | LAB | | + + + + + + | Lactate, | 4.13 (H) | 0.36 - 1.25 | EXTERNAL | | | Arterial | | mmol/L | LAB | | + + + + + + | HCO3 ART | 22 | 22 - 26 mmol/L | EXTERNAL | | | | | | LAB | | + + + + + + | POC | 24 | 23 - 27 mEq/L | EXTERNAL | | | APPEARANCE | | | LAB | | | UA | | | | | + + + + + + | Base | 4 (H) | 0.0 - 2.0 | EXTERNAL | | | deficit | | mmol/L | LAB | | + + + + + + | O2 SAT ART | 100 (H)Comment: Testing | 95 - 98 % | EXTERNAL | | | | performed at [facility];[address] | | LAB | | | | [address];[place], [place] | | | | | | [address] | | | | + + + + + + + + | Specimen | + + | | + + + +---------+ + + | Performing | Address | City/State/Zipcode | Phone Number | | Organization | | | | + +---------+ + + | EXTERNAL LAB | | | | + +---------+ + + FLACA ECHEVARRIA CG8, Arterial (07/13/2018 12:36 PM PDT) + + + + + + | Component | Value | Ref Range | Performed | Pathologist | | | | | At | Signature | + + + + + + | PH ART | 7.293 (L) | 7.350 - 7.450 | EXTERNAL | | | | | | LAB | | + + + + + + | PCO2 ART | 48 (H) | 35 - 45 mmHg | EXTERNAL | | | | | | LAB | | + + + + + + | PO2 ART | 315 (HH) | 80 - 105 mmHg | EXTERNAL | | | | | | LAB | | + + + + + + | HCO3 ART | 23 | 22 - 26 mmol/L | EXTERNAL | | | | | | LAB | | + + + + + + | POC | 25 | 23 - 27 mEq/L | EXTERNAL | | | APPEARANCE | | | LAB | | | UA | | | | | + + + + + + | Base | 3 (H) | 0.0 - 2.0 | EXTERNAL | | | deficit | | mmol/L | LAB | | + + + + + + | O2 SAT ART | 100 (H) | 95 - 98 % | EXTERNAL | | | | | | LAB | | + + + + + + | Sodium, POC | 137 | 135 - 145 mEq/L | EXTERNAL | | | | | | LAB | | + + + + + + | Potassium, | 4.3 | 3.5 - 5.0 mEq/L | EXTERNAL | | | POC | | | LAB | | + + + + + + | Ionized | 1.29 | 1.12 - 1.32 | EXTERNAL | | | Calcium, | | mmol/L | LAB | | | POC | | | | | + + + + + + | Glucose, | 187 (H) | 65 - 99 mg/dL | EXTERNAL | | | POC | | | LAB | | + + + + + + | Hematocrit, | 23 (LL) | 40.0 - 50.0 % | EXTERNAL | | | POC | | | LAB | | + + + + + + | Hemoglobin, | 7.8 (LL)Comment: Testing | 13.7 - 16.7 | EXTERNAL | | | POC | performed at [facility];[address] | g/dL | LAB | | | | [address];[place], [place] | | | | | | [address] | | | | + + + + + + + + | Specimen | + + | | + + + +---------+ + + | Performing | Address | City/State/Zipcode | Phone Number | | Organization | | | | + +---------+ + + | EXTERNAL LAB | | | | + +---------+ + + POC [facility] CG8, Arterial (07/13/2018 11:44 AM PDT) + + + + + + | Component | Value | Ref Range | Performed | Pathologist | | | | | At | Signature | + + + + + + | PH ART | 7.391 | 7.350 - 7.450 | EXTERNAL | | | | | | LAB | | + + + + + + | PCO2 ART | 40 | 35 - 45 mmHg | EXTERNAL | | | | | | LAB | | + + + + + + | PO2 ART | 171 (H) | 80 - 105 mmHg | EXTERNAL | | | | | | LAB | | + + + + + + | HCO3 ART | 24 | 22 - 26 mmol/L | EXTERNAL | | | | | | LAB | | + + + + + + | POC | 26 | 23 - 27 mEq/L | EXTERNAL | | | APPEARANCE | | | LAB | | | UA | | | | | + + + + + + | Base | 1 | 0.0 - 2.0 | EXTERNAL | | | deficit | | mmol/L | LAB | | + + + + + + | O2 SAT ART | 100 (H) | 95 - 98 % | EXTERNAL | | | | | | LAB | | + + + + + + | Sodium, POC | 133 (L) | 135 - 145 mEq/L | EXTERNAL | | | | | | LAB | | + + + + + + | Potassium, | 6.6 (HH) | 3.5 - 5.0 mEq/L | EXTERNAL | | | POC | | | LAB | | + + + + + + | Ionized | 0.97 (L) | 1.12 - 1.32 | EXTERNAL | | | Calcium, | | mmol/L | LAB | | | POC | | | | | + + + + + + | Glucose, | 196 (H) | 65 - 99 mg/dL | EXTERNAL | | | POC | | | LAB | | + + + + + + | Hematocrit, | 24 (L) | 40.0 - 50.0 % | EXTERNAL | | | POC | | | LAB | | + + + + + + | Hemoglobin, | 8.2 (L)Comment: Testing | 13.7 - 16.7 | EXTERNAL | | | POC | performed at [facility];[address] | g/dL | LAB | | | | [address];[place], [place] | | | | | | [address] | | | | + + + + + + + + | Specimen | + + | | + + + +---------+ + + | Performing | Address | City/State/Zipcode | Phone Number | | Organization | | | | + +---------+ + + | EXTERNAL LAB | | | | + +---------+ + + POC CG 4, ISTAT Arterial (07/13/2018 11:24 AM PDT) + + + + + + | Component | Value | Ref Range | Performed | Pathologist | | | | | At | Signature | + + + + + + | PH ART | 7.378 | 7.350 - 7.450 | EXTERNAL | | | | | | LAB | | + + + + + + | PCO2 ART | 38 | 35 - 45 mmHg | EXTERNAL | | | | | | LAB | | + + + + + + | PO2 ART | 248 (HH) | 80 - 105 mmHg | EXTERNAL | | | | | | LAB | | + + + + + + | Lactate, | 2.84 (H) | 0.36 - 1.25 | EXTERNAL | | | Arterial | | mmol/L | LAB | | + + + + + + | HCO3 ART | 22 | 22 - 26 mmol/L | EXTERNAL | | | | | | LAB | | + + + + + + | POC | 24 | 23 - 27 mEq/L | EXTERNAL | | | APPEARANCE | | | LAB | | | UA | | | | | + + + + + + | Base | 3 (H) | 0.0 - 2.0 | EXTERNAL | | | deficit | | mmol/L | LAB | | + + + + + + | O2 SAT ART | 100 (H)Comment: Testing | 95 - 98 % | EXTERNAL | | | | performed at [facility];[address] | | LAB | | | | [address];[place] | | | | | | [address] | | | | + + + + + + + + | Specimen | + + | | + + + +---------+ + + | Performing | Address | City/State/Zipcode | Phone Number | | Organization | | | | + +---------+ + + | EXTERNAL LAB | | | | + +---------+ + + POC HORACIO ECHEVARRIA8Lizette (07/13/2018 11:20 AM PDT) + + + + + + | Component | Value | Ref Range | Performed | Pathologist | | | | | At | Signature | + + + + + + | PH ART | 7.366 | 7.350 - 7.450 | EXTERNAL | | | | | | LAB | | + + + + + + | PCO2 ART | 39 | 35 - 45 mmHg | EXTERNAL | | | | | | LAB | | + + + + + + | PO2 ART | 239 (HH) | 80 - 105 mmHg | EXTERNAL | | | | | | LAB | | + + + + + + | HCO3 ART | 23 | 22 - 26 mmol/L | EXTERNAL | | | | | | LAB | | + + + + + + | POC | 24 | 23 - 27 mEq/L | EXTERNAL | | | APPEARANCE | | | LAB | | | UA | | | | | + + + + + + | Base | 3 (H) | 0.0 - 2.0 | EXTERNAL | | | deficit | | mmol/L | LAB | | + + + + + + | O2 SAT ART | 100 (H) | 95 - 98 % | EXTERNAL | | | | | | LAB | | + + + + + + | Sodium, POC | 132 (L) | 135 - 145 mEq/L | EXTERNAL | | | | | | LAB | | + + + + + + | Potassium, | 6.5 (HH) | 3.5 - 5.0 mEq/L | EXTERNAL | | | POC | | | LAB | | + + + + + + | Ionized | 0.98 (L) | 1.12 - 1.32 | EXTERNAL | | | Calcium, | | mmol/L | LAB | | | POC | | | | | + + + + + + | Glucose, | 203 (H) | 65 - 99 mg/dL | EXTERNAL | | | POC | | | LAB | | + + + + + + | Hematocrit, | 25 (L) | 40.0 - 50.0 % | EXTERNAL | | | POC | | | LAB | | + + + + + + | Hemoglobin, | 8.5 (L)Comment: Testing | 13.7 - 16.7 | EXTERNAL | | | POC | performed at [facility];[address] | g/dL | LAB | | | | [address];[place], [place] | | | | | | [address] | | | | + + + + + + + + | Specimen | + + | | + + + +---------+ + + | Performing | Address | City/State/Zipcode | Phone Number | | Organization | | | | + +---------+ + + | EXTERNAL LAB | | | | + +---------+ + + POC [facility] CG8, Arterial (07/13/2018 10:43 AM PDT) + + + + + + | Component | Value | Ref Range | Performed | Pathologist | | | | | At | Signature | + + + + + + | PH ART | 7.336 (L) | 7.350 - 7.450 | EXTERNAL | | | | | | LAB | | + + + + + + | PCO2 ART | 46 (H) | 35 - 45 mmHg | EXTERNAL | | | | | | LAB | | + + + + + + | PO2 ART | 279 (HH) | 80 - 105 mmHg | EXTERNAL | | | | | | LAB | | + + + + + + | HCO3 ART | 24 | 22 - 26 mmol/L | EXTERNAL | | | | | | LAB | | + + + + + + | POC | 26 | 23 - 27 mEq/L | EXTERNAL | | | APPEARANCE | | | LAB | | | UA | | | | | + + + + + + | Base | 1 | 0.0 - 2.0 | EXTERNAL | | | deficit | | mmol/L | LAB | | + + + + + + | O2 SAT ART | 100 (H) | 95 - 98 % | EXTERNAL | | | | | | LAB | | + + + + + + | Sodium, POC | 132 (L) | 135 - 145 mEq/L | EXTERNAL | | | | | | LAB | | + + + + + + | Potassium, | 6.3 (HH) | 3.5 - 5.0 mEq/L | EXTERNAL | | | POC | | | LAB | | + + + + + + | Ionized | 0.98 (L) | 1.12 - 1.32 | EXTERNAL | | | Calcium, | | mmol/L | LAB | | | POC | | | | | + + + + + + | Glucose, | 151 (H) | 65 - 99 mg/dL | EXTERNAL | | | POC | | | LAB | | + + + + + + | Hematocrit, | 26 (L) | 40.0 - 50.0 % | EXTERNAL | | | POC | | | LAB | | + + + + + + | Hemoglobin, | 8.8 (L)Comment: Testing | 13.7 - 16.7 | EXTERNAL | | | POC | performed at [facility];[address] | g/dL | LAB | | | | [address];[place], [place] | | | | | | [address] | | | | + + + + + + + + | Specimen | + + | | + + + +---------+ + + | Performing | Address | City/State/Zipcode | Phone Number | | Organization | | | | + +---------+ + + | EXTERNAL LAB | | | | + +---------+ + + POC ISNANO, CG8, Arterial (07/13/2018 10:16 AM PDT) + + + + + + | Component | Value | Ref Range | Performed | Pathologist | | | | | At | Signature | + + + + + + | PH ART | 7.335 (L) | 7.350 - 7.450 | EXTERNAL | | | | | | LAB | | + + + + + + | PCO2 ART | 52 (H) | 35 - 45 mmHg | EXTERNAL | | | | | | LAB | | + + + + + + | PO2 ART | 344 (HH) | 80 - 105 mmHg | EXTERNAL | | | | | | LAB | | + + + + + + | HCO3 ART | 28 (H) | 22 - 26 mmol/L | EXTERNAL | | | | | | LAB | | + + + + + + | POC | 29 (H) | 23 - 27 mEq/L | EXTERNAL | | | APPEARANCE | | | LAB | | | UA | | | | | + + + + + + | Base | 2 | 0 - 3 mEq/L | EXTERNAL | | | Excess, | | | LAB | | | Arterial | | | | | + + + + + + | O2 SAT ART | 100 (H) | 95 - 98 % | EXTERNAL | | | | | | LAB | | + + + + + + | Sodium, POC | 131 (L) | 135 - 145 mEq/L | EXTERNAL | | | | | | LAB | | + + + + + + | Potassium, | 5.5 (H) | 3.5 - 5.0 mEq/L | EXTERNAL | | | POC | | | LAB | | + + + + + + | Ionized | 0.90 (L) | 1.12 - 1.32 | EXTERNAL | | | Calcium, | | mmol/L | LAB | | | POC | | | | | + + + + + + | Glucose, | 117 (H) | 65 - 99 mg/dL | EXTERNAL | | | POC | | | LAB | | + + + + + + | Hematocrit, | 26 (L) | 40.0 - 50.0 % | EXTERNAL | | | POC | | | LAB | | + + + + + + | Hemoglobin, | 8.8 (L)Comment: Testing | 13.7 - 16.7 | EXTERNAL | | | POC | performed at [facility];[address] | g/dL | LAB | | | | [address];[place], [place] | | | | | | [address] | | | | + + + + + + + + | Specimen | + + | | + + + +---------+ + + | Performing | Address | City/State/Zipcode | Phone Number | | Organization | | | | + +---------+ + + | EXTERNAL LAB | | | | + +---------+ + + POC [place] CG8, Arterial (07/13/2018 9:40 AM PDT) + + + + + + | Component | Value | Ref Range | Performed | Pathologist | | | | | At | Signature | + + + + + + | PH ART | 7.281 (L) | 7.350 - 7.450 | EXTERNAL | | | | | | LAB | | + + + + + + | PCO2 ART | 56 (H) | 35 - 45 mmHg | EXTERNAL | | | | | | LAB | | + + + + + + | PO2 ART | 407 (HH) | 80 - 105 mmHg | EXTERNAL | | | | | | LAB | | + + + + + + | HCO3 ART | 27 (H) | 22 - 26 mmol/L | EXTERNAL | | | | | | LAB | | + + + + + + | POC | 28 (H) | 23 - 27 mEq/L | EXTERNAL | | | APPEARANCE | | | LAB | | | UA | | | | | + + + + + + | Base | 0 | 0 - 3 mEq/L | EXTERNAL | | | Excess, | | | LAB | | | Arterial | | | | | + + + + + + | O2 SAT ART | 100 (H) | 95 - 98 % | EXTERNAL | | | | | | LAB | | + + + + + + | Sodium, POC | 135 | 135 - 145 mEq/L | EXTERNAL | | | | | | LAB | | + + + + + + | Potassium, | 5.0 | 3.5 - 5.0 mEq/L | EXTERNAL | | | POC | | | LAB | | + + + + + + | Ionized | 1.19 | 1.12 - 1.32 | EXTERNAL | | | Calcium, | | mmol/L | LAB | | | POC | | | | | + + + + + + | Glucose, | 132 (H) | 65 - 99 mg/dL | EXTERNAL | | | POC | | | LAB | | + + + + + + | Hematocrit, | 39 (L) | 40.0 - 50.0 % | EXTERNAL | | | POC | | | LAB | | + + + + + + | Hemoglobin, | 13.3 (L)Comment: Testing | 13.7 - 16.7 | EXTERNAL | | | POC | performed at [facility];[address] | g/dL | LAB | | | | [address];[place] | | | | | | [address] | | | | + + + + + + + + | Specimen | + + | | + + + +---------+ + + | Performing | Address | City/State/Zipcode | Phone Number | | Organization | | | | + +---------+ + + | EXTERNAL LAB | | | | + +---------+ + + POC CG 4, ISTAT Arterial (07/13/2018 8:12 AM PDT) + + + + + + | Component | Value | Ref Range | Performed | Pathologist | | | | | At | Signature | + + + + + + | PH ART | 7.410 | 7.350 - 7.450 | EXTERNAL | | | | | | LAB | | + + + + + + | PCO2 ART | 40 | 35 - 45 mmHg | EXTERNAL | | | | | | LAB | | + + + + + + | PO2 ART | 457 (HH) | 80 - 105 mmHg | EXTERNAL | | | | | | LAB | | + + + + + + | Lactate, | 0.81 | 0.36 - 1.25 | EXTERNAL | | | Arterial | | mmol/L | LAB | | + + + + + + | HCO3 ART | 25 | 22 - 26 mmol/L | EXTERNAL | | | | | | LAB | | + + + + + + | POC | 27 | 23 - 27 mEq/L | EXTERNAL | | | APPEARANCE | | | LAB | | | UA | | | | | + + + + + + | Base | 1 | 0 - 3 mEq/L | EXTERNAL | | | Excess, | | | LAB | | | Arterial | | | | | + + + + + + | O2 SAT ART | 100 (H)Comment: Testing | 95 - 98 % | EXTERNAL | | | | performed at [facility];[address] | | LAB | | | | [address];[place], [place] | | | | | | [address] | | | | + + + + + + + + | Specimen | + + | | + + + +---------+ + + | Performing | Address | City/State/Zipcode | Phone Number | | Organization | | | | + +---------+ + + | EXTERNAL LAB | | | | + +---------+ + + [facility] CG8, Arterial (07/13/2018 8:09 AM PDT) + + + + + + | Component | Value | Ref Range | Performed | Pathologist | | | | | At | Signature | + + + + + + | PH ART | 7.401 | 7.350 - 7.450 | EXTERNAL | | | | | | LAB | | + + + + + + | PCO2 ART | 43 | 35 - 45 mmHg | EXTERNAL | | | | | | LAB | | + + + + + + | PO2 ART | 487 (HH) | 80 - 105 mmHg | EXTERNAL | | | | | | LAB | | + + + + + + | HCO3 ART | 27 (H) | 22 - 26 mmol/L | EXTERNAL | | | | | | LAB | | + + + + + + | POC | 28 (H) | 23 - 27 mEq/L | EXTERNAL | | | APPEARANCE | | | LAB | | | UA | | | | | + + + + + + | Base | 2 | 0 - 3 mEq/L | EXTERNAL | | | Excess, | | | LAB | | | Arterial | | | | | + + + + + + | O2 SAT ART | 100 (H) | 95 - 98 % | EXTERNAL | | | | | | LAB | | + + + + + + | Sodium, POC | 138 | 135 - 145 mEq/L | EXTERNAL | | | | | | LAB | | + + + + + + | Potassium, | 4.4 | 3.5 - 5.0 mEq/L | EXTERNAL | | | POC | | | LAB | | + + + + + + | Ionized | 1.16 | 1.12 - 1.32 | EXTERNAL | | | Calcium, | | mmol/L | LAB | | | POC | | | | | + + + + + + | Glucose, | 108 (H) | 65 - 99 mg/dL | EXTERNAL | | | POC | | | LAB | | + + + + + + | Hematocrit, | 35 (L) | 40.0 - 50.0 % | EXTERNAL | | | POC | | | LAB | | + + + + + + | Hemoglobin, | 11.9 (L)Comment: Testing | 13.7 - 16.7 | EXTERNAL | | | POC | performed at [facility];[address] | g/dL | LAB | | | | [address];[place], [place] | | | | | | [address] | | | | + + + + + + + + | Specimen | + + | | + + + +---------+ + + | Performing | Address | City/State/Zipcode | Phone Number | | Organization | | | | + +---------+ + + | EXTERNAL LAB | | | | + +---------+ + + External Lab: CBC (07/13/2018 4:15 AM PDT) + + + + + + | Component | Value | Ref Range | Performed | Pathologist | | | | | At | Signature | + + + + + + | WBC | 8.90 | 3.80 - 11.00 | EXTERNAL | | | | | K/uL | LAB | | + + + + + + | RED CELL | 4.31 | 4.20 - 5.70 | EXTERNAL | | | COUNT | | M/uL | LAB | | + + + + + + | Hgb | 13.2 | 13.2 - 17.0 | EXTERNAL | | | | | g/dL | LAB | | + + + + + + | Hematocrit, | 37.8 (L) | 39.0 - 50.0 % | EXTERNAL | | | POC | | | LAB | | + + + + + + | MCV | 87.7 | 80.0 - 100.0 fl | EXTERNAL | | | | | | LAB | | + + + + + + | MCH | 30.7 | 27.0 - 34.0 pg | EXTERNAL | | | | | | LAB | | + + + + + + | MCHC | 35.0 | 32.0 - 35.5 | EXTERNAL | | | | | g/dL | LAB | | + + + + + + | RDW-CV | 40.7 | 37 - 53 fl | EXTERNAL | | | | | | LAB | | + + + + + + | Platelet | 222 | 150 - 400 K/uL | EXTERNAL | | | Count | | | LAB | | | Plasma | | | | | + + + + + + | MPV | 9.3 | fl | EXTERNAL | | | | | | LAB | | + + + + + + | Differentia | AUTOMATED | | EXTERNAL | | | l Type | | | LAB | | + + + + + + | % Segmented | 73.85 | % | EXTERNAL | | | | | | LAB | | | Neutrophils | | | | | + + + + + + | % | 14.03 | % | EXTERNAL | | | Lymphocytes | | | LAB | | + + + + + + | % Monocytes | 8.48 | % | EXTERNAL | | | | | | LAB | | + + + + + + | % | 2.80 | % | EXTERNAL | | | Eosinophils | | | LAB | | + + + + + + | % Basophils | 0.84 | % | EXTERNAL | | | | | | LAB | | + + + + + + | Absolute | 6.57 | 1.90 - 7.40 | EXTERNAL | | | Segmented | | K/uL | LAB | | | Neutrophils | | | | | + + + + + + | Absolute | 1.25 | 1.00 - 3.90 | EXTERNAL | | | Lymphocytes | | K/uL | LAB | | + + + + + + | Absolute | 0.75 | 0.00 - 0.80 | EXTERNAL | | | Monocytes | | K/uL | LAB | | + + + + + + | Absolute | 0.25 | 0.00 - 0.50 | EXTERNAL | | | Eosinophils | | K/uL | LAB | | + + + + + + | Absolute | 0.07Comment: Testing | 0.00 - 0.10 | EXTERNAL | | | Basophils | performed at [facility], [address] | LAB | | | | [address], | | | | | | [place] [address] | | | | + + + + + + + + | Specimen | + + | Blood specimen | | (specimen) | + + + +---------+ + + | Performing | Address | City/State/Zipcode | Phone Number | | Organization | | | | + +---------+ + + | EXTERNAL LAB | | | | + +---------+ + + XR Chest 2 Vws (07/12/2018 1:44 PM PDT) + + | Specimen | + + | | + + + + + | Impressions | Performed At | + + + | 1. No acute cardiopulmonary process. | | + + + + + + | Narrative | Performed At | + + + | ROBY ORTEGA 1970 48 years Male XR CHEST 2 VIEW | | | FRONTAL AND LATERAL 07/12/2018 1:44 PM INDICATION: Preoperative | | | assessment for CABG, coronary artery disease COMPARISON: None. | | | TECHNIQUE: Two view chest, PA and lateral views FINDINGS: The | | | cardiomediastinal contours are normal. There is no mediastinal | | | widening or shift. No pneumothorax or effusion. The lungs are | | | clear with no focal consolidation or pulmonary nodules. Osseous | | | structures are normal. | | + + + + + | Procedure Note | + + | Yifan, Rad Conversion - 04/26/2019 1:27 AM PDT ROBY [place] years | | MaleXR CHEST 2 VIEW FRONTAL AND GFVZRUX0107/12/2018 1:44 PM INDICATION: Preoperative | | assessment for CABG, coronary artery disease COMPARISON: None. TECHNIQUE: Two view | | chest, PA and lateral views FINDINGS: The cardiomediastinal contours are normal. There | | is no mediastinal widening or shift. No pneumothorax or effusion. The lungs are clear | | with no focal consolidation or pulmonary nodules. Osseous structures are normal. | | IMPRESSION: 1. No acute cardiopulmonary process. | |COMPARISON: None. | | | |TECHNIQUE: Two view chest, PA and lateral views | | | |FINDINGS: The cardiomediastinal contours are normal. There is no mediastinal widening or s hift. No pneumothorax or effusion. The lungs are clear with no focal consolidation or pulm onary nodules. Osseous structures are normal. | | | |IMPRESSION: | |1. No acute cardiopulmonary process. | | | | | + + MRSA NAAT (07/12/2018 8:43 AM PDT) + + | Specimen | + + | | + + + + + | Narrative | Performed At | + + + | SOURCE NARES(NOSE) MRSA | EXTERNAL LAB | | PCR NEGATIVE Testing | | | performed at [facility];[address] [place] [address];[place] [address] | | + + + + +---------+ + + | Performing | Address | City/State/Zipcode | Phone Number | | Organization | | | | + +---------+ + + | EXTERNAL LAB | | | | + +---------+ + + PTT (07/12/2018 4:03 AM PDT) + + + + + + | Component | Value | Ref Range | Performed | Pathologist | | | | | At | Signature | + + + + + + | aPTT, | 55 (H)Comment: Testing | 23 - 32 seconds | EXTERNAL | | | Patient | performed at [facility];[address] | | [address] | | | | [address];[place], [place] | | | | | | [address] | | | | + + + + + + + + | Specimen | + + | Blood specimen | | (specimen) | + + + +---------+ + + | Performing | Address | City/State/Zipcode | Phone Number | | Organization | | | | + +---------+ + + | EXTERNAL LAB | | | | + +---------+ + + External Lab: CBC (07/12/2018 4:03 AM PDT) + + + + + + | Component | Value | Ref Range | Performed | Pathologist | | | | | At | Signature | + + + + + + | WBC | 7.74 | 3.80 - 11.00 | EXTERNAL | | | | | K/uL | LAB | | + + + + + + | RED CELL | 4.31 | 4.20 - 5.70 | EXTERNAL | | | COUNT | | M/uL | LAB | | + + + + + + | Hgb | 13.2 | 13.2 - 17.0 | EXTERNAL | | | | | g/dL | LAB | | + + + + + + | Hematocrit, | 38.0 (L) | 39.0 - 50.0 % | EXTERNAL | | | POC | | | LAB | | + + + + + + | MCV | 88.2 | 80.0 - 100.0 fl | EXTERNAL | | | | | | LAB | | + + + + + + | MCH | 30.5 | 27.0 - 34.0 pg | EXTERNAL | | | | | | LAB | | + + + + + + | MCHC | 34.6 | 32.0 - 35.5 | EXTERNAL | | | | | g/dL | LAB | | + + + + + + | RDW-CV | 40.3 | 37 - 53 fl | EXTERNAL | | | | | | LAB | | + + + + + + | Platelet | 217 | 150 - 400 K/uL | EXTERNAL | | | Count | | | LAB | | | Plasma | | | | | + + + + + + | MPV | 9.6 | fl | EXTERNAL | | | | | | LAB | | + + + + + + | Differentia | AUTOMATED | | EXTERNAL | | | l Type | | | LAB | | + + + + + + | % Segmented | 69.38 | % | EXTERNAL | | | | | | LAB | | | Neutrophils | | | | | + + + + + + | % | 14.60 | % | EXTERNAL | | | Lymphocytes | | | LAB | | + + + + + + | % Monocytes | 11.25 | % | EXTERNAL | | | | | | LAB | | + + + + + + | % | 3.87 | % | EXTERNAL | | | Eosinophils | | | LAB | | + + + + + + | % Basophils | 0.90 | % | EXTERNAL | | | | | | LAB | | + + + + + + | Absolute | 5.37 | 1.90 - 7.40 | EXTERNAL | | | Segmented | | K/uL | LAB | | | Neutrophils | | | | | + + + + + + | Absolute | 1.13 | 1.00 - 3.90 | EXTERNAL | | | Lymphocytes | | K/uL | LAB | | + + + + + + | Absolute | 0.87 (H) | 0.00 - 0.80 | EXTERNAL | | | Monocytes | | K/uL | LAB | | + + + + + + | Absolute | 0.30 | 0.00 - 0.50 | EXTERNAL | | | Eosinophils | | K/uL | LAB | | + + + + + + | Absolute | 0.07Comment: Testing | 0.00 - 0.10 | EXTERNAL | | | Basophils | performed at [facility], [address] | LAB | | | | [address], | | | | | | [place] [address] | | | | + + + + + + + + | Specimen | + + | Blood specimen | | (specimen) | + + + +---------+ + + | Performing | Address | City/State/Zipcode | Phone Number | | Organization | | | | + +---------+ + + | EXTERNAL LAB | | | | + +---------+ + + PTT (07/11/2018 4:13 AM PDT) + + + + + + | Component | Value | Ref Range | Performed | Pathologist | | | | | At | Signature | + + + + + + | aPTT, | 55 (H)Comment: Testing | 23 - 32 seconds | EXTERNAL | | | Patient | performed at [facility];[address] | | LAB | | | | [address];[place], [place] | | | | | | [address] | | | | + + + + + + + + | Specimen | + + | Blood specimen | | (specimen) | + + + +---------+ + + | Performing | Address | City/State/Zipcode | Phone Number | | Organization | | | | + +---------+ + + | EXTERNAL LAB | | | | + +---------+ + + External Lab: CBC (07/11/2018 4:13 AM PDT) + + + + + + | Component | Value | Ref Range | Performed | Pathologist | | | | | At | Signature | + + + + + + | WBC | 8.76 | 3.80 - 11.00 | EXTERNAL | | | | | K/uL | LAB | | + + + + + + | RED CELL | 4.55 | 4.20 - 5.70 | EXTERNAL | | | COUNT | | M/uL | LAB | | + + + + + + | Hgb | 13.9 | 13.2 - 17.0 | EXTERNAL | | | | | g/dL | LAB | | + + + + + + | Hematocrit, | 40.1 | 39.0 - 50.0 % | EXTERNAL | | | POC | | | LAB | | + + + + + + | MCV | 88.1 | 80.0 - 100.0 fl | EXTERNAL | | | | | | LAB | | + + + + + + | MCH | 30.6 | 27.0 - 34.0 pg | EXTERNAL | | | | | | LAB | | + + + + + + | MCHC | 34.8 | 32.0 - 35.5 | EXTERNAL | | | | | g/dL | LAB | | + + + + + + | RDW-CV | 40.7 | 37 - 53 fl | EXTERNAL | | | | | | LAB | | + + + + + + | Platelet | 229 | 150 - 400 K/uL | EXTERNAL | | | Count | | | LAB | | | Plasma | | | | | + + + + + + | MPV | 9.6 | fl | EXTERNAL | | | | | | LAB | | + + + + + + | Differentia | AUTOMATED | | EXTERNAL | | | l Type | | | LAB | | + + + + + + | % Segmented | 74.74 | % | EXTERNAL | | | | | | LAB | | | Neutrophils | | | | | + + + + + + | % | 11.81 | % | EXTERNAL | | | Lymphocytes | | | LAB | | + + + + + + | % Monocytes | 9.41 | % | EXTERNAL | | | | | | LAB | | + + + + + + | % | 3.11 | % | EXTERNAL | | | Eosinophils | | | LAB | | + + + + + + | % Basophils | 0.93 | % | EXTERNAL | | | | | | LAB | | + + + + + + | Absolute | 6.55 | 1.90 - 7.40 | EXTERNAL | | | Segmented | | K/uL | LAB | | | Neutrophils | | | | | + + + + + + | Absolute | 1.04 | 1.00 - 3.90 | EXTERNAL | | | Lymphocytes | | K/uL | LAB | | + + + + + + | Absolute | 0.82 (H) | 0.00 - 0.80 | EXTERNAL | | | Monocytes | | K/uL | LAB | | + + + + + + | Absolute | 0.27 | 0.00 - 0.50 | EXTERNAL | | | Eosinophils | | K/uL | LAB | | + + + + + + | Absolute | 0.08Comment: Testing | 0.00 - 0.10 | EXTERNAL | | | Basophils | performed at [facility], [address] | [address] | LAB | | | | [address], | | | | | | [place] [address] | | | | + + + + + + + + | Specimen | + + | Blood specimen | | (specimen) | + + + +---------+ + + | Performing | Address | City/State/Zipcode | Phone Number | | Organization | | | | + +---------+ + + | EXTERNAL LAB | | | | + +---------+ + + Basic Metabolic Panel (07/11/2018 4:13 AM PDT) + + + + + + | Component | Value | Ref Range | Performed | Pathologist | | | | | At | Signature | + + + + + + | Na | 138 | 135 - 145 | EXTERNAL | | | | | mmol/L | LAB | | + + + + + + | K | 4.4 | 3.5 - 4.9 | EXTERNAL | | | | | mmol/L | LAB | | + + + + + + | Cl | 106 | 99 - 109 mmol/L | EXTERNAL | | | | | | LAB | | + + + + + + | CO2 | 25 | 23 - 32 mmol/L | EXTERNAL | | | | | | LAB | | + + + + + + | Anion Gap | 11 | 5 - 20 mmol/L | EXTERNAL | | | | | | LAB | | + + + + + + | Glucose, | 115 (H) | 65 - 99 mg/dL | EXTERNAL | | | Fasting | | | LAB | | + + + + + + | BUN | 14 | 8 - 25 mg/dL | EXTERNAL | | | | | | LAB | | + + + + + + | Creatinine | 0.7 | 0.70 - 1.30 | EXTERNAL | | | | | mg/dL | LAB | | + + + + + + | BUN/Creatin | 20 | | EXTERNAL | | | ine Ratio | | | LAB | | + + + + + + | Calcium | 8.6 | 8.5 - 10.5 | EXTERNAL | | | | | mg/dL | LAB | | + + + + + + | Estimated | >60Comment: GFR <60: | mL/min/1.73m2 | EXTERNAL | | | GFR | CHRONIC KIDNEY DISEASE, | | LAB | | | | IF FOUND OVER A 3 MONTH | | | | | | PERIOD.GFR <15: KIDNEY | | | | | | FAILURE.FOR | | | | | | AMERICANS, MULTIPLY THE | | | | | | CALCULATED GFR BY | | | | | | 1.210.This eGFR is | | | | | | calculated using the | | | | | | MDRD IDMS traceable | | | | | | equation.Testing | | | | | | performed at [facility], [address] | | | | | [facility], | | | | | | [place] [address] | | | | + + + + + + + + | Specimen | + + | Blood specimen | | (specimen) | + + + +---------+ + + | Performing | Address | City/State/Zipcode | Phone Number | | Organization | | | | + +---------+ + + | EXTERNAL LAB | | | | + +---------+ + + PTT (07/10/2018 6:17 AM PDT) + + + + + + | Component | Value | Ref Range | Performed | Pathologist | | | | | At | Signature | + + + + + + | aPTT, | 53 (H)Comment: Testing | 23 - 32 seconds | EXTERNAL | | | Patient | performed at [facility];[address] | | LAB | | | | [address];[place], [place] | | | | | | [address] | | | | + + + + + + + + | Specimen | + + | Blood specimen | | (specimen) | + + + +---------+ + + | Performing | Address | City/State/Zipcode | Phone Number | | Organization | | | | + +---------+ + + | EXTERNAL LAB | | | | + +---------+ + + External Lab: BRIGIDA (07/10/2018 4:10 AM PDT) + + + + + + | Component | Value | Ref Range | Performed | Pathologist | | | | | At | Signature | + + + + + + | WBC | 9.55 | 3.80 - 11.00 | EXTERNAL | | | | | K/uL | LAB | | + + + + + + | RED CELL | 4.52 | 4.20 - 5.70 | EXTERNAL | | | COUNT | | M/uL | LAB | | + + + + + + | Hgb | 13.9 | 13.2 - 17.0 | EXTERNAL | | | | | g/dL | LAB | | + + + + + + | Hematocrit, | 40.0 | 39.0 - 50.0 % | EXTERNAL | | | POC | | | LAB | | + + + + + + | MCV | 88.6 | 80.0 - 100.0 fl | EXTERNAL | | | | | | LAB | | + + + + + + | MCH | 30.9 | 27.0 - 34.0 pg | EXTERNAL | | | | | | LAB | | + + + + + + | MCHC | 34.8 | 32.0 - 35.5 | EXTERNAL | | | | | g/dL | LAB | | + + + + + + | RDW-CV | 41.1 | 37 - 53 fl | EXTERNAL | | | | | | LAB | | + + + + + + | Platelet | 229 | 150 - 400 K/uL | EXTERNAL | | | Count | | | LAB | | | Plasma | | | | | + + + + + + | MPV | 9.2 | fl | EXTERNAL | | | | | | LAB | | + + + + + + | Differentia | AUTOMATED | | EXTERNAL | | | l Type | | | LAB | | + + + + + + | % Segmented | 77.65 | % | EXTERNAL | | | | | | LAB | | | Neutrophils | | | | | + + + + + + | % | 9.68 | % | EXTERNAL | | | Lymphocytes | | | LAB | | + + + + + + | % Monocytes | 8.51 | % | EXTERNAL | | | | | | LAB | | + + + + + + | % | 3.29 | % | EXTERNAL | | | Eosinophils | | | LAB | | + + + + + + | % Basophils | 0.87 | % | EXTERNAL | | | | | | LAB | | + + + + + + | Absolute | 7.42 (H) | 1.90 - 7.40 | EXTERNAL | | | Segmented | | K/uL | LAB | | | Neutrophils | | | | | + + + + + + | Absolute | 0.93 (L) | 1.00 - 3.90 | EXTERNAL | | | Lymphocytes | | K/uL | LAB | | + + + + + + | Absolute | 0.81 (H) | 0.00 - 0.80 | EXTERNAL | | | Monocytes | | K/uL | LAB | | + + + + + + | Absolute | 0.31 | 0.00 - 0.50 | EXTERNAL | | | Eosinophils | | K/uL | LAB | | + + + + + + | Absolute | 0.08Comment: Testing | 0.00 - 0.10 | EXTERNAL | | | Basophils | performed at [facility], [address] | [address] | LAB | | | | [address], | | | | | | [place] [address] | | | | + + + + + + + + | Specimen | + + | Blood specimen | | (specimen) | + + + +---------+ + + | Performing | Address | City/State/Zipcode | Phone Number | | Organization | | | | + +---------+ + + | EXTERNAL LAB | | | | + +---------+ + + PTT (07/10/2018 12:23 AM PDT) + + + + + + | Component | Value | Ref Range | Performed | Pathologist | | | | | At | Signature | + + + + + + | aPTT, | 51 (H)Comment: Testing | 23 - 32 seconds | EXTERNAL | | | Patient | performed at [facility];[address] | | LAB | | | | [address];[place], [place] | | | | | | [address] | | | | + + + + + + + + | Specimen | + + | Blood specimen | | (specimen) | + + + +---------+ + + | Performing | Address | City/State/Zipcode | Phone Number | | Organization | | | | + +---------+ + + | EXTERNAL LAB | | | | + +---------+ + + PTT (07/09/2018 4:48 PM PDT) + + + + + + | Component | Value | Ref Range | Performed | Pathologist | | | | | At | Signature | + + + + + + | aPTT, | 40 (H)Comment: Testing | 23 - 32 seconds | EXTERNAL | | | Patient | performed at [facility] | | LAB | | | | [address] [facility];[place], [place] | | | | | | [address] | | | | + + + + + + + + | Specimen | + + | Blood specimen | | (specimen) | + + + +---------+ + + | Performing | Address | City/State/Zipcode | Phone Number | | Organization | | | | + +---------+ + + | EXTERNAL LAB | | | | + +---------+ + + PTT (07/09/2018 7:43 AM PDT) + + + + + + | Component | Value | Ref Range | Performed | Pathologist | | | | | At | Signature | + + + + + + | aPTT, | 38 (H)Comment: Testing | 23 - 32 seconds | EXTERNAL | | | Patient | performed at [facility];[address] | | LAB | | | | [address];[place], [place] | | | | | | [address] | | | | + + + + + + + + | Specimen | + + | Blood specimen | | (specimen) | + + + +---------+ + + | Performing | Address | City/State/Zipcode | Phone Number | | Organization | | | | + +---------+ + + | EXTERNAL LAB | | | | + +---------+ + + ECG 12 lead (07/09/2018 6:06 AM PDT) + + + + + + | Component | Value | Ref Range | Performed | Pathologist | | | | | At | Signature | + + + + + + | DIAGNOSIS: | Normal sinus rhythmLow | | EXTERNAL | | | | voltage QRSIncomplete | | LAB | | | | right bundle branch | | | | | | blockBorderline ECGNo | | | | | | previous ECGs | | | | | | availableConfirmed by | | | | | | Jazmyn Skinner MD | | | | | | 111 on 07/10/2018 | | | | | | 1:47:10 PM | | | | + + + + + + + + | Specimen | + + | | + + + + + | Narrative | Performed At | + + + | Historically converted procedure from [facility] environment | EXTERNAL LAB | + + + + +---------+ + + | Performing | Address | City/State/Zipcode | Phone Number | | Organization | | | | + +---------+ + + | EXTERNAL LAB | | | | + +---------+ + + Protime INR (07/09/2018 4:16 AM PDT) + + + + + + | Component | Value | Ref Range | Performed | Pathologist | | | | | At | Signature | + + + + + + | INR | 1.0Comment: REFERENCE | | EXTERNAL | | | | RANGE:0.9 - 1.2 | | LAB | | | | NON-ANTICOAGULATED2.0 | | | | | | - 3.0 ALL OTHER | | | | | | THERAPEUTIC | | | | | | INDICATIONS2.5 - 3.5 | | | | | | MECHANICAL HEART VALVES, | | | | | | RECURRENT OR SYSTEMIC | | | | | | EMBOLISMTesting | | | | | | performed at [facility];[address] | | | | | | [address];[place], [place] | | | | | | [address] | | | | + + + + + + + + | Specimen | + + | Blood specimen | | (specimen) | + + + +---------+ + + | Performing | Address | City/State/Zipcode | Phone Number | | Organization | | | | + +---------+ + + | EXTERNAL LAB | | | | + +---------+ + + External Lab: BRIGIDA (07/09/2018 4:16 AM PDT) + + + + + + | Component | Value | Ref Range | Performed | Pathologist | | | | | At | Signature | + + + + + + | WBC | 8.43 | 3.80 - 11.00 | EXTERNAL | | | | | K/uL | LAB | | + + + + + + | RED CELL | 4.71 | 4.20 - 5.70 | EXTERNAL | | | COUNT | | M/uL | LAB | | + + + + + + | Hgb | 14.4 | 13.2 - 17.0 | EXTERNAL | | | | | g/dL | LAB | | + + + + + + | Hematocrit, | 41.4 | 39.0 - 50.0 % | EXTERNAL | | | POC | | | LAB | | + + + + + + | MCV | 87.9 | 80.0 - 100.0 fl | EXTERNAL | | | | | | LAB | | + + + + + + | MCH | 30.7 | 27.0 - 34.0 pg | EXTERNAL | | | | | | LAB | | + + + + + + | MCHC | 34.9 | 32.0 - 35.5 | EXTERNAL | | | | | g/dL | LAB | | + + + + + + | RDW-CV | 41.1 | 37 - 53 fl | EXTERNAL | | | | | | LAB | | + + + + + + | Platelet | 237 | 150 - 400 K/uL | EXTERNAL | | | Count | | | LAB | | | Plasma | | | | | + + + + + + | MPV | 9.3 | fl | EXTERNAL | | | | | | LAB | | + + + + + + | Differentia | AUTOMATED | | EXTERNAL | | | l Type | | | LAB | | + + + + + + | % Segmented | 72.20 | % | EXTERNAL | | | | | | LAB | | | Neutrophils | | | | | + + + + + + | % | 14.22 | % | EXTERNAL | | | Lymphocytes | | | LAB | | + + + + + + | % Monocytes | 9.20 | % | EXTERNAL | | | | | | LAB | | + + + + + + | % | 3.51 | % | EXTERNAL | | | Eosinophils | | | LAB | | + + + + + + | % Basophils | 0.87 | % | EXTERNAL | | | | | | LAB | | + + + + + + | Absolute | 6.09 | 1.90 - 7.40 | EXTERNAL | | | Segmented | | K/uL | LAB | | | Neutrophils | | | | | + + + + + + | Absolute | 1.20 | 1.00 - 3.90 | EXTERNAL | | | Lymphocytes | | K/uL | LAB | | + + + + + + | Absolute | 0.78 | 0.00 - 0.80 | EXTERNAL | | | Monocytes | | K/uL | LAB | | + + + + + + | Absolute | 0.30 | 0.00 - 0.50 | EXTERNAL | | | Eosinophils | | K/uL | LAB | | + + + + + + | Absolute | 0.07Comment: Testing | 0.00 - 0.10 | EXTERNAL | | | Basophils | performed at [facility], [address] | [address] | LAB | | | | [address], | | | | | | [place] [address] | | | | + + + + + + + + | Specimen | + + | Blood specimen | | (specimen) | + + + +---------+ + + | Performing | Address | City/State/Zipcode | Phone Number | | Organization | | | | + +---------+ + + | EXTERNAL LAB | | | | + +---------+ + + Phosphorus (07/09/2018 4:16 AM PDT) + + + + + + | Component | Value | Ref Range | Performed | Pathologist | | | | | At | Signature | + + + + + + | PHOSPHORUS | 3.7Comment: Testing | 2.3 - 4.8 mg/dL | EXTERNAL | | | | performed at [facility], [address] | | LAB | | | | [address], | | | | | | [place] [address] | | | | + + + + + + + + | Specimen | + + | Blood specimen | | (specimen) | + + + +---------+ + + | Performing | Address | City/State/Zipcode | Phone Number | | Organization | | | | + +---------+ + + | EXTERNAL LAB | | | | + +---------+ + + Magnesium (07/09/2018 4:16 AM PDT) + + + + + + | Component | Value | Ref Range | Performed | Pathologist | | | | | At | Signature | + + + + + + | Magnesium | 2.0Comment: Testing | 1.7 - 2.4 mg/dL | EXTERNAL | | | | performed at [facility], [address] | | LAB | | | | [facility], | | | | | | [place] [address] | | | | + + + + + + + + | Specimen | + + | Blood specimen | | (specimen) | + + + +---------+ + + | Performing | Address | City/State/Zipcode | Phone Number | | Organization | | | | + +---------+ + + | EXTERNAL LAB | | | | + +---------+ + + Hemoglobin A1C (07/09/2018 4:16 AM PDT) + + + + + + | Component | Value | Ref Range | Performed | Pathologist | | | | | At | Signature | + + + + + + | Hemoglobin | 5.5Comment: The Vietnamese | 4.0 - 6.0 % | EXTERNAL | | | A1c | Diabetes Association | | LAB | | | | considers a hemoglobin | | | | | | A1c result of <7.0% to | | | | | | be the goal of diabetic | | | | | | therapy. When results | | | | | | are consistently >8.0%, | | | | | | the ADA suggests | | | | | | reevaluation of the | | | | | | treatment regimen. The | | | | | | testing method used is | | | | | | certified traceable to | | | | | | the Diabetes Control and | | | | | | Complications Trial | | | | | | reference method. | | | | + + + + + + | Glycohemogl | 111Comment: The ADA | mg/dL | EXTERNAL | | | obin | considers an eAG result | | LAB | | | (GHb),Total | of LT 154 mg/dL to be | | | | | | the goal of diabetic | | | | | | therapy. Estimated | | | | | | Average Glucose | | | | | | calculated from | | | | | | hemoglobin A1c by use of | | | | | | the ADA recommended | | | | | | formula.Testing | | | | | | performed at [facility], [address] | | | | | | [facility], | | | | | | [place] [address] | | | | + + + + + + + + | Specimen | + + | Blood specimen | | (specimen) | + + + +---------+ + + | Performing | Address | City/State/Zipcode | Phone Number | | Organization | | | | + +---------+ + + | EXTERNAL LAB | | | | + +---------+ + + Lipid Panel (07/09/2018 4:16 AM PDT) + + + + + + | Component | Value | Ref Range | Performed | Pathologist | | | | | At | Signature | + + + + + + | Cholesterol | 106 | mg/dL | EXTERNAL | | | | | | LAB | | + + + + + + | Triglycerid | 109 | mg/dL | EXTERNAL | | | es | | | LAB | | + + + + + + | HDL | 38 (L) | mg/dL | EXTERNAL | | | | | | LAB | | + + + + + + | LDL | 46Comment: Testing | mg/dL | EXTERNAL | | | Cholesterol | performed at [facility], [address] | | LAB | | | , | [address], | | | | | Calculated, | [place] [address] | | | | | External | | | | | + + + + + + + + | Specimen | + + | Blood specimen | | (specimen) | + + + +---------+ + + | Performing | Address | City/State/Zipcode | Phone Number | | Organization | | | | + +---------+ + + | EXTERNAL LAB | | | | + +---------+ + + Basic Metabolic Panel (07/09/2018 4:16 AM PDT) + + + + + + | Component | Value | Ref Range | Performed | Pathologist | | | | | At | Signature | + + + + + + | Na | 140 | 135 - 145 | EXTERNAL | | | | | mmol/L | LAB | | + + + + + + | K | 4.3 | 3.5 - 4.9 | EXTERNAL | | | | | mmol/L | LAB | | + + + + + + | Cl | 106 | 99 - 109 mmol/L | EXTERNAL | | | | | | LAB | | + + + + + + | CO2 | 25 | 23 - 32 mmol/L | EXTERNAL | | | | | | LAB | | + + + + + + | Anion Gap | 13 | 5 - 20 mmol/L | EXTERNAL | | | | | | LAB | | + + + + + + | Glucose, | 97 | 65 - 99 mg/dL | EXTERNAL | | | Fasting | | | LAB | | + + + + + + | BUN | 21 | 8 - 25 mg/dL | EXTERNAL | | | | | | LAB | | + + + + + + | Creatinine | 0.8 | 0.70 - 1.30 | EXTERNAL | | | | | mg/dL | LAB | | + + + + + + | BUN/Creatin | 26 | | EXTERNAL | | | ine Ratio | | | LAB | | + + + + + + | Calcium | 8.5 | 8.5 - 10.5 | EXTERNAL | | | | | mg/dL | LAB | | + + + + + + | Estimated | >60Comment: GFR <60: | mL/min/1.73m2 | EXTERNAL | | | GFR | CHRONIC KIDNEY DISEASE, | | LAB | | | | IF FOUND OVER A 3 MONTH | | | | | | PERIOD.GFR <15: KIDNEY | | | | | | FAILURE.FOR | | | | | | AMERICANS, MULTIPLY THE | | | | | | CALCULATED GFR BY | | | | | | 1.210.This eGFR is | | | | | | calculated using the | | | | | | MDRD IDMS traceable | | | | | | equation.Testing | | | | | | performed at [facility], [address] | | | | | [address] [facility], | | | | | | [place] [address] | | | | + + + + + + + + | Specimen | + + | Blood specimen | | (specimen) | + + + +---------+ + + | Performing | Address | City/State/Zipcode | Phone Number | | Organization | | | | + +---------+ + + | EXTERNAL LAB | | | | + +---------+ + + PTT (07/09/2018 12:28 AM PDT) + + + + + + | Component | Value | Ref Range | Performed | Pathologist | | | | | At | Signature | + + + + + + | aPTT, | 64 (H)Comment: Testing | 23 - 32 seconds | EXTERNAL | | | Patient | performed at [facility];[address] | [address] | | | | [address];[place] | | | | | | [address] | | | | + + + + + + + + | Specimen | + + | Blood specimen | | (specimen) | + + + +---------+ + + | Performing | Address | City/State/Zipcode | Phone Number | | Organization | | | | + +---------+ + + | EXTERNAL LAB | | | | + +---------+ + + PTT (07/08/2018 6:50 PM PDT) + + + + + + | Component | Value | Ref Range | Performed | Pathologist | | | | | At | Signature | + + + + + + | aPTT, | 102 ()Comment: CALLED | 23 - 32 seconds | EXTERNAL | | | Patient | RESULTSREAD BACK RESULTS | | LAB | | | | VERIFIEDMYLIN H/ICU AT | | | | | | 1952 BY MAHTesting | | | | | | performed at [facility];[address] | | | [address];[place] | | | | | | [address] | | | | + + + + + + + + | Specimen | + + | Blood specimen | | (specimen) | + + + +---------+ + + | Performing | Address | City/State/Zipcode | Phone Number | | Organization | | | | + +---------+ + + | EXTERNAL LAB | | | | + +---------+ + + ECHO Complete (07/08/2018 2:07 PM PDT) + + | Specimen | + + | | + + + + + | Impressions | Performed At | + + + | 1. No significant valvular abnormality. 2. Overall left ventricular | | | systolic function is normal with, an EF between 60 - 65 %. 3. The | | | diastolic filling pattern indicates impaired relaxation consistent | | | with mild dysfunction (Grade I). 4. The right ventricle is normal in | | | size and function. | | + + + + + + | Narrative | Performed At | + + + | Patient Name: ROBY ORTEGA Date of : 1970 | | | Performing Physician: Jazmyn Skinner | | | | | | INDICATIONS Pre-op eval before CABG, r/o valvular | | | disease, assess EF CONCLUSIONS 1. No significant | | | valvular abnormality. 2. Overall left ventricular systolic function | | | is normal with, an EF between 60 - 65 %. 3. The diastolic filling | | | pattern indicates impaired relaxation consistent with mild dysfunction | | | (Grade I). 4. The right ventricle is normal in size and function. | | | FINDINGS -------- [no group]: No significant valvular abnormality. | | | ECG rhythm: Sinus rhythm. Study: A 2-dimensional transthoracic | | | echocardiogram with m-mode, spectral and color flow Doppler was | | | perfomed. Study: This was a technically adequate study. Left | | | Ventricle: Overall left ventricular systolic function is normal with, | | | an EF between 60 - 65 %. Left Ventricle: The left ventricle cavity | | | size is normal. Left Ventricle: Left ventricular wall thickness is | | | normal. Left Ventricle: The diastolic filling pattern indicates | | | impaired relaxation consistent with mild dysfunction (Grade I). Left | | | Ventricle: basal inferior - akinetic; Left Ventricle: basal | | | inferolateral - akinetic; Right Ventricle: The right ventricle is | | | normal in size and function. Left Atrium: The left atrial size is | | | normal. Right Atrium: The right atrial size is normal. Aortic Valve: | | | The aortic valve is trileaflet, and appears anatomically normal. No | | | aortic stenosis or regurgitation. Mitral Valve: The mitral valve is | | | normal. Mitral Valve: No mitral regurgitation. Tricuspid Valve: The | | | tricuspid valve appears structurally normal. Tricuspid Valve: Trace | | | tricuspid regurgitation present. Tricuspid Valve: Pulmonary artery | | | systolic pressure could not be assessed due to the absence of adequate | | | TR jet. Pulmonic Valve: Pulmonic valve appears structurally normal. | | | Pulmonic Valve: Trace pulmonic regurgitation. Pericardium: There | | | is no pericardial effusion. Aorta: The aortic root, ascending aorta | | | and aortic arch are normal in size. Septum: No ASD observed. Septum: | | | No VSD observed. MEASUREMENTS RA Area: 9.63 | | | cm2 Ao asc: 3.25 cm Ao sinus: 3.[address] junct: 2.88 cm | | | IVC: 1.22 cm LA Diam: 3.28 cm LVOT Diam: 1.95 cm RVIDd: | | | 2.29 cm LAESV(A-L): 42.81 ml LAESV Index (A-L): 21.84 ml/m2 | | | LAAs A2C: 14.13 cm2 LAESV A-L A2C: 34.63 ml LALs A2C: | | | 4.89 cm LAAs A4C: 17.47 cm2 LAESV A-L A4C: 48.97 ml LALs A4C: | | | 5.29 cm TAPSE: 2.24 cm HR: 64.87 BPM AV maxP.60 | | | mmHg AV meanP.09 mmHg AV Vmax: 1.37 m/s AV Vmean: 0.95 | | | m/s AV VTI: 24.27 cm LISET Vmax: 2.71 cm2 LISET (VTI): 2.72 | | | cm2 AVAI Vmax: 0.00 cm2/m2 AVAI (VTI): 0.00 cm2/m2 LVCI Dopp: | | | 2.17 l/minm2 LVCO Dopp: 4.25 l/min HR: 64.28 BPM LVOT | | | maxP.24 mmHg LVOT meanP.22 mmHg LVSI Dopp: 33.77 | | | ml/m2 LVSV Dopp: 66.19 ml LVOT Vmax: 1.24 m/s LVOT Vmean: | | | 0.84 m/s LVOT VTI: 22.12 cm MV A Uche: 0.80 m/s MV DecT: | | | 307.92 ms MV E Uche: 0.65 m/s MV E/A Ratio: 0.80 MV PHT: | | | 86.22 ms MVA By PHT: 2.55 cm2 MV A Dur: 145.57 ms Septal e': | | | 0.07 m/s Septal E/e': 8.69 Lateral e': 0.10 m/s Lateral | | | E/e': 6.40 HR: 63.12 BPM PV maxP.81 mmHg PV meanPG: | | | 1.05 mmHg PV Vmax: 0.67 m/s PV Vmean: 0.50 m/s PV VTI: | | | 14.99 cm PV maxP.72 mmHg PV Vmax: 0.82 m/s RV S': 0.12 | | | m/s Appliance Tester: Authenticated by: Jazmyn Skinner MD | | | Report Date/Time: 07-08-2018 19:55:48 | | + + + + + | Procedure Note | + + | Angel Saha Conversion - 04/26/2019 1:27 AM PDT Patient Name: Francis ORTEGA | | of : 1970 Performing Physician: Jazmyn Skinner | | INDICATIONS P | | re-op eval before CABG, r/o valvular disease, assess EF CONCLUSIONS 1. No | | significant valvular abnormality.2. Overall left ventricular systolic function is normal | | with, an EF between 60 - 65 %.3. The diastolic filling pattern indicates impaired | | relaxation consistent with mild dysfunction (Grade I).4. The right ventricle is normal | | in size and function. FINDINGS--------[no group]: No significant valvular | | abnormality.ECG rhythm: Sinus rhythm.Study: A 2-dimensional transthoracic echocardiogram | | with m-mode, spectral and color flow Doppler was perfomed.Study: This was a technically | | adequate study.Left Ventricle: Overall left ventricular systolic function is normal | | with, an EF between 60 - 65 %.Left Ventricle: The left ventricle cavity size is | | normal.Left Ventricle: Left ventricular wall thickness is normal.Left Ventricle: The | | diastolic filling pattern indicates impaired relaxation consistent with mild dysfunction | | (Grade I).Left Ventricle: basal inferior - akinetic;Left Ventricle: basal inferolateral | | - akinetic;Right Ventricle: The right ventricle is normal in size and function.Left | | Atrium: The left atrial size is normal.Right Atrium: The right atrial size is | | normal.Aortic Valve: The aortic valve is trileaflet, and appears anatomically normal. No | | aortic stenosis or regurgitation.Mitral Valve: The mitral valve is normal.Mitral Valve: | | No mitral regurgitation.Tricuspid Valve: The tricuspid valve appears structurally | | normal.Tricuspid Valve: Trace tricuspid regurgitation present.Tricuspid Valve: Pulmonary | | artery systolic pressure could not be assessed due to the absence of adequate TR | | jet.Pulmonic Valve: Pulmonic valve appears structurally normal.Pulmonic Valve: Trace | | pulmonic regurgitation.Pericardium: There is no pericardial effusion.Aorta: The aortic | | root, ascending aorta and aortic arch are normal in size.Septum: No ASD observed.Septum: | | No VSD observed. MEASUREMENTS RA Area: 9.63 cm2Ao asc: 3.25 cmAo sinus: | | 3.[address] junct: 2.88 cmIVC: 1.22 cmLA Diam: 3.28 cmLVOT Diam: 1.95 | | cmRVIDd: 2.29 cmLAESV(A-L): 42.81 mlLAESV Index (A-L): 21.84 ml/m2LAAs A2C: | | 14.13 [id number] A-L A2C: 34.63 mlLALs A2C: 4.89 cmLAAs A4C: 17.47 [id number] A-L A4C: | | 48.97 mlLALs A4C: 5.29 cmTAPSE: 2.24 cmHR: 64.87 BPMAV maxP.60 mmHgAV | | meanP.09 mmHgAV Vmax: 1.37 m/Austyn Vmean: 0.95 m/Austyn VTI: 24.27 cmAVA Vmax: | | 2.71 cm2AVA (VTI): 2.72 [id number] Vmax: 0.00 cm2/m2AVAI (VTI): 0.00 cm2/m2LVCI Dopp: | | 2.17 l/[id number] Dopp: 4.25 l/minHR: 64.28 BPMLVOT maxP.24 mmHgLVOT meanPG: | | 3.22 mmHgLVSI Dopp: 33.77 ml/m2LVSV Dopp: 66.19 mlLVOT Vmax: 1.24 m/sLVOT | | Vmean: 0.84 m/sLVOT VTI: 22.12 cmMV A Uche: 0.80 m/sMV DecT: 307.92 msMV E Uche: | | 0.65 m/sMV E/A Ratio: 0.80MV PHT: 86.22 msMVA By PHT: 2.55 cm2MV A Dur: 145.57 | | msSeptal e': 0.07 m/sSeptal E/e': 8.69Lateral e': 0.10 m/sLateral E/e': 6.40HR: | | 63.12 BPMPV maxP.81 mmHgPV meanP.05 mmHgPV Vmax: 0.67 m/sPV Vmean: | | 0.50 m/sPV VTI: 14.99 cmPV maxP.72 mmHgPV Vmax: 0.82 m/sRV S': 0.12 m/s | | Appliance Tester: Authenticated by: Jazmyn Dewey Date/Time: 07-08-2018 | | 19:55:48 IMPRESSION: 1. No significant valvular abnormality.2. Overall left ventricular | | systolic function is normal with, an EF between 60 - 65 %.3. The diastolic filling | | pattern indicates impaired relaxation consistent with mild dysfunction (Grade I).4. The | | right ventricle is normal in size and function. | |Septum: No ASD observed. | |Septum: No VSD observed. | | | |MEASUREMENTS | | | |RA Area: 9.63 cm2 | |Ao asc: 3.25 cm | |Ao sinus: 3.39 cm | |Ao st junct: 2.88 cm | |IVC: 1.22 cm | |LA Diam: 3.28 cm | |LVOT Diam: 1.95 cm | |RVIDd: 2.29 cm | |LAESV(A-L): 42.81 ml | |LAESV Index (A-L): 21.84 ml/m2 | |LAAs A2C: 14.13 cm2 | |LAESV A-L A2C: 34.63 ml | |LALs A2C: 4.89 cm | |LAAs A4C: 17.47 cm2 | |LAESV A-L A4C: 48.97 ml | |LALs A4C: 5.29 cm | |TAPSE: 2.24 cm | |HR: 64.87 BPM | |AV maxP.60 mmHg | |AV meanP.09 mmHg | |AV Vmax: 1.37 m/s | |AV Vmean: 0.95 m/s | |AV VTI: 24.27 cm | |LISET Vmax: 2.71 cm2 | |LISET (VTI): 2.72 cm2 | |AVAI Vmax: 0.00 cm2/m2 | |AVAI (VTI): 0.00 cm2/m2 | |LVCI Dopp: 2.17 l/minm2 | |LVCO Dopp: 4.25 l/min | |HR: 64.28 BPM | |LVOT maxP.24 mmHg | |LVOT meanP.22 mmHg | |LVSI Dopp: 33.77 ml/m2 | |LVSV Dopp: 66.19 ml | |LVOT Vmax: 1.24 m/s | |LVOT Vmean: 0.84 m/s | |LVOT VTI: 22.12 cm | |MV A Uche: 0.80 m/s | |MV DecT: 307.92 ms | |MV E Uche: 0.65 m/s | |MV E/A Ratio: 0.80 | |MV PHT: 86.22 ms | |MVA By PHT: 2.55 cm2 | |MV A Dur: 145.57 ms | |Septal e': 0.07 m/s | |Septal E/e': 8.69 | |Lateral e': 0.10 m/s | |Lateral E/e': 6.40 | |HR: 63.12 BPM | |PV maxP.81 mmHg | |PV meanP.05 mmHg | |PV Vmax: 0.67 m/s | |PV Vmean: 0.50 m/s | |PV VTI: 14.99 cm | |PV maxP.72 mmHg | |PV Vmax: 0.82 m/s | |RV S': 0.12 m/s | | | |Appliance Tester: | |Authenticated by: Jazmyn Skinner MD | |Report Date/Time: 07-08-2018 19:55:48 | | | |IMPRESSION: | |1. No significant valvular abnormality. | |2. Overall left ventricular systolic function is normal with, an EF between 60 - 65 %. | |3. The diastolic filling pattern indicates impaired relaxation consistent with mild dysfunc tion (Grade I). | |4. The right ventricle is normal in size and function. | + + CBC no Differential (07/08/2018 12:57 PM PDT) + + + + + + | Component | Value | Ref Range | Performed | Pathologist | | | | | At | Signature | + + + + + + | WBC | 9.13 | 3.80 - 11.00 | EXTERNAL | | | | | K/uL | LAB | | + + + + + + | RED CELL | 4.89 | 4.20 - 5.70 | EXTERNAL | | | COUNT | | M/uL | LAB | | + + + + + + | Hgb | 14.8 | 13.2 - 17.0 | EXTERNAL | | | | | g/dL | LAB | | + + + + + + | Hematocrit, | 44.0 | 39.0 - 50.0 % | EXTERNAL | | | POC | | | LAB | | + + + + + + | MCV | 90.0 | 80.0 - 100.0 fl | EXTERNAL | | | | | | LAB | | + + + + + + | MCH | 30.3 | 27.0 - 34.0 pg | EXTERNAL | | | | | | LAB | | + + + + + + | MCHC | 33.7 | 32.0 - 35.5 | EXTERNAL | | | | | g/dL | LAB | | + + + + + + | RDW-CV | 42.0 | 37 - 53 fl | EXTERNAL | | | | | | LAB | | + + + + + + | Platelet | 251 | 150 - 400 K/uL | EXTERNAL | | | Count | | | LAB | | | Plasma | | | | | + + + + + + | MPV | 8.8Comment: Testing | fl | EXTERNAL | | | | performed at [facility];[address] | | | | [address];[place], [place] | | | | | | [address] | | | | + + + + + + + + | Specimen | + + | | + + + +---------+ + + | Performing | Address | City/State/Zipcode | Phone Number | | Organization | | | | + +---------+ + + | EXTERNAL LAB | | | | + +---------+ + + PTT (07/08/2018 12:57 PM PDT) + + + + + + | Component | Value | Ref Range | Performed | Pathologist | | | | | At | Signature | + + + + + + | aPTT, | 36 (H)Comment: Testing | 23 - 32 seconds | EXTERNAL | | | Patient | performed at [facility];[address] | | [address] | | | | [address];[place] | | | | | | [address] | | | | + + + + + + + + | Specimen | + + | Blood specimen | | (specimen) | + + + +---------+ + + | Performing | Address | City/State/Zipcode | Phone Number | | Organization | | | | + +---------+ + + | EXTERNAL LAB | | | | + +---------+ + + Protime INR (07/08/2018 12:57 PM PDT) + + + + + + | Component | Value | Ref Range | Performed | Pathologist | | | | | At | Signature | + + + + + + | INR | 1.0Comment: REFERENCE | | EXTERNAL | | | | RANGE:0.9 - 1.2 | | LAB | | | | NON-ANTICOAGULATED2.0 | | | | | | - 3.0 ALL OTHER | | | | | | THERAPEUTIC | | | | | | INDICATIONS2.5 - 3.5 | | | | | | MECHANICAL HEART VALVES, | | | | | | RECURRENT OR SYSTEMIC | | | | | | EMBOLISMTesting | | | | | | performed at [facility];[address] | | | | | | [facility];[place], [place] | | | | | | [address] | | | | + + + + + + + + | Specimen | + + | Blood specimen | | (specimen) | + + + +---------+ + + | Performing | Address | City/State/Zipcode | Phone Number | | Organization | | | | + +---------+ + + | EXTERNAL LAB | | | | + +---------+ + + Troponin I (07/08/2018 10:38 AM PDT) + + + + + + | Component | Value | Ref Range | Performed | Pathologist | | | | | At | Signature | + + + + + + | Troponin I, | <0.02Comment: 0.00 to | 0.00 - 0.10 | EXTERNAL | | | Qual | 0.10 CONSISTENT WITH | ng/mL | LAB | | | | NORMAL POPULATION0.11 to | | | | | | 0.60 CONSISTENT WITH | | | | | | INCREASED RISK FOR | | | | | | ADVERSE OUTCOMES> 0.60 | | | | | | CONSISTENT | | | | | | WITH WHO CRITERIA FOR | | | | | | ACUTE NM Testing | | | | | | performed at [facility] | | | | | | [facility];[place], [place] | | | | | | [address] | | | | + + + + + + + + | Specimen | + + | Blood specimen | | (specimen) | + + + +---------+ + + | Performing | Address | City/State/Zipcode | Phone Number | | Organization | | | | + +---------+ + + | EXTERNAL LAB | | | | + +---------+ + + documented in this encounter Visit Diagnoses Not on filedocumented in this encounter
--- OUTSIDE RECORDS SUMMARY | ~2019-09-02 | XMS | Encounter Summary ---
Demographics + + + | Address | [address] | | | [place] [address] | + + + | Home Phone | | + + + | Preferred Language | Unknown | + + + | Marital Status | | + + + | Gnosticism Affiliation | 1013 | + + + | Race | Unknown | + + + | Ethnic Group | Unknown | + + + Author + + + | Author | [facility] | | | and Randalana | + + + | Organization | [facility] [...] Team Providers + +------+ + | Care Bus System Operator Name | Role | Phone | + +------+ + PCP | Unavailable | + +------+ + Encounter Details +--------+ + + + + | Date | Type | Department | Care Team | Description | +--------+ + + + + | 04/18/ | Hospital | [facility] [facility] | Charisma Underwood | | | 2012 | Encounter | [facility] | [address] | | | | | [facility] [address] | [address] [facility], | | | | | [address] [facility], | [place] [address] | | | | | [place] [address] | [phone] | | | | | [phone] | | | +--------+ + + + [...]
--- OUTSIDE RECORDS SUMMARY | ~2019-09-02 | XMS | Encounter Summary ---
Demographics + + + | Address | [address] | | | [place] [address] | + + + | Home Phone | | + + + | Preferred Language | Unknown | + + + | Marital Status | | + + + | Taoism Affiliation | 1013 | + + + | Race | Unknown | + + + | Ethnic Group | Unknown | + + + Author + + + | Author | [facility] | | | and Randalana | + + + | Organization | [facility] | | | and Randalana [...] Team Providers + +------+ + | Care Grain Grader Name | Role | Phone | + +------+ + | Mary Kraft | PCP | | | [place] | | | + +------+ + Encounter Details +--------+ + + + + | Date | Type | Department | Care Team | Description | +--------+ + + + + | 07/07/ | Hospital | [facility] | Conversion | Diagnosis unknown | | 2017 | Encounter | CONVERSION [address] | Transaction, | | | | | [address] | Provider Unknown | | | | | [place] | | | | | | [phone] | (Fax) | | | | | [phone] | | | +--------+ + + + [...] | | | | | | | 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
--- OUTSIDE RECORDS SUMMARY | ~2019-09-02 | XMS | Encounter Summary ---
Demographics + + + | Address | [address] | | | [place] [address] | + + + | Home Phone [...] | [facility] | | | and Randalana | + + + | Organization | [facility] | | | and [...] Team Providers + +------+ + | Care Leather Carver Name | Role | Phone | + [...] + + | 02/01/ | Telephone | [facility] | Peewee Baez | Gera (coupon) | | 2017 | | [address] | MD [address] | | | | | [place], | [address] [place] | | | | | [place] [address] | [place] [address] | | | | | [phone] | [phone] | | | | | | | [...]
--- OUTSIDE RECORDS SUMMARY | ~2019-09-02 | XMS | Encounter Summary ---
Demographics + + + | Address | [address] | | | [place] [address] | + + + | Home Phone | | + + + | Preferred Language | Unknown | + + + | Marital Status | | + + + | Latter-Day Affiliation | 1013 | + + + | Race | Unknown | + + + | Ethnic Group | Unknown | + + + Author + + + | Author | [facility] | | | and Randalana | + + + | Organization | [facility] | | | and Randalana [...] Team Providers + +------+ + | Care Hat Binder Name | Role | Phone | + +------+ + PCP | Unavailable | + +------+ + Encounter Details +--------+ + + + + | Date | Type | Department | Care Team | Description | +--------+ + + + + | 07/21/ | Hospital | [facility] | Zia Stafford MD | | | 1999 | Encounter | CONVERSION [address] | | | | | | [address] | | | | | | [place] | | | | | | [address] | | | | | | [phone] | | | +--------+ + + + [...]
--- OUTSIDE RECORDS SUMMARY | ~2019-09-02 | XMS | Encounter Summary ---
Demographics + + + | Address | [address] | | | [place] [address] | + + + | Home Phone | | + + + | Preferred Language | Unknown | + + + | Marital Status | | + + + | Faith Affiliation | 1013 | + + + | Race | Unknown | + + + | Ethnic Group | Unknown | + + + Author + + + | Author | [facility] | | | and Randalana | + + + | Organization | [facility] | | | and [...] Team Providers + +------+ + | Care Software Clerk Name | Role | Phone | + [...] | | | | [place] | [address] | | | | | [address] | [phone] | | | | | [phone] | | | +--------+ + + + [...]
--- OUTSIDE RECORDS SUMMARY | ~2019-09-02 | XMS | Encounter Summary ---
Demographics + + + | Address | [address] | | | [place] [address] | + + + | Home Phone | | + + + | Preferred Language | Unknown | + + + | Marital Status | | + + + | Christian Affiliation | 1013 | + + + | Race | Unknown | + + + | Ethnic Group | Unknown | + + + Author + + + | Author | [facility] | | | and Randalana | + + + | Organization | [facility] | | | and [...] Team Providers + +------+ + | Care Outcomes Specialist Name | Role | Phone | [...] | | | | | | | chest pain | | | | | | | I20.0 | | | | | | | UNSTABLE | | | | | | | ANGINA | | | +--------+--------+ + + + + Encounter Details +--------+---------+ + + + | Date | Type | Department | Care Team | Description | +--------+---------+ + + + | 07/07/ | Surgery | [facility] | Paolo Lopez MD | [facility] | | 2018 | | MED CTR [facility] | [address] | | | | | [address] | [place] | | | | | [place] | [id number] | | | | | [address] | | | | | | [phone] | | | +--------+---------+ + + + [...] + + + | Blood Pressure | 107/73 | 07/08/2018 7:46 AM | | | | | PDT | | + + + + + | Pulse | 65 | 07/08/2018 7:46 AM | | | | | PDT | | + + + + + | Temperature | 36.1 C (97 F) | 07/08/2018 7:46 AM | | | | | PDT | | + + + + + | Respiratory Rate | 15 | 07/08/2018 7:46 AM | | | | | PDT | | + + + + + | Oxygen Saturation | 98% | 07/08/2018 7:46 AM | | | | | PDT | | + + + + + | Inhaled Oxygen | - | - | | | Concentration | | | | + + + + + | Weight | 87.8 kg (193 lb 9 | 07/08/2018 3:52 AM | | | | oz) | PDT | | + + + + + | Height | - | - | | + + + + + | Body Mass Index | 30.32 | 07/07/2018 9:01 AM | | | | | PDT [...] documented as of this encounter Discharge Summaries Paolo Lopez MD - 07/07/2018 4:26 PM PDT Physician Discharge Summary Patient ID: Roby Goodman [id number] 48 y.o. 1970 Admit date: 07/07/2018 Discharge date and time: No discharge date for patient encounter. Admitting Physician: Paolo Lopez MD Discharge Physician: SAME Admission Diagnoses: chest pain Discharge Diagnoses: LMCA STENOSIS Admission Condition: good Discharged Condition: good Indication for Admission: UNSTABLE ANGINA Hospital Course: Patient is hospitalized with unstable angina. Cardiac catheterization sh owed no in-stent restenosis of the LAD stent. However there was proximal left main coronary artery disease. There is also total occlusion of diagonal 1 and mild to moderate disease o f the left PDA. The right coronary is nondominant high-grade proximal lesion. Patient is f elt to warrant coronary bypass surgery and arrangements were made. Consults: none Significant Diagnostic Studies: Cardiac catheterizatio Discharge Exam: BP 120/75 | Pulse 67 | Temp 36 C (96.8 F) (Oral) | Resp 14 | Wt 87.1 kg (192 lb 0.3 oz) | SpO2 97% | BMI 30.07 kg/m General Appearance: Alert, cooperative, no distress, appears stated age Head: Normocephalic, without obvious abnormality, atraumatic Eyes: PERRL, conjunctiva/corneas clear, EOM's intact, fundi benign, both eyes Ears: Normal TM's and external ear canals, both ears Nose: Nares normal, septum midline, mucosa normal, no drainage or sinus tenderness Throat: Lips, mucosa, and tongue normal; teeth and gums normal Neck: Supple, symmetrical, trachea midline, no adenopathy; thyroid: No enlargement/tenderness/nodules; no carotid bruit or JVD Back: Symmetric, no curvature, ROM normal, no CVA tenderness Lungs: Clear to auscultation bilaterally, respirations unlabored Chest wall: No tenderness or deformity Heart: Regular rate and rhythm, S1 and S2 normal, no murmur, rub or gallop Abdomen: Soft, non-tender, bowel sounds active all four quadrants, no masses, no organomegaly Genitalia: Normal male without lesion, discharge or tenderness Rectal: Normal tone, normal prostate, no masses or tenderness; guaiac negative stool Extremities: Extremities normal, atraumatic, no cyanosis or edema Pulses: 2+ and symmetric all extremities Skin: Skin color, texture, turgor normal, no rashes or lesions Lymph nodes: Cervical, supraclavicular, and axillary nodes normal Neurologic: CNII-XII intact. Normal strength, sensation and reflexes Throughout All Component Based Labs 07/07/18 1210 07/07/18 1204 07/07/18 1101 ANION GAP 8 BUN 16 BUN/CREA 18.4 Calcium 9.3 Chloride 106 Carbon dioxide 22(L) Creatinine 0.87 EGFR IF NOT >60 Comment: GLOMERULAR FILTRATION RATE,ESTIMATED mL/min/1.73m2 Less than 60 Chronic kidney disease,if found over a 3-month period. Less than 15 Kidney failure For Americans,multiply the calculated GFR by 1.21. INTERPRETATION TEXT Not Confirmed GLUCOSE 100 Hct, Final 41.6 Hgb 13.8 INR 0.9 Comment: Usual Oral Anticoagulation Range: 2.0 - 3.0 High Level Oral Anticoagulation Range: 2.5 - 3.5 K 4.2 LVEF-LVGRAM CARDIAC CATH 55 MCH 29.5 MCHC 33.2 MCV 88.9 MPV 10.5 NA 136 NRBC 0 NRBC ABS 0.00 Platelet Count 277 Protime 12.2 RBC COUNT 4.68 RDW-CV 12.6 RDW-SD 41.0 WBC 9.3 Disposition: [facility] Patient Instructions: Discharge Medications Unchanged Medications Details acetaminophen 500 mg tablet Take 500 mg by mouth every 6 hours as needed for Pain or Headaches. aka: TYLENOL aspirin 81 mg chewable tablet Take 1 tablet by mouth Daily. atorvaSTATin 80 MG tablet Take 1 tablet by mouth nightly. aka: LIPITOR lisinopril 10 mg tablet Take 1 tablet by mouth Daily. aka: PRINIVIL, ZESTRIL nitroglycerin 0.[address] 1 tablet under the tongue every 5 minutes as needed for Chest pain. aka: NITROSTAT Discontinued Medications ticagrelor 90 mg tablet aka: BRILINTA Activity: bedrest Diet: regular diet Wound Care: RADIAL ACCESS CARE Follow-up with [facility] after surgery after surgery. Signed: Paolo Lopez MD 07/07/2018 16:26 documented in this enco unter Medications at Time of Discharge + + [...] | | | | | | | [place] coronary | | | | | | | artery of [place] | | | | | | | [...] | | | | | | | [place] coronary | | | | | | | artery of [place] | | | | | | | heart with angina | | | | | | | pectoris ([facility]) | | | | | | + [...] | | | | | | | [place] coronary | | | | | | | artery of [place] | | | | | | | heart with angina | | | | | | | pectoris ([facility]) | | | | | | + [...] encounter Progress Notes Paolo Lopez MD - 07/08/2018 11:56 AM PDT Hospital Day: 2 DATE/TIME: 07/08/2018 11:56 48 y.o. year old male hospitalized with Unstable angina (HCC) which is rapidly worsening. C ath shows new lmca lesion. No pain overnight. Now ready for transferl OBJECTIVE: Temp: 36.1 C (97 F) BP: 107/73 Pulse: 65 Resp: 15 SpO2: 98 % on Min/Max Temp past 24 hours:Temp Av.2 C (97.2 F) Min: 36 C (96.8 F) Max: 36. 5 C (97.7 F) Intake/Output Summary (Last 24 hours) at 07/08/18 1156 Last data filed at 07/07/18 2338 Gross per 24 hour Intake 1138 ml Output 0 ml Net 1138 ml Wt. Admission: Weight: 87.1 kg (192 lb 0.3 oz) Wt. Current: Weight: 87.8 kg (193 lb 9 o z) General: alert, appears stated age and cooperative Heart: Regular rate and rhythm Lungs: clear Abdomen: abdomen is soft without significant tenderness, masses, organomegaly or guarding Recent Results (from the past 24 hour(s)) ECG 12 lead Result Value Ref Range VENTRICULAR RATE EKG 62 BPM ATRIAL RATE 62 BPM P-R INTERVAL 186 ms QRS DURATION 102 ms Q-T INTERVAL 422 ms Q-T INTERVAL (CORRECTED) 428 ms P WAVE AXIS 26 degrees QRS AXIS -6 degrees T AXIS 26 degrees INTERPRETATION TEXT Normal sinus rhythm Low voltage QRS Nonspecific ST abnormality Lateral leads versus artifact Borderline ECG When compared with ECG of 05-JAN-2018 00:07, Criteria for Septal infarct are no longer present T wave inversion no longer evident in Anterior leads ST elevation is no longer present in V2-3 T waves are now upright in aVL T wave amplitude has decreased in Inferior leads Confirmed by PREETHI BARAJAS MD ([id number]) on 07/08/2018 7:43:54 AM CV Cardiac Procedure Result Value Ref Range LVEF-LVGRAM CARDIAC CATH 55 % No results found. ASSESSMENT AND PLAN: 1. New lmca lesion. No angina. Fro Cabg after Brilanta wears off. SUBJECTIVE/ROS: Roby Goodman is now Hospital Day: 2 for Unstable angina (HCC). Pain is adequately c ontrolled. Patient is passing flatus. He does not complain of nausea. Last bowel moveme nt was today. Currently tolerating a cardiac diet. Electronically Signed by: Paolo Lopez MD, 07/08/2018 11:56 [facility] cNataliya Roman RN - 07/08/2018 9:23 AM PDTReport called to [facility] at [facility]. Paolo Peter MD - 07/07/2018 5 :52 PM PDTCV surgeon stil in OR. Pt is painfree. Will start Lovenox and anticipate transfer tomorrow. documented in this enco unter Plan of Treatment Not on filedocumented as of this encounter Procedures + +--------+ + + + | Procedure Name | Priori | Date/Time | Associated Diagnosis | Comments | | | ty | | | | + +--------+ + + + | CV LV | Routin | 07/07/2018 | | Results for this | | | e | 1:51 PM | | procedure are in the | | | | PDT | | results section. | + +--------+ + + + | CV LHC | Routin | 07/07/2018 | | Results for this | | | e | 1:51 PM | | procedure are in the | | | | PDT | | results section. | + +--------+ + + + | CV COR ANGIO | Routin | 07/07/2018 | | Results for this | | | e | 1:51 PM | | procedure are in the | | | | PDT | | results section. | + +--------+ + + + | ECG 12 LEAD | Routin | 07/07/2018 | | Results for this | | | e | 12:04 PM | | procedure are in the | | | | PDT | | results section. | + +--------+ + + + | PROTIME INR | Routin | 07/07/2018 | | Results for this | | | e | 11:01 AM | | procedure are in the | | | | PDT | | results section. | + +--------+ + + + | CBC NO DIFFERENTIAL | Routin | 07/07/2018 | | Results for this | | | e | 11:01 AM | | procedure are in the | | | | PDT | | results section. | + +--------+ + + + | BASIC METABOLIC | Routin | 07/07/2018 | | Results for this | | PANEL | e | 11:01 AM | | procedure are in the | | | | PDT | | results section. | + +--------+ + + + | CULTURE, MRSA | Routin | 07/07/2018 | | Results for this | | | e | 10:17 AM | | procedure are in the | | | | PDT | | results section. | + +--------+ + + + documented in this encounter Results CV CARDIAC PROCEDURE (07/07/2018 1:51 PM PDT) + +-------+ + + + | Component | Value | Ref Range | Performed | Pathologist | | | | | At | Signature | + +-------+ + + + | LVEF-LVGRAM | 55 | % | [facility] | | | CARDIAC | | | | | | CATH | | | | | + +-------+ + + + + + | Specimen | + + | | + + + + + | Narrative | Performed At | + + + | This is a | [facility] | | 48-year-old gentleman who had an anterior myocardial infarction with | | | complete occlusion LAD 01/03/2018. Patient was stented using a 4.0 by | | | 33 and a 3.5 x 6 Alvarez stent.. Recently patient has developed | | | exertional chest pains and now has had chest pains at rest and with | | | minimal activity. He takes over for nitroglycerin daily. Patient | | | brought the cardiac catheterization lab and radial approach was used. | | | The right coronary artery was nondominant with a proximal high-grade | | | lesion as previously demonstrated. There was a new distal left main | | | lesion of 90% plus with good flow into the LAD and circumflex. | | | There is no evidence of in-stent restenosis of the LAD stent. | | | Because the patient had chest pains on transferring to the table, | | | angiograms were limited and it is not clear there is ostial disease of | | | the circumflex. There is a mild lesion in the left PDA unchanged | | | from prior. Left ventriculogram showed normal LV function. LVEDP was | | | elevated to 30. KEEGAN was large. Patient is to be considered for | | | coronary bypass surgery for his left main coronary artery disease.. | | | As surgery, they should be attention to the possibility of bypassing | | | the totally occluded D1. Patient has been on polenta which may delay | | | his surgery. However given his pain at rest and minimal activity, he | | | will be transferred urgently to facility where CT surgery is readily | | | available. For additional detail as to the procedures performed and | | | the equipment that was utilized, please refer to the Procedure Log. | | | | | |facility where CT surgery is readily available. | | | | | | | | | | | |For additional detail as to the procedures performed and the equipment | | |that was utilized, please refer to the Procedure Log. | | | | | | | [...] + +---------+ + + ECG 12 lead (07/07/2018 12:04 PM PDT) + + + + + + | Component | Value | Ref Range | Performed | Pathologist | | | | | At | Signature | + + + + + + | VENTRICULAR | 62 | BPM | [facility] | | | RATE EKG | | | | | + + + + + + | ATRIAL RATE | 62 | BPM | [facility] | | + + + + + + | P-R | 186 | ms | [facility] | | | INTERVAL | | | | | + + + + + + | QRS | 102 | ms | [facility] | | | DURATION | | | | | + + + + + + | Q-T | 422 | ms | [facility] | | | INTERVAL | | | | | + + + + + + | Q-T | 428 | ms | [facility] | | | INTERVAL | | | | | | (CORRECTED) | | | | | + + + + + + | P WAVE AXIS | 26 | degrees | [facility] | | + + + + + + | QRS AXIS | -6 | degrees | [facility] | | + + + + + + | T AXIS | 26 | degrees | [facility] | | + + + + + + | INTERPRETAT | Normal sinus rhythmLow | | [facility] | | | ION TEXT | voltage QRSNonspecific | | | | | | ST abnormality Lateral | | | | | | leads versus | | | | | | artifactBorderline | | | | | | ECGWhen compared with | | | | | | ECG of 05-JAN-2018 | | | | | | 00:07,Criteria for | | | | | | Septal infarct are no | | | | | | longer presentT wave | | | | | | inversion no longer | | | | | | evident in Anterior | | | | | | leadsST elevation is no | | | | | | longer present in V2-3T | | | | | | waves are now upright in | | | | | | aVLT wave amplitude has | | | | | | decreased in Inferior | | | | | | leadsConfirmed by | | | | | | JENN MARIANO, PREETHI ([id number]) | | | | | | on 07/08/2018 7:43:54 AM | | | | | | | [...] + +---------+ + + CBC no Differential (07/07/2018 11:01 AM PDT) + +-------+ + + + | Component | Value | Ref Range | Performed | Pathologist | | | | | At | Signature | + +-------+ + + + | WBC | 9.3 | 4.0 - 11.0 K/uL | [facility] | | | | | | [facility] | | | | | | [facility] | | | | | | [facility] - | | | | | | LABORATORY | | + +-------+ + + + | RBC | 4.68 | 4.30 - 5.70 | [facility] | | | | | M/uL | [facility] | | | | | | [facility] | | | | | | C[facility] - | | | | | | LABORATORY | | + +-------+ + + + | Hemoglobin | 13.8 | 13.5 - 18.0 | [facility] | | | | | g/dL | [facility] | | | | | | [facility] | | | | | | CENTER - | | | | | | LABORATORY | | + +-------+ + + + | Hematocrit | 41.6 | 40.0 - 51.0 % | [facility] | | | | | | [facility] | | | | | | [facility] | | | | | | C[facility] - | | | | | | LABORATORY | | + +-------+ + + + | MCV | 88.9 | 83.0 - 101.0 fL | [facility] | | | | | | [facility] | | | | | | [facility] | | | | | | [facility] - | | | | | | LABORATORY | | + +-------+ + + + | MCH | 29.5 | 28.0 - 35.0 pg | [facility] | | | | | | [facility] | | | | | | [facility] | | | | | | [facility] - | | | | | | LABORATORY | | + +-------+ + + + | MCHC | 33.2 | 32.0 - 36.0 | [facility] | | | | | g/dL | [facility] | | | | | | [facility] | | | | | | CENTER - | | | | | | LABORATORY | | + +-------+ + + + | RDW-CV | 12.6 | <15.0 % | [facility] | | | | | | [facility] | | | | | | [facility] | | | | | | C[facility] - | | | | | | LABORATORY | | + +-------+ + + + | RDW-SD | 41.0 | 35.1 - 46.3 fL | [facility] | | | | | | [facility] | | | | | | [facility] | | | | | | [facility] - | | | | | | LABORATORY | | + +-------+ + + + | Platelet | 277 | 140 - 440 K/uL | [facility] | | | Count | | | [facility] | | | | | | [facility] | | | | | | CENTER - | | | | | | LABORATORY | | + +-------+ + + + | MPV | 10.5 | 6.5 - 12.4 fL | [facility] | | | | | | [facility] | | | | | | [facility] | | | | | | [facility] - | | | | | | LABORATORY | | + +-------+ + + + | % nRBC | 0 | 0 - 2 per 100 | [facility] | | | | | WBC's | [facility] | | | | | | [facility] | | | | | | CENTER - | | | | | | LABORATORY | | + +-------+ + + + | Absolute | 0.00 | 0.00 - 0.01 | [facility] | | | nRBC | | K/uL | [facility] | | | | [...] + + | [facility] | [address] | [place] | [phone] | | [facility] | | [address] | | | - LABORATORY | | | | + + + + + Protime INR (07/07/2018 11:01 AM PDT) + + + + + + | Component | Value | Ref Range | Performed | Pathologist | | | | | At | Signature | + + + + + + | Prothrombin | 12.2 | 11.3 - 13.9 | [facility] | | | Time | | seconds | [facility] | | | | | | [facility] | | | | | | C[facility] - | | | | | | LABORATORY | | + + + + + + | INR | 0.9Comment: Usual Oral | 0.9 - 1.1 | [facility] | | | | Anticoagulation Range: | | [facility] | | | | 2.0 - 3.0High | | MEDICAL | | | | Level Oral | | CENTER - | | | | Anticoagulation Range: | | LABORATORY | | | | 2.5 - 3.5 | | | | + + + + + + + + | Specimen | + + | Blood | + + + + + + + | Performing | Address | City/State/Zipcode | Phone Number | | Organization | | | | + + + + + | [facility] | [address] | [place] | [phone] | | [facility] | | [address] | | | - LABORATORY | | | | + + + + + Basic Metabolic Panel (07/07/2018 11:01 AM PDT) + + + + + + | Component | Value | Ref Range | Performed | Pathologist | | | | | At | Signature | + + + + + + | Na | 136 | 136 - 149 | [facility] | | | | | mmol/L | [facility] | | | | | | [facility] | | | | | | CENTER - | | | | | | LABORATORY | | + + + + + + | K | 4.2 | 3.5 - 5.1 | [facility] | | | | | mmol/L | [facility] | | | | | | [facility] | | | | | | CENTER - | | | | | | LABORATORY | | + + + + + + | Cl | 106 | 98 - 109 mmol/L | [facility] | | | | | | [facility] | | | | | | [facility] | | | | | | CENTER - | | | | | | LABORATORY | | + + + + + + | CO2 | 22 (L) | 24 - 31 mmol/L | [facility] | | | | | | [facility] | | | | | | [facility] | | | | | | CENTER - | | | | | | LABORATORY | | + + + + + + | Anion Gap | 8 | 3 - 16 mmol/L | [facility] | | | | | | [facility] | | | | | | [facility] | | | | | | CENTER - | | | | | | LABORATORY | | + + + + + + | Glucose | 100 | 70 - 109 mg/dL | [facility] | | | | | | [facility] | | | | | | [facility] | | | | | | CENTER - | | | | | | LABORATORY | | + + + + + + | BUN | 16 | 7 - 18 mg/dL | [facility] | | | | | | [facility] | | | | | | [facility] | | | | | | CENTER - | | | | | | LABORATORY | | + + + + + + | Creatinine | 0.87 | 0.60 - 1.30 | [facility] | | | | | mg/dL | [facility] | | | | | | MEDICAL | | | | | | CENTER - | | | | | | LABORATORY | | + + + + + + | eGFR if not | >60Comment: GLOMERULAR | >=60 | [facility] | | | | FILTRATION | mL/min/1.73m2 | [facility] | | | ARGENTINE | RATE,ESTIMATED | | MEDICAL | | | | mL/min/1.98y5Fzow than | | CENTER - | | | | 60 Chronic kidney | | LABORATORY | | | | disease,if found over a | | | | | | 3-month period.Less than | | | | | | 15 Kidney failureFor | | | | | | | | | | | | Americans,multiply the | | | | | | calculated GFR by 1.21. | | | | | | | | | | + + + + + + | Calcium | 9.3 | 8.3 - 10.5 | [facility] | | | | | mg/dL | [facility] | | | | | | MEDICAL | | | | | | CENTER - | | | | | | LABORATORY | | + + + + + + | BUN/Creatin | 18.4 | | [facility] | | | ine Ratio | | | [facility] | | | | | | [...] + + | [facility] | [address] | [place] | [phone] | | [facility] | | [address] | | | - LABORATORY | | | | + + + + + Culture, MRSA (07/07/2018 10:17 AM PDT) + + + + + + | Component | Value | Ref Range | Performed | Pathologist | | | | | At | Signature | + + + + + + | Culture | Negative for MRSA by | | [facility] | | | | chromogenic agar method | | [facility] | | | | | | MEDICAL | | | | | | CENTER - | | | | | | LABORATORY | | + + + + + + + + | Specimen | + + | Tissue - Both | | anterior nares (body | | structure) | + + + + + + + | Performing | Address | City/State/Zipcode | Phone Number | | Organization | | | | + + + + + | [facility] | [address] | [place] | [phone] | | [facility] | | [address] | | | - LABORATORY | | | | + + + + + documented in this encounter Visit Diagnoses + + | Diagnosis | + + | Unstable angina (HCC) Intermediate coronary syndrome | + + documented in this encounter Administered Medications + +--------+ +-------+------+------+ | Medication Order | MAR | Action | Dose | Rate | Site | | | Action | Date | | | | + +--------+ +-------+------+------+ | atorvaSTATin (LIPITOR) tablet | Given | 07/07/20 | 80 mg | | | | 80 mg 80 mg, Oral, NIGHTLY, | | 18 8:22 | | | | | First dose on Wed07/07/18 at | | PM PDT | | | | | 2100 | | | | | | + +--------+ +-------+------+------+ +---+---+ | | | +---+---+ + +-------+ +-------+---+ + | enoxaparin (LOVENOX) 80 mg/0.8 | Given | 07/08/20 | 80 mg | | Abdomen- | | mL injection 80 mg 80 mg | | 18 8:24 | | | LUQ | | (rounded from 87.1 mg = 1 mg/kg | | AM PDT | | | | | | | | | | | | 87.1 kg), Subcutaneous, EVERY 12 | | | | | | | HOURS (2 times per day), First | | | | | | | dose on [facility] 07/07/18 at 2100 | | | | | | + +-------+ +-------+---+ + +-------+ +-------+---+ + | Given | 07/07/20 | 80 mg | | Abdomen- | | | 18 8:22 | | | RLQ | | | PM PDT | | | | +-------+ +-------+---+ + +---+---+ | | | +---+---+ + +-------+ +--------+---+---+ | fentaNYL (PF) injection ONCE | Given | 07/07/20 | 50 mcg | | | | PRN, Starting [facility] 07/07/18 at | | 18 1:36 | | | | | 1308, Intra-op | | PM PDT | | | | + +-------+ +--------+---+---+ +-------+ +--------+---+---+ | Given | 07/07/20 | 50 mcg | | | | | 18 1:08 | | | | | | PM PDT | | | | +-------+ +--------+---+---+ +---+---+ | | | +---+---+ + +-------+ +--------+---+---+ | heparin 1,000 units/mL | Given | 07/07/20 | 5,000 | | | | injection ONCE PRN, Starting June | | 18 1:30 | Units | | | | 07/07/18 at 1330, Intra-op | | PM PDT | | | | + +-------+ +--------+---+---+ +---+---+ | | | +---+---+ + +-------+ +--------+---+---+ | iohexol (OMNIPAQUE 350) 350 | Given | 07/07/20 | 50 mLs | | | | mg/mL injection ONCE PRN, | | 18 1:52 | | | | | Starting June 07/07/18 at 1352, | | PM PDT | | | | | Intra-op | | | | | | + +-------+ +--------+---+---+ +---+---+ | | | +---+---+ + +-------+ +-------+---+ + | lidocaine buffered 0.9% | Given | 07/07/20 | 2 mLs | | Surgical | | injection ONCE PRN, Starting June | | 18 1:27 | | | Site | | 07/07/18 at 1327, Intra-op | | PM PDT | | | | + +-------+ +-------+---+ + +---+---+ | | | +---+---+ + +-------+ +-------+---+---+ | lisinopril (PRINIVIL, ZESTRIL) | Given | 07/08/20 | 10 mg | | | | tablet 10 mg 10 mg, Oral, DAILY, | | 18 8:24 | | | | | First dose on Wed07/07/18 at | | AM PDT | | | | | 1515 | | | | | | + +-------+ +-------+---+---+ +-------+ +-------+---+---+ | Given | 10/25/20 | 10 mg | | | | | 18 3:23 | | | | | | PM PDT | | | | +-------+ +-------+---+---+ +---+---+ | | | +---+---+ + +-------+ +------+---+---+ | midazolam (VERSED) 1 mg/mL | Given | 07/07/20 | 1 mg | | | | injection ONCE PRN, Starting June | | 18 1:29 | | | | | 18 at 1308, Intra-op | | PM PDT | | | | + +-------+ +------+---+---+ +-------+ +------+---+---+ | Given | 07/07/20 | 1 mg | | | | | 18 1:25 | | | | | | PM PDT | | | | +-------+ +------+---+---+ | Given | 07/07/20 | 1 mg | | | | | 18 1:17 | | | | | | PM PDT | | | | +-------+ +------+---+---+ +---+---+ | | | +---+---+ + +-------+ +---------+---+---+ | nitroglycerin 100 mcg/mL | Given | 07/07/20 | 300 mcg | | | | syringe ONCE PRN, Starting June | | 18 1:30 | | | | | 07/07/18 at 1330, Intra-op | | PM PDT | | | | + +-------+ +---------+---+---+ +---+---+ | | | +---+---+ + +---------+ +---+-------+---+ | sodium chloride 0.9% (NS) | New Bag | 07/07/20 | | 125 | | | infusion at 125 mL/hr, | | 18 12:45 | | mL/hr | | | Intravenous, CONTINUOUS, Starting | | PM PDT | | | | | June 07/07/18 at 1100, Pre-op | | | | | | + +---------+ +---+-------+---+ +---+---+ | | | +---+---+ + +-------+ +--------+---+---+ | verapamil injection ONCE PRN, | Given | 07/07/20 | 2.5 mg | | | | Starting June 07/07/18 at 1330, | | 18 1:30 | | | | | Intra-op | | PM PDT | | | | + +-------+ +--------+---+---+ +---+---+ | | | +---+---+ documented in this encounter"
--- OUTSIDE RECORDS SUMMARY | ~2019-09-02 | XMS | Encounter Summary ---
Demographics + + + | Address | [address] | | | [place] [address] | + + + | Home Phone [...] Author | [facility] | | | and Randalana | + + + | Organization | [facility] | | | and Randalana [...] Providers + +------+ + | Care Supervisor Fabrication Name | Role | Phone | + +------+ + | Mary Kraft | PCP | | | PA | | | + +------+ + Reason for Visit + + + | Reason | Comments | + + + | Follow-up | | + + + Evaluate & [...] | | | | descending | [place] [address] | [address] Phone: | | | | | coronary | Phone: | [phone] | | | | | artery (HCC) | [phone] | Fax: | | | | | Acute | Fax: | [phone] | | | | | myocardial | [phone] | | | | | | infarction [...] +--------+---------+ + + + | 07/07/ | Office | [facility] | Paolo Lopez MD | Unstable angina | | 2018 | Visit | CARDIOLOGY [address] | pectoris (HCC) | | | | [place], | [place] | (Primary Dx) | | | | [place] [address] | [address] | | | | | [phone] | | | +--------+---------+ + + + [...] + + + | Blood Pressure | 115/80 | 07/07/2018 9:01 AM | | | | | PDT | | + + + + + | Pulse | 74 | 07/07/2018 9:01 AM | | | | | PDT | | + + + + + | Temperature | - | - | | + + + + + | Respiratory Rate | 14 | 07/07/2018 9:01 AM | | | | | PDT | | + + + + + | Oxygen Saturation | - | - | | + + + + + | Inhaled Oxygen | - | - | | | Concentration | | | | + + + + + | Weight | 87 kg (191 lb 12.8 | 07/07/2018 9:01 AM | | | | oz) | PDT | | + + + + + | Height | 170.2 cm (5' 7") | 07/07/2018 9:01 AM | | | | | PDT | | + + + + + | Body Mass Index | 30.04 | 07/07/2018 9:01 AM | | | [...] encounter Progress Notes Paolo Lopez MD - 07/07/2018 9:15 AM PDT PATIENT NAME: Roby Goodman : 1970: AGE: 48 y.o. PRIMARY CARE: BONITA Lozano CORONARY DISEASE FOLLOW UP VISIT Date of Service: 07/07/18 PROBLEMS ADDRESSED AT THIS VISIT: Unstable angina. HISTORY OF PRESENT ILLNESS: Roby Goodman is a 48 y.o. male who was last seen 02/08/2018 at which time he had core g Discontinued.. Since then, has had progressive angina with cp requiring ntg 4 x/day. Had anterior Mi 01/2018 with proximally occlued lad. Stented with onon dominant rca lesion and d iatal cx pda lesion. Stents: Date: Xience 4.0 x 33 and 3.5 x 6 Stress tests Date: 03/08/2018 He exercised 9 minutes, 38 seconds of a standard Laci Protocol without chest pain. 1.[address] depression occurred at peak exercise and resolved in less than 1 minute. N o arrhythmias other than a few isolated PVCs in recovery occurred. Treadmill score is 2, moderate risk. Impression: Mildly abnormal exercise ECG with upsloping ST depression at peak exercise wit hout symptoms and resolving in less than 1 minute. Increased probability of "false positive " study. Average exercise tolerance. Intermediate risk study based on Jaime Treadmill score. ECHO 01/04/2018 Summary 1. Normal left ventricular size and wall thickness. There is a segmental wall motion abnormality with mild hypokinesis of the mid and distal anterior wall. Overall, left ventricular systolic function is low-normal. LVEF is 50-55%. 2. Mildly thickened mitral valve with the trace mitral valve regurgitation. 3. Normal right-sided pressure. 4. Mildly dilated IVC with a partial collapse suggesting mild fluid retention. Records reviewed from [facility] for hospitalization,including H&P, Disch arge Summary and lab reports . MEDICAL, SURGICAL, AND PERSONAL HISTORY Past Medical, Surgical, Family, and Social History are reviewed in EPIC. 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 aspirin 81 mg chewable tablet Take 1 tablet by mouth Daily. 30 tablet atorvaSTATin (LIPITOR) 80 MG tablet Take 1 tablet by mouth nightly. 30 tablet 11 lisinopril (PRINIVIL, ZESTRIL) 10 mg tablet Take 1 tablet by mouth Daily. 30 tablet 11 nitroglycerin (NITROSTAT) 0.[address] 1 tablet under the tongue every 5 radha perfecto as needed for Chest pain. 25 tablet 5 ticagrelor (BRILINTA) 90 mg tablet Take 1 tablet by mouth 2 times daily. 60 tablet 5 No current facility-administered medications for this visit. ALLERGIES Allergies Allergen Reactions Penicillins SLIGHT REACTION ROS Pertinent changes since last note: NONE OBJECTIVE: PHYSICAL EXAM BP 115/80 | Pulse 74 | Resp 14 | Ht 1.702 m (5' 7") | Wt 87 kg (191 lb 12.8 oz) | BMI 30.04 kg/m General: NAD HEENT: djvd 8 Chest: clear CV: No s1s2 Abd: Soft and no masses Ext: Pulses intact Neuro: Normal ASSESSMENT: Ustable and rest angina PLAN: Admit for cath and possible pci Electronically signed by: Paolo Lopez MD Portions of this chart may have been created with [employer] voice recognition software. Occasi onal wrong-word or sound-alike substitutions may have occurred due to the inherent corbin itations of voice recognition software. Please read the chart carefully and recognize, using context, where these substitutions have occurred. documented in this enco unter Plan of Treatment Not on filedocumented as of this encounter Visit Diagnoses + + | Diagnosis | + + | Unstable angina pectoris (HCC) - Primary Intermediate coronary syndrome | + + documented in this encounter
--- OUTSIDE RECORDS SUMMARY | ~2019-09-02 | XMS | Clinical Summary ---
Demographics + + + | Address | [address] | | | [place] [address] | + + + | Home Phone | | + + + | Preferred Language | Unknown | + + + | Marital Status | Unknown | + + + | Jewish Affiliation | Unknown | + + + | Race | Unknown | + + + | Ethnic Group | Unknown | + + + Author + + + | Author | [facility] [employer] (Historical as of | | | 04-29-19) | + + + | Organization | [facility] (Historical as of | | | 04-29-19) | + + + | Address | [...] | | + + +---------+ + | Camille Ness | ECON | Unknown | | + + +---------+ + Care Team Providers + +------+ + | Care Fuel Quality Tech Name | Role | Phone | + +------+ + | Mary Kraft | PP | | + +------+ + Allergies + + + + + + | Active Allergy | Reactions | Severity | Noted | Comments | | | | | Date | | + + + + + + | Penicillins | Hives | High | 07/08/20 | Hives with itching | | | | | 18 | and blisters | + + + + + + Current Medications + + +--------+---------+------+------+-------+ | Prescription | Sig. | Disp. | Refills | Star | End | Statu | | | | | | t | Date | s | | | | | | Date | | | + + +--------+---------+------+------+-------+ | aspirin 81 MG | Take 81 mg by mouth | | | | | Activ | | tablet | daily. | | | | | e | + + +--------+---------+------+------+-------+ | atorvastatin | Take 80 mg by mouth | | | | | Activ | | (LIPITOR) 80 MG | nightly. | | | | | e | | tablet | | | | | | | + + +--------+---------+------+------+-------+ | clopidogrel | Take 1 tablet by | 30 | 1 | 11/0 | | Activ | | (PLAVIX) 75 MG | mouth daily. | tablet | | 4/20 | | e | | tablet | | | | 18 | | | + + +--------+---------+------+------+-------+ | | Take 1 tablet by | 90 | 0 | 11/0 | | Activ | | HYDROcodone-acetamin | mouth every 4 (four) | tablet | | 4/20 | | e | | ophen (NORCO) 5-325 | hours as needed for | | | 18 | | | | MG per tablet | Pain. | | | | | | + + +--------+---------+------+------+-------+ | metoprolol | Take 1 tablet by | 60 | 1 | 11/0 | | Activ | | (LOPRESSOR) 25 MG | mouth 2 (two) times | tablet | | 12/31 | | e | | tablet | daily. | | | 18 | | | + + +--------+---------+------+------+-------+ Active Problems + + + | Problem | Noted Date | + + + | Atherosclerosis of [place] coronary artery | 07/08/2018 | + + + | Chest pain | 07/08/2018 | + + + | Benign essential hypertension | 07/08/2018 | + + + | Hyperlipidemia | 07/08/2018 | + + + Immunizations + + + + | Name | Dates Previously Given | Next Due | + + + + | INFLUENZA PF, | 07/09/2018 | | | QUADRIVALENT | | | | (PED/ADOL/ADULT) | | | + + + + | Pneumococcal | 07/09/2018 | | | Polysaccharide | | | | 23-valent | | | + + + + Family History + + +------+ + | Medical History | Relation | Name | Comments | + + +------+ + | Heart disease | Father | | | + + [...] | | | + +---+---+---+ + + +---------+ + | Alcohol Use | Drinks/We | oz/Week | Comments | | | ek | | | + + +---------+ + | Yes | 3 Cans | 1.8 | | | | of beer | | | + + +---------+ + + + + | Sex Assigned at | Date Recorded | | | | + + + | Not on file | | + + + Last Filed Vital Signs + + + + | Vital Sign | Reading | Time Taken | + + + + | Blood Pressure | 106/75 | 07/28/2018 10:53 AM PST | + + + + | Pulse | 75 | 07/28/2018 10:53 AM PST | + + + + | Temperature | 36.8 C (98.3 F) | 07/28/2018 10:53 AM PST | + + + + | Respiratory Rate | 16 | 07/28/2018 10:53 AM PST | + + + + | Oxygen Saturation | 100% | 07/28/2018 10:53 AM PST | + + + + | Inhaled Oxygen | - | - | | Concentration | | | + + + + | Weight | 83 kg (183 lb) | 07/28/2018 10:53 AM PST | + + + + | Height | 170.2 cm (5' 7") | 07/28/2018 10:53 AM PST | + + + + | Body Mass Index | 28.66 | 07/28/2018 10:53 AM PST | + + + + Plan of Treatment + + + + + | Health Maintenance | Due Date | Last Done | Comments | + + + + + | Vaccine: | | | | | Dtap/Tdap/Td (1 - | 7 | | | | Tdap) | | | | + + + + + | Colon Cancer | | | | | Screening | 8 | | | | (Colonoscopy) | | | | + + + + + | Vaccine: Zoster (1 | | | | | of 2) | 8 | | | + + + + + | Vaccine: Influenza | | 07/09/2018 | | | (#1) | 9 | | | + + + + + | Vaccine: | Completed | 07/09/2018 | | | Pneumococcal 19-64 | | | | | (PPSV23 only) Medium | | | | | Risk | | | | + + + + + Results Not on filefrom Last 3 Months Insurance +---------+--------+ +------+-------+ + | Payer | Benefi | Subscriber | Type | Phone | Address | | | t Plan | ID | | | | | | / | | | | | | | Group | | | | | +---------+--------+ +------+-------+ + | PREMERA | PREMER | [id number] | | | [address] [address] | | | A BLUE | 0 | | | [place] | | | CARD | | | | [phone] | +---------+--------+ +------+-------+ + + +--------+ +--------+ + + | Guarantor Name | Accoun | Relation to | Date | Phone | Billing Address | | | t Type | Patient | of | | | | | | | | | | + +--------+ +--------+ + + | ROBY GOODMAN | Person | Self [birth year] Home: | [address] | | | al/Fam | | 1970 | [phone] [place] | | | [place]up | | | [phone] | [phone] | + +--------+ +--------+ + +
--- OUTSIDE RECORDS SUMMARY | ~2019-09-02 | XMS | Encounter Summary ---
Demographics + + + | Address | [address] | | | [place] [address] | + + + | Home Phone | | + + + | Preferred Language | Unknown | + + + | Marital Status | | + + + | Mandaen Affiliation | 1013 | + + + | Race | Unknown | + + + | Ethnic Group | Unknown | + + + Author + + + | Author | [facility] | | | and Randalana | + + + | Organization | [facility] [...] Team Providers + +------+ + | Care Fur Scraper Name | Role | Phone | + [...] + + | 02/08/ | [facility] | Peewee Baez | Coronary artery | | 2018 | Visit | MED [facility] | MD Yves [address] | disease involving | | | | [address] [place] | [place] coronary | | | | [address] [place] | [place] [address] | artery of [place] | | | | [place] [address] | [phone] | heart with angina | | | | [phone] | | pectoris (HCC) | | | [...] Valenzuela RRT - 02/08/2018 9:00 AM PDT [facility] [address] [facility] [address] Cardiac Rehab Date: 02/08/2018 Patient Information Patient Name: Roby Goodman Date of : 1970 Age: 48 y.o. Encounter Diagnoses Code Name Primary? I25.119 Coronary artery disease involving [place] coronary artery of [place] heart with a ngina pectoris (HCC) Yes [...] + + | Coronary artery disease involving [place] coronary artery of [place] heart with angina | | pectoris (HCC) - Primary | + + documented in this encounter"
--- OUTSIDE RECORDS SUMMARY | ~2019-09-02 | XMS | Encounter Summary ---
Demographics + + + | Address | [address] | | | [place] [address] | + + + | Home Phone | | + + + | Preferred Language | Unknown | + + + | Marital Status | | + + + | Christianity Affiliation | 1013 | + + + | Race | Unknown | + + + | Ethnic Group | Unknown | + + + Author + + + | Author | [facility] | | | and Randalana | + + + | Organization | [facility] | | | and [...] Team Providers + +------+ + | Care Personal Development Mentor Name | Role | Phone | + +------+ + PCP | Unavailable | + +------+ + Encounter Details +--------+ + + + + | Date | Type | Department | Care Team | Description | +--------+ + + + + | 12/08/ | Hospital | [facility] | [facility] | | | 2013 | Encounter | [facility] | [address] | | | | | [facility] [address] | [address] [facility], | | | | | [facility], | [place] [address] | | | | | [place] [address] | [phone] | | | | | [phone] | | | +--------+ + + + [...]
--- OUTSIDE RECORDS SUMMARY | ~2019-09-02 | XMS | Encounter Summary ---
Demographics + + + | Address | [address] | | | [place] [address] | + + + | Home Phone | | + + + | Preferred Language | Unknown | + + + | Marital Status | | + + + | Gnosticist Affiliation | 1013 | + + + | Race | Unknown | + + + | Ethnic Group | Unknown | + + + Author + + + | Author | [facility] | | | and Randalana | + + + | Organization | [facility] | | | and [...] | | + + +---------+ + | Jluia Saranbay | ECON | Unknown | | + + +---------+ + Care Team Providers + +------+ + | Care Hydraulic Punch Press Operator Name | Role | Phone | + +------+ + | Mary Kraft | PCP | | | PA | | | + +------+ + Encounter Details +--------+ + + + + | Date | Type | Department | Care Team | Description | +--------+ + + + + | 07/08/ | Hospital | [facility] | Esau Salvador, | | | 2018 - | Encounter | [facility] | MD [address] | | | | | CARE FLOOR [address] | [place] [address] | | | 07/17/ | | [address] | [phone] | | | 2017 | | [place], [place] | | | | | | [address] | | | | | | [phone] | | | +--------+ + + + [...] and Vascular Surgery Author Type : Physician Manager Asset Management - Certified Filed: 07/17/18 1010 Date of Service: 07/17/18740 Status: Attested Global Program Manager: Lara Thorpe PA-C (Physician Manager Asset Management - Certified) Cosigner: Jorge goel MD at [...] MD Discharge Diagnoses: Principal Problem: Atherosclerosis of nondalton coronary artery Active Problems: Chest pain Benign essential hypertension Hyperlipidemia Resolved Problems: * No resolved hospital problems. * BRIEF HISTORY OF PRESENTATION: Roby Ortega is a 48 y.o. male w/ coronary artery disease and history of cardia c stent in January 2018. Cardiac catheterization performed at [place] on 07/07/2018 revealed a new left main lesion. HOSPITAL COURSE: The patient was transferred from [place] on 07/08/2018 after cardiac catheterization re vealed [...] - PALLAVI; Surgeon: Jorge Richards MD; Location: [facility] MAIN OR; Service: Cardiac; Laterality: N/A; Sternotomy, [...] to start cardiac rehabilitation in accordance with air bag buffer recommendations. Pt advised not to drive for [...] will manage prescriptions until pt has seen Photo Checker And Assembler and [facility] Physician, who will resume prescription [...] on file. Follow up: BONITA Monroy [address] [facility] [place] [address] Schedule an appointment as soon as possible for a visit in 1 week For primary care follow up Peewee Baez MD [address] [facility] [phone] Go on 08/19/2018 Cardiology follow-up Jorge Richards MD [address] [facility] [address] Schedule an appointment as soon [...] | | | | | | | nondalton coronary | | | | | | | artery of nondalton | | | | | | | heart with angina | | | | | | | pectoris ([facility]) | | | | | | [...] | | | | | | | nondalton coronary | | | | | | | artery of nondalton | | | | | | | heart with angina | | | | | | | pectoris ([facility]) | | | | | | [...] | | | | | | | nondalton coronary | | | | | | | artery of nondalton | | | | | | | [...] 0754 Date of Service: 07/17/18735 Status: Signed Global Program Manager: Raymond Sebastian PT (Physical Therapist) PHYSICAL THERAPY TREATMENT NOTE PT Received On: 07/17/18 Reason for Treatment: Cardiac Requires PT Follow Up: Yes Follow up PT Only?: No Assistance Required: 1 person Mini Bar Attendant Needed: No Recommendations: Home Assist PT Ready [...] and Vascular Surgery Author Type : Physician Manager Asset Management - Certified Filed: 07/17/18730 Date of Service: 07/17/18718 Status: Attested Global Program Manager: Lara Thorpe PA-C (Physician Manager Asset Management - Certified) Cosigner: Avi Ochoa Jr., MD at 07/17/18 08 Attestation signed by Avi Ochoa Jr., MD at 07/17/18852 I have reviewed the note below, personally reviewed the available laboratory and imaging st udies and examined the patient. I agree with the assessment and plan mentioned below. Electronically signed by: Avi Ochoa Jr, MD PhD FACS 07/17/2018 8:52 AM [facility] Service: Cardiothoracic Surgery Progress Note ROOM: [address] [place] [address] Hospital Day: LOS: 9 days Post-Op Day: 4 Days Post-Op Surgery/Procedure: 07/13/18 1. Coronary Artery Bypass Grafting x4 (ESTRADA to LAD, SVG to OM1, SVG to left PL, and SVG to left PDA) 2. Endoscopic right greater saphenous vein harvest SUBJECTIVE Events Overnight: HD stable. Stable on room air. Good pain control w/ [place]. Walking in lind[place]. Eating well, +BM. Ready [...] hours. PROBLEM LIST Principal Problem: Atherosclerosis of nondalton coronary artery Active Problems: Chest pain Benign essential hypertension Hyperlipidemia ASSESSMENT & PLAN S/P CABG -Continue ASA, Statin, Plavix, BB -Encourage IS, ambulate -CT out Keep TPWs until discharge, remove ground (white) and cut pacing (orange) wire at skin today VO -Continue diuresis, monitor electrolytes Disposition: Discharge today to home with family. Lives in [place] with . Code Status: Full Code The [...] 0653 Date of Service: 07/17/18651 Status: Signed Global Program Manager: Bubba Webster RN (Registered Nurse) Pt ambulating and tolerating well. VS stable. Afebrile. Pain controlled with Tylenol. End of shift chart review complete. Carmen Mendoza PT - 07/16/2018 3:50 PM PDTFormatting of this note might be different from the brain cynthia. Therapy Progress Note by Carmen Redd PT at 07/16/18 0960 Author: Carmen Redd PT Service: (none) Author Type: Physical Therapist Filed: 07/16/18 2043 Date of Service: 07/16/18 1550 Status: Signed Global Program Manager: Carmen Redd PT (Physical Therapist) PHYSICAL THERAPY [...] discretion Stair Management Technique: Rail none, Step-to, [id number] (progressing from step-to to step-over) Activity Tolerance: [...] Type: Occupational Therapy Wayne figueroa Filed: 07/16/18 9615 Date of Service: 07/16/18 1430 Status: Signed Global Program Manager: MAHNAZ De La Cruz (Fish Processor) OCCUPATIONAL THERAPY TREATMENT NOTE OT Received On: 07/16/18 Reason for Treatment: Cardiac Requires OT Follow Up: Yes Assistance Required: 1 person Mini Bar Attendant Needed: No Family/Caregiver Present: Yes (SO and mother) Recommendation: Return to prior living conditions, Home with daytime assist Equipment Recommended: Shower chair with back, Hand Outside Cutter, Elastic shoe laces, Shoe horn long handled [...] Dressing UE Dressing Comments: educated on donning/doffing pullman clerk t-shirt and button up while apurva ntaining [...] and Vascular Surgery Author Type : Physician Manager Asset Management - Certified Filed: 07/16/18 0834 Date of Service: 07/16/18811 Status: Attested Global Program Manager: Lara Thorpe PA-C (Physician Manager Asset Management - Certified) Cosigner: Avi Ochoa Jr., MD at 07/16/18 3929 Attestation signed by Avi Ochoa Jr., MD at 07/16/18 9339 I have reviewed the note below, personally reviewed the available laboratory and imaging st udies and examined the patient. I agree with the assessment and plan mentioned below. Electronically signed by: Avi Ochoa Jr, MD PhD 07/16/2018 4:24 PM [facility] Service: Cardiothoracic Surgery Progress Note ROOM: 9102/9102-1 [...] hours. PROBLEM LIST Principal Problem: Atherosclerosis of nondalton coronary artery Active Problems: Chest pain Benign [...] Date of Service: 07/16/18 07 Status: Signed Global Program Manager: Ronni Malik RN (Registered Nurse) Pt denied [...] Date of Service: 07/15/18 162 Status: Signed Global Program Manager: Norman Willson PT (Physical Therapist) PHYSICAL THERAPY TREATMENT NOTE PT Received On: 07/15/18 Reason for Treatment: Cardiac Requires PT Follow Up: Yes Follow up PT Only?: No Assistance Required: 1 person Mini Bar Attendant Needed: No Recommendations: Home Assist Equipment Recommended: [...] Author: MARC Churchill Service: (none) Author Type: Gathering Machine Setter Filed: 07/15/18 0510 Date of Service: 07/15/181552 Status: Signed Global Program Manager: MARC Churchill (Gathering Machine Setter) 07/15/18 1500 Discharge Planning Evaluation Admitting Diagnosis CABG Anticipated Disposition Facility Type Home FISH STRINGER ASSEMBLER met with Pt girlfriend (Margaret Vargas [phone] [place]) who has been attending [employer]oc[employer]ila, states discharge concerns at this time. Pt is planning to return home with Pt girlfr iend and Pt mother as caregivers. DCP: Home JAC STANTON Gathering Machine Setter [phone] cell onver lauren Transaction, Provider Unknown - 07/15/2018 2:35 PM PDT Progress Notes by Lamar Araiza RD at 07/15/18 1435 Author: Lamar Araiza RD Service: (none) Author Type: Registered Dietitian Filed: 07/15/18 1435 Date of Service: 07/15/18 143 Status: Signed Global Program Manager: Lamar Araiza RD (Registered Dietitian) 07/15/18 1414 Subjective Timepoint Admit Pt c/o Pt triggered for LOS. Pt admitted for atherosclerosis of nondalton coronary artery. Pt s/p CABG x 4, POD #2. Family was present. Reported by Patient Diet Experience Self-selected diet(s) followed Pt reports he had a good appetite FIRE INVESTIGATOR. reports pt [place] bridges skips breakfast, has [...] to skip meals, reading food labels, Mrs. Mkceon, cut back on processed foods, eat from [...] Estimated Energy Needs Total Energy Estimated Needs 8824-9109 kcal/day Method for Estimating Needs 25-30 kcal/kg [...] Progress Note by MAGEN Barrera at 07/15/18 4189 Author: MAGEN Barrera Service: (none) Author Type: Occupational Therapist Filed: 07/15/18 0115 Date of Service: 07/15/18 1125 Status: Attested Global Program Manager: Emili Jordan, OT-S (Occupational Therapist) Cosigner: Vania [...] Eval/Reassessment Date: 07/15/18 Assistance Required: 1 person Mini Bar Attendant Needed: No Family/Caregiver Present: Yes Recommendation: Return to prior living conditions, Home with 24 hr suppervision/assist Equipment Recommended: Tub transfer bench, Hand Outside Cutter, Sock aid, Toilet aid, Elastic shoe lace [...] (none) Author Type: Physical Therapist Filed: 07/15/18 7160 Date of Service: 07/15/18 1030 Status: Signed Global Program Manager: Norman Willson PT (Physical Therapist) PHYSICAL THERAPY TREATMENT NOTE PT Received On: 07/15/18 Reason for Treatment: Cardiac Requires PT Follow Up: Yes Follow up PT Only?: No Assistance Required: 1 person Mini Bar Attendant Needed: No Recommendations: Home Assist Equipment Recommended: [...] and Vascular Surgery Author Ty pe: Physician Manager Asset Management - Certified Filed: 07/15/18857 Date of Service: 07/15/18855 Status: Attested Global Program Manager: Sean Armstrong PA-C (Physician Manager Asset Management - Certified) Cosigner: Jorge archibald MD at 07/15/181327 Attestation signed by Jorge Richards MD at 07/15/188 I have reviewed the note below, personally reviewed the available laboratory and imaging st udies and examined the patient. I agree with the assessment and plan mentioned below. Electronically signed by: Jorge Richards, 07/15/2018 1:28 PM [facility] Service: Cardiothoracic Surgery Progress Note ROOM: 9102/9102-1 [...] <0.02 PROBLEM LIST Principal Problem: Atherosclerosis of nondalton coronary artery Active Problems: Chest pain Benign [...] 07/14/182123 Date of Service: 07/14/182122 Status: Signed Global Program Manager: Yi Melendez RPH (Pharmacist) Clinical Pharmacy Note: [...] appropriate dosing per renal function. Yi Melendez [facility] 07/14/2018 9:23 PM onver lauren Transaction, Provider Unknown - 07/14/2018 5:13 PM PDT Therapy Progress Note by Norman Willson PT at 07/14/181712 Author: Norman Willson PT Service: (none) Author Type: Physical Therapist Filed: 07/14/18 1826 Date of Service: 07/14/181712 Status: Signed Global Program Manager: Norman Willson PT (Physical Therapist) PHYSICAL THERAPY TREATMENT NOTE PT Received On: 07/14/18 Reason for Treatment: Cardiac Requires PT Follow Up: Yes Follow up PT Only?: No Assistance Required: 1 person Mini Bar Attendant Needed: No Recommendations: Home Assist Equipment Recommended: [...] and Vascular Surgery Author Ty pe: Physician Manager Asset Management - Certified Filed: 07/14/1874 Date of Service: 07/14/18846 Status: Attested Global Program Manager: Sean Armstrong PA-C (Physician Manager Asset Management - Certified) Cosigner: Jorge archibald MD at 07/14/18945 Attestation signed by Jorge Richards MD at 07/14/18945 I have reviewed the note below, personally reviewed the available laboratory and imaging st udies and examined the patient. I agree with the assessment and plan mentioned below. Electronically signed by: Jorge Richards, 07/14/2018 9:46 AM [facility] Service: Cardiothoracic Surgery Progress Note ROOM: [address] [place] [address] Hospital Day: LOS: 6 days Post-Op Day: [...] <0.02 PROBLEM LIST Principal Problem: Atherosclerosis of nondalton coronary artery Active Problems: Chest pain Benign [...] at 07/14/18 0759 Author: FABIENNE Mcginnis Service: Spinning Bath Person Author Type: Advanced Registered Nu rschristiano Practitioner Filed: 07/14/18 0848 Date of Service: 07/14/18 0759 Status: Addendum Global Program Manager: FABIENNE Mcginnis (Advanced Registered Nurse Practitioner) Related Notes: Original Note by FABIENNE Mcginnis (Advanced Registered Nurse Practit gerardo) filed at 07/14/18 0847 [facility] Service: Spinning Bath Person Cardiothoracic Surgery Consult and Follow Up Date/Time:07/14/2018 7:59 AM Provider: FABIENNE Mcginnis Hospital Day: LOS: 6 days Surgery/Procedure: Procedure(s) (LRB): CABG - PALLAVI (N/A) Post-Op Day: 1 Day Post-Op PROBLEM LIST Principal Problem: Atherosclerosis of nondalton coronary artery Active Problems: Chest pain Benign essential hypertension Hyperlipidemia Resolved Problems: * No resolved hospital problems. * SUBJECTIVE: Patient Summary: Roby Ortega is a 48 yo male with previous anterior STEMI (01/28) s/p TRUNG placement to proximal LAD, HTN and strong family hx of CAD, who presented to [facility] on 07/07 for outpatient cardiology follow up visit. He had been having progres sive angina with chest pain requiring nitro 4 times per day. He was admitted for a coronary angiogram which revealed proximal left main CAD, total occlusion of the 1st diag, moderate d isease of LPDA, and a proximal high grade lesion of the RCA. He was transferred to [facility] for surgical revascularization on 07/08. He had [...] Date of Service: 10/31/18 1917 Status: Signed Global Program Manager: Queta Diamond RN (Registered Nurse) End of shift chart audit complete. Queta Diamond RN onver lauren Transaction, Provider Unknown - 07/13/2018 12:33 PM PDT Progress Notes by Zachary Coronado at 07/13/18 1233 Author: Zachary Coronado Service: (none) Author Type: Filed: 07/13/18 1233 Date of Service: 07/13/18 1233 Status: Signed Global Program Manager: Zachary Cui) Gave family the off pump report at 12:30 onver lauren Transaction, Provider Unknown - 07/13/2018 10:23 AM PDT Progress Notes by Zachary Coronado at 07/13/18 1023 Author: Zachary Coronado Service: (none) Author Type: Filed: 07/13/18 1024 Date of Service: 07/13/18 1023 Status: Signed Global Program Manager: Zachary Cui) Gave family the on pump report at 10:20 onver lauren Transaction, Provider Unknown - 07/13/2018 7:43 AM PDT Progress Notes by Zachary Coronado at 07/13/18 0743 Author: Zachary Coronado Service: (none) Author Type: Filed: 07/13/18 0745 Date of Service: 07/13/18 0743 Status: Signed Global Program Manager: Zachary Cui) CVOR Referral. Met with Pt [...] 07/13/1850 Date of Service: 07/13/18647 Status: Signed Global Program Manager: Demetra Acosta RN (Registered Nurse) Patient was [...] Author: MARC Churchill Service: (none) Author Type: Gathering Machine Setter Filed: 07/12/18 9054 Date of Service: 07/12/181529 Status: Signed Global Program Manager: MARC Churchill (Gathering Machine Setter) 07/12/18 1500 Discharge Planning Evaluation Admitting Diagnosis Coronary Artery Disease Anticipated Disposition Facility Type Home MARC met with Pt, who requested clinicals faxed to [facility], as he is activating short term dis ability for time loss benefits. FISH STRINGER ASSEMBLER obtained signed AVEL request, added to Chart. MARC faxed [employer] reference claim number #[id number], to [phone] fax number. Pt will be having a CABG tomorrow. In regards to discharge planning, Pt is planning to retu rn home to [place] and his mother and sig other will be assisting with caregiving as christopher vasquez DCP: Home JAC STANTON Gathering Machine Setter [phone] cell Luiz Schwartz MD - 07/12/2018 11:17 AM PDT Progress Notes by Luiz Perera MD at 07/12/18 5274 Author: Luiz Perera MD Service: Hospitalist Author Type: Physician Filed: 07/12/18 1211 Date of Service: 07/12/18 1117 Status: Signed Global Program Manager: Luiz Perera MD (Physician) [facility] Service: Hospitalist Progress Note Pt: Roby Ortega AGE/SEX: 48 y.o. male ROOM: [address] [place] [address] : 1970 PCP: Mary Kraft ADMIT DATE: [...] Component Value Units Date/Time MRSA by PCR [[id number]] Collected: 07/12/18 0843 Specimen: Nasopharyngeal from Nares(Nose) [...] function. PROBLEM LIST Principal Problem: Atherosclerosis of nondalton coronary artery Active Problems: Chest pain Benign [...] for possible CABG. Principal Problem: Atherosclerosis of nondalton coronary artery with chest pain He is [...] MD, FACP 07/12/2018 11:17 AM Dictation software, Smule, used which may contain error for similar [...] and Vascular Surgery Author Typ e: Physician Manager Asset Management - Certified Filed: 07/12/18 1042 Date of Service: 07/12/18 1040 Status: Attested Global Program Manager: Jose Hernandez PA-C (Physician Manager Asset Management - Certified) Cosigner: Jorge gray MD at [...] 07/12/18527 Date of Service: 07/12/18525 Status: Signed Global Program Manager: Amirah Celaya RN (Registered Nurse) PTT remains therapeutic this morning at 55. Integrelin to be stopped at 1800 tonight and He sraah at 2359 tonight. Pt remains comfortable and [...] Date of Service: 07/11/18 1202 Status: Signed Global Program Manager: Luiz Perera MD (Physician) [facility] Service: Hospitalist Progress Note Pt: Roby Ortega AGE/SEX: 48 y.o. male ROOM: [facility]/9113-1 : 1970 PCP: Mary Kraft ADMIT [...] function. PROBLEM LIST Principal Problem: Atherosclerosis of nondalton coronary artery Active Problems: Chest pain Benign [...] for possible CABG. Principal Problem: Atherosclerosis of nondalton coronary artery with chest pain He is [...] MD, FACP 07/11/2018 12:02 PM Dictation software, Smule, used which may contain error for similar [...] Author: MARC Churchill Service: (none) Author Type: Gathering Machine Setter Filed: 07/11/18930 Date of Service: 07/11/18929 Status: Signed Global Program Manager: MARC Churchill (Gathering Machine Setter) 07/11/18899 Discharge Planning Evaluation Admitting Diagnosis Coronary Artery Disease Anticipated Disposition Facility Type Home FISH STRINGER ASSEMBLER following for discharge planning, planning to return home with Pt mother as caregiver. FISH STRINGER ASSEMBLER will continue to follow for discharge needs. DCP: Home JAC STANTON Gathering Machine Setter [phone] cell oggs, BONITA Olivares - 07/11/2018 9:12 AM PDTFormatting of this note might be different fro m the original. Progress Notes by Sean Armstrong PA-C at 07/11/18911 Author: Sean Armstrong PA-C Service: Cardiac, Thoracic, and Vascular Surgery Author Ty pe: Physician Manager Asset Management - Certified Filed: 07/11/18912 Date of Service: 07/11/18911 Status: Signed Global Program Manager: Sean Armstrong PA-C (Physician Manager Asset Management - Certified) Pt stable overnight, no CP [...] (none) Author Type: Registered Nurse Filed: 07/11/18 0501 Date of Service: 07/11/18449 Status: Addendum Global Program Manager: Lauryn Matamoros RN (Registered Nurse) Related Notes: Original [...] 07/10/181929 Date of Service: 07/10/181929 Status: Signed Global Program Manager: Christine Green RN (Registered Nurse) End of shift review complete. Bedside report given to Magda LI. olillys, BONITA Olivares - 07/10/2018 9:59 AM PDTFormatting of this note might be different fro m the original. Progress Notes by Sean Armstrong PA-C at 07/10/18958 Author: Sean Armstrong PA-C Service: Cardiac, Thoracic, and Vascular Surgery Author Ty pe: Physician Manager Asset Management - Certified Filed: 07/10/18 1000 Date of Service: 07/10/18958 Status: Attested Global Program Manager: Sean Armstrong PA-C (Physician Manager Asset Management - Certified) Cosigner: Jorge archibald MD at [...] 07/10/18926 Date of Service: 07/10/18924 Status: Signed Global Program Manager: Monisha Escobedo MD (Physician) [facility] Service: Hospitalist Progress Note Hospital Day: LOS: [...] function. PROBLEM LIST Principal Problem: Atherosclerosis of nondalton coronary artery Active Problems: Chest pain Benign [...] 0744 Date of Service: 07/10/18332 Status: Signed Global Program Manager: Bubba Webster RN (Registered Nurse) Pt 's [...] 07/09/181813 Date of Service: 07/09/181812 Status: Signed Global Program Manager: Digna Mabry RN (Registered Nurse) Patients heparin drip has not been therapeutic . Heparin titrated to 11 units/kg/hr. Next a ptt is at midnight. End of shift chart review complete. onver lauren Transaction, Provider Unknown - 07/09/2018 3:35 PM PDT Case Management by MARC Churchill at 07/09/183 Author: MARC Churchill Service: (none) Author Type: Gathering Machine Setter Filed: 07/09/18 1544 Date of Service: 07/09/181534 Status: Signed Global Program Manager: MARC Churchill (Gathering Machine Setter) 07/09/18 1500 Discharge Planning Evaluation Admitting Diagnosis [...] Plan Yes Anticipated Disposition Facility Type Home FISH STRINGER ASSEMBLER met with Pt for support, resource and discussed discharge planning, planning to return home when medically ready. Pt is a 48 y.o. single male here for CAD, planning to have a CABG on 07/13. Pt [place] his mother (Julia Ortega [phone] [facility]) is planning to stay wi th Pt after hospitalization and states she will assist with for as long as he needs her. 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 Pt has been very independent and active at baseline. Pt has been Brilinta (blood thinner) before admission. Pt denies previous home health, outp atient dialysis, or home oxygen in the past. Patient's PCP is: Mary Kraft Patient's insurance: [employer] Coverage concerns: None Medication coverage/concerns: Pt states coverage plan has covered expensive cardiac meds. Community resources utilized / needed: Not interested at this time. Assistance in transportation: Pt mother Identification of any specific education / training: None at this time, Sternal precautions later. Barriers to Discharge / Alternative housing needed: None at time Anticipated DCP: Home JAC STANTON, Gathering Machine Setter [phone] cell Rosales Franco MD - 07/09/2018 9:25 AM PDTFormatting of this note might be different from the brain marie. Progress Notes by Monisha Escobedo MD at 07/09/18924 Author: Monisha Escobedo MD Service: Hospitalist Author Type: Physician Filed: 07/09/18 1008 Date of Service: 07/09/18924 Status: Signed Global Program Manager: Monisha Escobedo MD (Physician) [facility] Service: Hospitalist Progress Note Hospital Day: LOS: [...] function. PROBLEM LIST Principal Problem: Atherosclerosis of nondalton coronary artery Active Problems: Chest pain Benign essential hypertension Hyperlipidemia ASSESSMENT & PLAN Unstable angina On heparin drip and integrlin CT surgery consulted, plan for surgery this coming week, waiting for wash out of brilinta Continue ASA, statin Was no coreg until January 2018, d/jh by his air bag buffer ticagrelor on hold for planned sx HTN [...] 07/08/181820 Date of Service: 07/08/181818 Status: Signed Global Program Manager: Francisco Sanders RN (Registered Nurse) Pt. Denies [...] Date of Service: 07/08/18 114 Status: Signed Global Program Manager: Yi Melendez RPH (Pharmacist) Clinical Pharmacy Note: [...] updated labs in the morning. Yi Melendez, [facility] 07/08/2018 11:43 AM docume nted in [...] EXTERNAL | | | | performed at [facility], [address] | | LAB | | | | [address], | | | | | | [place] [address] | | | | + + + [...] EXTERNAL | | | | performed at [facility];[address] | | LAB | | | | [address];[place], [place] | | | | | | [address] | | | | + + + [...] | | | | | performed at [facility], [address] | | | | | | [facility], | | | | | | [place] [address] | | | | + + + [...] | | | Fingerstick | performed at [facility];[address] | | LAB | | | | [address];[place], [place] | | | | | | [address] | | | | + + + [...] | | | Fingerstick | performed at [facility];[address] | | LAB | | | | [address];[place], [place] | | | | | | [address] | | | | + + + [...] | | | Fingerstick | performed at [facility];[address] | | LAB | | | | [address];[place], [place] | | | | | | [address] | | | | + + + [...] | | | Fingerstick | performed at [facility];[address] | | LAB | | | | [address];[place] | | | | | | [address] | | | | + + + [...] | | | Fingerstick | performed at [facility];[address] | | LAB | | | | [address];[place] | | | | | | [address] | | | | + + + [...] | | | Fingerstick | performed at [facility];[address] | | LAB | | | | [address];[place] | | | | | | [address] | | | | + + + [...] EXTERNAL | | | | performed at [facility], [address] | | LAB | | | | [address], | | | | | | [place] [address] | | | | + + + [...] EXTERNAL | | | | performed at [facility] | | LAB | | | | Is[address] [facility];[place], [place] | | | | | | [address] | | | | + + + [...] | | | | | performed at [facility], [address] | | | | | | [place], | | | | | | [place] [address] | | | | + + + [...] | | | Fingerstick | performed at [facility];[address] | | LAB | | | | [address];[place] | | | | | | [address] | | | | + + + [...] | | | Fingerstick | performed at [facility];[address] | | LAB | | | | [address];[place], [place] | | | | | | [address] | | | | + + + [...] | | | Fingerstick | performed at [facility];[address] | | LAB | | | | [address];[place] | | | | | | [address] | | | | + + + [...] | | | Fingerstick | performed at [facility];[address] | | LAB | | | | [address];[place], [place] | | | | | | [address] | | | | + + + [...] EXTERNAL | | | | performed at [facility], [address] | | LAB | | | | [address], | | | | | | [place] [address] | | | | + + + [...] EXTERNAL | | | | performed at [facility];[address] | | LAB | | | | [address];[place], [place] | | | | | | [address] | | | | + + + [...] | | | | | performed at [facility], [address] | | | | | | [facility], | | | | | | [place] [address] | | | | + + + [...] | | | Fingerstick | performed at [facility];[address] | | LAB | | | | [address];[place] | | | | | | [address] | | | | + + + [...] | | | Fingerstick | performed at [facility];[address] | | LAB | | | | [address];[place] | | | | | | [address] | | | | + + + [...] | | | Fingerstick | performed at [facility];[address] | | LAB | | | | [address];[place], [place] | | | | | | [address] | | | | + + + [...] | | | Fingerstick | performed at [facility];[address] | | LAB | | | | [address];[place], [place] | | | | | | [address] | | | | + + + [...] EXTERNAL | | | | performed at [facility];[address] | mmol/L | LAB | | | | [address];[place], [place] | | | | | | [address] | | | | + + + [...] | | | Fingerstick | performed at [facility];[address] | | LAB | | | | [address];[place], [place] | | | | | | [address] | | | | + + + [...] EXTERNAL | | | | performed at [facility];[address] | mmol/L | LAB | | | | [address];[place], [place] | | | | | | [address] | | | | + + + [...] | | | Fingerstick | performed at [facility];8 | | LAB | | | | [address];[place] | | | | | | [address] | | | | + + + [...] EXTERNAL | | | | performed at [facility];[address] | mmol/L | LAB | | | | [address];[place], [place] | | | | | | [address] | | | | + + + [...] EXTERNAL | | | | performed at [facility];[address] | | LAB | | | | [address];[place] | | | | | | [address] | | | | + + + [...] the chest | | | FINDINGS: Right Alb[place]-Pineda catheter tip at the superior vena cava. [...] Saha Conversion - 04/26/2019 1:27 AM PDT RBOY ORTEGA yearsXR | | CHEST 1 VIEW07/14/2018 5:26 AM INDICATION: Tube and line position. COMPARISON: June | | 2017 TECHNIQUE: Chest 1 view, AP view of the chest FINDINGS:Right Albion-Pineda catheter | | tip at the superior [...] chest | | | |FINDINGS: | |Right Alb[place]-Pineda catheter tip at the superior vena cava. [...] at | | | | | | [facility], [address] | | | | | | [place] | | | | | | [address] | | | | + + + [...] + + | Hemoglobin | 5.3Comment: The Salvadorean | 4.0 - 6.0 % | EXTERNAL [...] | | | | | performed at [facility], [address] | | | | | | [address], | | | | | | [place] [address] | | | | + + + [...] | | | | | [place] [address] | | | | + + + [...] | | | Fingerstick | performed at [facility];[address] | | LAB | | | | [address];[place], [place] | | | | | | [address] | | | | + + + [...] | | | Fingerstick | performed at [facility];[address] | | LAB | | | | [address];[place] | | | | | | [address] | | | | + + + [...] | | | Fingerstick | performed at [facility];[address] | | LAB | | | | [address];[place], [place] | | | | | | [address] | | | | + + + [...] EXTERNAL | | | | performed at [facility];[address] | mmol/L | LAB | | | | [address];[place] | | | | | | [address] | | | | + + + [...] EXTERNAL | | | | performed at [facility];[address] | mmol/L | LAB | | | | [address];[place], [place] | | | | | | [address] | | | | + + + [...] | | | Fingerstick | performed at [facility];[address] | | LAB | | | | [address];[place], [place] | | | | | | [address] | | | | + + + [...] | | | Fingerstick | performed at [facility];[address] | | LAB | | | | [address];[place], [place] | | | | | | [address] | | | | + + + [...] | | Post-Op: No significant change in nondalton valvular function compared to | | | the prior study. MEASUREMENTS Photographic Processor: DAMI | | | Authenticated by: Peewee [...] study.Post-Op: No significant change in | | nondalton valvular function compared to the prior study. MEASUREMENTS | | Photographic Processor: CMAuthenticated by: Peewee Cantu Date/Time: 09-10-2018 13:2:56 [...] study. | |Post-Op: No significant change in nondalton valvular function compared to the prior study. | | | |MEASUREMENTS | | | | | |Photographic Processor: CM | |Authenticated by: Peewee Barahona | [...] | | | Fingerstick | performed at [facility];[address] | | LAB | | | | [address];[place], [place] | | | | | | [address] | | | | + + + [...] | | | | | | ACUTE SC / STEMI | | | | | [...] | | | | CIARA LANDIS MD ([id number]) on | | | | | | 07/13/2018 8:50:25 PM | | | | + + + + + + + + | Specimen | + + | | + + + + + | Narrative | Performed At | + + + | Historically converted procedure from [facility] | EXTERNAL LAB | + + + [...] | | | Fingerstick | performed at [facility];[address] | | LAB | | | | [address];[place] | | | | | | [address] | | | | + + + [...] | | | Patient | performed at [facility];[address] | | LAB | | | | [address];[place], [place] | | | | | | [address] | | | | + + + [...] | | | | | performed at [facility] | | | | | | Sur[address] [facility];[place], [place] | | | | | | [address] | | | | + + + [...] EXTERNAL | | | | performed at [facility];[address] | | LAB | | | | [address];[place] | | | | | | [address] | | | | + + + [...] | | | Basophils | performed at [facility];[address] | K/uL | LAB | | | | [address];[place], [place] | | | | | | [address] | | | | + + + [...] LAB | | | | performed at [facility];[address] | | | | | | [address];[place] | | | | | | [address] | | | | + + + [...] | | LAB | | | | [facility];[address];[place] [address] | | | | + + + [...] | | | | | | [facility] traceable | | | | | | equation.Testing | | | | | | performed at [facility];[address] | | | | | | [facility];[place], [place] | | | | | | [address] | | | | + + + [...] | | | POC | performed at [facility];[address] | g/dL | LAB | | | | [address];[place], [place] | | | | | | [address] | | | | + + + [...] EXTERNAL | | | | performed at [facility];[address] | | LAB | | | | [address];[place], [place] | | | | | | [address] | | | | + + + [...] | | | POC | performed at [facility];[address] | g/dL | LAB | | | | [address];[place], [place] | | | | | | [address] | | | | + + + [...] | | | POC | performed at [facility];[address] | g/dL | LAB | | | | [address];[place], [place] | | | | | | [address] | | | | + + + [...] EXTERNAL | | | | performed at [facility];[address] | | LAB | | | | [address];[place] | | | | | | [address] | | | | + + + [...] | | | POC | performed at [facility];[address] | g/dL | LAB | | | | [address];[place], [place] | | | | | | [address] | | | | + + + [...] | | | POC | performed at [facility];[address] | g/dL | LAB | | | | [address];[place], [place] | | | | | | [address] | | | | + + + [...] | | | POC | performed at [facility];[address] | g/dL | LAB | | | | [address];[place], [place] | | | | | | [address] | | | | + + + [...] | | | POC | performed at [facility];[address] | g/dL | LAB | | | | [address];[place] | | | | | | [address] | | | | + + + [...] EXTERNAL | | | | performed at [facility];[address] | | LAB | | | | [address];[place], [place] | | | | | | [address] | | | | + + + [...] | | | POC | performed at [facility];[address] | g/dL | LAB | | | | [address];[place], [place] | | | | | | [address] | | | | + + + [...] | | | Basophils | performed at [facility], [address] | K/uL | LAB | | | | [address], | | | | | | [place] [address] | | | | + + + [...] | MaleXR CHEST 2 VIEW FRONTAL AND GAVQGZR1007/12/2018 1:44 PM INDICATION: Preoperative | | assessment [...] NEGATIVE Testing | | | performed at [facility];[address] [place] [address];[place] [address] | | + + + + +---------+ [...] | | | Patient | performed at [facility];[address] | | LAB | | | | [address];[place], [place] | | | | | | [address] | | | | + + + [...] | | | Basophils | performed at [facility], [address] | K/uL | LAB | | | | [address], | | | | | | [place] [address] | | | | + + + [...] | | | Patient | performed at [facility];[address] | | LAB | | | | [address];[place], [place] | | | | | | [address] | | | | + + + [...] | | | Basophils | performed at [facility], [address] | K/uL | LAB | | | | [address], | | | | | | [place] [address] | | | | + + + [...] | | | | | performed at [facility], [address] | | | | | | [facility], | | | | | | [place] [address] | | | | + + + [...] | | | Patient | performed at [facility];[address] | | LAB | | | | [address];[place], [place] | | | | | | [address] | | | | + + + [...] | | | | | [place] [address] | | | | + + + [...] | | | Patient | performed at [facility];[address] | | LAB | | | | [address];[place], [place] | | | | | | [address] | | | | + + + [...] | | | Patient | performed at [facility] | | LAB | | | | Suraj [facility];[place], [place] | | | | | | [address] | | | | + + + [...] | | | Patient | performed at [facility];[address] | | LAB | | | | [address];[place], [place] | | | | | | [address] | | | | + + + [...] + + | Historically converted procedure from [facility] environment | EXTERNAL LAB | + + [...] | | | | | performed at [facility];[address] | | | | | | [address];[place], [place] | | | | | | [address] | | | | + + + [...] | | | Basophils | performed at [facility], [address] | K/uL | LAB | | | | [address], | | | | | | [place] [address] | | | | + + + [...] EXTERNAL | | | | performed at [facility], [address] | | LAB | | | | [address], | | | | | | [place] [address] | | | | + + + [...] EXTERNAL | | | | performed at [facility], [address] | | LAB | | | | [facility], | | | | | | [place] [address] | | | | + + + [...] + + | Hemoglobin | 5.5Comment: The Salv[place]orean | 4.0 - 6.0 % | EXTERNAL [...] | | | | | performed at [facility], [address] | | | | | | [facility], | | | | | | [place] [address] | | | | + + + [...] | | | Cholesterol | performed at [facility], [address] | | LAB | | | , | [address], | | | | | Calculated, | [place] [address] | | | | | External | [...] | | | | | performed at [facility], [address] | | | | | | Minoo [facility], | | | | | | [place] [address] | | | | + + + [...] | | | Patient | performed at [facility];[address] | | LAB | | | [address];[place] | | | | | | [address] | | | | + + + [...] | | | | | performed at [facility];[address] | | | | | | [address];[place] | | | | | | [address] | | | | + + + [...] RV S': 0.12 | | | m/s Photographic Processor: Authenticated by: Jazmyn Skinner MD | | [...] (A-L): 21.84 ml/m2LAAs A2C: | | 14.13 [id number] A-L A2C: 34.63 mlLALs A2C: 4.89 cmLAAs A4C: 17.47 [id number] A-L A4C: | | 48.97 mlLALs A4C: 5.29 cmTAPSE: 2.24 cmHR: 64.87 BPMAV maxP.60 mmHgAV | | meanP.09 mmHgAV Vmax: 1.37 m/Austyn Vmean: 0.95 m/Austyn VTI: 24.27 cmAVA Vmax: | | 2.71 cm2AVA (VTI): 2.72 [id number] Vmax: 0.00 cm2/m2AVAI (VTI): 0.00 cm2/m2LVCI Dopp: | | 2.17 l/nllb1WXEQ Dopp: 4.25 l/minHR: 64.28 BPMLVOT maxP.24 mmHgLVOT [...] 0.82 m/sRV S': 0.12 m/s | | Photographic Processor: Authenticated by: Jazmyn Dewey Date/Time: 07-08-2018 | [...] |RV S': 0.12 m/s | | | |Photographic Processor: | |Authenticated by: Jazmyn Skinner MD | [...] EXTERNAL | | | | performed at [facility];[address] | | LAB | | | | [address];[place], [place] | | | | | | [address] | | | | + + + [...] | | | Patient | performed at [facility];[address] | | LAB | | | | [address];[place] | | | | | | [address] | | | | + + + [...] | | | | | performed at [facility];[address] | | | | | | [facility];[place], [place] | | | | | | [address] | | | | + + + [...] | | | | | | ACUTE SC Testing | | | | | | performed at [facility] | | | | | | [facility];[place], [place] | | | | | | [address] | | | | + + + [...]
--- OUTSIDE RECORDS SUMMARY | ~2019-09-02 | XMS | Encounter Summary ---
Demographics + + + | Address | [address] | | | [place] [address] | + + + | Home Phone | | + + + | Preferred Language | Unknown | + + + | Marital Status | | + + + | Jain Affiliation | 1013 | + + + | Race | Unknown | + + + | Ethnic Group | Unknown | + + + Author + + + | Author | [facility] | | | and Randalana | + + + | Organization | [facility] | | | and [...] Team Providers + +------+ + | Care Police Sergeant Name | Role | Phone | + [...] Provider Unknown | | | | | [place], [place] | [phone] | | | | | [address] | | | | | | [phone] | | | +--------+ + + + [...]
--- OUTSIDE RECORDS SUMMARY | ~2019-09-02 | XMS | Encounter Summary ---
Demographics + + + | Address | [address] | | | [place] [address] | + + + | Home Phone | | + + + | Preferred Language | Unknown | + + + | Marital Status | | + + + | Anabaptist Affiliation | 1013 | + + + | Race | Unknown | + + + | Ethnic Group | Unknown | + + + Author + + + | Author | [facility] | | | and Randalana | + + + | Organization | [facility] | | | and Randalana [...] Team Providers + +------+ + | Care Photo Editor Name | Role | Phone | + [...] +--------+--------+ + + + + Encounter Details +--------+ + + + + | Date | Type | Department | Care Team | Description | +--------+ + + + + | 07/07/ | Hospital | [facility] | Paolo Lopez MD | | | 2018 - | Encounter | MED CTR ICU [address] | [address] | | | | | [place], | [place] | | | 07/08/ | | [place] [address] | [address] | | | 2017 | | [phone] | | | +--------+ + + + [...] Physician Discharge Summary Patient ID: Roby Goodman [id number] y.o. 1970 Admit date: 07/07/2018 Discharge [...] | | | | | | | [place] coronary | | | | | | | artery of [place] | | | | | | | [...] | | | | | | | [place] coronary | | | | | | | artery of [place] | | | | | | | heart with angina | | | | | | | pectoris ([facility]) | | | | | | [...] | | | | | | | [place] coronary | | | | | | | artery of [place] | | | | | | | heart with angina | | | | | | | pectoris ([facility]) | | | | | | [...] Inferior leads Confirmed by PREETHI BARAJAS MD ([id number]) on 07/08/2018 7:43:54 AM CV Cardiac Procedure [...] Paolo Lopez MD, 07/08/2018 11:56 [facility] cNataliya Roman RN - 07/08/2018 9:23 AM PDTReport called to JEN Snigh at [facility]. Paolo Peter MD - 07/07/2018 5 :52 [...] | | | | JENN MARIANO, PREETHI ([id number]) | | | | | | on [...] [facility] | [facility] | | [facility] - | | | | | | LABORATORY | | + +-------+ + + + | RBC | 4.68 | 4.30 - 5.70 | [facility] | | | | | M/uL | [facility] | | | | | [...] | [address] | [place] | [phone] | | [facility] | | [address] | | | - LABORATORY | | [...] | | Time | | seconds | [facility] | | | | [...] | [address] | [place] | [phone] | | [facility] | | [address] | | | - LABORATORY | | [...] | mL/min/1.73m2 | [facility] | | | URUGUAYAN | RATE,ESTIMATED | | MEDICAL | | | | mL/min/1.23v6Tlhj than | | CENTER - | | [...] | [address] | [place] | [phone] | | [facility] | | [address] | | | - LABORATORY | | [...] ST. | [address] | [place] | [phone] | | [facility] | | [address] | | | - LABORATORY | | | | + + + + + documented in this encounter Visit Diagnoses + + | Diagnosis | + + | Unstable angina (HCC) - Primary Intermediate coronary syndrome | [...] | | +---+---+ + +-------+ +------+---+---+ | diazePAM (VALIUM) tablet 5 mg | Given | 07/07/20 | 5 mg | | | | 5 mg, Oral, FIELD SOFTWARE ENGINEER, Starting June | | 18 10:41 | | | | | 07/07/18 at 1031, For 1 dose, | | AM PDT | | | | | Pre-op | | | | | | + +-------+ +------+---+---+ +---+---+ | | | +---+---+ + +-------+ +-------+---+---+ | diphenhydrAMINE (BENADRYL) | Given | 07/07/20 | 25 mg | | | | tablet 25 mg 25 mg, Oral, ON | | 18 10:41 | | | | | CALL, Starting June 07/07/18 at | | AM PDT | | | | | 1031, For 1 dose, Pre-op | | | | | | [...] | | | | | dose on [facility] 07/07/18 at 2100 | | | | | | + +-------+ +-------+---+ + +-------+ +-------+---+ + | Given | 07/07/20 | 80 mg | | Abdomen- | | | 18 8:22 | | | RLQ | | | PM PDT | | | | +-------+ +-------+---+ + +---+---+ | | | +---+---+ + +-------+ +--------+---+ + | heparin 5,000 units/mL | Given | 07/07/20 | 5,000 | | Abdomen- | | injection 5,000 Units 5,000 | | 18 10:40 | Units | | LLQ | | Units, Subcutaneous, EVERY 12 | | AM PDT | | | | | HOURS (2 times per day), First | | | | | | | dose on [facility] 07/07/18 at 1100, | | | | | | | Pre-op | | | | | | + +-------+ +--------+---+ + +---+---+ | | | +---+---+ + [...] +-------+ +-------+---+---+ +-------+ +-------+---+---+ | Given | 07/07/20 | 10 mg | | | | | 18 3:23 | | | | | | PM PDT | | | | +-------+ +-------+---+---+ +---+---+ | | | +---+---+ + + + +--------+-------+---+ | sodium chloride 0.9% (NS) bolus | Continue | 07/07/20 | 522.5 | 87.1 | | | 522.5 mL 522.5 mL (rounded from | bag | 18 2:59 | mLs | mL/hr | | | 522.6 mL = 6 mL/kg | from | PM PDT | | | | | 87.1 kg), Intravenous, | transfer | | | | | | Administer over 6 Hours, ONCE, | | | | | | | June 07/07/18 at 1515, For 1 dose, | | | | | | | 1 ml/kg/hr x 6 hours, | | | | | | | Post-op/Phase II | | | | | | + + + +--------+-------+---+ +---+---+ | | | +---+---+ + +---------+ [...] +---------+ +---+-------+---+ +---+---+ | | | +---+---+ documented in this encounter"
--- OUTSIDE RECORDS SUMMARY | ~2019-09-02 | XMS | Encounter Summary ---
Demographics + + + | Address | [address] | | | [place] [address] | + + + | Home Phone | | + + + | Preferred Language | Unknown | + + + | Marital Status | | + + + | Spiritism Affiliation | 1013 | + + + | Race | Unknown | + + + | Ethnic Group | Unknown | + + + Author + + + | Author | [facility] | | | and Randalana | + + + | Organization | [facility] | | [...] Providers + +------+ + | Care Exercise Manager Name | Role | Phone | + [...] | | [place], [place] | [place] [address] | | | | | [address] | [phone] | | | | | [phone] | | | +--------+ + + + [...]
--- OUTSIDE RECORDS SUMMARY | ~2019-09-02 | XMS | Clinical Summary ---
Demographics + + + | Address | [address] | | | [place] [address] | + + + | Home Phone | | + + + | Preferred Language | Unknown | + + + | Marital Status | Unknown | + + + | Mormonism Affiliation | Unknown | + + + | Race | Unknown | + + + | Ethnic Group | Unknown | + + + Author + + + | Author | [facility] (Historical as of | | | 04-29-19) | + + + | Organization | [facility] (Historical as of | | | 04-29-19) [...] Team Providers + +------+ + | Care Racing Secretary Name | Role | Phone | + [...] | + + + | Atherosclerosis of mi'kmaq coronary artery | 07/08/2018 | + + [...] +------+-------+ + | PREMER[place] | PREMER | [id number] | | | [address] [address] | | | A BLUE | 0 | | | [place] | | | CARD | | | | [address] | +---------+--------+ +------+-------+ + + +--------+ +--------+ [...] | [place] | | | [phone] | [phone] | + +--------+ +--------+ + +
--- OUTSIDE RECORDS SUMMARY | ~2019-09-02 | XMS | Encounter Summary ---
Demographics + + + | Address | [address] | | | [place] [address] | + + + | Home Phone | | + + + | Preferred Language | Unknown | + + + | Marital Status | | + + + | Mormonism Affiliation | 1013 | + + + | Race | Unknown | + + + | Ethnic Group | Unknown | + + + Author + + + | Author | [facility] | | | and Randalana | + + + | Organization | [facility] | | | and Randalana | + + + | Address | Unknown | + + + | Phone | Unavailable | + + + Support + + +---------+ + | Name | Relationship | Address | Phone | + + +---------+ + | Margaret Vargas | ECON | Unknown | | + + +---------+ + | Julia Jordan | ECON | Unknown | | + + +---------+ + | Julia Saranbay | ECON | Unknown | | + + +---------+ + Care Team Providers + +------+ + | Care Scroll Saw Operator Name | Role | Phone | + +------+ + | Mary Kraft | PCP | | | PA | | | + +------+ + Reason for Referral Evaluate & Treat (Routine) +--------+ + + [...] | | anterior | [place], | [place] | | | | | descending | [place] [address] | [place], [place] | | | | | coronary | Phone: | [phone] | | | | | artery (HCC) | [phone] | Phone: | | | | | | Fax: | [phone] | | | | | | [phone] | Fax: | | | | | | | [phone] | +--------+ + + + + + Reason for Visit Auth/Cert +--------+--------+ + [...] | +--------+ + + + + | 01/03/ | Hospital | [facility] | Peewee Guaman | Coronary artery | | 2018 - | Encounter | MED CTR ICU [address] | MD Yves [address] | disease involving | | | | [place], | [address] [place] | shoshone[place]bannock coronary | | 01/05/ | | [place] [address] | [place] [address] | artery of sh[place] | | 2018 | | [phone] | [phone] | 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 SUMMARY OF HISTORY AND PHYSICAL: Roby Goodman is a 47 y.o. male with a history of [employer]. He was transferred from [facility] to [facility] on 01/03[facility]2018 for STEMI involving left anterior [...] directly from the helicopter to the cardiac laboratory geneticist. His LAD was occluded and stented. He did well subsequently without complication. Peak tro ponin I was 32 and echo showed hypokinesis of anterior, anteroseptal and anterolateral segme nts. MN was "moderate" in size. DISCHARGE EXAM: General: [...] t skip doses. Talk with your healthcare kat reis if your medicines aren't working for you. [...] heartbeat or fast pulse Date Last Reviewed: 06/13/201619995880-8102 [employer]. [address] [place] [address], [place] [address]. All righ ts reserved. This information is not intended as a substitute for professional medical care. Always follow your healthcare professional's instructions. Avoid tobacco use. Follow-up: In about a month with Dr. Guaman. Time spent on discharge planning: less than 30 minutes Portions of this chart may have been created with [employer] voice recognition software. Occasi onal wrong-word or [...] skip doses. Talk with your healthcare p latoshavider if your medicines aren't working for you. [...] Jogging or running Swimming or water aerobics [employer] Tennis Riding a bicycle or stationary [...] heartbeat or fast pulse Date Last Reviewed: 06/13/201619995952-8768 [employer]. [address] [place] [address]. All righ ts reserved. This information is [...] | | | | | | | shosh[place]bann[place] coronary | | | | | | | artery of [place] | | | | | | | heart with angina | | | | | | | pectoris ([facility]) | | | | | | + [...] | | | | | | | shosh[place] coronary | | | | | | | artery of [place] | | | | | | | heart with angina | | | | | | | pectoris ([facility]) | | | | | | + [...] | | | | | | | shosh[place]bann[place] coronary | | | | | | | artery of [place] | | | | | | | heart with angina | | | | | | | pectoris ([facility]) | | | | | | + [...] | | | | | | | ([facility]) | | | | | | + [...] as of this encounter Progress Notes Teressa Obrien PharmD - 01/05/2018 6:34 PM PDTClarence Maurilio Goodman was admitted for STEMI a nd [...] the above and all questions were answered. Pharmaci st will follow-up with patient in one to [...] | | | | | | [employer] | | | | | [...] [address] | [place] | [phone] | | [facility] | | [address] | | | - LABORATORY | | [...] WAVE AXIS | 29 | degrees | [employer] [facility] | | + + + + + + | QRS AXIS | 18 | degrees | [facility] | | [...] MD | | | | | | ([id number]) on 01/05/2018 | | | | | [...] + + | Troponin I | 32.02 ()Comment: | <0.06 ng/mL | [facility] | [...] | | | | | | [employer] | | | | | [...] [address] | [place] | [phone] | | [facility] | | [address] | | | - LABORATORY | | [...] Demographics Patient Name JORDAN | | | ROBY Room Number 449 A | | | Patient Number [id number] Date of Study | | | 01/04/2018 Visit Number [id number] | | | Referring Physician Rosales GUAMAN MD Number Date of | | | 1970 Medical Referral Coordinator FATOUMAAT | | | PONCHO Age 47 year(s) Interpreting | | | KALIE SAHU, | | | Stripper Shovel Operator Gender Male | | | Nurse | | | Stress Tinsel Machine Operator Procedure Type of Study TTE procedure: ECHO [...] 1.08 cm PW Diastolic: 1.07 cm EF Ktotcaahn87% EF | | | Calculated: 55% Miscellaneous [...] Diastolic: 1.07 cm | | | EF Xvbzthkzq12% | | | EF Calculated: 55% | | | | | | Miscellaneous | | | | | | Aorta | | | | | | Aortic Root: 3.68 cm | | | Ascending Aorta: 3.62 cm | | | | | + + --+ + + | Procedure Note | + + | Angel Saha In - 01/04/2018 4:34 PM PDT Transthoracic Echocardiography Report | | (TTE) Demographics Patient Name JORDAN VAUGHN Room Number 449 | | A Patient Number [id number] Date of Study 01/04/2018 Visit Number | | [id number] Referring Physician Rosales GUAMAN MD | | Number Date of 1970 Medical Referral Coordinator FATOUMATA ISAAC Age | | 47 year(s) Interpreting KALIE SAHU, | | Stripper Shovel Operator Gender Male Nurse | | Stress TechnicianProcedureType [...] 1.08 cm PW Diastolic: 1.07 cm EF Ebpnspsln47% EF Calculated: 55% | | Miscellaneous Aorta [...] PW Diastolic: 1.07 cm | | EF Gtghddmzy51% | | EF Calculated: 55% | | [...] MD | | | | | | ([id number]) on 01/04/2018 | | | | | [...] 190 | 150 - 200 mg/dL | [facility] | | | | | [facility] | | | [facility] | [facility]ICAL | | | | | | CENTER - | | | | | | LABORATORY | | + + + + + + | HDL | 35Comment: New HDL | 28 - 83 mg/dL | [facility] | | | | Reference Range as [...] | | Ratio | | | [facility] | | | | | | MEDICAL | | | | | | CENTER - | | | | | | LABORATORY | | + + + + + + | LDL, | 122 | <=130 mg/dL | [facility] | | | Calculated | | | [facility] | | [...] + | [facility] | [address] | [place] | [phone] | | [facility] | | [address] | | | - LABORATORY | | [...] | MPV | 9.0 | fL | [facility] | | | | | | [facility] | | | | | | MEDICAL [...] [address] | [place] | [phone] | | [facility] | | [address] | | | - LABORATORY | | [...] + | [facility] | [address] | [place] | [phone] | | [facility] | | [address] | | | - LABORATORY | | | | + + + + + Troponin I (01/04/2018 1:42 AM PDT) + + + + + + | Component | Value | Ref Range | Performed | Pathologist | | | | | At | Signature | + + + + + + | Troponin I | 1.96 ()Comment: | <0.06 ng/mL | [facility] | | | | Reference | | [facility] | | | | Ranges:0.00-0.06 = | [...] | | | | | | [employer] | | | | | [...] | + + + + + | [facility] | [address] | [place] | [phone] | | [facility] | | [address] | | | - LABORATORY | | [...] | | | | PREETHI BARAJAS MD ([id number]) | | | | | | on [...] + | [facility] | [address] | [place] | [phone] | | [facility] | | [address] | | | - LABORATORY | | [...] | + + + + + | [facility] | 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 Round infusion dose to | | | | | | | nearest 50 units/hr. Round bolus | | | | | | | dose to nearest 100 units. | | | | | | | CARDIAC DOSE HEPARIN PROTOCOL | | | | | | | STARTING heparin infusion dose | | | | | | | Patient actual weight not | | | | | | | available. (12 units/kg/hr, | | | | | | | initial rate max 1,000 units/hr). | | | | | | | Draw APTT from an IV site other | | | | | | | than heparin IV site 6 hours | | | | | | | after starting a heparin | | | | | | | infusion. PTT Nomogram for | | | | | | | ADJUSTING heparin: APTT < 46 | | | | | | | seconds: Bolus 4,000 units & | | | | | | | increase rate by 200 units/hr | | | | | | | Repeat APTT 6 hr after change. | | | | | | | APTT 46-60 seconds: Bolus 2,000 | | | | | | | units & increase rate by 100 | | | | | | | units/hr Repeat APTT 6 hr after | | | | | | | change. APTT 61-98 seconds: | | | | | | | No bolus or rate change. Repeat | | | | | | | in AM. APTT 99-126 seconds: | | | | | | | Decrease rate by 100 units/hr | | | | | | | Repeat APTT 6 hr after change. | | | | | | | APTT 127-149 seconds: Stop | | | | | | | infusion 60 minutes then recheck | | | | | | | APTT. When APTT is 126 or less, | | | | | | | restart heparin at decreased | | | | | | | rate by 200 units/hr. Repeat | | | | | | | APTT 6 hr after change. APTT | | | | | | | 150-200 seconds: Stop infusion | | | | | | | 90 minutes then recheck APTT. | | | | | | | Repeat APTT every 90 minutes | | | | | | | until in goal range. When APTT | | | | | | | is in goal range, restart | | | | | | | heparin at decreased rate by 200 | | | | | | | units/hr. If two consecutive | | | | | | | APTT values are > 150 seconds, | | | | | | | contact prescriber., APTT >200 | | | | | | | seconds: Contact prescriber , | | | | | | + +---------+ + + +---+ +---+---+ | | | +---+---+ + +-------+ +-------+---+---+ | lisinopril (PRINIVIL, ZESTRIL) | Given | 01/05/20 | 10 mg | | | | tablet 10 mg 10 mg, Oral, 2 | | 18 5:57 | | | [...] | | | | 3 hours., Starting Wed01/04/18 | | | | | | | [...] | | | | Chest pain, Starting Wed01/04/18 | | | | | | | [...] PDT | | | | +-------+ +--------+---+---+ + +---+ | | | + +---+ | ondansetron (ZOFRAN) injection | | | 4-8 mg 4-8 mg, Intravenous, | | | EVERY 6 HOURS PRN, Nausea, | | | Vomiting, Starting 01/04/18 at | | | 0121, Post-op/Phase II | | + +---+ | | | + +---+ + +---------+ +---------+-------+---+ | sodium chloride 0.9% (NS) bolus | New Bag | 01/05/20 | 500 mLs | 83.3 | | | 500 mL 500 mL, Intravenous, | | 18 1:46 | | mL/hr | | | Administer over 6 Hours, ONCE, | | AM PDT | | | | | Wed01/04/18 at 0145, For 1 dose, | | | | | | | 1 ml/kg/hr x 6 hours, | | | | | | | Post-op/Phase II | | | | | | + +---------+ +---------+-------+---+ + +---+ | | | + +---+ [...]
--- OUTSIDE RECORDS SUMMARY | ~2019-09-02 | XMS | Encounter Summary ---
Demographics + + + | Address | [address] | | | [place] [address] | + + + | Home Phone | | + + + | Preferred Language | Unknown | + + + | Marital Status | | + + + | Latter Day Affiliation | 1013 | + + + | Race | Unknown | + + + | Ethnic Group | Unknown | + + + Author + + + | Author | [facility] | | | and Randalana | + + + | Organization | [facility] | | | and Randalana [...] Team Providers + +------+ + | Care Resolution Expert Name | Role | Phone | + +------+ + PCP | Unavailable | + +------+ + Encounter Details +--------+ + + + + | Date | Type | Department | Care Team | Description | +--------+ + + + + | 11/22/ | Hospital | [facility] | Jg Hicks | | | 2011 | Encounter | HOSPITAL LABORATORY | Ann, PHOTOGRAPHIC PROCESSOR [address] | | | | | [address] [place] | [facility], [place] | | | | | [place], [place] | [address] | | | | | [address] | [phone] | | | | | [phone] | | | +--------+ + + + [...]
--- OUTSIDE RECORDS SUMMARY | ~2019-09-02 | XMS | Encounter Summary ---
Demographics + + + | Address | [address] | | | [place] [address] | + + + | Home Phone | | + + + | Preferred Language | Unknown | + + + | Marital Status | | + + + | Sikhism Affiliation | 1013 | + + + | Race | Unknown | + + + | Ethnic Group | Unknown | + + + Author + + + | Author | [facility] | | | and Randalana | + + + | Organization | [facility] | | | and [...] Team Providers + +------+ + | Care Homoeopath Name | Role | Phone | + [...] + + | 01/12/ | Telephone | [facility] [place] | Peewee Baez | Other ([place] | | 2017 | | AALIYAH [address] | MD Yves [address] | paperwork) | | | | [place], | [address] [place] | | | | | [place] [address] | [place] [address] | | | | | [phone] | [phone] | | | | | | | [...]
--- OUTSIDE RECORDS SUMMARY | ~2019-09-02 | XMS | Encounter Summary ---
Demographics + + + | Address | [address] | | | [place] [address] | + + + | Home Phone | | + + + | Preferred Language | Unknown | + + + | Marital Status | | + + + | Mosque Affiliation | 1013 | + + + | Race | Unknown | + + + | Ethnic Group | Unknown | + + + Author + + + | Author | [facility] | | | and Randalana | + + + | Organization | [facility] | | | and Randalana | + + + | Address | Unknown | + + + | Phone | Unavailable | + + + Support + + +---------+ + | Name | Relationship | Address | Phone | + + +---------+ + | aMrgaret Vargas | ECON | Unknown | | + + +---------+ + | Julia Sarantanisha | ECON | Unknown | | + + +---------+ + | Julia Sarantanishast | ECON | Unknown | | + + +---------+ + Care Team Providers + +------+ + | Care Spray Applicator Name | Role | Phone | + [...] | | [place], [place] | [place] [address] | | | | | [address] | [phone] | | | | | [phone] | | | +--------+ + + + [...]
--- OUTSIDE RECORDS SUMMARY | ~2019-09-02 | XMS | Encounter Summary ---
Demographics + + + | Address | [address] | | | [place] [address] | + + + | Home Phone | | + + + | Preferred Language | Unknown | + + + | Marital Status | | + + + | Restoration Affiliation | 1013 | + + + | Race | Unknown | + + + | Ethnic Group | Unknown | + + + Author + + + | Author | [facility] | | | and Randalana | + + + | Organization | [facility] | | | and Randalana [...] Team Providers + +------+ + | Care Hod Carrier Name | Role | Phone | + +------+ + | Mary Kraft | PCP | | | PA | | | + +------+ + Encounter Details +--------+ + + + + | Date | Type | Department | Care Team | Description | +--------+ + + + + | 01/11/ | Orders Only | [facility] [place] | Montse Pinedo, | Coronary artery | | 2018 | | CARDIOLOGY [address] | RN | disease involving | | | | [place], | | [place] coronary | | | | [place] [address] | | artery of [place] | | | | [phone] | | heart with angina | | | | | | pectoris (HCC) | +--------+ + + + + Social [...] + + | 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
--- OUTSIDE RECORDS SUMMARY | ~2019-09-02 | XMS | Encounter Summary ---
Demographics + + + | Address | [address] | | | [place] [address] | + + + | Home Phone | | + + + | Preferred Language | Unknown | + + + | Marital Status | | + + + | Alevism Affiliation | 1013 | + + + | Race | Unknown | + + + | Ethnic Group | Unknown | + + + Author + + + | Author | [facility] | | | and Randalana | + + + | Organization | [facility] | | | and Randalana | [...] Providers + +------+ + | Care Customer Engagement Analyst Name | Role | Phone | [...] | [address] [place] | [address] [facility], | | | | | [facility], [place] | [place] [address] | | | | | [address] | [phone] | | | | | [phone] | | | +--------+ + + + [...]
--- OUTSIDE RECORDS SUMMARY | ~2019-09-02 | XMS | Encounter Summary ---
Demographics + + + | Address | [address] | | | [place] [address] | + + + | Home Phone | | + + + | Preferred Language | Unknown | + + + | Marital Status | | + + + | Hoahaoism Affiliation | 1013 | + + + | Race | Unknown | + + + | Ethnic Group | Unknown | + + + Author + + + | Author | [facility] | | | and Randalana | + + + | Organization | [facility] [...] Team Providers + +------+ + | Care Campaign Coordinator Name | Role | Phone | + [...] | | [place], [place] | [place] [address] | | | | | [address] | [phone] | | | | | [phone] | | | +--------+ + + + [...]
--- OUTSIDE RECORDS SUMMARY | ~2019-09-02 | XMS | Encounter Summary ---
Demographics + + + | Address | [address] | | | [place] [address] | + + + | Home Phone | | + + + | Preferred Language | Unknown | + + + | Marital Status | | + + + | Gnosticism Affiliation | 1013 | + + + | Race | Unknown | + + + | Ethnic Group | Unknown | + + + Author + + + | Author | [facility] | | | and Randalana | + + + | Organization | [facility] | | | and [...] Team Providers + +------+ + | Care Back Tender Pulp Drier Name | Role | Phone | + [...] | | | | descending | [place] [address] | [address] Phone: | | | | | coronary | Phone: | [phone] | | | | | artery (HCC) | [phone] | Fax: | | | | | Acute | Fax: | [phone] | | | | | myocardial | [phone] | | | | | | infarction [...] + + | 07/07/ | Office | [facility] | Paolo Lopez MD | Unstable angina | | 2018 | Visit | CARDIOLOGY [address] | [address] | pectoris (HCC) | | | | Comfort [place], | [place] | (Primary Dx) | | | | [place] [address] | [address] | | | | | [phone] | | | +--------+---------+ + + + [...] suggesting mild fluid retention. Records reviewed from [facility] for hospitalization,including H&P, Disch arge Summary and lab reports . MEDICAL, SURGICAL, AND PERSONAL HISTORY Past Medical, Surgical, Family, and Social History are reviewed in EPIC. 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 Occasi onal wrong-word or [...]
--- OUTSIDE RECORDS SUMMARY | ~2019-09-02 | XMS | Encounter Summary ---
Demographics + + + | Address | [address] | | | [place] [address] | + + + | Home Phone [...] Author | [facility] | | | and Randalana | + + + | Organization | [facility] | | | and [...] Team Providers + +------+ + | Care Middle School Pe Teacher Name | Role | Phone | + +------+ + PCP | Unavailable | + +------+ + Encounter Details +--------+ + + + + | Date | Type | Department | Care Team | Description | +--------+ + + + + | 11/01/ | Hospital | [place] [facility] | Artur Pena NP | | | 2015 | Encounter | [facility] | [address], | | | | | [facility] [address] | [place] [address] | | | | | [address] [facility] [place], | [phone] | | | | | [place] [address] | | | | | | [phone] | | | +--------+ + + + [...]
--- OUTSIDE RECORDS SUMMARY | ~2019-09-02 | XMS | Encounter Summary ---
Demographics + + + | Address | [address] | | | [place] [address] | + + + | Home Phone | | + + + | Preferred Language | Unknown | + + + | Marital Status | | + + + | Tenriism Affiliation | 1013 | + + + | Race | Unknown | + + + | Ethnic Group | Unknown | + + + Author + + + | Author | [facility] | | | and Randalana | + + + | Organization | [facility] | | | and Randalana | [...] Team Providers + +------+ + | Care Hand Zipper Trimmer Name | Role | Phone | + +------+ + PCP | Unavailable | + +------+ + Encounter Details +--------+ + + + + | Date | Type | Department | Care Team | Description | +--------+ + + + + | 09/25/ | Hospital | [facility] [facility] | Adrián English | | | 2008 | Encounter | HOSPITAL [facility] | [address] | | | | | [address] [place] | [address] [place] [place] | | | | | [place], [place] | [place] [address] | | | | | [address] | [phone] | | | | | [phone] | | | +--------+ + + + [...]
--- OUTSIDE RECORDS SUMMARY | ~2019-09-02 | XMS | Encounter Summary ---
Demographics + + + | Address | [address] | | | [place] [address] | + + + | Home Phone | | + + + | Preferred Language | Unknown | + + + | Marital Status | | + + + | Anabaptist Affiliation | 1013 | + + + | Race | Unknown | + + + | Ethnic Group | Unknown | + + + Author + + + | Author | [facility] | | | and Randalana | + + + | Organization | [facility] | | | and Randalana [...] Team Providers + +------+ + | Care Or Manager Name | Role | Phone | [...] + + + | | | | | | | +--------+--------+ + + + + Encounter Details +--------+ + + + + | Date | Type | Department | Care Team | Description | +--------+ + + + + | 03/08/ | [facility] | [facility] | Peewee Baez | Coronary artery | | 2018 | Encounter | MED CTR NUCLEAR | MD Yves [address] | disease involving | | | | MEDICINE [address] | [address] [place] | lime coronary | | | | [place], | [place] [address] | artery of lime | | | | [place] [address] | [phone] | heart with angina | | | | [phone] | | pectoris ([facility]); | | | | | Tumbling InstructorCaden | STEMI involving left | | | | | | anterior descending | | | | | | coronary artery | | | | | | ([facility]) | +--------+ + + + + Social [...] tablet by | 30 | 0 | // | | | chewable | mouth Daily. | tablet | | 18 | | | tabletIndications: | | | | | | | Coronary artery | | | | | | | disease involving | | | | | | | lime coronary | | | | | | | artery of lime | | | | | | | [...] | | | | | | | lime coronary | | | | | | | artery of lime | | | | | | | heart with angina | | | | | | | pectoris ([facility]) | | | | | | + [...] | | | | | | | lime coronary | | | | | | | artery of lime | | | | | | | heart with angina | | | | | | | pectoris ([facility]) | | | | | | + [...] ECG | Routin | Coronary artery | 1 Occurrences | | | | e | disease involving | starting 03/08/2018 | | | | | lime coronary | until 03/08/2018 | | | | | artery of lime | | | | | | heart with angina | | | | | | pectoris ([facility]) | | | | | | STEMI involving left | | | | | | anterior descending | | | | | | coronary artery | | | | | | ([facility]) | | + +------+--------+ + + documented as of this encounter Visit Diagnoses + + | Diagnosis | + + | 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
--- OUTSIDE RECORDS SUMMARY | ~2019-09-02 | XMS | Encounter Summary ---
Demographics + + + | Address | [address] | | | [place] [address] | + + + | Home Phone | | + + + | Preferred Language | Unknown | + + + | Marital Status | | + + + | Jew Affiliation | 1013 | + + + | Race | Unknown | + + + | Ethnic Group | Unknown | + + + Author + + + | Author | [facility] | | | and Randalana | + + + | Organization | [facility] | | | and Randalana [...] Team Providers + +------+ + | Care Firer Marine Name | Role | Phone | + [...] + + + + | 03/08/ | [facility] | [facility] | Peewee Baez | Coronary artery | | 2018 | Encounter | MED CTR NUCLEAR | MD Yves [address] | disease involving | | | | MEDICINE [address] | [address] [place] | cahuilla coronary | | | | [place], | [place] [address] | artery of cahuilla | | | | [place] [address] | [phone] | heart with angina | | | | [phone] | | pectoris ([facility]); | | | | | Plug AssemblerCaden | STEMI involving left | | | | | | anterior descending | | | | | | coronary artery | | | | | | ([facility]) | +--------+ + + + + Social [...] | | | | | | | cahuilla coronary | | | | | | | artery of cahuilla | | | | | | | [...] | | | | | | | cahuilla coronary | | | | | | | artery of cahuilla | | | | | | | heart with angina | | | | | | | pectoris ([facility]) | | | | | | [...] | | | | | | | cahuilla coronary | | | | | | | artery of cahuilla | | | | | | | heart with angina | | | | | | | pectoris ([facility]) | | | | | | [...] starting 03/08/2018 | | | | | cahuilla coronary | until 03/08/2018 | | | | | artery of cahuilla | | | | | | heart with angina | | | | | | pectoris ([facility]) | | | | | | STEMI involving left | | | | | | anterior descending | | | | | | coronary artery | | | | | | ([facility]) | | + +------+--------+ + + documented as of this encounter Visit Diagnoses + + | Diagnosis | + + | 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
--- OUTSIDE RECORDS SUMMARY | ~2019-09-02 | XMS | Encounter Summary ---
Demographics + + + | Address | [address] | | | [place] [address] | + + + | Home Phone | | + + + | Preferred Language | Unknown | + + + | Marital Status | | + + + | Jewish Affiliation | 1013 | + + + | Race | Unknown | + + + | Ethnic Group | Unknown | + + + Author + + + | Author | [facility] | | | and Randalana | + + + | Organization | [facility] | | | and Randalana | + + + | Address | Unknown | + + + | Phone | Unavailable | + + + Support + + +---------+ + | Name | Relationship | Address | Phone | + + +---------+ + | Magraret Vargas | ECON | Unknown | | + + +---------+ + | Julia Saranbay | ECON | Unknown | | + + +---------+ + | Julia Saranbay | ECON | Unknown | | + + +---------+ + Care Team Providers + +------+ + | Care Flute Grinder Name | Role | Phone | + [...] + + | 07/05/ | Telephone | [facility] | Peewee Baez | Appointment | | 2017 | | [facility] [address] | MD Yves [address] | | | | | [place], | [address] [place] | | | | | [place] [address] | [place] [address] | | | | | [phone] | [phone] | | | | | | | [...]
--- OUTSIDE RECORDS SUMMARY | ~2019-09-02 | XMS | Encounter Summary ---
Demographics + + + | Address | [address] | | | [place] [address] | + + + | Home Phone [...] Author | [facility] | | | and Randalana | + + + | Organization | [facility] | | | and [...] Team Providers + +------+ + | Care Second Operator Name | Role | Phone | [...] | | | | descending | [place] [address] | [address] Phone: | | | | | coronary | Phone: | [phone] | | | | | artery (HCC) | [phone] | Fax: | | | | | Acute | Fax: | [phone] | | | | | myocardial | [phone] | | | | | | infarction [...] + + | 02/08/ | Office | [facility] | Peewee Baez | Coronary artery | | 2018 | Visit | CARDIOLOGY [address] | MD Yves [address] | disease involving | | | | [place], | [address] [place] | pit river coronary | | | | [place] [address] | [place] [address] | artery of pit river | | | | [phone] | [phone] | heart with angina | | | [...] - 02/08/2018 11:00 AM PDTDoing well post HI, stenting of LAD. He salcedo s a non-dominant right coronary with 75% stenoses and a left PDA with a 60% narrowing. No a ngina, SOA, palpitation. Active in cardiac rehab. 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 Exam was normal today; lungs clear, no M,r,g. Abd benign, No edema Imp: S/p anterior HI, stent to LAD CAD appropriate for medical management at this time. Plan: Stop carvedilol and start lisinopril in a month, when his Coreg bottle is empty. Return in 6 months. documented in this encounter Plan of Treatment Not on filedocumented as of this encounter Visit Diagnoses + + | Diagnosis | + + | Coronary artery disease involving pit river coronary artery of [place] river heart with angina | | pectoris (HCC) - Primary | + + | Status post insertion of drug-eluting stent into left anterior descending (LAD) artery | | for coronary artery disease | + + documented in this encounter
--- OUTSIDE RECORDS SUMMARY | ~2019-09-02 | XMS | Encounter Summary ---
Demographics + + + | Address | [address] | | | [place] [address] | + + + | Home Phone | | + + + | Preferred Language | Unknown | + + + | Marital Status | | + + + | Catholic Affiliation | 1013 | + + + | Race | Unknown | + + + | Ethnic Group | Unknown | + + + Author + + + | Author | [facility] | | | and Randalana | + + + | Organization | [facility] | [...] Team Providers + +------+ + | Care Funeral Home Location Manager Name | Role | Phone | [...] + + | 01/11/ | Telephone | [facility] | Peewee Baez | Other (plan of care) | | 2018 | | CARDIOLOGY [address] | MD Yves [address] | | | | | [place], | [address] [place] | | | | | [place] [address] | [place] [address] | | | | | [phone] | [phone] | | | | | | | [...]
--- OUTSIDE RECORDS SUMMARY | ~2019-09-02 | XMS | Encounter Summary ---
Demographics + + + | Address | [address] | | | [place] [address] | + + + | Home Phone | | + + + | Preferred Language | Unknown | + + + | Marital Status | | + + + | Islam Affiliation | 1013 | + + + | Race | Unknown | + + + | Ethnic Group | Unknown | + + + Author + + + | Author | [facility] | | | and Randalana | + + + | Organization | [facility] [...] Team Providers + +------+ + | Care Net Trainer Name | Role | Phone | + [...] | disease involving | | | | [place], | | elim ira coronary | | | | [place] [address] | | artery of elim ira | | | | [phone] | | heart with angina | | [...] + + | Coronary artery disease involving elim ira coronary artery of elim ira heart with angina | | pectoris (HCC) | + + documented in this encounter"
--- OUTSIDE RECORDS SUMMARY | ~2019-09-02 | XMS | Encounter Summary ---
Demographics + + + | Address | [address] | | | [place] [address] | + + + | Home Phone | | + + + | Preferred Language | Unknown | + + + | Marital Status | | + + + | Yazidi Affiliation | 1013 | + + + | Race | Unknown | + + + | Ethnic Group | Unknown | + + + Author + + + | Author | [facility] | | | and Randalana | + + + | Organization | [facility] | | | and Randalana [...] Team Providers + +------+ + | Care Photonics Technician Name | Role | Phone | + +------+ + PCP | Unavailable | + +------+ + Encounter Details +--------+ + + + + | Date | Type | Department | Care Team | Description | +--------+ + + + + | 11/01/ | Hospital | [facility] [facility] | Artur Pena NP | | | 2015 | Encounter | [facility] | [address], | | | | | MED[address] | [place] [address] | | | | | [address] [facility] [place], | [phone] | | | | | [place] [address] | | | | | | [phone] | | | +--------+ + + + [...]
--- OUTSIDE RECORDS SUMMARY | ~2019-09-02 | XMS | Encounter Summary ---
Demographics + + + | Address | [address] | | | [place] [address] | + + + | Home Phone | | + + + | Preferred Language | Unknown | + + + | Marital Status | | + + + | Mormon Affiliation | 1013 | + + + | Race | Unknown | + + + | Ethnic Group | Unknown | + + + Author + + + | Author | [facility] | | | and Randalana | + + + | Organization | [facility] | [...] Providers + +------+ + | Care Software Engineer Web Services Name | Role | Phone | + +------+ + PCP | Unavailable | + +------+ + Encounter Details +--------+ + + + + | Date | Type | Department | Care Team | Description | +--------+ + + + + | 08/14/ | Hospital | [facility] | Charisma Underwood | | | 2012 | Encounter | [facility] | [address] | | | | | MEDICAL CL[address] | [address] [facility], | | | | | [facility] [facility], | [place] [address] | | | | | [place] [address] | [phone] | | | | | [phone] | | | +--------+ + + + [...]
--- OUTSIDE RECORDS SUMMARY | ~2019-09-02 | XMS | Encounter Summary ---
Demographics + + + | Address | [address] | | | [place] [address] | + + + | Home Phone | | + + + | Preferred Language | Unknown | + + + | Marital Status | | + + + | Druze Affiliation | 1013 | + + + | Race | Unknown | + + + | Ethnic Group | Unknown | + + + Author + + + | Author | [facility] | | | and Randalana | + + + | Organization | [facility] | | | and [...] Team Providers + +------+ + | Care Fitness Assistant Name | Role | Phone | [...] + + | 08/01/ | Office | [facility] | Peewee Baez | Coronary artery | | 2019 | Visit | CARDIOLOGY [address] | MD Yves [address] | disease involving | | | | [place], | [address] [place] | campo coronary | | | | [place] [address] | [place] [address] | artery of campo | | | | [phone] | [phone] | heart with angina | | | | | | pectoris (HCC) | | | | | | (Primary Dx); | | | | | | Atherosclerosis of | | | | | | campo coronary | | | | | | artery of campo | | | | | | heart [...] 1970: AGE: 49 y.o. PRIMARY CARE: BONITA Lozano OUTPATIENT FOLLOW UP VISIT Date of Service: [...] REACTION ROS Data found and reviewed in [facility]. Pertinent changes/review: Nothing new to report [...] ASSESSMENT: Chronic ischemic heart disease, post anterior WI and post 4 vessel CABG. No angina. PLAN: Medication changes: He needs to take either aspirin or Plavix but probably doesn't need to take both. Testing ordered today: Recheck lipids, chemistry and CBC.. Return to see a new animal care attendant when he moves to [place] in a month. He will not follow up here. Electronically signed by: Chris Baez MD [facility] 08/01/2019 Portions of this chart were created with [employer] voice recognition software.Electronically s igned by Peewee [...] starting 08/01/2019 | | | | | campo coronary | until 08/01/2020 | | | | | artery of campo | | | | | | heart with angina | | | | | | pectoris (HCC) | | + +------+--------+ + + | Comprehensive | Lab | Routin | Coronary artery | 1 Occurrences | | Metabolic Panel | | e | disease involving | starting 08/01/2019 | | | | | campo coronary | until 08/01/2020 | | | | | artery of campo | | | | | | heart with angina | | | | | | pectoris (HCC) | | + +------+--------+ + + | Lipid Panel | Lab | Routin | Coronary artery | 1 Occurrences | | | | e | disease involving | starting 08/01/2019 | | | | | campo coronary | until 08/01/2020 | | | | | artery of campo | | | | | | heart with angina | | | | | | pectoris (HCC) | | + +------+--------+ + + documented as of this encounter Visit Diagnoses + + | Diagnosis | + + | 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
--- OUTSIDE RECORDS SUMMARY | ~2019-09-02 | XMS | Encounter Summary ---
Demographics + + + | Address | [address] | | | [place] [address] | + + + | Home Phone | | + + + | Preferred Language | Unknown | + + + | Marital Status | | + + + | Bahai Affiliation | 1013 | + + + | Race | Unknown | + + + | Ethnic Group | Unknown | + + + Author + + + | Author | [facility] | | | and Randalana | + + + | Organization | [facility] | | | and [...] Team Providers + +------+ + | Care Emergency Crew Supervisor Name | Role | Phone | [...] | RN | | | | | [place], | | | | | | [place] [address] | | | | | | [phone] | | | +--------+ + + + [...]
--- OUTSIDE RECORDS SUMMARY | ~2019-09-02 | XMS | Encounter Summary ---
Demographics + + + | Address | [address] | | | [place] [address] | + + + | Home Phone [...] + + | Author | [facility] | | | and Randalana | + + + | Organization | [facility] | | | [...] Team Providers + +------+ + | Care Personnel Scheduler Name | Role | Phone | + +------+ + PCP | Unavailable | + +------+ + Encounter Details +--------+ + + + + | Date | Type | Department | Care Team | Description | +--------+ + + + + | 12/08/ | Hospital | [facility] | Charisma Underwood | | | 2013 | Encounter | [facility] | [address] | | | | | MEDICAL CLIN[address] | [address] [facility], | | | | | [address] [facility], | [place] [address] | | | | | [place] [address] | [phone] | | | | | [phone] | | | +--------+ + + + [...]
--- OUTSIDE RECORDS SUMMARY | ~2019-09-02 | XMS | Encounter Summary ---
Demographics + + + | Address | [address] | | | [place] [address] | + + + | Home Phone [...] + | Author | [facility] | | | and Randalana | + + + | Organization | [facility] | | | and [...] Team Providers + +------+ + | Care Senior Service Technician Name | Role | Phone | [...] | | [place], [place] | [place] [address] | | | | | [address] | [phone] | | | | | [phone] | | | +--------+ + + + [...]
--- OUTSIDE RECORDS SUMMARY | ~2019-09-02 | XMS | Encounter Summary ---
Demographics + + + | Address | [address] | | | [place] [address] | + + + | Home Phone [...] + | Author | [facility] | | | and Randalana | + + + | Organization | [facility] | | | and Randalana [...] Team Providers + +------+ + | Care Shank Piece Tacker Name | Role | Phone | + [...] | | [place], [place] | [place] [address] | | | | | [address] | [phone] | | | | | [phone] | | | +--------+ + + + [...]
--- OUTSIDE RECORDS SUMMARY | ~2019-09-02 | XMS | Encounter Summary ---
Demographics + + + | Address | [address] | | | [place] [address] | + + + | Home Phone [...] | Author | [facility] | | | and Randalana | + + + | Organization | [facility] | | | and [...] Team Providers + +------+ + | Care Light Armored Vehicle Officer Name | Role | Phone | [...] | | | | | [address] | [address] [place] | | | 01/04/ | | [place], [place] | [place] [address] | | | 2017 | | [address] | [phone] | | | | | [phone] | | | +--------+---------+ + + + [...] NOTE: LVEF was 50 - 55% post IA. SUMMARY OF HISTORY AND PHYSICAL: Roby Goodman is a 47 y.o. male with a history of [employer]. He was transferred from [facility] to [facility] on 01/03/2018 for STEMI involving left anterior [...] directly from the helicopter to the cardiac systems testing laboratory technician. His LAD was occluded and stented. He did well subsequently without complication. Peak tro ponin I was 32 and echo showed hypokinesis of anterior, anteroseptal and anterolateral segme nts. IA was "moderate" in size. DISCHARGE EXAM: General: [...] heartbeat or fast pulse Date Last Reviewed: 06/13/201619999688-0874 [employer]. [address] [place] [address], [place] [address]. All righ ts reserved. This information is not intended as a substitute for professional medical care. Always follow your healthcare professional's instructions. Avoid tobacco use. Follow-up: In about a month with Dr. Guaman. Time spent on discharge planning: less than 30 minutes Portions of this chart may have been created with [employer] voice recognition software. Occasi onal wrong-word or [...] heartbeat or fast pulse Date Last Reviewed: 06/13/[id number] [employer]. [address] [place], [place] [address]. All righ ts reserved. This information is [...] | | | | | | | ramona coronary | | | | | | | artery of ramona | | | | | | | [...] | | | | | | | ramona coronary | | | | | | | artery of ramona | | | | | | | heart with angina | | | | | | | pectoris ([facility]) | | | | | [...] | | | | | | | ramona coronary | | | | | | | artery of ramona | | | | | | | heart with angina | | | | | | | pectoris ([facility]) | | | | | [...] | | | | | | [employer] | | | | | [...] [address] | [place] | [phone] | | [facility] | | [address] | | | - LABORATORY | | [...] MD | | | | | | ([id number]) on 01/05/2018 | | | | | [...] | | | | | | [employer] | | | | | [...] [address] | [place] | [phone] | | [facility] | | [address] | | | - LABORATORY | | [...] Demographics Patient Name JORDAN | | | MARLIN Room Number 449 A | | | Patient Number [id number] Date of Study | | | 01/04/2018 Visit Number [id number] | | | Referring Physician Roslaes GUAMAN MD Number Date of | | | 1970 Eligibility Supervisor FATOUMATA | | | PONCHO Age 47 year(s) Interpreting | | | KALIE SAHU, | | | Director [employer] Gender Male | | | Nurse | | | Stress Hairspring Vibrator Procedure Type of Study TTE procedure: ECHO [...] 1.08 cm PW Diastolic: 1.07 cm EF Fylftqtte36% EF | | | Calculated: 55% Miscellaneous [...] Diastolic: 1.07 cm | | | EF Yyybywsrn52% | | | EF Calculated: 55% | [...] Number [id number] | | A Patient Number [id number] Date of Study 01/04/2018 Visit Number | | [id number] Referring Physician Rosales GUAMAN MD | | Number Date of 1970 Eligibility Supervisor FATOUMATA ISAAC Age | | 47 year(s) Interpreting KALIE SAHU, | | Director [employer] Gender Male Nurse | | Stress TechnicianProcedureType [...] 1.08 cm PW Diastolic: 1.07 cm EF Vwyjphnfl74% EF Calculated: 55% | | Miscellaneous Aorta [...] PW Diastolic: 1.07 cm | | EF Ytxqhuqju22% | | EF Calculated: 55% | | [...] MD | | | | | | ([id number]) on 01/04/2018 | | | | | [...] HDL | 28 - 83 mg/dL | [facility] | | | | Reference Range as [...] [address] | [place] | [phone] | | [facility] | | [address] | | | - LABORATORY | | [...] ST. | [address] | [place], [place] | [phone] | | [facility] | | [address] | | | - LABORATORY | | [...] [address] | [place] | [phone] | | [facility] | | [address] | | | - LABORATORY | | [...] | | | | | | [employer] | | | | | [...] + + | Performing | Address | City/State[facility] | Phone Number | | Organization | | | | + + + + + | [facility] [facility] | [address] | [place], [place] | [phone] | | [facility] | | [address] | | | - LABORATORY | | [...] | | | | PREETHI BARAJAS MD ([id number]) | | | | | | on [...] + | [facility] | [address] | [place] | [phone] | | [facility] | | [address] | | | - LABORATORY | | [...] + | [facility] | [address] | [place], [place] | [phone] | | [facility] | | [address] | | | - LABORATORY | | [...]
--- OUTSIDE RECORDS SUMMARY | ~2019-09-02 | XMS | Encounter Summary ---
Demographics + + + | Address | [address] | | | [place] [address] | + + + | Home Phone [...] + | Author | [facility] | | | and Randalana | + + + | Organization | [facility] | | | and Randalana [...] Team Providers + +------+ + | Care Remediation Project Engineer Name | Role | Phone | [...] + + | 07/07/ | Hospital | [facility] | Paolo Lopez MD | | | 2018 - | Encounter | MED CTR ICU [address] | [address] | | | | | [place], | [place] | | | 07/08/ | | [place] [address] | [address] | | | 2017 | | [phone] | | | +--------+ + + + [...] Physician Discharge Summary Patient ID: Roby Goodman [id number] 48 y.o. 1970 Admit date: 07/07/2018 Discharge [...] | | | | | | | [place] coronary | | | | | | | artery of [place] | | | | | | | [...] | | | | | | | [place] coronary | | | | | | | artery of [place] | | | | | | | heart with angina | | | | | | | pectoris ([facility]) | | | | | | [...] | | | | | | | [place] coronary | | | | | | | artery of [place] | | | | | | | heart with angina | | | | | | | pectoris ([facility]) | | | | | | [...] Inferior leads Confirmed by PREETHI BARAJAS MD ([id number]) on 07/08/2018 7:43:54 AM CV Cardiac Procedure [...] by: Paolo Lopez MD, 07/08/2018 11:56 [facility] cNataliya Roman RN - 07/08/2018 9:23 AM PDTReport called to JEN Singh at [facility]. Paolo Peter MD - 07/07/2018 5 [...] | | | | JENN MARIANO, PREETHI ([id number]) | | | | | | on [...] [address] | [place] | [phone] | | [facility] | | [address] | | | - LABORATORY | | [...] [address] | [place] | [phone] | | [facility] | | [address] | | | - LABORATORY | | [...] | mL/min/1.73m2 | JUNG | | | [facility] | RATE,ESTIMATED | | MEDICAL | | | | mL/min/1.95a8Jbtp than | | CENTER - | | [...] [address] | [place] | [phone] | | [facility] | | [address] | | | - LABORATORY | | [...] ST. | [address] | [place] | [phone] | | [facility] | | [address] | | | - LABORATORY | | [...] | | | | 5 mg, Oral, EARLY CHILDHOOD EDUCATION INSTRUCTOR, Starting June | | 18 10:41 | [...] | | | | | dose on [facility] 07/07/18 at 2100 | | | [...] | | | | | dose on [facility] 07/07/18 at 1100, | | | [...]
--- OUTSIDE RECORDS SUMMARY | ~2019-09-02 | XMS | Encounter Summary ---
Demographics + + + | Address | [address] | | | [place] [address] | + + + | Home Phone | | + + + | Preferred Language | Unknown | + + + | Marital Status | | + + + | Bahai Affiliation | 1013 | + + + | Race | Unknown | + + + | Ethnic Group | Unknown | + + + Author + + + | Author | [facility] | | | and Randalana | + + + | Organization | [facility] | | | and Randalana [...] Team Providers + +------+ + | Care Biologics Specialist Name | Role | Phone | + +------+ + PCP | Unavailable | + +------+ + Encounter Details +--------+ + + + + | Date | Type | Department | Care Team | Description | +--------+ + + + + | 07/21/ | Hospital | [facility] | Zia Stafford MD | | | 1999 | Encounter | CON[address] | | | | | | [address] | | | | | | [place] | | | | | | [address] | | | | | | [phone] | | | +--------+ + + + [...]
--- OUTSIDE RECORDS SUMMARY | ~2019-09-02 | XMS | Encounter Summary ---
Demographics + + + | Address | [address] | | | [place] [address] | + + + | Home Phone | | + + + | Preferred Language | Unknown | + + + | Marital Status | | + + + | Confucianism Affiliation | 1013 | + + + | Race | Unknown | + + + | Ethnic Group | Unknown | + + + Author + + + | Author | [facility] | | | and Randalana | + + + | Organization | [facility] | | | and Randalana [...] Team Providers + +------+ + | Care Key Attendant Name | Role | Phone | + [...] | | | | | [address] | [place] | | | | | [place] | [address] | | | | | [address] | | | | | | [phone] | | | +--------+---------+ + + + [...] Physician Discharge Summary Patient ID: Roby Goodman [id number] 48 y.o. 1970 Admit date: 07/07/2018 Discharge [...] | | | | | | pectoris ([facility]) | | | | | | [...] | | | | | | pectoris ([facility]) | | | | | | [...] Inferior leads Confirmed by PREETHI BARAJAS MD ([id number]) on 07/08/2018 7:43:54 AM CV Cardiac Procedure [...] by: Paolo Lopez MD, 07/08/2018 11:56 [facility] cNataliya Roman RN - 07/08/2018 9:23 AM PDTReport called to JEN Singh at [facility]. Paolo Peter MD - 07/07/2018 5 :52 [...] | | | | JENN MARIANO, PREETHI ([id number]) | | | | | | on [...] [address] | [place] | [phone] | | [facility] | | [address] | | | - LABORATORY | | [...] [address] | [place] | [phone] | | [facility] | | [address] | | | - LABORATORY | | [...] | mL/min/1.73m2 | JUNG | | | FIJIAN | RATE,ESTIMATED | | MEDICAL | | | | mL/min/1.98u5Waay than | | CENTER - | | [...] [address] | [place] | [phone] | | [facility] | | [address] | | | - LABORATORY | | [...] [address] | [place] | [phone] | | [facility] | | [address] | | | - LABORATORY | | [...] | | | | | dose on [facility] 07/07/18 at 2100 | | | [...] mcg | | | | PRN, Starting [facility] 07/07/18 at | | 18 1:36 | [...]
--- OUTSIDE RECORDS SUMMARY | ~2019-09-02 | XMS | Encounter Summary ---
Demographics + + + | Address | [address] | | | [place] [address] | + + + | Home Phone [...] + | Author | [facility] | | | and Randalana | + + + | Organization | [facility] [...] Team Providers + +------+ + | Care Guest Services Coordinator Name | Role | Phone | [...] | | anterior | [place], | [place] | | | | | descending | [place] [address] | [place], [place] | | | | | coronary | Phone: | [phone] | | | | | artery (HCC) | [phone] | Phone: | | | | | | Fax: | [phone] | | | | | | [phone] | Fax: | | | | | | | [phone] | +--------+ + + + + + [...] + + | 01/03/ | Hospital | [facility] | Peewee Guaman | Coronary artery | | 2018 - | Encounter | MED CTR ICU [address] | MD Yves [address] | disease involving | | | | [place], | [address] [place] | kaw coronary | | 01/05/ | | [place] [address] | [place] [address] | artery of kaw | | 2018 | | [phone] | [phone] | heart with angina | | | [...] NOTE: LVEF was 50 - 55% post MT. SUMMARY OF HISTORY AND PHYSICAL: Roby Goodman is a 47 y.o. male with a history of [employer]. He was transferred from [facility] to 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 His LAD was occluded and stented. He did well subsequently without complication. Peak tro ponin I was 32 and echo showed hypokinesis of anterior, anteroseptal and anterolateral segme nts. MT was "moderate" in size. DISCHARGE EXAM: General: [...] heartbeat or fast pulse Date Last Reviewed: 06/13/201619995116-[address] [email or web address] [place] [address], [place] [address]. All righ ts reserved. This information is not intended as a substitute for professional medical care. Always follow your healthcare professional's instructions. Avoid tobacco use. Follow-up: In about a month with Dr. Guaman. Time spent on discharge planning: less than 30 minutes Portions of this chart may have been created with [employer] voice recognition software. Occasi onal wrong-word or [...] Jogging or running Swimming or water aerobics [employer] Tennis Riding a bicycle or stationary [...] heartbeat or fast pulse Date Last Reviewed: 06/13/201619993169-[address] [email or web address] [place] [address]. All righ ts reserved. This information is [...] | | | | | | | kaw coronary | | | | | | | artery of kaw | | | | | | | heart with angina | | | | | | | pectoris ([facility]) | | | | | | + [...] | | | | | | | kaw coronary | | | | | | | artery of kaw | | | | | | | heart with angina | | | | | | | pectoris ([facility]) | | | | | | + [...] | | | | | | | kaw coronary | | | | | | | artery of kaw | | | | | | | heart with angina | | | | | | | pectoris ([facility]) | | | | | | + [...] | | | | | | | ([facility]) | | | | | | + [...] | | | | | | [employer] | | | | | [...] [address] | [place] | [phone] | | [facility] | | [address] | | | - LABORATORY | | [...] MD | | | | | | ([id number]) on 01/05/2018 | | | | | [...] | | | | | | [employer] | | | | | [...] 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 Procedure Type of Study TTE procedure: ECHO [...] 1.08 cm PW Diastolic: 1.07 cm EF Tctolxhsq29% EF | | | Calculated: 55% Miscellaneous [...] Diastolic: 1.07 cm | | | EF Lgcoycwdx43% | | | EF Calculated: 55% | [...] Number 449 | | A Patient Number [id number] Date of Study 01/04/2018 Visit Number | | [id number] Referring Physician Rosales GUAMAN MD | | Number Date of 1970 Merchandising Execution Associate FATOUMATA ISAAC Age | | 47 year(s) Interpreting KALIE SAHU, | | [place] Gender Male Nurse | | Stress TechnicianProcedureType [...] 1.08 cm PW Diastolic: 1.07 cm EF Jlpmukfnf38% EF Calculated: 55% | | Miscellaneous Aorta [...] PW Diastolic: 1.07 cm | | EF Iiezvfoqi52% | | EF Calculated: 55% | | [...] MD | | | | | | ([id number]) on 01/04/2018 | | | | | [...] + | [facility] | [address] | [place] | [phone] | | [facility] | | [address] | | | - LABORATORY | | [...] | | | | | | [facility] | | | | | [...] [address] | [place] | [phone] | | [facility] | | [address] | | | - LABORATORY | | [...] + | [facility] | [address] | [place] | [phone] | | [facility] | | [address] | | | - LABORATORY | | [...] | | | | | | [employer] | | | | | [...] [address] | [place] | [phone] | | [facility] | | [address] | | | - LABORATORY | | [...] | | | | PREETHI BARAJAS MD ([id number]) | | | | | | on [...] [address] | [place] | [phone] | | [facility] | | [address] | | | - LABORATORY | | [...] 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
--- OUTSIDE RECORDS SUMMARY | ~2019-09-02 | XMS | Encounter Summary ---
Demographics + + + | Address | [address] | | | [place] [address] | + + + | Home Phone | | + + + | Preferred Language | Unknown | + + + | Marital Status | | + + + | Hindu Affiliation | 1013 | + + + | Race | Unknown | + + + | Ethnic Group | Unknown | + + + Author + + + | Author | [facility] | | | and Randalana | + + + | Organization | [facility] | | | and Randalana | [...] Team Providers + +------+ + | Care Sterile Tech Name | Role | Phone | [...] | | [address] [place], [place] | [place] [address] | | | | | [address] | [phone] | | | | | [phone] | | | +--------+ + + + [...]
[2019-09-02] MEDS ORDERED: PLAVIX75 MG PO (17:31)
[2019-09-02] MEDS ORDERED: ASPIR 8181 MG PO (17:32)
== END 2019-09-02 17:55 | disposition home or self-care (01) ==
LOC: ED 17:17
DX: M20.012 Mallet finger of left finger(s) (principal); I10 Essential (primary) hypertension; I25.2 Old myocardial infarction; Z88.0 Allergy status to penicillin; Z79.82 Long term (current) use of aspirin; Z79.899 Other long term (current) drug therapy
CPT/HCPCS: 99283